=== PATIENT | male | born 1945 | race Caucasian/White ===

== ENCOUNTER 2017-05-14 07:56 | Inpatient (IN) | payer MEDICARE, MEDICAID ==
[~2017-05-14] VITALS: Ht 162.6 cm; Wt 65.0 kg
[2017-05-14] VITALS (51 sets, daily range): BP systolic 78–123; BP diastolic 43–82
[~2017-05-14 07:56] MED LIST changes: -LUTE6CAP11 PO
--- NOTE | 2017-05-14 07:58 | ER Report ---
History and Physical Time Seen By MD: 07:57 HPI/ROS CC: Altered mental status HPI: 71-year-old male with a past medical history of pneumonia, aspiration, dementia , hyperlipidemia, hypernatremia, GERD, acute respiratory failure, cellulitis, cholecystitis, hypertension, diabetes mellitus type II, fragile X syndrome and male. Patient presents to the emergency department per EMS with decreased level of consciousness. He was in the emergency department on 05/03/2017. At that time he was diagnosed with cellulitis of the right lower extremity. He was placed on Bactrim which she has taken in the past. He was then returned to the nursing care facility where he resides. Yesterday he was slightly slow and his mental processing from his baseline. Today's unresponsive. He is slightly hypotensive. He has a respiratory rate of 44. He is febrile. And definitely is obtunded. Pupils are reactive but are deviated to the left. I do not appreciate doll's eyes. EMS reported dark emesis but did not specifically say they were coffee-ground emesis. He has had aspiration pneumonia in the past. ROS: 12 point review of systems essentially negative other than what's mentioned in history of present illness. NURSES AND OLD MEDICAL RECORDS: Reviewed PMH: Reviewed SURGICAL HX: Reviewed FAMILY HX: Noncontributory SOCIAL HX: His nursing care facility. Denies alcohol or illicit drugs or smoking. VITAL SIGNS: Temperature 101.0 rectal, pulse 74, respiratory rate 44, blood pressure 93/51, pulse oximetry 93% on 15 L nonrebreather CONSTITUTIONAL: 71-year-old male who is definitely obtunded. PHYSICAL EXAM: HEENT: Pupils equal round reactive to light deviated to the left, I do not appreciate doll's eyes, tympanic membranes pearly white umbo present with good light reflex. Lips dry mucous membranes moist gums nonbleeding uvula midline and rises equally with phonation, oropharynx noninjected, teeth intact. NECK: Neck supple, thyroid not appreciated, anterior and posterior cervical lymphadenopathy not appreciated. Trachea midline and rises equally with phonation. CARDIAC: S1-S2 regular rate rhythm no murmurs rubs or gallops. LUNGS: Lungs decreased air movement and coarse bilaterally posteriorly in all olsen. ABDOMEN: Abdomen soft, nondistended, bowel sounds active in all 4 quadrants, no bruits noted, no CVA tenderness. MUSCULOSKELETAL: Strength unable to measure due to patient obtunded, no deformities noted. Right lower extremity with cellulitis. Right lower leg edema to the thigh 2+. NEUROLOGIC: Patient alert and oriented by 3 Allergies: Coded Allergies: Penicillins (Verified Allergy, Mild, 05/14/17) chlorpromazine (Verified Allergy, Mild, 05/14/17) Home Meds Active Scripts Sulfamethoxazole/Trimet 800-160 Mg Tab (BACTRIM DS TABLET) 1 Each Tablet, 1 TAB PO Q12H, #13 TAB Prov:VIVI BABB DIRECTOR PRIVATE 05/03/17 Clindamycin Hcl (CLINDAMYCIN HCL) 150 Mg Capsule, 300 MG PO QID, #20 CAPSULE Prov:RICHARD HERNANDEZ DO 06/03/16 Reported Medications Bupropion Hcl (BUPROPION XL) 150 Mg Tab.er.24h, 150 MG PO QDAY, #10 TAB 05/03/17 Doxazosin Mesylate (DOXAZOSIN MESYLATE) 2 Mg Tablet, 2 MG PO QDAY 05/03/17 Sodium Chloride (SODIUM CHLORIDE) 1,000 Mg Tablet.jacob, 1000 MG MC 05/03/17 Lutein Extract/Zeaxanthin Ext (LUTEIN 15 MG SOFTGEL) 1 Each Capsule, 1 EACH PO BID, CAPSULE 06/02/16 Magnesium Hydroxide (MILK OF MAGNESIA) 400 Mg/5 Ml Oral.susp, 30 ML PO PRN Y for CONSTIPATION, BOTTLE 06/02/16 Lactose-Free Food (ENSURE LIQUID) 237 Ml Liquid, 237 ML PO DAILY 06/02/16 Lactulose (CONSTULOSE) 10 Gm/15 Ml Solution, 30 ML PO TID Y for CONSTIPATION 06/02/16 Calcium Carbonate/Vitamin D3 (CALCIUM + VITAMIN D TABLET) 1 Each Tablet, 2 EACH PO DAILY 06/02/16 [bacitracin opthalmic] No Conflict Check, 500 OP BID 06/02/16 Sodium Chloride (SODIUM CHLORIDE) 1 Gm Tab, 1 GM PO DAILY, TAB 06/02/16 [valproic acid] No Conflict Check, 500 MG PO HS for hiccups 06/02/16 Bupropion Hcl (BUPROPION HCL) 75 Mg Tablet, 150 MG PO QDAY, #10 TAB 03/15/16 Doxazosin Mesylate (DOXAZOSIN MESYLATE) 2 Mg Tablet, 2 MG PO QDAY 03/15/16 Ranitidine Hcl (ZANTAC) 150 Mg Tablet, 150 MG PO BID, TAB 03/15/16 Calcium Carbonate/Mag Hydrox (Antacid 1000-200 mg Tab Chew) 1 Each Tab.chew, 1000 MG PO PRN 05/26/15 Bacitracin Zinc (Bacitracin Zinc) 1 Each Oint..ea., 1 CARMELO TP PRN 05/02/15 Baclofen (BACLOFEN) 10 Mg Tablet, 10 MG PO PRN Y for HICCUPS, #30 TAB every 6 hours as needed. Only 2 in 24 hours 05/02/15 Valsartan (DIOVAN) 160 Mg Tablet, 160 MG PO QDAY 04/07/15 Fesoterodine Fumarate (TOVIAZ) 4 Mg Tabsr, 4 MG PO DAILY 03/21/15 Cetyl Alc/Stearyl Alc/Pg/Sls (CETAPHIL CREAM) 454 Gm Cream..g., 454 GM TP DAILY dry skin on feet 03/21/15 Loperamide Hcl/Simethicone (IMODIUM MULTI-SYMPTOM REL CPLT) 1 Each Tablet, 4 MG PO Y for DIARRHEA after 2 consecutive loose stools 03/21/15 Valproic Acid (VALPROIC ACID) 250 Mg Cap, 250 MG PO TID, CAP 01/28/14 Atenolol (ATENOLOL) 100 Mg Tablet, 1 TAB PO QDAY, TAB TAKE ONE TABLET BY MOUTH ONCE A DAY at 6PM 01/28/14 Acetaminophen (ACETAMINOPHEN) 500 Mg Tablet, 2 TAB PO Q4-6H Y for PAIN, TAB 01/28/14 Multivitamin (ONE DAILY) 1 Each Tablet, 1 EACH PO DAILY 01/14/14 Ezetimibe (Zetia) 10 Mg Tab, 10 MG PO QHS, 0 Refills 06/20/11 Aspirin (Aspirin) 325 Mg Tab, 325 MG PO QDAY, 0 Refills 06/20/11 Hx Smoking: No Smoking Status: Never Smoker Hx Substance Use Disorder: No Hx Alcohol Use: No Constitutional Vital Sign - Last 24 Hours 05/14/17 05/14/17 05/14/17 05/14/17 07:56 07:57 08:00 08:07 Temp 101.0 Pulse 76 74 Resp 42 44 B/P (MAP) 93/51 94/54 (67) Pulse Ox 91 93 O2 Delivery Non-Rebreather O2 Flow Rate 15.0 Intake and Output 1205/14/17 05/15/17 15:00 23:00 07:00 Intake Total 1200 ml Output Total 200 ml Balance 1000 ml Medical Decision Making Data Points Result Diagram: 05/14/1718 05/14/1718 Laboratory Hematology Test 05/14/17 07:55 05/14/17 08:18 05/14/17 08:40 05/14/17 09:08 Prothrombin Time 14.9 seconds (12.0-14.4) Prothromb Time International Ratio 1.16 Activated Partial Thromboplast Time 32 seconds (23-35) Lactate 2.1 mmol/L (0.7-2.1) Magnesium Level 2.2 mg/dl (1.7-2.2) B-Type Natriuretic Peptide 1270 pg/ml (0-100) Amylase Level < 30 U/L (0-110) Lipase 14 U/L (23-300) Red Blood Count 4.02 M/uL (4.00-5.60) Mean Corpuscular Volume 95.6 fL (80.0-96.0) Mean Corpuscular Hemoglobin 32.4 pg (26.0-33.0) Mean Corpuscular Hemoglobin Concent 33.9 g/dL (32.0-36.0) Red Cell Distribution Width 15.0 % (11.5-14.5) Mean Platelet Volume 9.2 fL (7.2-11.1) Neutrophils (%) (Auto) 73.2 % (39.4-72.5) Lymphocytes (%) (Auto) 22.9 % (17.6-49.6) Monocytes (%) (Auto) 3.8 % (4.1-12.4) Eosinophils (%) (Auto) 0.0 % (0.4-6.7) Basophils (%) (Auto) 0.1 % (0.3-1.4) Nucleated RBC Relative Count (auto) 0.3 /100WBC Neutrophils # (Auto) 3.9 K/uL (2.0-7.4) Lymphocytes # (Auto) 1.2 K/uL (1.3-3.6) Monocytes # (Auto) 0.2 K/uL (0.3-1.0) Eosinophils # (Auto) 0.0 K/uL (0.0-0.5) Basophils # (Auto) 0.0 K/uL (0.0-0.1) Nucleated RBC Absolute Count (auto) 0.02 K/uL Erythrocyte Sedimentation Rate 55 mm/HOUR (0-20) Sodium Level 131 mmol/L (137-145) Potassium Level 4.3 mmol/L (3.5-5.0) Chloride Level 102 mmol/L (98-107) Carbon Dioxide Level 21 mmol/L (22-30) Blood Urea Nitrogen 55 mg/dl (9-21) Creatinine 1.90 mg/dl (0.66-1.25) Glomerular Filtration Rate Calc 35.1 Random Glucose 147 mg/dl (75-110) Calcium Level 8.0 mg/dl (8.4-10.2) Total Bilirubin 0.8 mg/dl (0.2-1.3) Aspartate Amino Transf (AST/SGOT) 28 U/L (0-35) Alanine Aminotransferase (ALT/SGPT) 31 U/L (0-56) Alkaline Phosphatase 45 U/L (0-126) C-Reactive Protein 18.0 mg/dl (<1.0) Total Protein 4.9 gm/dl (6.3-8.2) Albumin 2.2 g/dl (3.5-5.0) Blood Gas Puncture Site Right radial Blood Gas Patient Temperature 101 DEGREES Arterial Blood pH 7.40 (7.35-7.45) Arterial Blood Partial Pressure CO2 29 mmHg (32-37) Arterial Blood Partial Pressure O2 109 mmHg (60-80) Arterial Blood HCO3 18 mmol/L (20-26) Arterial Blood Oxygen Saturation 98 % (92-100) Arterial Blood Base Excess -7.0 mmol/L Gallo Test Nt avail Oxygen Liters/Minute 15l Troponin I 0.030 ng/ml Urine Color Yudi Urine Clarity Slightly-cloudy Urine pH 5.0 pH (4.8-9.5) Urine Specific [place] 1.019 Urine Protein Negative mg/dL (NEGATIVE) Urine Glucose (UA) 50 mg/dL (NEGATIVE) Urine Ketones Negative mg/dL (NEGATIVE) Urine Blood Negative (NEGATIVE) Urine Nitrite Negative (NEGATIVE) Urine Bilirubin Negative (NEGATIVE) Urine Urobilinogen 2.0 mg/dL (0.2-1.9) Urine Leukocyte Esterase Negative (NEGATIVE) Urine RBC <1 /HPF (0-2/HPF) Urine WBC 2 /HPF (0-5/HPF) Urine Squamous Epithelial Cells None /LPF (NONE-FEW) Urine Bacteria Few /HPF (NONE-FEW) Urine Hyaline Casts Many /LPF (NONE-FEW) Urine Mucus Few /HPF (NONE-FEW) Stool Occult Blood (IFOB) Negative (NEGATIVE) Chemistry Test 05/14/17 07:55 05/14/17 08:18 05/14/17 08:40 05/14/17 09:08 Prothrombin Time 14.9 seconds (12.0-14.4) Prothromb Time International Ratio 1.16 Activated Partial Thromboplast Time 32 seconds (23-35) Lactate 2.1 mmol/L (0.7-2.1) Magnesium Level 2.2 mg/dl (1.7-2.2) B-Type Natriuretic Peptide 1270 pg/ml (0-100) Amylase Level < 30 U/L (0-110) Lipase 14 U/L (23-300) White Blood Count 5.3 k/uL (4.5-11.0) Red Blood Count 4.02 M/uL (4.00-5.60) Hemoglobin 13.0 g/dL (14.0-18.0) Hematocrit 38.5 % (42.0-52.0) Mean Corpuscular Volume 95.6 fL (80.0-96.0) Mean Corpuscular Hemoglobin 32.4 pg (26.0-33.0) Mean Corpuscular Hemoglobin Concent 33.9 g/dL (32.0-36.0) Red Cell Distribution Width 15.0 % (11.5-14.5) Platelet Count 306 K/uL (150-450) Mean Platelet Volume 9.2 fL (7.2-11.1) Neutrophils (%) (Auto) 73.2 % (39.4-72.5) Lymphocytes (%) (Auto) 22.9 % (17.6-49.6) Monocytes (%) (Auto) 3.8 % (4.1-12.4) Eosinophils (%) (Auto) 0.0 % (0.4-6.7) Basophils (%) (Auto) 0.1 % (0.3-1.4) Nucleated RBC Relative Count (auto) 0.3 /100WBC Neutrophils # (Auto) 3.9 K/uL (2.0-7.4) Lymphocytes # (Auto) 1.2 K/uL (1.3-3.6) Monocytes # (Auto) 0.2 K/uL (0.3-1.0) Eosinophils # (Auto) 0.0 K/uL (0.0-0.5) Basophils # (Auto) 0.0 K/uL (0.0-0.1) Nucleated RBC Absolute Count (auto) 0.02 K/uL Erythrocyte Sedimentation Rate 55 mm/HOUR (0-20) Glomerular Filtration Rate Calc 35.1 Calcium Level 8.0 mg/dl (8.4-10.2) Total Bilirubin 0.8 mg/dl (0.2-1.3) Aspartate Amino Transf (AST/SGOT) 28 U/L (0-35) Alanine Aminotransferase (ALT/SGPT) 31 U/L (0-56) Alkaline Phosphatase 45 U/L (0-126) C-Reactive Protein 18.0 mg/dl (<1.0) Total Protein 4.9 gm/dl (6.3-8.2) Albumin 2.2 g/dl (3.5-5.0) Blood Gas Puncture Site Right radial Blood Gas Patient Temperature 101 DEGREES Arterial Blood pH 7.40 (7.35-7.45) Arterial Blood Partial Pressure CO2 29 mmHg (32-37) Arterial Blood Partial Pressure O2 109 mmHg (60-80) Arterial Blood HCO3 18 mmol/L (20-26) Arterial Blood Oxygen Saturation 98 % (92-100) Arterial Blood Base Excess -7.0 mmol/L Gallo Test Nt avail Oxygen Liters/Minute 15l Troponin I 0.030 ng/ml Urine Color Yudi Urine Clarity Slightly-cloudy Urine pH 5.0 pH (4.8-9.5) Urine Specific [place] 1.019 Urine Protein Negative mg/dL (NEGATIVE) Urine Glucose (UA) 50 mg/dL (NEGATIVE) Urine Ketones Negative mg/dL (NEGATIVE) Urine Blood Negative (NEGATIVE) Urine Nitrite Negative (NEGATIVE) Urine Bilirubin Negative (NEGATIVE) Urine Urobilinogen 2.0 mg/dL (0.2-1.9) Urine Leukocyte Esterase Negative (NEGATIVE) Urine RBC <1 /HPF (0-2/HPF) Urine WBC 2 /HPF (0-5/HPF) Urine Squamous Epithelial Cells None /LPF (NONE-FEW) Urine Bacteria Few /HPF (NONE-FEW) Urine Hyaline Casts Many /LPF (NONE-FEW) Urine Mucus Few /HPF (NONE-FEW) Stool Occult Blood (IFOB) Negative (NEGATIVE) Coagulation Test 05/14/17 07:55 Prothrombin Time 14.9 seconds Prothromb Time International Ratio 1.16 Activated Partial Thromboplast Time 32 seconds Urinalysis Test 05/14/17 09:08 Urine Color Yudi Urine Clarity Slightly-cloudy Urine pH 5.0 pH (4.8-9.5) Urine Specific [place] 1.019 Urine Protein Negative mg/dL (NEGATIVE) Urine Glucose (UA) 50 mg/dL (NEGATIVE) Urine Ketones Negative mg/dL (NEGATIVE) Urine Blood Negative (NEGATIVE) Urine Nitrite Negative (NEGATIVE) Urine Bilirubin Negative (NEGATIVE) Urine Urobilinogen 2.0 mg/dL (0.2-1.9) Urine Leukocyte Esterase Negative (NEGATIVE) Urine RBC <1 /HPF (0-2/HPF) Urine WBC 2 /HPF (0-5/HPF) Urine Squamous Epithelial Cells None /LPF (NONE-FEW) Urine Bacteria Few /HPF (NONE-FEW) Urine Hyaline Casts Many /LPF (NONE-FEW) Urine Mucus Few /HPF (NONE-FEW) Microbiology Microbiology Date/Time Source Procedure Growth Status 05/14/17 08:40 Blood Blood Culture - Preliminary NO GROWTH SO FAR, SET LATE. REINCUBATED Resulted 05/14/17 08:10 Blood Blood Culture - Preliminary NO GROWTH SO FAR, SET LATE. REINCUBATED Resulted EKG/Imaging EKG Interpretation Normal sinus rhythm, ventricular rate 72 bpm, ME interval 176 ms, QRS duration 88 ms, QT 380 ms, QTC 416 ms. No significant change from previous ECG on 2016. Possible lead alterations from previous ECG as before and V3 are positive today as they were negative and 06/02/2016. But no significant change in morphology. Imaging CT of the head: Impression: 1. No evidence of infarct hemorrhage mass or fracture. 2. Age-related cerebral volume loss. CT chest and pelvis with IV contrast: IMPRESSION: 1. Diffuse patchy airspace opacities and consolidation right lung, with patchy opacities in left lung base. Differential diagnosis favors pneumonia. 2. Mediastinal and right hilar adenopathy, most consistent with reactive lymphadenopathy. 3. Nondisplaced fracture of the transverse process right side at L2 L3 L4, and nondisplaced fracture posterior spinous process of L4. 4. Small loculated fluid collection in the right groin. Differential diagnosis includes bladder diverticulum, or right-sided inguinal hernia. ED Course/Re-evaluation ED Course Patient appears to be with aspiration pneumonia and also with sepsis. Patient received 1.5 L normal saline. Patient was intubated after I talked with the nephew. I related to him that this did not look as though it's end-of-life. Intubation is for protection of the airway is Ledger Coma Scale is a 7. And he does appear to have aspiration pneumonia. He agrees to the intubation. Patient also received meropenem 500 mg. Labs with blood cultures have been done. Occult stool is pending. I had given report to Dr. Montes, hospitalist. He has a monitor is placed on patient. Mallampati 3. Suction in place. Patient preoxygenated. Rapid sequence induction was performed. Intubation by 1 without difficulty. 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 #3 Aranda blade was utilized. Patient was intubated with 8.0 ET tube. Cords were visualized. Bilateral breath sounds with end tidal CO2 present. ET tube 22-1/2 cm at lip. Tube was secured. NG right Humphries after being warmed and lubricated was placed without difficulty. There sound present in left upper quadrant of abdomen. No complications noted. Patient will be transferred to ICU. Re-evaluation Medical decision-making includes but not excluded to aspiration pneumonia, cellulitis versus abscess, combination of the 2, intercerebral hemorrhage. Decision to Disposition Date: May 14, 2017 Decision to Disposition Time: 10:15 Depart Departure Latest Vital Signs Vital Signs Date Time Temp Pulse Resp B/P (MAP) Pulse Ox O2 Delivery O2 Flow Rate FiO2 05/14/17 08:07 15.0 05/14/17 08:00 94/54 (67) 05/14/17 07:57 101.0 74 44 93 Non-Rebreather Impression: Primary Impression: Acute respiratory failure Additional Impressions: Sepsis Aspiration pneumonia Condition: Improved Disposition: Admitted from ER Referrals: LEXII JUSTIN MD (PCP) Problem Qualifiers Primary Impression: Acute respiratory failure Respiratory failure complication: unspecified whether with hypoxia or hypercapnia Qualified Codes: J96.00 - Acute respiratory failure, unspecified whether with hypoxia or hypercapnia Additional Impressions: Sepsis Sepsis type: sepsis due to unspecified organism Qualified Codes: A41.9 - Sepsis, unspecified organism FADIA AMES MD May 14, 2017 07:58
[2017-05-14] MEDS ORDERED: ACETAMINOPHEN(*)1000 MG/100 ML 100 ML IVPB ONE (08:05)
[2017-05-14] MEDS ORDERED: NS(*) 0.9% 1000 ML BAG 1,000 ML IV ONE (08:05)
[2017-05-14] MEDS ORDERED: NS(*) 0.9% 500 ML BAG 500 ML IV ONE (08:05)
--- NOTE | 2017-05-14 08:22 | EKG ---
FACILITY: [facility] - [place] PATIENT NAME: PAMELA JAMES : [id number] MR: [id number] V: [id number] EXAM DATE: ORDERING PHYSICIAN: FADIA AMES TECHNOLOGIST: LOBIOT Test Reason : AMS Blood Pressure : / mmHG Vent. Rate : 072 BPM Atrial Rate : 072 BPM P-R Int : 176 ms QRS Dur : 088 ms QT Int : 380 ms P-R-T Axes : 052 020 037 degrees QTc Int : 416 ms Normal sinus rhythm Normal ECG When compared with ECG of 02-JUN-2016 05:38, Non-specific change in ST segment in Inferior leads Confirmed by RICHARD HERNANDEZ ([id number]) on 05/15/2017 3:03:27 PM Referred By: KWAKU Confirmed By:RICHARD HERNANDEZ
[2017-05-14 08:26] LABS: PLATELET COUNT, AUTOMATED 306 K/uL (150-450)
[2017-05-14] MEDS ORDERED: NS 0.9% IVPB ONE ×2 (08:30→08:50)
[2017-05-14] MEDS ORDERED: EMS NS 0.9%(*) 1000 ML BAG 1,000 ML IV ONE (08:30)
[2017-05-14] MEDS ORDERED: MEROPENEM IVPB ONE ×2 (08:30→08:50)
[2017-05-14] MEDS ORDERED: NS 0.9% 50 ML VIAL 100 ML ONE (08:32)
[2017-05-14] MEDS ORDERED: IOPAMIDOL 76% 100 ML INFUS BTL 100 ML ONE (08:32)
[2017-05-14 09:07] LABS: INR 1.16
--- NOTE | 2017-05-14 09:32 | RADIOLOGY IMAGING REPORT ---
FACILITY: [facility] - [place] PATIENT NAME: Glen Jones : 1945 MR: [id number] V: [id number] EXAM DATE: ORDERING PHYSICIAN: FADIA AMES TECHNOLOGIST: Location: [facility] Patient: Glen Jones : 1945 Visit/Account:[id number] Date of Sevice: 05/14/2017 HEAD W/O CONTRAST Indication: FEVER Comparison: Head CT 04/16/2015 Technique: Noncontrast head CT vertex to the skull base obtained. One of the following dose optimizat ion techniques was utilized in the performance of this exam: automated exposure control; adjustment o f the mA and/or kV according to the patient's size; or use of an iterative reconstruction technique. Specific details can be referenced in the facility's radiology CT exam operational policy. Findings: Brain: Galvan-white matter differentiation and cortex are maintained. Ventricles and sulci: The ventricles and sulci are symmetrically prominent. Paranasal sinuses:Visualized paranasal sinuses and mastoid air cells are clear. Calvarium:Bones of the skull and skull base are intact. Orbits and soft tissues: Right and left globes and soft tissues of the head are normal. Impression: 1. No evidence of infarct hemorrhage mass or fracture. 2. Age-related cerebral volume loss. Report Dictated By: Nikolay Newby at 05/14/2017 9:25 AM Report E-Signed By: Nikolay Newby at 05/14/2017 9:28 AM WSN:[id number]
--- NOTE | 2017-05-14 09:41 | RADIOLOGY IMAGING REPORT ---
FACILITY: [facility] - [place] PATIENT NAME: Glen Jones : 1945 MR: [id number] V: [id number] EXAM DATE: ORDERING PHYSICIAN: FADIA AMES TECHNOLOGIST: Location: [facility] - [place] Patient: Glen Jones : 1945 Visit/Account:[id number] Date of Sevice: 05/14/2017 CHEST/AB/PELV W/CONTRAST HISTORY: decreased level of consciousness TECHNIQUE: CT thoracic inlet to the pubic symphysis was obtained with IV contrast.. One of the following dose optimization techniques was utilized in the performance of this exam: autom ated exposure control; adjustment of the mA and/or kV according to the patient's size; or use of an i terative reconstruction technique. Specific details can be referenced in the facility's radiology CT exam operational policy. CONTRAST: 100 cc [id number] IV. COMPARISON: None. FINDINGS: CHEST: Lungs/pleura: Right lung patchy airspace opacities and lower lobe consolidations are seen. Minimal l eft lower lobe airspace opacities are also seen. The left upper lobe is clear. Mediastinum: The heart size is normal. Subcarinal, precarinal, AP window, and right paratracheal lym phadenopathy is seen. Right hilar adenopathy is also noted. Bones/soft tissues: Negative. ABDOMEN/PELVIS: Liver/gallbladder: There are postoperative changes from cholecystectomy. The liver demonstrates norm al enhancement. Spleen: Normal. Adrenals: Normal. Pancreas: Normal enhancement without evidence of mass. Kidneys/: Both kidneys demonstrate normal enhancement without evidence of hydronephrosis or mass. The urinary bladder is normal. Pelvis/Bladder: Urinary bladder is normal. GI: Large amount of stool is seen throughout the colon, specifically large amount of stool is seen i n the rectum. Small bowel is normal caliber. Stomach is normal. In the right inguinal region, there is a 2.9 cm fluid collection. Vessels/nodes: Negative. Bones/soft tissues: Nondisplaced fracture of the right transverse process and L2, L3, L4. Nondisplac ed fracture of the posterior spinous process at L4. The vertebral bodies are intact. On the sagittal reconstructions, sterile has the appearance of fracture, however it is motion artifact. The sternum i s intact., IMPRESSION: 1. Diffuse patchy airspace opacities and consolidation right lung, with patchy opacities in left lung base. Differential diagnosis favors pneumonia. 2. Mediastinal and right hilar adenopathy, most consistent with reactive lymphadenopathy. 3. Nondisplaced fracture of the transverse process right side at L2 L3 L4, and nondisplaced fracture posterior spinous process of L4. 4. Small loculated fluid collection in the right groin. Differential diagnosis includes bladder diver ticulum, or right-sided inguinal hernia. Report Dictated By: Nikolay Newby at 05/14/2017 9:28 AM Report E-Signed By: Nikolay Newby at 05/14/2017 9:37 AM WSN:[id number]
[2017-05-14] MEDS: PROPOFOL(*)1000 MG/100 ML VIAL 100 ML IV PRN (10:08)
[2017-05-14] MEDS ORDERED: SUCCINYLCHOL CHL 200MG/10ML VL IVP ONE (11:00)
[2017-05-14] MEDS ORDERED: ROCURONIUM BROM 10 MG/ML 5 ML IVP ONE (11:00)
[2017-05-14] MEDS ORDERED: ETOMIDATE 20 MG/10 ML VIAL IVP ONE (11:00)
--- NOTE | 2017-05-14 11:37 | History & Physical ---
History of Present Illness Chief Complaint Altered Mental Status History of Present Illness Mr. Jones is a 71-year-old male with a past medical history of HTN, DM-II, GERD , Fragile X Syndrome, Dyslipidemia, Dementia, Recurrent Aspirational Pneumonias and he was recently discharged from [facility] after having nausea and ?coffee ground emesis and was scoped by Dr. Ayon and found to have Jaylyn Esophagitis and received Fluconazole 2 doses in the hospital and he felt better. He was d/c' d home for 20 days Fluconazole but he developed AMS and aspirated and presented to the ER at [facility] with AMS. He was also in the emergency department on 2016. At that time he was diagnosed with cellulitis of the right lower extremity. He was placed on Bactrim which she has taken in the past. He was then returned to the nursing care facility where he resides. Yesterday he was slightly slow and his mental processing from his baseline. Today's unresponsive. He was slightly hypotensive. During the ER evaluation he found to have a respiratory rate of 44. He was febrile Temp.101F and definitely was obtunded, He looked sepsis in theER. His GCS was 7. He was prophylactically intubated in the ER to protect his airways because of his obtundation and aspiration. His EKG and CT Scan of the head were normal. His CT A/P revealed diffuse patchy airspace opacities and consolidation of R-Lung and L-base. After stabilizing the patient. I discussed the case with the ER-MD and admitted the patient to the ICU for further evaluation and management. He is currently on SIMV 14, TV 500, Peep 8 and FiO2 100% and well sedated. History Home Meds Active Scripts Sulfamethoxazole/Trimet 800-160 Mg Tab (BACTRIM DS TABLET) 1 Each Tablet, 1 TAB PO Q12H, #13 TAB Prov:VIVI BABB DIRECTOR [employer] 05/03/17 Clindamycin Hcl (CLINDAMYCIN HCL) 150 Mg Capsule, 300 MG PO QID, #20 CAPSULE Prov:RICHARD HERNANDEZ DO 06/03/16 Reported Medications Bupropion Hcl (BUPROPION XL) 150 Mg Tab.er.24h, 150 MG PO QDAY, #10 TAB 05/03/17 Doxazosin Mesylate (DOXAZOSIN MESYLATE) 2 Mg Tablet, 2 MG PO QDAY 05/03/17 Sodium Chloride (SODIUM CHLORIDE) 1,000 Mg Tablet.jacob, 1000 MG MC 05/03/17 Lutein Extract/Zeaxanthin Ext (LUTEIN 15 MG SOFTGEL) 1 Each Capsule, 1 EACH PO BID, CAPSULE 06/02/16 Magnesium Hydroxide (MILK OF MAGNESIA) 400 Mg/5 Ml Oral.susp, 30 ML PO PRN Y for CONSTIPATION, BOTTLE 06/02/16 Lactose-Free Food (ENSURE LIQUID) 237 Ml Liquid, 237 ML PO DAILY 06/02/16 Lactulose (CONSTULOSE) 10 Gm/15 Ml Solution, 30 ML PO TID Y for CONSTIPATION 06/02/16 Calcium Carbonate/Vitamin D3 (CALCIUM + VITAMIN D TABLET) 1 Each Tablet, 2 EACH PO DAILY 06/02/16 [bacitracin opthalmic] No Conflict Check, 500 OP BID 06/02/16 Sodium Chloride (SODIUM CHLORIDE) 1 Gm Tab, 1 GM PO DAILY, TAB 06/02/16 [valproic acid] No Conflict Check, 500 MG PO HS for hiccups 06/02/16 Bupropion Hcl (BUPROPION HCL) 75 Mg Tablet, 150 MG PO QDAY, #10 TAB 03/15/16 Doxazosin Mesylate (DOXAZOSIN MESYLATE) 2 Mg Tablet, 2 MG PO QDAY 03/15/16 Ranitidine Hcl (ZANTAC) 150 Mg Tablet, 150 MG PO BID, TAB 03/15/16 Calcium Carbonate/Mag Hydrox (Antacid 1000-200 mg Tab Chew) 1 Each Tab.chew, 1000 MG PO PRN 05/26/15 Bacitracin Zinc (Bacitracin Zinc) 1 Each Oint..ea., 1 CARMELO TP PRN 05/02/15 Baclofen (BACLOFEN) 10 Mg Tablet, 10 MG PO PRN Y for HICCUPS, #30 TAB every 6 hours as needed. Only 2 in 24 hours 05/02/15 Valsartan (DIOVAN) 160 Mg Tablet, 160 MG PO QDAY 04/07/15 Fesoterodine Fumarate (TOVIAZ) 4 Mg Tabsr, 4 MG PO DAILY 03/21/15 Cetyl Alc/Stearyl Alc/Pg/Sls (CETAPHIL CREAM) 454 Gm Cream..g., 454 GM TP DAILY dry skin on feet 03/21/15 Loperamide Hcl/Simethicone (IMODIUM MULTI-SYMPTOM REL CPLT) 1 Each Tablet, 4 MG PO Y for DIARRHEA after 2 consecutive loose stools 03/21/15 Valproic Acid (VALPROIC ACID) 250 Mg Cap, 250 MG PO TID, CAP 01/28/14 Atenolol (ATENOLOL) 100 Mg Tablet, 1 TAB PO QDAY, TAB TAKE ONE TABLET BY MOUTH ONCE A DAY at 6PM 01/28/14 Acetaminophen (ACETAMINOPHEN) 500 Mg Tablet, 2 TAB PO Q4-6H Y for PAIN, TAB 01/28/14 Multivitamin (ONE DAILY) 1 Each Tablet, 1 EACH PO DAILY 01/14/14 Ezetimibe (Zetia) 10 Mg Tab, 10 MG PO QHS, 0 Refills 06/20/11 Aspirin (Aspirin) 325 Mg Tab, 325 MG PO QDAY, 0 Refills 06/20/11 Allergies: Coded Allergies: Penicillins (Verified Allergy, Mild, 05/14/17) chlorpromazine (Verified Allergy, Mild, 05/14/17) Patient History: FH: cancer pt doesn't know. FH: diabetes mellitus pt doesn't know. FHx: heart disease pt doesn't know. Hx Smoking: No Smoking Status: Never Smoker Caffeine Intake: Soda Caffeine/Cups Per Day: RARELY Hx Alcohol Use: No Hx Substance Use Disorder: No Social Drug Use: Never Review of Systems Constitutional: Other (Intubated and sedated, I could not obtain ROS) Exam Vital Signs Vital Signs Date Time Temp Pulse Resp B/P (MAP) Pulse Ox O2 Delivery O2 Flow Rate FiO2 05/14/17 15:42 80.0 05/14/17 13:28 61 14 05/14/17 10:25 89 05/14/17 10:20 99/55 (70) 05/14/17 08:07 15.0 05/14/17 07:57 101.0 Non-Rebreather General Appearance: Other (intubated and sedated) Neuro: No Gross deficits Neck: No Masses Cardiovascular: Normal Rhythm & Peripheral Pulses Respiratory: Clear to Auscultation, Other (few basilar rales) Chest: No Masses GI: Abd Soft and Non-Tender Integumentary: Skin Intact without Lesion / Mass Psych: Other (sedated) Medical Decision Making Data Points Result Diagram: 05/14/1718 05/14/1718 EKG / Imaging Monitor Interpretation: Normal Sinus Rhythm Imaging reviewed Pre-Admit Course ED Medications reviewed Medical Record Review: Yes Assessment and Plan Problems: (1) Aspiration pneumonia Status: Acute Assessment & Plan: Patient is intubated and sedated to protect the airways. He was recently hospitalized and underwent EGD and now aspirated. I will cover him with Meropenem 1gm IV q12h, Levaquin 500mg IV q daily. I will provided DVT prophylaxis with Heparin 5000units q8h, Protonix 40mg IV qd, and repeat labs in am. (2) Acute respiratory failure Status: Acute Assessment & Plan: He is intubated, sedated with Propofol and ventilated with the Settings: SIMV 14, TV 500, Peep 8, FiO2 100% for now and I will do ABG to further evaluate his respiratory status. (3) Acute kidney injury Status: Acute Assessment & Plan: His BUN/Cr is high and represent pre renal azotemia and I will start him on IVF NS 100ml/h and repeat his kidney function. (4) DMII (diabetes mellitus, type 2) Status: Chronic Assessment & Plan: I will check his BS q 6h and cover him with Humolog sliding scale II Central Venous Access Medical Necessity for Access: Hemodynamic Monitoring, IV Access, Medication Administration Critical Time Spent: 1st 30-74 Minutes Copies to: RICHARD WHYTE MD Venous Thromboembolism VTE Risk Physician Assess for VTE Risk: Yes Patient's VTE Risk: High VTE Diagnostic Test 2 Days Prior to Admit: No Antithrombotics Is Pt On Any Antithrombotics?: No Exam Sepsis Risk: Severe Sepsis Risk Problem Qualifiers (1) Acute respiratory failure: Respiratory failure complication: unspecified whether with hypoxia or hypercapnia Qualified Codes: J96.00 - Acute respiratory failure, unspecified whether with hypoxia or hypercapnia CODEY CHAUDHRY MD May 14, 2017 11:37
--- NOTE | 2017-05-14 12:06 | RADIOLOGY IMAGING REPORT ---
FACILITY: [facility] - [place] PATIENT NAME: Glen Jones : 1945 MR: [id number] V: [id number] EXAM DATE: ORDERING PHYSICIAN: FADIA AMES TECHNOLOGIST: Location: [facility] Patient: Glen Jones : 1945 Visit/Account:[id number] Date of Sevice: 05/14/2017 EXAMINATION: Portable chest radiograph single view at 05/14/2017 10:07 HISTORY: Line placement. COMPARISON: Chest x-ray dated 05/03/2017. Chest, abdomen, and pelvis CT dated 05/14/2017. FINDINGS: A single portable AP view of the chest is obtained. Lines/tubes: The endotracheal tube terminates 5 cm above the sarah. The enteric tube terminates in the distal esophagus. Lungs/pleura: Extensive patchy consolidation, right greater than left. No pleural effusion or pneumo thorax. Heart: Negative. Mediastinum: Negative. Bony structures/body wall: Negative. IMPRESSION: 1. The enteric tube terminates in the distal esophagus. 2. The endotracheal tube terminates 5 cm above the sarah. 3. Extensive patchy consolidation in the lungs, right greater than left. Report Dictated By: Karlos Latif MD at 05/14/2017 11:59 AM Report E-Signed By: Karlos Latif MD at 05/14/2017 12:03 PM WSN:[id number]
[2017-05-14] MEDS ORDERED: ONDANSETRON 4 MG/2 ML VIAL IVP PRN (12:20)
[2017-05-14] MEDS ORDERED: ACETAMINOPHEN(*)1000 MG/100 ML 100 ML IVPB PRN (12:20)
[2017-05-14] MEDS ORDERED: LEVOFLOXACIN/D5W*500 MG/100 ML 100 ML IVPB ONE (13:00)
[2017-05-14] MEDS: HEPARIN (PORC) 5000 UN/ML VIAL SC SCH ×2 (13:06→21:11)
[2017-05-14] MEDS: NS(*) 0.9% 1000 ML BAG 1,000 ML IV PRN ×3 (13:06→21:14)
[2017-05-14] MEDS: MIDAZOLAM 50 MG/10 ML 1ML VIAL 100 MG in NS(*) 0.9% 100 ML BAG 80 ML IV PRN (17:58)
[2017-05-14] MEDS: ORAL SUCTION/CHLORHX/SWAB KIT MT SCH (21:11)
[2017-05-14] MEDS: SODIUM CHLORIDE IV SCH (21:12)
[2017-05-14] MEDS: MEROPENEM IV SCH (21:12)
[2017-05-15] VITALS (63 sets, daily range): BP systolic 82–132; BP diastolic 43–104; Ht 162.6 cm; Wt 65.0 kg
[2017-05-15] MEDS: NS(*) 0.9% 1000 ML BAG 1,000 ML IV PRN ×3 (04:00→17:47)
[2017-05-15] MEDS: HEPARIN (PORC) 5000 UN/ML VIAL SC SCH (04:33)
[2017-05-15 05:33] LABS: PLATELET COUNT, AUTOMATED 217 K/uL (150-450)
[2017-05-15] MEDS: PROPOFOL(*)1000 MG/100 ML VIAL 100 ML IV PRN (06:17)
--- NOTE | 2017-05-15 06:48 | RADIOLOGY IMAGING REPORT ---
FACILITY: PATIENT NAME: Glen Jones : 1945 MR: [id number] V: [id number] EXAM DATE: ORDERING PHYSICIAN: CODEY CHAUDHRY TECHNOLOGIST: Location: [facility] Patient: Glen Jones : 1945 Visit/Account:[id number] Date of Sevice: 05/15/2017 CHEST SINGLE AP Additional pertinent History: Intubated COMPARISON STUDIES: May 14, 2017 FINDINGS: Support lines and catheters: ET tube 6 centers from the sarah. NG tube seen extending into the stoma ch. EKG wire leads. Lungs and Pleura: Improved aeration in the right lung with the degree of parenchymal opacity lesseni ng conspicuity when compared to the previous study. Heart and vasculature: The perceived perihilar interstitial pulmonary edema change intervally improv ed in the aerated left lung. Blaire and Mediastinum: Negative. Bones and Chest wall: Negative. Upper Abdomen: Negative. IMPRESSION: 1. Improved appearance of what appear to be mild interstitial pulmonary edema change. Improved aerati on in the patchy interstitial alveolar infiltrative change in the right lung. Report Dictated By: Georgi Mack MD at 05/15/2017 6:43 AM Report E-Signed By: Georgi Mack MD at 05/15/2017 6:45 AM WSN:[id number]
[2017-05-15] MEDS: MIDAZOLAM 50 MG/10 ML 1ML VIAL 100 MG in NS(*) 0.9% 100 ML BAG 80 ML IV PRN (08:00)
[2017-05-15] MEDS: PANTOPRAZOLE SOD 40 MG IV VIAL IVP SCH (09:27)
[2017-05-15] MEDS: ENOXAPARIN 30 MG/0.3 ML SYR SC SCH (09:27)
[2017-05-15] MEDS: MEROPENEM IV SCH ×2 (09:27→20:28)
[2017-05-15] MEDS: SODIUM CHLORIDE IV SCH ×2 (09:27→20:28)
[2017-05-15] MEDS: ORAL SUCTION/CHLORHX/SWAB KIT MT SCH ×2 (09:28→20:29)
[2017-05-15] MEDS: LEVOFLOXACIN/D5W 250 MG/50 ML 50 ML IVPB SCH (12:25)
--- NOTE | 2017-05-15 12:28 | Hospitalist Progress Note ---
Subjective Progress Notes Subjective This patient was admitted for aspiration pneumonia and respiratory failure. He had no acute events overnight. Patient Complains of: Cardiovascular: No: Chest Pain Respiratory: No: Shortness of Breath Physical Exam Vital Signs Date Time Temp Pulse Resp B/P (MAP) Pulse Ox O2 Delivery O2 Flow Rate FiO2 05/15/17 11:13 65 17 05/15/17 11:13 98 Mechanical Ventilator 40.0 05/15/17 11:00 99.4 108/54 (72) 05/15/17 02:45 15.0 Intake and Output 05/16/17 07:00 Intake Total 1964.1 ml Output Total 290 ml Balance 1674.1 ml Intake IV Total 1944.1 ml Tube Irrigant 20 ml Output Urine Total 290 ml # Bowel Movements 1 Neuro: Other (Sedated.) Cardiovascular: Regular Rate and Rhythm Respiratory: Other (Bilateral breath sounds present.) GI: Soft and Non-Tender Extremities: No Edema Integumentary: No Cyanosis Result Diagram: 05/15/17 0505/15/17 05 Item Value Date Time Arterial Blood pH 7.33 L 05/15/17 0520 Arterial Blood Partial Pressure CO2 33 mmHg 05/15/17 0520 Arterial Blood Partial Pressure O2 89 mmHg H 05/15/17 0520 Arterial Blood HCO3 17 mmol/L L 05/15/17 0520 Item Value Date Time Blood Culture - Final Resulted 05/14/17 0810 Blood Imaging Chest x-ray reviewed. Monitor Interpretation: Normal Sinus Rhythm Assessment and Plan Problems: (1) Aspiration pneumonia Status: Acute Assessment & Plan: His chest x-ray did show a right sided infiltrate. He has also had a fever and elevated CRP. He is on empiric treatment with meropenem and levofloxacin. One of his blood cultures is now growing a gram negative jackie and gram positive cocci. Vancomycin was added today. A repeat CRP is ordered for the morning. (2) Acute respiratory failure Status: Acute Assessment & Plan: He was intubated in the emergency department. He is receiving propofol and midazolam for sedation. He remains on SIMV today. (3) Acute renal failure Assessment & Plan: He does have an elevated creatinine. We are treating him with IV fluids. A repeat chemistry is ordered for the morning. (4) DMII (diabetes mellitus, type 2) Status: Chronic Assessment & Plan: It does not appear that he is on chronic treatment. We currently have him on sliding scale level #2, but he has not required treatment. (5) Fragile X syndrome in male Status: Chronic Assessment & Plan: He is on multiple psychotropic medications, which have yet to be restarted. Central Venous Access Medical Necessity for Access: Hemodynamic Monitoring, IV Access, Medication Administration Exam Sepsis Risk: No Definite Risk Problem Qualifiers (1) Acute respiratory failure: Respiratory failure complication: unspecified whether with hypoxia or hypercapnia Qualified Codes: J96.00 - Acute respiratory failure, unspecified whether with hypoxia or hypercapnia RICHARD HERNANDEZ DO May 15, 2017 12:28
[2017-05-15] MEDS ORDERED: HYPROMELLOSE 0.4% LUB 15ML BTL OU PRN (12:40)
[2017-05-15] MEDS: VANCOMYCIN(*) 1 GM VIAL 1 GM, VANCOMYCIN (*) 0.5 GM VIAL 0.25 GM in NS(*) 0.9% 250 ML B... IVPB SCH (14:30)
[2017-05-16] VITALS (48 sets, daily range): BP systolic 109–163; BP diastolic 54–88
[2017-05-16] MEDS: NS(*) 0.9% 1000 ML BAG 1,000 ML IV PRN ×2 (00:44→07:48)
[2017-05-16] MEDS: MIDAZOLAM 50 MG/10 ML 1ML VIAL 100 MG in NS(*) 0.9% 100 ML BAG 80 ML IV PRN ×2 (01:38→18:41)
[2017-05-16] MEDS: VANCOMYCIN(*) 1 GM VIAL 1 GM, VANCOMYCIN (*) 0.5 GM VIAL 0.25 GM in NS(*) 0.9% 250 ML B... IVPB SCH ×2 (01:39→14:11)
[2017-05-16] MEDS: PROPOFOL(*)1000 MG/100 ML VIAL 100 ML IV PRN ×2 (04:43→19:43)
--- NOTE | 2017-05-16 06:35 | RADIOLOGY IMAGING REPORT ---
FACILITY: [facility] PATIENT NAME: Glen Jones : 1945 MR: [id number] V: [id number] EXAM DATE: ORDERING PHYSICIAN: RICHARD HERNANDEZ TECHNOLOGIST: Location: [facility] Patient: Glen Jones : 1945 Visit/Account:[id number] Date of Sevice: 05/16/2017 CHEST SINGLE AP Additional pertinent History: Pneumonia intubation COMPARISON STUDIES: 05/15/2017 FINDINGS: Support lines and catheters: ET tube and NG tube reidentified. EKG wire leads seen. Lungs and Pleura: Persistent patchy interstitial/alveolar infiltrative changes throughout the right lung. Minimal bronchitic changes in the left lower lung. Small right effusion. No significant interva l change when compared to the previous study. Heart and vasculature: Negative. Blaire and Mediastinum: Negative. Bones and Chest wall: Negative. Upper Abdomen: Negative. IMPRESSION: 1. No change in the appearance the chest that demonstrates extensive right lung parenchymal opacities .. Stable catheters and tubes Report Dictated By: Georgi Mack MD at 05/16/2017 6:29 AM Report E-Signed By: Georgi Mack MD at 05/16/2017 6:32 AM WSN:[id number]
[2017-05-16 08:48] LABS: PLATELET COUNT, AUTOMATED 234 K/uL (150-450)
[2017-05-16] MEDS: PANTOPRAZOLE SOD 40 MG IV VIAL IVP SCH (09:10)
[2017-05-16] MEDS: ORAL SUCTION/CHLORHX/SWAB KIT MT SCH ×2 (09:12→20:45)
[2017-05-16] MEDS: ENOXAPARIN 30 MG/0.3 ML SYR SC SCH (09:13)
[2017-05-16] MEDS: SODIUM CHLORIDE IV SCH (09:22)
[2017-05-16] MEDS: MEROPENEM IV SCH (09:22)
[2017-05-16] MEDS: KCL/NS* 20 MEQ/1000 ML PREMIX 1,000 ML IV SCH ×4 (10:16→23:56)
--- NOTE | 2017-05-16 11:41 | Procedure Note ---
Central Line Procedure Note Consent Signed: Yes Central Line Lumen: Triple Central Line Procedure: Chlorhexidine Prep, Sterile Drapes Applied, Sterile Dressing Applied Central Line Position: L Subclavian Anesthesia Used: 1% Lidocaine CC's of Anesthesia: 5 Complications: None Central Line Post Position: Sutured, Confirmed Blood Return, Position Confirmed w/CXR BRENDA KRAMER MD May 16, 2017 11:41
--- NOTE | 2017-05-16 12:05 | RADIOLOGY IMAGING REPORT ---
[place] [facility] [place] Glen [place] : 1945 MR: [id number] V: [id number] EXAM DATE: ORDERING PHYSICIAN: BRENDA KRAMER TECHNOLOGIST: Location: [facility] [place] Patient: Glen Jones : 1945 Visit/Account:[id number] Date of Sevice: 05/16/2017 Exam type: CHEST SINGLE AP History: Central Line placement Comparison: Same day at 0541 hours. Findings: There remains airspace disease throughout the right lung overall unchanged with more focal consolidat ion at the right lung base. Interstitial prominence in the left lung with subtle airspace disease is also noted and unchanged. Heart size is slightly enlarged. NG tube projects below the film likely in the stomach. Left subclavian symphysis catheter has its tip in SVC. No appreciable left-sided pneumothorax. ET tube is 5 cm above the sarah. The osseous structures demonstrate a scoliosis. IMPRESSION: 1. Left subclavian central venous catheter has its tip in the SVC. No appreciable pneumothorax. 2. Airspace disease throughout the right lung is unchanged. Interstitial prominence and mild airspace disease in the left lung is also unchanged. Report Dictated By: Chivo Schwab MD at 05/16/2017 11:57 AM Report E-Signed By: Chivo Schwab MD at 05/16/2017 12:01 PM WSN:[id number]
[2017-05-16] MEDS: LEVOFLOXACIN/D5W 250 MG/50 ML 50 ML IVPB SCH (12:55)
--- NOTE | 2017-05-16 13:04 | EKG ---
FACILITY: [facility] PATIENT NAME: PAMELA JAMES : [id number] MR: [id number] V: [id number] EXAM DATE: ORDERING PHYSICIAN: SOLANGE JOHNSON TECHNOLOGIST: Test Reason : Blood Pressure : / mmHG Vent. Rate : 069 BPM Atrial Rate : 069 BPM P-R Int : 172 ms QRS Dur : 092 ms QT Int : 386 ms P-R-T Axes : 040 042 042 degrees QTc Int : 413 ms Normal sinus rhythm Normal ECG When compared with ECG of 14-MAY-2017 08:15, No significant change was found Confirmed by SOLANGE BRADLEY ([id number]) on 05/16/2017 1:33:19 PM Referred By: Confirmed By:SOLANGE BRADLEY
--- NOTE | 2017-05-16 14:10 | Medical Nutrition Therapy ---
Nutrition Anthropometrics Height (Inches): 64.00 Height (Calculated Centimeters: 162.596049 Weight (Pounds): 183 Weight (Calculated Kilograms): 83.121 BMI Calculated: 23.51 Isaias Nutrition Score: Probably Inadequate Isaias Nutrition Risk Score: 12 Dietary Referral Nutrition Risk Factors: Diff. Swallowing, Special Diet Nutrition Risk Comment: Dysphagia diet, needs supervision at meals, 50oz fluid restriction at [facility] Physical Findings Physical Appearance: Obese BMI 30-39 Skin Appearance Skin Appearance: Edema Edema Location Modifier: Edema Location: Type of Edema: Degree of Edema: Gastrointestinal Symptoms GI Symtoms: Tube Present: OG Bowel Sounds: Recent Bowel Pattern: Stool Characteristics: Nutrition/Food History No Significant Nutr. HX Nutritional Diagnosis Nutritional Risk Acuity 1: Pulm Fail Vent Nutritional Risk Acuity 2: Tube Feed Stable Past Medical History: HTN, GERD, depression, hyperlipidemia, T2DM, aspiration pneumonia, and fragile X syndrome Nutritional Acuity: 1-High Nutrition Diagnosis: Increased Nutrient Needs Nutrition Etiology: Physiological Causes Nutrition Problem/Etiology/Sym: Increased Nutrient Needs related to increased demand for nutrients secondary to infection AEB low albumin status and high C-reactive protein indicating increased stress and increased metabolic needs. Energy Requirement: 2100 ([place] Jeor: Actual BW X 1.4) Protein Requirement: 66 (Adjusted BW Kg X .8) Fluid Requirement: 2100 Diet Type: Tube Feeding (TF) Nutrition Intervention: Incr diet as tolerated Nutritional Support Current Enteral / Parental: Tube Feeding Tube Feeding Formulas: Glucerna 1cal/ml-Diabetic Tube Feeding Supplement Streng: Full Feeding Route: FT Placed Oralgastric Rate: 20mL/hr increase 10 mL/hr q 4 hr to 60 mL/hr Current Calories: 1440 Current Protein: 60 Total Current Calories: 1440 Nutrition Monitoring & Eval Nutrition Goals: Eat 50-100% Meal RD Patient Assessment Time: [address] Assessment Type: RD Assessment Patient Nutrition Acuity: 1-High Follow Up Date: May 18, 2017 Nutritional Comment: Pt admitted with Aspiration pneumonia and ARF. Alb 1.7, CRP 22.1, Ca 7.2, K+ 3.6, Glu 108, Low H/H. Class I obesity with BMI of 31.5. Pt NPO r/t intubation/vent and started TF 05/15/17. Glucerna 1.0 TF started at 20mL/hr with final rate of 60mL/hr. Final rate will provide 1440 Kcals, 60 grams protein, and 1227mL of free water. This will meet 69% of estimated Kcal needs and 91% of estimated protein needs. At present, current rate is appropriate per ASPEN guidelines in providing permissive underfeeding to criticallaly ill obese pts. Pt also receiving propofol for sedation which contributes 1.1 kcals/mL as fat. Monitor TF tolerance, labs, etc. MALCOLM CLEMENT May 16, 2017 14:10
[2017-05-16] MEDS ORDERED: FLUCONAZOLE 200 MG/100ML PRMIX 100 ML IVPB ONE (15:30)
[2017-05-16] MEDS ORDERED: VAL250 PO (18:40)
--- NOTE | 2017-05-16 18:41 | Hospitalist Progress Note ---
Subjective Progress Notes Subjective The patient is intubated and sedated. He is breathing over the vent. Physical Exam Vital Signs Date Time Temp Pulse Resp B/P (MAP) Pulse Ox O2 Delivery O2 Flow Rate FiO2 05/16/17 17:38 96 Mechanical Ventilator 35.0 05/16/17 17:37 68 15 05/16/17 17:30 125/61 (82) 05/16/17 16:00 101.0 05/15/17 02:45 15.0 Intake and Output 05/17/17 07:00 Intake Total 2179 ml Output Total 775 ml Balance 1404 ml Intake IV Total 2179 ml Output Urine Total 775 ml # Bowel Movements 2 General Appearance: Other (Intubated, sedated.) Cardiovascular: Regular Rate and Rhythm Respiratory: Other (Rhonchi anteriorly.) GI: Soft and Non-Tender Extremities: Warm, Perfused Integumentary: Skin Intact without Lesion / Mass Psych: Other (Sedated.) Result Diagram: 05/16/17 0829 05/16/17 0845 Monitor Interpretation: Normal Sinus Rhythm Assessment and Plan Problems: (1) Aspiration pneumonia Status: Acute Assessment & Plan: His chest x-ray did show a right sided infiltrate. He has also had a fever and elevated CRP. He is on empiric treatment with meropenem and levofloxacin. One of his blood cultures is now growing E. coli and coagulase positive Staph. Vancomycin was added 05/15. CRP remains elevated at 22.1. (2) Acute respiratory failure Status: Acute Assessment & Plan: He was intubated in the emergency department. He is receiving propofol and midazolam for sedation. He remains on SIMV today. (3) Acute renal failure Assessment & Plan: He does have an elevated creatinine. We are treating him with IV fluids. A repeat chemistry is ordered for the morning. (4) DMII (diabetes mellitus, type 2) Status: Chronic Assessment & Plan: It does not appear that he is on chronic treatment. We currently have him on sliding scale level #2, but he has not required treatment. (5) Fragile X syndrome in male Status: Chronic Assessment & Plan: He is on bupropion, which have yet to be restarted. He takes valproic acid as well for hiccups. Central Venous Access Medical Necessity for Access: Hemodynamic Monitoring, IV Access, Medication Administration Exam Sepsis Risk: No Definite Risk Problem Qualifiers (1) Acute respiratory failure: Respiratory failure complication: unspecified whether with hypoxia or hypercapnia Qualified Codes: J96.00 - Acute respiratory failure, unspecified whether with hypoxia or hypercapnia SOLANGE JOHNSON MD May 16, 2017 18:41
[2017-05-16] MEDS ORDERED: LUTE6CAP11 PO (19:47)
[2017-05-16] MEDS ORDERED: FES4PT PO (19:47)
[2017-05-16] MEDS ORDERED: NS(*) 0.9% 500 ML BAG 500 ML ONE (19:54)
[2017-05-16] MEDS: NS(*) 0.9% 500 ML BAG 500 ML IV PRN (20:41)
[2017-05-16] MEDS: ACETAMINOPHEN(*)1000 MG/100 ML 100 ML IVPB PRN (20:42)
[2017-05-16] MEDS: INSULIN HUMAN LISPRO SLIDING SCALE SUBQ PRN (23:58)
[2017-05-17] VITALS (48 sets, daily range): BP systolic 107–172; BP diastolic 55–88
[2017-05-17] MEDS: VANCOMYCIN(*) 1 GM VIAL 1 GM, VANCOMYCIN (*) 0.5 GM VIAL 0.25 GM in NS(*) 0.9% 250 ML B... IVPB SCH ×2 (01:19→13:53)
[2017-05-17] MEDS: PROPOFOL(*)1000 MG/100 ML VIAL 100 ML IV PRN ×2 (05:02→17:22)
[2017-05-17 05:32] LABS: PLATELET COUNT, AUTOMATED 227 K/uL (150-450)
[2017-05-17] MEDS: INSULIN HUMAN LISPRO SLIDING SCALE SUBQ PRN ×3 (07:25→17:32)
[2017-05-17] MEDS: NS(*) 0.9% 500 ML BAG 500 ML IV PRN (08:00)
--- NOTE | 2017-05-17 08:01 | RADIOLOGY IMAGING REPORT ---
FACILITY: [facility] [place] PATIENT NAME: Glen Jones : 1945 MR: [id number] V: [id number] EXAM DATE: ORDERING PHYSICIAN: SOLANGE JOHNSON [place]CHNOLOGIST: [place] [facility] [place] : 1945 Visit/Account:[id number] Date of Sevice: 05/17/2017 Exam type: CHEST SINGLE AP History: Intubation Comparison: 05/16/2017. Findings: Reidentified is bilateral airspace disease worse in the right lung more focal consolidation at the ri ght lung base. Small right effusion is unchanged. Overall no significant interval change from prior e xam. No appreciable pneumothorax. Heart size is subtly prominent. NG tube projects below the film likely in the stomach. Left-sided central venous catheter has its tip in SVC. ET tube is 3.5 cm above the sarah. IMPRESSION: 1. No significant interval change from prior examination. There is diffuse airspace disease throughou t the right lung with more focal consolidation at right base and small right effusion. Patchy consoli dation of left lung base is also noted. 2. Lines and tubes are described above. Report Dictated By: Chivo Schwab MD at 05/17/2017 7:56 AM Report E-Signed By: Chivo Schwab MD at 05/17/2017 7:58 AM WSN:[id number]
[2017-05-17] MEDS ORDERED: FUROSEMIDE 20 MG/2 ML VIAL IVP ONE (09:00)
[2017-05-17] MEDS: PANTOPRAZOLE SOD 40 MG IV VIAL IVP SCH (09:54)
[2017-05-17] MEDS: ENOXAPARIN 40 MG/0.4ML SYR SC SCH (09:55)
[2017-05-17] MEDS: ACETAMINOPHEN(*)1000 MG/100 ML 100 ML IVPB PRN ×2 (09:55→21:34)
[2017-05-17] MEDS: ORAL SUCTION/CHLORHX/SWAB KIT MT SCH ×2 (09:55→20:45)
--- NOTE | 2017-05-17 10:08 | EKG ---
FACILITY: [facility] PATIENT NAME: PAMELA JAMES : [id number] MR: [id number] V: [id number] EXAM DATE: ORDERING PHYSICIAN: GO KIRKLAND TECHNOLOGIST: Test Reason : Blood Pressure : / mmHG Vent. Rate : 060 BPM Atrial Rate : 060 BPM P-R Int : 178 ms QRS Dur : 086 ms QT Int : 388 ms P-R-T Axes : 059 009 026 degrees QTc Int : 388 ms Normal sinus rhythm Normal ECG No previous ECGs available Confirmed by GO KIRKLAND ([id number]) on 05/18/2017 1:47:21 AM Referred By: Confirmed By:GO KIRKLAND
[2017-05-17] MEDS: IMIPENEM/CILASTA(*) 500MG VIAL 500 MG in NS(*) 0.9% 100 ML BAG 100 ML IVPB SCH ×3 (10:22→21:36)
[2017-05-17] MEDS: KCL/NS* 20 MEQ/1000 ML PREMIX 1,000 ML IV SCH (11:18)
[2017-05-17] MEDS: LEVOFLOXACIN/D5W 250 MG/50 ML 50 ML IVPB SCH (12:41)
--- NOTE | 2017-05-17 14:32 | Hospitalist Progress Note ---
Subjective Progress Notes Subjective FiO2 decreased and BP improved today. UOP decreasing. He becomes very tachypneic with staff changing his position in bed. Physical Exam Vital Signs Date Time Temp Pulse Resp B/P (MAP) Pulse Ox O2 Delivery O2 Flow Rate FiO2 05/17/17 13:40 54 05/17/17 13:30 98.8 10 125/73 (90) 99 Mechanical Ventilator 35.0 05/15/17 02:45 15.0 Intake and Output 05/18/17 07:00 Intake Total 696.7 ml Output Total 875 ml Balance -178.3 ml Intake IV Total 696.7 ml Output Urine Total 875 ml # Bowel Movements 1 General Appearance: No Acute Distress Neuro: Other (sedated and intubated) Cardiovascular: Regular Rate and Rhythm Extremities: Edema (Trace edema in legs and hands) Result Diagram: 05/17/1752505/17/17525 Monitor Interpretation: Normal Sinus Rhythm Assessment and Plan Problems: (1) Aspiration pneumonia Status: Acute Assessment & Plan: His chest x-ray did showed multifocal right sided infiltrates. He has also had a fever and elevated CRP. He is on empiric treatment with Primaxin and levofloxacin. One of his blood cultures is now growing E. coli and coagulase positive Staph. Vancomycin was added 05/15. CRP remains decreasing but elevated (2) Acute respiratory failure Status: Acute Assessment & Plan: He was intubated in the emergency department. He is receiving propofol and midazolam for sedation. He remains on SIMV today. His O2 requirement has decreased significantly and his ET tube secretions are decreasing. Will try to switch to just propofol. He is getting IV Protonix and SQ Lovenox. He is getting TF with minimal residuals. (3) Acute renal failure Status: Acute Assessment & Plan: He presented with an elevated creatinine likely secondary to sepsis. It has improved with aggressive hydration. Now his creatinine is back to baseline and he appears fluid overloaded. Will try diuresis. (4) DMII (diabetes mellitus, type 2) Status: Chronic Assessment & Plan: It does not appear that he is on chronic treatment. We currently have him on sliding scale level #2, but he has not required treatment. Will check a HgA1c (5) Fragile X syndrome in male Status: Chronic Assessment & Plan: He is on bupropion, which have yet to be restarted. He takes valproic acid as well for hiccups. Central Venous Access Medical Necessity for Access: Hemodynamic Monitoring, IV Access, Medication Administration Exam Sepsis Risk: Sepsis Risk Problem Qualifiers (1) Acute respiratory failure: Respiratory failure complication: unspecified whether with hypoxia or hypercapnia Qualified Codes: J96.00 - Acute respiratory failure, unspecified whether with hypoxia or hypercapnia GO KIRKLAND MD May 17, 2017 14:32
[2017-05-17] MEDS: FLUCONAZOLE 200 MG/100ML PRMIX 50 ML IVPB SCH (15:10)
[2017-05-18] VITALS (48 sets, daily range): BP systolic 112–177; BP diastolic 57–88
[2017-05-18] MEDS: PROPOFOL(*)1000 MG/100 ML VIAL 100 ML IV PRN ×4 (01:17→23:41)
[2017-05-18] MEDS: VANCOMYCIN(*) 1 GM VIAL 1 GM, VANCOMYCIN (*) 0.5 GM VIAL 0.25 GM in NS(*) 0.9% 250 ML B... IVPB SCH ×2 (01:18→14:19)
[2017-05-18] MEDS: KCL/NS* 20 MEQ/1000 ML PREMIX 1,000 ML IV SCH (01:23)
[2017-05-18] MEDS: IMIPENEM/CILASTA(*) 500MG VIAL 500 MG in NS(*) 0.9% 100 ML BAG 100 ML IVPB SCH ×4 (03:35→21:31)
[2017-05-18 05:23] LABS: PLATELET COUNT, AUTOMATED 221 K/uL (150-450)
[2017-05-18] MEDS: INSULIN HUMAN LISPRO SLIDING SCALE SUBQ PRN ×3 (05:48→23:31)
--- NOTE | 2017-05-18 08:26 | RADIOLOGY IMAGING REPORT ---
FACILITY: [facility] [place] PATIENT NAME: Glen Jones : 1945 MR: [id number] V: [id number] EXAM DATE: ORDERING PHYSICIAN: GO KIRKLAND TECHNOLOGIST: Location: [facility] [place] Patient: Glen Jones : 1945 Visit/Account:[id number] Date of Sevice: 05/18/2017 CHEST SINGLE AP Additional pertinent History: Respiratory failure. Patient intubated. COMPARISON STUDIES: 05/17/2017 FINDINGS: Support lines and catheters: ET tube well-positioned 6.5 cm from the sarah. NG tube within the stoma ch. Left subclavian catheter well-positioned with the distal tip in the mid SVC. Lungs and Pleura: Persistent patchy interstitial lobular infiltrative changes of a somewhat nodular appearance throughout the right lung. More focal opacity obscuring the right hemidiaphragm. Consolida tive change obscuring the medial aspect of the left hemidiaphragm. Bilateral effusions suspected Heart and vasculature: Heart is mildly enlarged. No vascular congestion Blaire and Mediastinum: Negative. Bones and Chest wall: Negative. Upper Abdomen: Negative. IMPRESSION: 1. No interval change in the appearance the chest when compared to previous study. Extensive right pa renchymal opacities and consolidative changes in the left lower lung field medially. Probable small e ffusions. Report Dictated By: Georgi Mack MD at 05/18/2017 8:19 AM Report E-Signed By: Georgi Mack MD at 05/18/2017 8:23 AM WSN:[id number]
[2017-05-18] MEDS: PANTOPRAZOLE SOD 40 MG IV VIAL IVP SCH (09:18)
[2017-05-18] MEDS: ENOXAPARIN 40 MG/0.4ML SYR SC SCH (09:19)
[2017-05-18] MEDS: ORAL SUCTION/CHLORHX/SWAB KIT MT SCH ×2 (09:19→21:29)
[2017-05-18] MEDS ORDERED: LEVOFLOXACIN/D5W 750 MG/150 ML 150 ML IVPB SCH (10:00)
[2017-05-18] MEDS: LEVOFLOXACIN/D5W 750 MG/150 ML 150 ML IVPB SCH (11:24)
[2017-05-18] MEDS: ACETAMINOPHEN(*)1000 MG/100 ML 100 ML IVPB PRN ×2 (12:45→19:21)
--- NOTE | 2017-05-18 13:20 | Hospitalist Progress Note ---
Subjective Progress Notes Subjective Sedated on ventilator. Low grade temp yesterday. Oxygen requirement improved. Physical Exam Vital Signs Date Time Temp Pulse Resp B/P (MAP) Pulse Ox O2 Delivery O2 Flow Rate FiO2 05/18/17 12:51 76 05/18/17 12:30 23 157/78 (104) 92 Mechanical Ventilator 30.0 05/18/17 11:00 100.8 05/15/17 02:45 15.0 Intake and Output 05/19/17 07:00 Intake Total 258 ml Output Total 800 ml Balance -542 ml Intake IV Total 138 ml Tube Irrigant 120 ml Output Urine Total 800 ml # Bowel Movements 1 General Appearance: Other (sedated) Cardiovascular: Regular Rate and Rhythm Respiratory: Other (fairly clear) Chest: Other (left subclavian site clean) GI: Other (soft/BS present) Extremities: Warm, Perfused, Edema (1-2+ hands/feet/scrotum) Result Diagram: 05/18/17 0458 05/18/17 0458 Monitor Interpretation: Normal Sinus Rhythm Assessment and Plan Problems: (1) Aspiration pneumonia Status: Acute Assessment & Plan: His chest x-ray did showed multifocal right sided infiltrates. He has also had a fever and elevated CRP. He remains intubated. He is on empiric treatment with IV Primaxin, vancomycin, and levofloxacin. One of his blood cultures is now growing E. coli and MSSA. Overall, he is clinically improving. (2) Acute respiratory failure Status: Acute Assessment & Plan: He was intubated in the emergency department. He is receiving propofol for sedation. He remains on SIMV. His O2 requirement has decreased significantly and his ET tube secretions are decreasing. He is getting IV Protonix and SQ Lovenox. He is getting TF with minimal residuals. Extubation may be a little tricky due to his baseline mental status and apparent anxiety he has when sedation is "lightened". When we feel he is ready to extubate, may have to do a "quick" CPAP trial and see if he tolerates it. (3) Acute renal failure Status: Acute Assessment & Plan: He presented with an elevated creatinine likely secondary to sepsis. It has improved with aggressive hydration. Now his creatinine is back to baseline. He appeared to be slightly fluid overloaded yesterday and responded well to diuresis. Watch closely. (4) DMII (diabetes mellitus, type 2) Status: Chronic Assessment & Plan: It does not appear that he is on chronic treatment. We currently have him on sliding scale level #2. HgA1c is elevated at 8.5. (5) Fragile X syndrome in male Status: Chronic Assessment & Plan: He is on bupropion, which have yet to be restarted. He takes valproic acid as well for hiccups. (6) Esophagitis Status: Acute Assessment & Plan: He had EGD with biopsy on 05/12/17. Results are pending. He has been on Diflucan as it was suspected of being candidal in origin. Central Venous Access Medical Necessity for Access: Hemodynamic Monitoring, IV Access, Medication Administration Exam Sepsis Risk: Sepsis Risk Problem Qualifiers (1) Acute respiratory failure: Respiratory failure complication: unspecified whether with hypoxia or hypercapnia Qualified Codes: J96.00 - Acute respiratory failure, unspecified whether with hypoxia or hypercapnia RAJAT JOHNSON MD May 18, 2017 13:20
[2017-05-18] MEDS: FLUCONAZOLE 200 MG/100ML PRMIX 50 ML IVPB SCH (15:33)
[2017-05-19] VITALS (48 sets, daily range): BP systolic 131–194; BP diastolic 58–97
[2017-05-19] MEDS: VANCOMYCIN(*) 1 GM VIAL 1 GM, VANCOMYCIN (*) 0.5 GM VIAL 0.25 GM in NS(*) 0.9% 250 ML B... IVPB SCH ×2 (01:44→13:50)
[2017-05-19] MEDS: IMIPENEM/CILASTA(*) 500MG VIAL 500 MG in NS(*) 0.9% 100 ML BAG 100 ML IVPB SCH ×4 (04:11→21:20)
[2017-05-19] MEDS: PROPOFOL(*)1000 MG/100 ML VIAL 100 ML IV PRN ×4 (05:12→23:28)
[2017-05-19] MEDS: KCL/NS* 20 MEQ/1000 ML PREMIX 1,000 ML IV SCH ×2 (05:12→17:45)
[2017-05-19 05:18] LABS: PLATELET COUNT, AUTOMATED 235 K/uL (150-450)
--- NOTE | 2017-05-19 06:00 | RADIOLOGY IMAGING REPORT ---
FACILITY: [facility] PATIENT NAME: Glen Jones : 1945 MR: [id number] V: [id number] EXAM DATE: ORDERING PHYSICIAN: RAJAT JOHNSON TECHNOLOGIST: Location: [facility] Patient: Glen Jones : 1945 Visit/Account:[id number] Date of Sevice: 05/19/2017 CHEST SINGLE AP History: Intubated, pneumonia Comparison 05/18/2017. FINDINGS: Endotracheal tube, NG tube and central line stable. Heart size within normal limits. Mild increase in right lung base airspace disease, other patchy infiltrates appear stable. No pneumothorax. IMPRESSION: Mild progression of infiltrate in the right lung base, otherwise stable. Report Dictated By: Jeremiah Cherry MD at 05/19/2017 5:55 AM Report E-Signed By: Jeremiah Cherry MD at 05/19/2017 5:56 AM WSN:[id number]
[2017-05-19] MEDS: INSULIN HUMAN LISPRO SLIDING SCALE SUBQ PRN ×4 (06:20→23:31)
--- NOTE | 2017-05-19 06:21 | EKG ---
FACILITY: [facility] PATIENT NAME: PAMELA JAMES : [id number] MR: [id number] V: [id number] EXAM DATE: ORDERING PHYSICIAN: RAJAT JOHNSON TECHNOLOGIST: JUAN Burton Reason : QT PROLONGING MEDS Blood Pressure : / mmHG Vent. Rate : 060 BPM Atrial Rate : 060 BPM P-R Int : 174 ms QRS Dur : 086 ms QT Int : 404 ms P-R-T Axes : 054 021 063 degrees QTc Int : 404 ms Normal sinus rhythm Septal infarct , age undetermined Abnormal ECG When compared with ECG of 17-MAY-2017 08:56, No significant change was found Confirmed by SOLANGE BRADLEY ([id number]) on 05/19/2017 9:32:47 AM Referred By: Confirmed By:SOLANGE BRADLEY
[2017-05-19] MEDS ORDERED: FUROSEMIDE 40 MG/4 ML VIAL IVP ONE ×2 (07:45→15:05)
[2017-05-19] MEDS ORDERED: IOPAMIDOL 76% 75 ML INFUS BTL 75 ML ONE (08:39)
[2017-05-19] MEDS ORDERED: NS 0.9% 50 ML VIAL 50 ML ONE (08:39)
[2017-05-19] MEDS: ENOXAPARIN 40 MG/0.4ML SYR SC SCH (09:09)
[2017-05-19] MEDS: PANTOPRAZOLE SOD 40 MG IV VIAL IVP SCH (09:09)
[2017-05-19] MEDS: ORAL SUCTION/CHLORHX/SWAB KIT MT SCH ×2 (09:09→21:20)
--- NOTE | 2017-05-19 10:22 | RADIOLOGY IMAGING REPORT ---
FACILITY: [facility] PATIENT NAME: Glen Jones : 1945 MR: [id number] V: [id number] EXAM DATE: ORDERING PHYSICIAN: GO KIRKLAND TECHNOLOGIST: Location: [facility] Patient: Glen Jones : 1945 Visit/Account:[id number] Date of Sevice: 05/19/2017 CHEST W W/O CONTRAST History: pnemonia, persistant fever, recent esophageal biopsy ADDITIONAL CLINICAL HISTORY: None TECHNIQUE: Contiguous axial images were performed through the chest to the level of the adrenal gla nds with and without IV contrast. Coronal and sagittal reformatting was also performed. Dose Loweri ng Technique One of the following dose optimization techniques was utilized in the performance of this exam: Autom ated exposure control; adjustment of the mA and/or kV according to the patient's size; or use of an i terative reconstruction technique. Specific details can be referenced in the facility's radiology C T exam operational policy. Contrast: 75 mL Isovue-370 COMPARISON STUDIES: May 14, 2017. Lungs / Pleura: Patchy airspace consolidation in the right upper lobe and right middle lobe appears similar to the prior study although there has been increasing dense airspace consolidation throughou t the right lower lobe. The right pleural effusion now appears moderate as opposed to small the prev ious study there has been development of interstitial infiltration in the left upper lobe and increas ing dense airspace consolidation in the posterior aspect of the left lower lobe. Is also a small lef t pleural effusion which has occurred since the prior study Mediastinum/nodes: There is an endotracheal tube that appears to be in good position. NG/OG tube pa sses into the stomach although the distal tip is not included on the examination. There is a small a mount of fluid either immediately to the right of the mid esophagus or within the esophagus. The previously noted AP window, precarinal, right hilar and paratracheal adenopathy appears relativel y unchanged Heart and vessels: The coronary artery vascular calcifications present Musculoskeletal / Body wall: No aggressive appearing bone lesions are seen Upper abdomen: There are postsurgical changes from a cholecystectomy. IMPRESSION: Patchy airspace consolidation right upper lobe and right middle lobe appears similar to the prior sheila dy. There has been increased dense airspace consolidation throughout the right lower lobe and increa se in right pleural effusion which now appears moderate. There is been development of interstitial infiltration of the left upper lobe and increasing dense ai rspace consolidation the posterior segment of the left lower lobe. Also noted is a new small left pl eural effusion. Findings are concerning for multifocal pneumonia and possible superimposed atelectas is There appears to be a small amount of fluid either adjacent to the midesophagus or within the midesop hagus. Previously noted mediastinal and right hilar adenopathy unchanged Report Dictated By: Jasmina Hickman MD at 05/19/2017 9:13 AM Report E-Signed By: Jasmina Hickman MD at 05/19/2017 10:18 AM WSN:[email or web address]
--- NOTE | 2017-05-19 11:16 | Hospitalist Progress Note ---
Subjective Progress Notes Subjective Less ET tube secretions. Diffusely edematous. Spiking fevers. Physical Exam Vital Signs Date Time Temp Pulse Resp B/P (MAP) Pulse Ox O2 Delivery O2 Flow Rate FiO2 05/19/17 10:57 96 Mechanical Ventilator 30.0 05/19/17 10:57 59 19 05/19/17 09:00 100.0 194/86 (122) Intake and Output 05/20/17 07:00 Intake Total 338 ml Output Total 1925 ml Balance -1587 ml Intake IV Total 198 ml Tube Irrigant 140 ml Output Urine Total 1925 ml General Appearance: No Acute Distress, Other (Opened eyes. ) Neuro: Other (Sedated and intubated. Opened eyes) Cardiovascular: Regular Rate and Rhythm Respiratory: Clear to Auscultation GI: Other (Soft, non-distended.) : Other (Much edema in penis and scrotum) Extremities: Edema (2-3+ in arms/legs) Result Diagram: 05/19/17 0506 05/19/17 0506 Monitor Interpretation: Normal Sinus Rhythm Assessment and Plan Problems: (1) Aspiration pneumonia Status: Acute Assessment & Plan: His chest x-ray did showed multifocal right sided infiltrates. He has also had a fever and elevated CRP. He remains intubated. He is on empiric treatment with IV Primaxin, vancomycin, and levofloxacin. One of his blood cultures is now growing E. coli and MSSA. Overall, he is clinically improving, but continues to spike fevers. Will culture blood ( peripherally and from line), check UA and UCx, and do a CT of the chest (had esophageal biopsy on 05/12). (2) Acute respiratory failure Status: Acute Assessment & Plan: He was intubated in the emergency department. He is receiving propofol for sedation. He remains on SIMV. His O2 requirement has decreased significantly and his ET tube secretions are decreasing. He is getting IV Protonix and SQ Lovenox. He is getting TF with minimal residuals. Extubation may be a little tricky due to his baseline mental status and apparent anxiety he has when sedation is "lightened". "CPAP" trials today. When we feel he is ready to extubate. (3) Edema Status: Acute Assessment & Plan: Diffusely edematous. Albumin low and prealbumin pending. Will try diuresis, but might need albumin infusion prior to Lasix. (4) Acute renal failure Status: Resolved Assessment & Plan: He presented with an elevated creatinine likely secondary to sepsis. It has improved with aggressive hydration. Now his creatinine is back to baseline. (5) DMII (diabetes mellitus, type 2) Status: Chronic Assessment & Plan: It does not appear that he is on chronic treatment. We currently have him on sliding scale level #2. HgA1c is elevated at 8.5. (6) Fragile X syndrome in male Status: Chronic Assessment & Plan: He is on bupropion, which have yet to be restarted. He takes valproic acid as well for hiccups. (7) Esophagitis Status: Acute Assessment & Plan: He had EGD with biopsy on 05/12/17. Results showed the proximal esophagus biopsy with esophageal squamous mucosa with an area of ulceration and the GE junction biopsy showed an area of ulceration. He has been on Diflucan as it was suspected of being candidal in origin, but there is no evidence of yeast on gram stain, so was stopped. Central Venous Access Medical Necessity for Access: Hemodynamic Monitoring, IV Access, Medication Administration Exam Sepsis Risk: No Definite Risk Problem Qualifiers (1) Acute respiratory failure: Respiratory failure complication: unspecified whether with hypoxia or hypercapnia Qualified Codes: J96.00 - Acute respiratory failure, unspecified whether with hypoxia or hypercapnia GO KIRKLAND MD May 19, 2017 11:16
[2017-05-19] MEDS: LEVOFLOXACIN/D5W 750 MG/150 ML 150 ML IVPB SCH (11:33)
--- NOTE | 2017-05-19 13:15 | Medical Nutrition Therapy ---
Nutrition Anthropometrics Height (Inches): 64.00 Height (Calculated Centimeters: 162.832770 Weight (Pounds): 157 Weight (Calculated Kilograms): 71.214 BMI Calculated: 23.51 Isaias Nutrition Score: Probably Inadequate Isaias Nutrition Risk Score: 12 Dietary Referral Nutrition Risk Factors: Diff. Swallowing, Special Diet Nutrition Risk Comment: Dysphagia diet, needs supervision at meals, 50oz fluid restriction at [facility] Physical Findings Physical Appearance: Overweight BMI 25-29 Skin Appearance Skin Appearance: Edema Edema Location Modifier: Both Edema Location: Generalized Type of Edema: Degree of Edema: 1+ Gastrointestinal Symptoms GI Symtoms: Tube Present: OG Bowel Sounds: Recent Bowel Pattern: Stool Characteristics: Nutritional Diagnosis Nutritional Risk Acuity 1: Pulm Fail Vent Nutritional Risk Acuity 2: Tube Feed Stable Past Medical History: HTN, GERD, depression, hyperlipidemia, T2DM, aspiration pneumonia, and fragile X syndrome Nutritional Acuity: 1-High Nutrition Diagnosis: Increased Nutrient Needs Nutrition Etiology: Physiological Causes Nutrition Problem/Etiology/Sym: Increased Nutrient Needs related to increased demand for nutrients secondary to infection AEB low albumin status and high C-reactive protein indicating increased stress and increased metabolic needs. Energy Requirement: 2100 (Hendrix-St Jeor: Actual BW X 1.4) Protein Requirement: 66 (Adjusted BW Kg X .8) Fluid Requirement: 2100 Diet Type: Tube Feeding (TF) Nutrition Intervention: Incr diet as tolerated Nutritional Support Current Enteral / Parental: Tube Feeding Tube Feeding Formulas: Glucerna 1cal/ml-Diabetic Tube Feeding Supplement Streng: Full Feeding Route: FT Placed Oralgastric Rate: 20mL/hr increase 10 mL/hr q 4 hr to 60 mL/hr Current Calories: 1440 (final rate) Current Protein: 60 (final rate) Total Current Calories: 1440 Nutrition Monitoring & Eval Nutritional Goals Comment: tube feeding will meet nutr needs until oral intake can meet needs RD Patient Assessment Time: [address] Assessment Type: RD Re-Assessment Patient Nutrition Acuity: 1-High Follow Up Date: May 19, 2017 Nutritional Comment: Pt admitted with Aspiration pneumonia and ARF. Alb 1.7, CRP 22.1, Ca 7.2, K+ 3.6, Glu 108, Low H/H. Class I obesity with BMI of 31.5. Pt NPO r/t intubation/vent and started TF 05/15/17. Glucerna 1.0 TF started at 20mL/hr with final rate of 60mL/hr. Final rate will provide 1440 Kcals, 60 grams protein, and 1227mL of free water. This will meet 69% of estimated Kcal needs and 91% of estimated protein needs. At present, current rate is appropriate per ASPEN guidelines in providing permissive underfeeding to criticallaly ill obese pts. Pt also receiving propofol for sedation which contributes 1.1 kcals/mL as fat. Monitor TF tolerance, labs, etc. 1/2 Pt continues on Glucerna 1.0 TF at 60 ml/hr and propofol. Alb 1.9, total pro 4.6, Cr 0.6, low H/H. CR protein is 15.6 but improving and trending down. Pt is tolerating TF with moderate residuals. Will continue to monitor tolerance, labs, etc. RAQUEL ROMERO May 17, 2017 12:26
--- NOTE | 2017-05-19 16:58 | Medical Nutrition Therapy ---
Nutrition Anthropometrics Height (Inches): 64.00 Height (Calculated Centimeters: 162.986686 Weight (Pounds): 157 Weight (Calculated Kilograms): 69.485 BMI Calculated: 23.51 Isaias Nutrition Score: Probably Inadequate Isaias Nutrition Risk Score: 12 Dietary Referral Nutrition Risk Factors: Diff. Swallowing, Special Diet Nutrition Risk Comment: Dysphagia diet, needs supervision at meals, 50oz fluid restriction at [facility] Physical Findings Physical Appearance: Overweight BMI 25-29 Skin Appearance Skin Appearance: Edema Edema Location Modifier: Both Edema Location: Hand Type of Edema: Degree of Edema: 2+ Gastrointestinal Symptoms GI Symtoms: Tube Present: OG Bowel Sounds: Recent Bowel Pattern: Stool Characteristics: Nutritional Diagnosis Nutritional Risk Acuity 1: Pulm Fail Vent Nutritional Risk Acuity 2: Tube Feed Stable Past Medical History: HTN, GERD, depression, hyperlipidemia, T2DM, aspiration pneumonia, and fragile X syndrome Nutritional Acuity: 1-High Nutrition Diagnosis: Increased Nutrient Needs Nutrition Etiology: Physiological Causes Nutrition Problem/Etiology/Sym: Increased Nutrient Needs related to increased demand for nutrients secondary to infection AEB low albumin status and high C-reactive protein indicating increased stress and increased metabolic needs. Energy Requirement: 2100 ([place]-St Jeor: Actual BW X 1.4) Protein Requirement: 66 (Adjusted BW Kg X .8) Fluid Requirement: 2100 Diet Type: Tube Feeding (TF) Nutrition Intervention: Incr diet as tolerated Nutritional Support Current Enteral / Parental: Tube Feeding Tube Feeding Formulas: Glucerna 1cal/ml-Diabetic Tube Feeding Supplement Streng: Full Feeding Route: FT Placed Oralgastric Rate: 20mL/hr increase 10 mL/hr q 4 hr to 60 mL/hr Current Calories: 1440 (final rate) Current Protein: 60 (final rate) Total Current Calories: 1440 Nutrition Monitoring & Eval RD Patient Assessment Time: [address] Assessment Type: RD Re-Assessment Patient Nutrition Acuity: 1-High Follow Up Date: May 21, 2017 Nutritional Comment: Pt admitted with Aspiration pneumonia and ARF. Alb 1.7, CRP 22.1, Ca 7.2, K+ 3.6, Glu 108, Low H/H. Class I obesity with BMI of 31.5. Pt NPO r/t intubation/vent and started TF 05/15/17. Glucerna 1.0 TF started at 20mL/hr with final rate of 60mL/hr. Final rate will provide 1440 Kcals, 60 grams protein, and 1227mL of free water. This will meet 69% of estimated Kcal needs and 91% of estimated protein needs. At present, current rate is appropriate per ASPEN guidelines in providing permissive underfeeding to criticallaly ill obese pts. Pt also receiving propofol for sedation which contributes 1.1 kcals/mL as fat. Monitor TF tolerance, labs, etc. / Pt continues on Glucerna 1.0 TF at 60 ml/hr and propofol. Alb 1.9, total pro 4.6, Cr 0.6, low H/H. CR protein is 15.6 but improving and trending down. Pt is tolerating TF with moderate residuals. Will continue to monitor tolerance, labs, etc. 05/19 Pt continues on Glucerna TF and propofol. Pt also receiving 60 ml promod per day, which provides an additional 20 g protein. This now meets 121% of protein needs. Notable labs include alb 1.8, total pro 4.5, and Cr 0.5. Last BG 170. Pending prealbumin. Averaging 5-150 ml of gastric residual from TF. TF was on hold yesterday at 7:30 am for high residuals, per nursing note. Will continue to monitor labs and tolerance. If high residuals continue into tomorrow, may consider change of rate or TF formula. MARGO RUIZ May 19, 2017 13:35
[2017-05-20] VITALS (47 sets, daily range): BP systolic 119–182; BP diastolic 59–114
[2017-05-20] MEDS: VANCOMYCIN(*) 1 GM VIAL 1 GM, VANCOMYCIN (*) 0.5 GM VIAL 0.25 GM in NS(*) 0.9% 250 ML B... IVPB SCH ×2 (01:37→13:41)
[2017-05-20] MEDS: PROPOFOL(*)1000 MG/100 ML VIAL 100 ML IV PRN (04:12)
[2017-05-20] MEDS: IMIPENEM/CILASTA(*) 500MG VIAL 500 MG in NS(*) 0.9% 100 ML BAG 100 ML IVPB SCH ×4 (04:12→21:19)
[2017-05-20] MEDS: INSULIN HUMAN LISPRO SLIDING SCALE SUBQ PRN ×2 (05:44→14:43)
[2017-05-20 05:50] LABS: PLATELET COUNT, AUTOMATED 252 K/uL (150-450)
--- NOTE | 2017-05-20 08:04 | RADIOLOGY IMAGING REPORT ---
FACILITY: [facility] PATIENT NAME: Glen Jones : 1945 MR: [id number] V: [id number] EXAM DATE: ORDERING PHYSICIAN: GO KIRKLAND TECHNOLOGIST: Location: [facility] Patient: Glen Jones : 1945 Visit/Account:[id number] Date of Sevice: 05/20/2017 CHEST SINGLE AP Additional pertinent History: Respiratory failure intubated COMPARISON STUDIES: 05/19/2017 FINDINGS: Support lines and catheters: ET tube and NG tube and left central line reidentified. Lungs and Pleura: Persistent basically unchanged patchy interstitial alveolar nodular lung changes t hroughout the right lung. Right effusion blunting the right costophrenic angle. Heart and vasculature: Negative. Blaire and Mediastinum: Negative. Bones and Chest wall: Negative. Upper Abdomen: Negative. IMPRESSION: 1. Persistent right lung opacities similar to the previous study. No significant interval change in t he appearance the chest are compared to previous study accounting for better overall inspiratory effo rt. Report Dictated By: Georgi Mack MD at 05/20/2017 7:57 AM Report E-Signed By: Georgi Mack MD at 05/20/2017 8:01 AM WSN:[id number]
[2017-05-20] MEDS: PANTOPRAZOLE SOD 40 MG IV VIAL IVP SCH (08:42)
[2017-05-20] MEDS: ORAL SUCTION/CHLORHX/SWAB KIT MT SCH (08:43)
[2017-05-20] MEDS: ENOXAPARIN 40 MG/0.4ML SYR SC SCH (08:43)
--- NOTE | 2017-05-20 11:07 | Hospitalist Progress Note ---
Subjective Progress Notes Subjective This patient was admitted for respiratory failure and pneumonia. He had no acute events overnight. Patient Complains of: Cardiovascular: No: Chest Pain Respiratory: No: Shortness of Breath Physical Exam Vital Signs Date Time Temp Pulse Resp B/P (MAP) Pulse Ox O2 Delivery O2 Flow Rate FiO2 05/20/17 09:59 99 High-Flow Nasal Cannula 4.0 05/20/17 09:09 30.0 05/20/17 09:00 60 11 168/87 (114) 05/20/17 07:30 98.4 Intake and Output 05/21/17 07:00 Intake Total 225 ml Output Total 525 ml Balance -300 ml Intake IV Total 225 ml Output Urine Total 525 ml Neuro: No Gross deficits Eyes: PERRLA Cardiovascular: Regular Rate and Rhythm Respiratory: Other (Bilateral breath sounds present.) Extremities: No Edema Integumentary: No Cyanosis Result Diagram: 05/20/1744405/20/17444 Item Value Date Time Arterial Blood pH 7.47 H 05/20/17444 Arterial Blood Partial Pressure CO2 36 mmHg 05/20/175 Arterial Blood Partial Pressure O2 67 mmHg 05/20/175 Arterial Blood HCO3 27 mmol/L H 05/20/17444 Arterial Blood Oxygen Saturation 94 % 05/20/175 Item Value Date Time Gram Stain - Final Resulted 05/19/17 0750 Sputum Endotrach Aspirate Blood Culture - Final Complete 05/14/17 0810 Blood Imaging Chest x-ray reviewed. Monitor Interpretation: Normal Sinus Rhythm Assessment and Plan Problems: (1) Aspiration pneumonia Status: Acute Assessment & Plan: His chest x-ray did showed multifocal right sided infiltrates. He has also had a fever and elevated CRP. He remains intubated. He has been on empiric treatment with IV Primaxin, vancomycin, and levofloxacin. One of his blood cultures is now growing E. coli and MSSA. His sputum is also growing a gram negative jackie. We will plan to discontinue the Primaxin and vancomycin once he has been afebrile for 24hrs. (2) Acute respiratory failure Status: Acute Assessment & Plan: He was intubated in the emergency department and remained on mechanical ventilation until 05/20/17. He was extubated today. (3) Edema Status: Acute Assessment & Plan: He has responded to intermittent doses of Lasix. (4) Acute renal failure Status: Resolved Assessment & Plan: He presented with an elevated creatinine likely secondary to sepsis. It has improved with hydration. (5) DMII (diabetes mellitus, type 2) Status: Chronic Assessment & Plan: It does not appear that he is on chronic treatment. We currently have him on sliding scale level #2. (6) Fragile X syndrome in male Status: Chronic Assessment & Plan: He is on bupropion, which has yet to be restarted. He takes valproic acid as well for hiccups. (7) Esophagitis Status: Acute Assessment & Plan: He had EGD with biopsy on 05/12/17. Results showed the proximal esophagus biopsy with esophageal squamous mucosa with an area of ulceration and the GE junction biopsy showed an area of ulceration. He was on Diflucan, but it has since been discontinued. Central Venous Access Medical Necessity for Access: Hemodynamic Monitoring, IV Access, Medication Administration Exam Sepsis Risk: No Definite Risk Problem Qualifiers (1) Acute respiratory failure: Respiratory failure complication: unspecified whether with hypoxia or hypercapnia Qualified Codes: J96.00 - Acute respiratory failure, unspecified whether with hypoxia or hypercapnia RICHARD HERNANDEZ DO May 20, 2017 11:07
[2017-05-20] MEDS: LEVOFLOXACIN/D5W 750 MG/150 ML 150 ML IVPB SCH (12:34)
[2017-05-20] MEDS ORDERED: D5NS(*) 1000 ML BAG 1,000 ML IV PRN (14:15)
[2017-05-21] VITALS (23 sets, daily range): BP systolic 114–180; BP diastolic 67–90
[2017-05-21] MEDS: VANCOMYCIN(*) 1 GM VIAL 1 GM, VANCOMYCIN (*) 0.5 GM VIAL 0.25 GM in NS(*) 0.9% 250 ML B... IVPB SCH (01:40)
[2017-05-21] MEDS: IMIPENEM/CILASTA(*) 500MG VIAL 500 MG in NS(*) 0.9% 100 ML BAG 100 ML IVPB SCH ×2 (03:50→09:50)
[2017-05-21 04:54] LABS: PLATELET COUNT, AUTOMATED 287 K/uL (150-450)
--- NOTE | 2017-05-21 06:10 | RADIOLOGY IMAGING REPORT ---
FACILITY: [facility] [place] PATIENT NAME: Glen Jones : 1945 MR: [id number] V: [id number] EXAM DATE: ORDERING PHYSICIAN: RICHARD HERNANDEZ TECHNOLOGIST: [facility] Patient: Glen Jones : 1945 Visit/Account:[id number] Date of Sevice: 05/21/2017 SINGLE AP RADIOGRAPH OF THE CHEST 05/21/2017 5:53 AM. INDICATION: Intubated. COMPARISON: Yesterday. FINDINGS/IMPRESSION: Endotracheal and esophagogastric tubes have been removed. Unchanged left subclavian central venous c atheter. Mixed opacification in the right lung is not significantly changed. Question small right p leural effusion, unchanged. Mildly increased subsegmental atelectasis at the left base. No pneumoth orax. Heart size is normal. Report Dictated By: Eber Jensen MD at 05/21/2017 6:04 AM Report E-Signed By: Eber Jensen MD at 05/21/2017 6:06 AM [id number]
[2017-05-21] MEDS: ENOXAPARIN 40 MG/0.4ML SYR SC SCH (09:40)
[2017-05-21] MEDS: PANTOPRAZOLE SOD 40 MG IV VIAL IVP SCH (09:40)
--- NOTE | 2017-05-21 10:17 | Medical Nutrition Therapy ---
Nutrition Anthropometrics Height (Inches): 64.00 Height (Calculated Centimeters: 162.683755 Weight (Pounds): 139 Weight (Calculated Kilograms): 63.276 BMI Calculated: 23.51 Isaias Nutrition Score: Probably Inadequate Isaias Nutrition Risk Score: 12 Dietary Referral Nutrition Risk Factors: Diff. Swallowing, Special Diet Nutrition Risk Comment: Dysphagia diet, needs supervision at meals, 50oz fluid restriction at [facility] Physical Findings Physical Appearance: Overweight BMI 25-29 Skin Appearance Skin Appearance: Edema Edema Location Modifier: Both Edema Location: Hand Type of Edema: Degree of Edema: 2+ Gastrointestinal Symptoms GI Symtoms: Tube Present: OG Bowel Sounds: Recent Bowel Pattern: Stool Characteristics: Nutritional Diagnosis Nutritional Risk Acuity 1: Pulm Fail Vent Nutritional Risk Acuity 2: Tube Feed Stable Past Medical History: HTN, GERD, depression, hyperlipidemia, T2DM, aspiration pneumonia, and fragile X syndrome Nutritional Acuity: 1-High Nutrition Diagnosis: Increased Nutrient Needs Nutrition Etiology: Physiological Causes Nutrition Problem/Etiology/Sym: Increased Nutrient Needs related to increased demand for nutrients secondary to infection AEB low albumin status and high C-reactive protein indicating increased stress and increased metabolic needs. Energy Requirement: 2100 ([place]-St Jeor: Actual BW X 1.4) Protein Requirement: 66 (Adjusted BW Kg X .8) Fluid Requirement: 2100 Diet Type: Tube Feeding (TF) Nutrition Intervention: Incr diet as tolerated Nutritional Support Current Enteral / Parental: Tube Feeding Tube Feeding Formulas: Glucerna 1cal/ml-Diabetic Tube Feeding Supplement Streng: Full Feeding Route: FT Placed Oralgastric Rate: 20mL/hr increase 10 mL/hr q 4 hr to 60 mL/hr Current Calories: 1440 (final rate) Current Protein: 60 (final rate) Total Current Calories: 1440 Nutrition Monitoring & Eval RD Patient Assessment Time: [address] Assessment Type: RD Re-Assessment Patient Nutrition Acuity: 1-High Follow Up Date: May 23, 2017 Nutritional Comment: Pt admitted with Aspiration pneumonia and ARF. Alb 1.7, CRP 22.1, Ca 7.2, K+ 3.6, Glu 108, Low H/H. Class I obesity with BMI of 31.5. Pt NPO r/t intubation/vent and started TF 05/15/17. Glucerna 1.0 TF started at 20mL/hr with final rate of 60mL/hr. Final rate will provide 1440 Kcals, 60 grams protein, and 1227mL of free water. This will meet 69% of estimated Kcal needs and 91% of estimated protein needs. At present, current rate is appropriate per ASPEN guidelines in providing permissive underfeeding to criticallaly ill obese pts. Pt also receiving propofol for sedation which contributes 1.1 kcals/mL as fat. Monitor TF tolerance, labs, etc. 05/17 Pt continues on Glucerna 1.0 TF at 60 ml/hr and propofol. Alb 1.9, total pro 4.6, Cr 0.6, low H/H. CR protein is 15.6 but improving and trending down. Pt is tolerating TF with moderate residuals. Will continue to monitor tolerance, labs, etc. 05/19 Pt continues on Glucerna TF and propofol. Pt also receiving 60 ml promod per day, which provides an additional 20 g protein. This now meets 121% of protein needs. Notable labs include alb 1.8, total pro 4.5, and Cr 0.5. Last BG 170. Pending prealbumin. Averaging 5-150 ml of gastric residual from TF. TF was on hold yesterday at 7:30 am for high residuals, per nursing note. Will continue to monitor labs and tolerance. If high residuals continue into tomorrow, may consider change of rate or TF formula. 05/21/17 TF discontinued and diet changed to Dysphagia 1, Thickened liquid (nectar). No reports of PO intake at present. Alb 1.9, Ca 7.5, Glu 151, Na 135. Follow intake, PO tolerance, labs, etc. MALCOLM CLEMENT May 21, 2017 10:17
--- NOTE | 2017-05-21 10:25 | SWALLOW EVALUATION ---
SPEECH THERAPY fabrication and assembly supervisor: Chana Harry MS, CCC-EMPLOYMENT SPECIALIST/PROGRAM MANAGER Type of Assessment: Dysphagia Evaluation Patient: Glen Jones : 1945, 71yrs Evaluation Date: 05-21-17 BACKGROUND The patient is an 71year old male who lives at [facility]. He was admitted to [facility] though the ER for pneumonia. XRay identified R-side lung abnormailities. He was intubated 05/14/17 and extubated 05/20/17. He was referred for an ST swallow evaluation d/t s/s of dysphagia and high risk s/s including difficultly clearing sputum with cough. PREVIOUS LEVEL OF FUNCTION: Primary Medical Diagnosis: Cognitive deficits Prior Hospitalization: [facility] 02-23-16, Speech evaluation and dysphagia 2 recommended 06-02-16 Prior Level of Function: Assisted care at [facility] services Medical Complications/Past Medical History: See chart for details Pain Scale (0-10): unknown. no visual /vocal demonstrations of pain LOC / Participation: alert cooperative Follows instructions: intermittent Orientation: oriented to person, place, time, situation: pt was aware that he had a choking event and reported that to a visiting friend Functional Communication Deficits impact swallow function/safety, or response to therapy: Yes VOICE Vocal Deficits: voice is hoarse Changes to vocal quality: likely DYSPHAGIA Dysphagia Risk Evaluation Protocol DREP: Water Swallow Test: Fail, Puree Swallow Test:Pass, Solids Swallow Test: Fail MIKE NOMS Swallow Scale Score Based on DREP Results: LEVEL 3: Swallowing is safe with consistent use of max cues to use compensatory strategies and requires diet restriction of dysphagia 1 and nectar thickened liquids. RSST (Repetitive Saliva Swallow Test): did not follow instructions Sialorrhea: No Xerostomia: No Supplemental Oxygen Use: Yes. Nasal Cannula 4L Oxygen Saturation: Remains stable during liquid/food trials. Respiratory Rate: Remains stable throughout food/liquid trials. COPD Dx: No Oral Structure and Function: decreased lingual control. Pain with Swallow: not indicated Respiratory/Swallow Coordination: Poor coordination. Oral breathing during bolus preparation. Oral Stage Oral Stage Dysphagia: Moderate. Poor oral manipulation of soft solids including anterior mastication and poor oral clearance with anterior pocketing and extended oral clearance time increasing nutritional risks. Self Feeds: Pt can use silverware to self feed but is unsafe and discoordinated. Rate is too fast and bolus size too large when allowed independent feeding. Compensatory Maneuvers Used: pt needs full assist with self feed at this time. Assistance Required: Full assist Comment: Rate is too fast and bolus size too large when allowed independent feeding. Pharyngeal Stage S/S of pharyngeal dysphagia including aspiration with thin liquids. Increased risk of aspiration with soft solids d/t oral dysphagia. Pureed was trialed without indications of increased aspiration risk. Aspiration Risk: Elevated. Suspected aspiration of thin liquids. Increased risk with solids d/t oral dysphagia and poor self feeding techniques ST ASSESSMENT SUMMARY DYSPHAGIA Dysphagia Risk Evaluation Protocol DREP: Water Swallow Test: Fail, Puree Swallow Test:Pass, Solids Swallow Test: Fail MIKE NOMS Swallow Scale Score Based on DREP Results: LEVEL 3: Swallowing is safe with consistent use of max cues to use precaution strategies (see below) and requires diet restriction of dysphagia 1(puree) and nectar thickened liquids. Swallow Precautions: -Diet Modification: Dysphagia 1 (pureed), [place] thickened liquids by spoon -Full assist with feeding. Rate is too fast and bolus size too large when allowed independent feeding. -Spoon Feed Liquids at this time: approximately 1tsp nectar thickened liquids Speech Therapy Need ST will follow for diet upgrade POC Short Term Goals 1. Patient caregivers will receive education regarding safe swallow precautions , diet modification, and compensatory techniques and provide verbal demonstration of comprehension. 2. The patient will participate in food/liquid trials with ST to advance diet as indicated for safe oral intake. Jail Goals: The patient will return to PLOF with foods/liquids Rehabilitation Prognosis: Good. Thank you for this referral. Chana Harry M.S., [facility]-EMPLOYMENT SPECIALIST/PROGRAM MANAGER Speech Therapist [place]
--- NOTE | 2017-05-21 11:52 | Hospitalist Progress Note ---
Subjective Progress Notes Subjective The patient is doing well since being extubated 05/20. No new concerns per nursing staff. Physical Exam Vital Signs Date Time Temp Pulse Resp B/P (MAP) Pulse Ox O2 Delivery O2 Flow Rate FiO2 05/21/17 10:00 77 05/21/17 10:00 99.5 11 146/75 (98) 89 High-Flow Nasal Cannula 2.0 05/21/17 04:38 30.0 General Appearance: Alert, Awake, No Acute Distress Neuro: Other (Unable to understand speech. Does interact verbally.) Eyes: PERRLA Respiratory: Other (Some crackles R base.) GI: Soft and Non-Tender Extremities: Warm, Perfused Psych: Other (Unable to assess adequately.) Result Diagram: 05/21/1743905/21/17439 Monitor Interpretation: Normal Sinus Rhythm Assessment and Plan Problems: (1) Aspiration pneumonia Status: Acute Assessment & Plan: His chest x-ray did showed multifocal right sided infiltrates. He has also had a fever and elevated CRP. He was successfully extubated 05/20. He has been on empiric treatment with IV Primaxin, vancomycin , and levofloxacin. One of his blood cultures is growing E. coli and MSSA. His sputum is also growing E. coli. All of these are sensitive to Levaquin. Will DC Primaxin and Vanco. He has not had fever since 05/19. (2) Acute respiratory failure Status: Acute Assessment & Plan: He was intubated in the emergency department and remained on mechanical ventilation until 05/20/17. (3) Edema Status: Acute Assessment & Plan: He has responded to intermittent doses of Lasix. (4) Acute renal failure Status: Resolved Assessment & Plan: He presented with an elevated creatinine likely secondary to sepsis. It has improved with hydration. (5) DMII (diabetes mellitus, type 2) Status: Chronic Assessment & Plan: It does not appear that he is on chronic treatment. We currently have him on sliding scale level #2. (6) Fragile X syndrome in male Status: Chronic Assessment & Plan: He is on bupropion, which has yet to be restarted. He takes valproic acid as well for hiccups. (7) Esophagitis Status: Acute Assessment & Plan: He had EGD with biopsy on 05/12/17. Results showed the proximal esophagus biopsy with esophageal squamous mucosa with an area of ulceration and the GE junction biopsy showed an area of ulceration. There was not evidence of yeast on wet prep or biopsy. He was on Diflucan, but it has since been discontinued. Central Venous Access Medical Necessity for Access: Hemodynamic Monitoring, IV Access, Medication Administration Time Spent on Plan of Care: < 30 min Exam Sepsis Risk: No Definite Risk Problem Qualifiers (1) Acute respiratory failure: Respiratory failure complication: unspecified whether with hypoxia or hypercapnia Qualified Codes: J96.00 - Acute respiratory failure, unspecified whether with hypoxia or hypercapnia SOLANGE JOHNSON MD May 21, 2017 11:52
[2017-05-21] MEDS: INSULIN HUMAN LISPRO SLIDING SCALE SUBQ PRN ×2 (12:18→20:17)
[2017-05-21] MEDS: LEVOFLOXACIN/D5W 750 MG/150 ML 150 ML IVPB SCH (12:19)
[2017-05-21] MEDS ORDERED: NS(*) 0.9% 1000 ML BAG 1,000 ML IV PRN ×2 (17:00→17:12)
[2017-05-22] VITALS: BP 163/82
[2017-05-22 04:00] VITALS: BP 155/75
[2017-05-22 05:29] LABS: PLATELET COUNT, AUTOMATED 359 K/uL (150-450)
[2017-05-22 08:00] VITALS: BP 169/90
[2017-05-22] MEDS ORDERED: BACLOFEN 10 MG TAB PO PRN (08:20)
--- NOTE | 2017-05-22 08:23 | Hospitalist Progress Note ---
Subjective Progress Notes Subjective Awake and alert. No fever. Physical Exam Vital Signs Date Time Temp Pulse Resp B/P (MAP) Pulse Ox O2 Delivery O2 Flow Rate FiO2 05/22/17 07:15 92 Nasal Cannula 2.0 05/22/17 04:00 98.8 68 22 155/75 (101) 05/21/17 04:38 30.0 General Appearance: Alert, Awake, Other (grinds his teeth frequently) Neuro: Other (generalized weakness) Cardiovascular: Regular Rate and Rhythm Respiratory: Other (scattered rhonchi) GI: Soft and Non-Tender Extremities: Warm, Perfused, Edema Result Diagram: 05/22/1751905/22/17519 Monitor Interpretation: Normal Sinus Rhythm Assessment and Plan Problems: (1) Aspiration pneumonia Status: Acute Assessment & Plan: His chest x-ray did showed multifocal right sided infiltrates. He has also had a fever and elevated CRP. He was successfully extubated 05/20. He was initially placed on empiric treatment with IV Primaxin , vancomycin, and levofloxacin. One of his blood cultures did grow E. coli and MSSA. His sputum also grew E. coli. All of these are sensitive to Levaquin. We have stopped the Primaxin and Vancomycin. He has not had any fever. He is on a dysphagia diet. (2) Acute respiratory failure Status: Acute Assessment & Plan: He was intubated in the emergency department and remained on mechanical ventilation until 05/20/17. (3) Acute renal failure Status: Resolved Assessment & Plan: He presented with an elevated creatinine likely secondary to sepsis. It improved with hydration. BUN and creatinine are normal. (4) DMII (diabetes mellitus, type 2) Status: Chronic Assessment & Plan: It does not appear that he is on chronic treatment. We currently have him on sliding scale level #2. (5) Edema Status: Acute Assessment & Plan: He has responded to intermittent doses of Lasix. (6) Fragile X syndrome in male Status: Chronic Assessment & Plan: He is on bupropion and valproic acid, which will be restarted. (7) Esophagitis Status: Acute Assessment & Plan: He had EGD with biopsy on 05/12/17. Results showed the proximal esophagus biopsy with esophageal squamous mucosa with an area of ulceration and the GE junction biopsy showed an area of ulceration. There was not evidence of yeast on wet prep or biopsy. He was on Diflucan, but it has since been discontinued. He is on IV Protonix. He appears to be tolerating his dysphagia diet fairly well. Central Venous Access Medical Necessity for Access: Hemodynamic Monitoring, IV Access, Medication Administration Exam Sepsis Risk: No Definite Risk Problem Qualifiers (1) Acute respiratory failure: Respiratory failure complication: unspecified whether with hypoxia or hypercapnia Qualified Codes: J96.00 - Acute respiratory failure, unspecified whether with hypoxia or hypercapnia RAJAT JOHNSON MD May 22, 2017 08:23
[2017-05-22] MEDS: PANTOPRAZOLE SOD 40 MG IV VIAL IVP SCH (09:08)
[2017-05-22] MEDS: ENOXAPARIN 40 MG/0.4ML SYR SC SCH (09:10)
[2017-05-22] MEDS: ATENOLOL 50 MG TAB PO SCH (09:11)
[2017-05-22] MEDS: buPROPion XL 150 MG TABCR PO SCH (09:11)
[2017-05-22] MEDS: VALPROIC ACID 250 MG CAP PO SCH ×4 (09:11→20:37)
[2017-05-22 12:00] VITALS: BP 141/75
[2017-05-22] MEDS: LEVOFLOXACIN/D5W 750 MG/150 ML 150 ML IVPB SCH (12:17)
[2017-05-22 16:00] VITALS: BP 147/75
[2017-05-22] MEDS: INSULIN HUMAN LISPRO SLIDING SCALE SUBQ PRN ×2 (17:25→20:38)
[2017-05-22 20:00] VITALS: BP 123/60
[2017-05-23] VITALS: BP 134/68
[2017-05-23 04:00] VITALS: BP 125/57
[2017-05-23 08:00] VITALS: BP 142/65
[2017-05-23] MEDS ORDERED: FUROSEMIDE 20 MG/2 ML VIAL IVP ONE (08:30)
[2017-05-23] MEDS: ENOXAPARIN 40 MG/0.4ML SYR SC SCH (08:51)
[2017-05-23] MEDS: buPROPion XL 150 MG TABCR PO SCH (08:52)
[2017-05-23] MEDS: VALPROIC ACID 250 MG CAP PO SCH ×3 (08:52→21:30)
[2017-05-23] MEDS: ATENOLOL 50 MG TAB PO SCH (08:52)
[2017-05-23] MEDS: PANTOPRAZOLE SOD 40 MG IV VIAL IVP SCH (08:56)
--- NOTE | 2017-05-23 09:49 | Medical Nutrition Therapy ---
Nutrition Anthropometrics Height (Inches): 64.00 Height (Calculated Centimeters: 162.413044 Weight (Pounds): 146 Weight (Calculated Kilograms): 66.423 BMI Calculated: 23.51 Isaias Nutrition Score: Probably Inadequate Isaias Nutrition Risk Score: 14 Dietary Referral Nutrition Risk Factors: Diff. Swallowing, Special Diet Nutrition Risk Comment: Dysphagia diet, needs supervision at meals, 50oz fluid restriction at [facility] Physical Findings Physical Appearance: Overweight BMI 25-29 Skin Appearance Skin Appearance: Edema Edema Location Modifier: Both Edema Location: Hand Type of Edema: Degree of Edema: 1+ Gastrointestinal Symptoms GI Symtoms: Tube Present: OG Bowel Sounds: Recent Bowel Pattern: Stool Characteristics: Nutritional Diagnosis Nutritional Risk Acuity 1: Pulm Fail Vent Nutritional Risk Acuity 2: Tube Feed Stable Past Medical History: HTN, GERD, depression, hyperlipidemia, T2DM, aspiration pneumonia, and fragile X syndrome Nutritional Acuity: 1-High Nutrition Diagnosis: Increased Nutrient Needs Nutrition Etiology: Physiological Causes Nutrition Problem/Etiology/Sym: Increased Nutrient Needs related to increased demand for nutrients secondary to infection AEB low albumin status and high C-reactive protein indicating increased stress and increased metabolic needs. Energy Requirement: 2100 ([place]-St Jeor: Actual BW X 1.4) Protein Requirement: 66 (Adjusted BW Kg X .8) Fluid Requirement: 2100 Diet Type: Dysphagia Stage 1 Nutrition Intervention: Encourage intake, Incr diet as tolerated Nutrition Monitoring & Eval Nutrition Goals: Eat 75-100% Meal RD Patient Assessment Time: [address] Assessment Type: RD Re-Assessment Patient Nutrition Acuity: 1-High Follow Up Date: May 26, 2017 Nutritional Comment: Pt admitted with Aspiration pneumonia and ARF. Alb 1.7, CRP 22.1, Ca 7.2, K+ 3.6, Glu 108, Low H/H. Class I obesity with BMI of 31.5. Pt NPO r/t intubation/vent and started TF 05/15/17. Glucerna 1.0 TF started at 20mL/hr with final rate of 60mL/hr. Final rate will provide 1440 Kcals, 60 grams protein, and 1227mL of free water. This will meet 69% of estimated Kcal needs and 91% of estimated protein needs. At present, current rate is appropriate per ASPEN guidelines in providing permissive underfeeding to criticallaly ill obese pts. Pt also receiving propofol for sedation which contributes 1.1 kcals/mL as fat. Monitor TF tolerance, labs, etc. 05/17 Pt continues on Glucerna 1.0 TF at 60 ml/hr and propofol. Alb 1.9, total pro 4.6, Cr 0.6, low H/H. CR protein is 15.6 but improving and trending down. Pt is tolerating TF with moderate residuals. Will continue to monitor tolerance, labs, etc. 05/19 Pt continues on Glucerna TF and propofol. Pt also receiving 60 ml promod per day, which provides an additional 20 g protein. This now meets 121% of protein needs. Notable labs include alb 1.8, total pro 4.5, and Cr 0.5. Last BG 170. Pending prealbumin. Averaging 5-150 ml of gastric residual from TF. TF was on hold yesterday at 7:30 am for high residuals, per nursing note. Will continue to monitor labs and tolerance. If high residuals continue into tomorrow, may consider change of rate or TF formula. 05/21/17 TF discontinued and diet changed to Dysphagia 1, Thickened liquid (nectar). No reports of PO intake at present. Alb 1.9, Ca 7.5, Glu 151, Na 135. Follow intake, PO tolerance, labs, etc. 05/23 Pt continues on dysphagia 1/thickened liquid diet with 66% intakes over the last three meals. Na 134, low H/H, and Cr 0.5. Will continue to monitor intake, labs, etc. MARGO RUIZ May 23, 2017 08:16
--- NOTE | 2017-05-23 10:20 | Hospitalist Progress Note ---
Subjective Progress Notes Subjective This patient was admitted for respiratory failure. He had no acute issues overnight. Patient Complains of: Cardiovascular: No: Chest Pain Respiratory: No: Shortness of Breath Physical Exam Vital Signs Date Time Temp Pulse Resp B/P (MAP) Pulse Ox O2 Delivery O2 Flow Rate FiO2 05/23/17 08:00 98.6 62 20 142/65 (90) 91 Nasal Cannula 2.0 05/21/17 04:38 30.0 Cardiovascular: Regular Rate and Rhythm Respiratory: Clear to Auscultation Result Diagram: 05/22/1751905/22/17 0520 Item Value Date Time Gram Stain - Final Complete 05/19/17 0750 Sputum Endotrach Aspirate Blood Culture - Final Complete 05/14/17 0810 Blood Monitor Interpretation: Normal Sinus Rhythm Assessment and Plan Problems: (1) Aspiration pneumonia Status: Acute Assessment & Plan: His chest x-ray did showed multifocal right sided infiltrates. He has also had a fever and elevated CRP. He was successfully extubated 05/20. He was initially placed on empiric treatment with IV Primaxin , vancomycin, and levofloxacin. One of his blood cultures did grow E. coli and MSSA. His sputum also grew E. coli. All of these are sensitive to Levaquin. We have stopped the Primaxin and Vancomycin. (2) Acute respiratory failure Status: Acute Assessment & Plan: He was intubated in the emergency department and remained on mechanical ventilation until 05/20/17. (3) Acute renal failure Status: Resolved Assessment & Plan: He presented with an elevated creatinine likely secondary to sepsis. It improved with hydration. (4) DMII (diabetes mellitus, type 2) Status: Chronic Assessment & Plan: It does not appear that he is on chronic treatment. We currently have him on sliding scale level #2. (5) Edema Status: Acute Assessment & Plan: He has responded to intermittent doses of Lasix. (6) Fragile X syndrome in male Status: Chronic Assessment & Plan: He is on bupropion and valproic acid. (7) Esophagitis Status: Acute Assessment & Plan: He had EGD with biopsy on 05/12/17. Results showed the proximal esophagus biopsy with esophageal squamous mucosa with an area of ulceration and the GE junction biopsy showed an area of ulceration. There was not evidence of yeast on wet prep or biopsy. He was on Diflucan, but it has since been discontinued. He is on IV Protonix. He appears to be tolerating his dysphagia diet fairly well. Central Venous Access Medical Necessity for Access: Hemodynamic Monitoring, IV Access, Medication Administration Exam Sepsis Risk: No Definite Risk Problem Qualifiers (1) Acute respiratory failure: Respiratory failure complication: unspecified whether with hypoxia or hypercapnia Qualified Codes: J96.00 - Acute respiratory failure, unspecified whether with hypoxia or hypercapnia RICHARD HERNANDEZ DO May 23, 2017 10:20
[2017-05-23 12:00] VITALS: BP 136/68
[2017-05-23] MEDS: LEVOFLOXACIN/D5W 750 MG/150 ML 150 ML IVPB SCH (12:07)
[2017-05-23 16:00] VITALS: BP 136/69
[2017-05-23] MEDS: INSULIN HUMAN LISPRO SLIDING SCALE SUBQ PRN ×2 (17:16→21:34)
[2017-05-23 20:00] VITALS: BP 142/70
[2017-05-24] VITALS: BP 149/78
[2017-05-24 04:00] VITALS: BP 146/102
[2017-05-24 05:29] LABS: PLATELET COUNT, AUTOMATED 442 K/uL (150-450)
[2017-05-24 08:00] VITALS: BP 139/75
[2017-05-24] MEDS: VALPROIC ACID 250 MG CAP PO SCH ×2 (08:11→11:56)
[2017-05-24] MEDS: ATENOLOL 50 MG TAB PO SCH (08:17)
[2017-05-24] MEDS: buPROPion XL 150 MG TABCR PO SCH (08:17)
[2017-05-24] MEDS: PANTOPRAZOLE SOD 40 MG IV VIAL IVP SCH (08:17)
[2017-05-24] MEDS: ENOXAPARIN 40 MG/0.4ML SYR SC SCH (08:18)
[2017-05-24] MEDS: LEVOFLOXACIN/D5W 750 MG/150 ML 150 ML IVPB SCH (11:31)
[2017-05-24] MEDS: INSULIN HUMAN LISPRO SLIDING SCALE SUBQ PRN (11:56)
[2017-05-24 12:00] VITALS: BP 141/73
--- NOTE | 2017-05-24 12:59 | Hospitalist Depart ---
Discharge Summary Reason for Hosp/Final Diag: (1) Aspiration pneumonia Status: Acute Hospital Course & Plan: Likely, secondary to an EGD done on 05/12. His chest x -ray showed multifocal right sided infiltrates. He has also had a fever and elevated CRP. He was successfully extubated 05/20. He was initially placed on empiric treatment with IV Primaxin, vancomycin, and levofloxacin. One of his blood cultures did grow E. coli (only in aerobic) and MSSA (only in anaerobic, so likely contaminant). Repeat blood cultures on 05/19 have had no growth. His sputum also grew E. coli. All of these are sensitive to Levaquin. We have stopped the Primaxin and Vancomycin. Will continue Levofloxacin orally to cover a 14 day course. (2) Acute respiratory failure Status: Resolved Hospital Course & Plan: He was intubated in the emergency department and remained on mechanical ventilation until 05/20/17. (3) Acute renal failure Status: Resolved Hospital Course & Plan: He presented with an elevated creatinine likely secondary to sepsis. It improved with hydration. (4) DMII (diabetes mellitus, type 2) Status: Chronic Hospital Course & Plan: It does not appear that he is on chronic treatment. We currently have him on sliding scale level #2. Will start metformin. (5) Edema Status: Acute Hospital Course & Plan: It is secondary to poor nutrition. He had a prealbumin of 10.1. He has responded to intermittent doses of Lasix. Now is tolerating oral intake. Will follow prealbumin. (6) Fragile X syndrome in male Status: Chronic Hospital Course & Plan: He is on bupropion and valproic acid. (7) Esophagitis Status: Acute Hospital Course & Plan: He had EGD with biopsies on 05/12/17. Grossly there was diffuse "pseumomembranous changes" through most of the entirety. Results showed the proximal esophagus biopsy with esophageal squamous mucosa with an area of ulceration and the GE junction biopsy showed an area of ulceration. There was not evidence of yeast on wet prep or biopsy. He was on Diflucan, but it has since been discontinued. He was on IV Protonix. He appears to be tolerating his dysphagia diet fairly well. He will be switched to oral Protonix and Carafate slurry AC and HS. Departure Weight (Pounds): 143 Weight (Ounces): 6.0 Result Diagram: 1/9/18 0505 05/24/17 0505 Item Value Date Time B-Type Natriuretic Peptide 1270 pg/ml H 05/14/17 0755 Lipase 14 U/L L 05/14/17 0755 Amylase Level < 30 U/L 05/14/17 0755 Lactate 2.1 mmol/L 05/14/17 0755 Magnesium Level 2.2 mg/dl 05/14/17 0755 Calcium Level 8.0 mg/dl L 05/14/17 0818 Lactate 1.8 mmol/L 05/14/17 1053 Troponin I 0.030 ng/ml 05/14/17 0840 C-Reactive Protein 18.0 mg/dl H 05/14/17 0818 Blood Urea Nitrogen 55 mg/dl H 05/14/17 0818 Creatinine 1.90 mg/dl H 05/14/17 0818 Sodium Level 131 mmol/L L 05/14/17 0818 Potassium Level 4.3 mmol/L 05/14/17 0818 Chloride Level 102 mmol/L 05/14/17 0818 Carbon Dioxide Level 21 mmol/L L 05/14/17 0818 Total Bilirubin 0.8 mg/dl 05/14/17 0818 Aspartate Amino Transf (AST/SGOT) 28 U/L 05/14/17 0818 Alanine Aminotransferase (ALT/SGPT) 31 U/L 05/14/17 0818 Alkaline Phosphatase 45 U/L 05/14/17 0818 Blood Urea Nitrogen 54 mg/dl H 05/15/17 0520 Creatinine 1.80 mg/dl H 05/15/17 0520 Potassium Level 3.4 mmol/L L 05/15/17 0520 Total Bilirubin 0.4 mg/dl 05/15/17 0520 Aspartate Amino Transf (AST/SGOT) 79 U/L H 05/15/17 0520 Alanine Aminotransferase (ALT/SGPT) 60 U/L H 05/15/17 0520 C-Reactive Protein 22.1 mg/dl H 05/16/17 0829 Total Bilirubin 0.4 mg/dl 05/16/17 0845 Aspartate Amino Transf (AST/SGOT) 72 U/L H 05/16/17 0845 Alanine Aminotransferase (ALT/SGPT) 69 U/L H 05/16/17 0845 Alkaline Phosphatase 79 U/L 05/16/17 0845 Blood Urea Nitrogen 28 mg/dl H 05/16/17 0845 Creatinine 0.70 mg/dl 05/16/17 0845 Sodium Level 143 mmol/L 05/16/17 0845 Potassium Level 3.6 mmol/L 05/16/17 0845 C-Reactive Protein 15.6 mg/dl H 05/17/17 0526 Total Bilirubin 0.2 mg/dl 05/17/17 0526 Aspartate Amino Transf (AST/SGOT) 53 U/L H 05/17/17 0526 Alanine Aminotransferase (ALT/SGPT) 73 U/L H 05/17/17 0526 Alkaline Phosphatase 66 U/L 05/17/17 0526 Total Bilirubin 0.2 mg/dl 05/18/17 0458 Aspartate Amino Transf (AST/SGOT) 28 U/L 05/18/17 0458 Alanine Aminotransferase (ALT/SGPT) 57 U/L H 05/18/17 0458 Alkaline Phosphatase 63 U/L 05/18/17 0458 C-Reactive Protein 7.2 mg/dl H 05/18/17 0458 Total Bilirubin 0.2 mg/dl 05/19/17 0506 Aspartate Amino Transf (AST/SGOT) 34 U/L 05/19/17 0506 Alanine Aminotransferase (ALT/SGPT) 54 U/L 05/19/17 0506 Alkaline Phosphatase 91 U/L 05/19/17 0506 Hemoglobin A1c 8.5 % H 05/18/17 0458 Prealbumin 10.1 mg/dl 05/19/17 0818 Total Bilirubin 0.2 mg/dl 05/20/17 0445 Aspartate Amino Transf (AST/SGOT) 23 U/L 05/20/17 0445 Alanine Aminotransferase (ALT/SGPT) 50 U/L 05/20/17 0445 Alkaline Phosphatase 81 U/L 05/20/17 0445 Blood Urea Nitrogen 14 mg/dl 05/20/17 0445 Creatinine 0.50 mg/dl L 05/20/17 0445 Sodium Level 136 mmol/L L 05/20/17 0445 Potassium Level 3.8 mmol/L 05/20/17 0445 Albumin 1.6 g/dl L 05/20/17 0445 Blood Urea Nitrogen 10 mg/dl 05/21/17 0440 Creatinine 0.50 mg/dl L 05/21/17 0440 Blood Urea Nitrogen 9 mg/dl 05/22/17 0520 Creatinine 0.50 mg/dl L 05/22/17 0520 Blood Urea Nitrogen 12 mg/dl 05/24/17 0505 Creatinine 0.70 mg/dl 05/24/17 0505 Albumin 1.8 g/dl L 05/24/17 0505 White Blood Count 5.3 k/uL 05/14/17 0818 Hemoglobin 13.0 g/dL L 05/14/17 0818 Platelet Count 306 K/uL 05/14/17 0818 Neutrophils (%) (Auto) 73.2 % H 05/14/17 0818 Erythrocyte Sedimentation Rate 55 mm/HOUR H 05/14/17 0818 Band Neutrophils % 8 % 05/15/17 05 Neutrophils % (Manual) 54 % 05/15/17 05 Neutrophils % (Manual) 40 % 05/17/17 0526 Band Neutrophils % 4 % 05/17/17 0526 Neutrophils (%) (Auto) 76.9 % H 05/16/17 0829 White Blood Count 9.2 k/uL 05/16/17 0829 White Blood Count 4.2 k/uL L 05/17/17 0526 White Blood Count 10.7 k/uL 05/15/17 0520 Hemoglobin 10.6 g/dL L 05/15/17 0520 Hemoglobin 11.1 g/dL L 05/16/17 0829 Hemoglobin 11.0 g/dL L 05/17/17 0526 White Blood Count 5.6 k/uL 05/18/17 0458 Hemoglobin 10.7 g/dL L 05/18/17 0458 Platelet Count 217 K/uL 05/15/17 0520 Platelet Count 234 K/uL 05/16/17 0829 Platelet Count 227 K/uL 05/17/17 0526 Platelet Count 221 K/uL 05/18/17 0458 Neutrophils (%) (Auto) 54.4 % 05/18/17 0458 Neutrophils (%) (Auto) 57.9 % 05/19/17 0506 White Blood Count 7.5 k/uL 05/19/17 0506 Hemoglobin 11.2 g/dL L 05/19/17 0506 Platelet Count 235 K/uL 05/19/17 0506 White Blood Count 9.6 k/uL 05/24/17 0505 Hemoglobin 10.2 g/dL L 05/24/17 0505 Platelet Count 442 K/uL 05/24/17 0505 Neutrophils (%) (Auto) 53.0 % 05/24/17 0505 Prothromb Time International Ratio 1.16 05/14/17 0755 Urine RBC <1 /HPF 05/14/17 0908 Urine WBC 2 /HPF 05/14/17 0908 Urine Squamous Epithelial Cells None /LPF 05/14/17 0908 Urine Hyaline Casts Many /LPF H 05/14/17 0908 Urine RBC 1 /HPF 05/19/17 0809 Urine WBC 1 /HPF 05/19/17 0809 Urine Squamous Epithelial Cells None /LPF 05/19/17 0809 Urine Hyaline Casts Few /LPF 05/19/17 0809 Urine Glucose (UA) 50 mg/dL H 05/19/17 0809 Urine Glucose (UA) 50 mg/dL H 05/14/17 0908 Urine Urobilinogen 2.0 mg/dL 05/14/17 09 Urine Urobilinogen Negative mg/dL 05/19/17 08 Stool Occult Blood (IFOB) Negative 05/14/17 0908 Blood cultures x2 and urine culture from 05/19/17 have no growth. Urine culture from 05/14/17 has no growth. SPEC #: [id number] FRANCISCO: 05/19/17 STATUS: COMP REQ #: [id number] RECD: 05/19/17 [facility] DR: GO KIRKLAND MD SOURCE: SPUT ENDOT ENTR: 05/19/[address]: LEXII JUSTIN MD SPDESC: CODEY CHAUDHRY MD ORDERED: CULT SPUTUM/GS COMMENTS: Comments: one from central line and one from peripheral Procedure Result Verified GRAM STAIN Final 05/19/17-1419 MANY WHITE BLOOD CELLS FEW GRAM POSITIVE COCCI MUCUS PRESENT SPUTUM CULTURE Final 05/21/17 Organism 1 ESCHERICHIA COLI RARE GROWTH ESC COLI M.I.C. RX --------- --- AMPICILLIN >=32 R AMPICILLIN/SULBACTAM 16 I CEFAZOLIN <=4 S CEFTAZIDIME <=1 S CEFTRIAXONE <=1 S CEFEPIME <=1 S CEFOXITIN <=4 S ERTAPENEM <=0.5 S CIPROFLOXACIN <=0.25 S GENTAMICIN <=1 S IMIPENEM <=0.25 S LEVOFLOXACIN 1 S PIPERACILLIN/TAZOBACTAM <=4 S TOBRAMYCIN <=1 S TRIMETHOPRIM/SULFAMETHOXAZOLE >=320 R SPEC #: [id number] FRANCISCO: 05/14/17 STATUS: COMP REQ #: [id number] RECD: 05/14/17 [facility] DR: FADIA AMES MD SOURCE: BLOOD ENTR: 05/14/17 [facility] DR: LEXII JUSTIN MD [facility]: ORDERED: BCGS, CULT BLOOD Procedure Result Verified BLOOD CULTURE GRAM STAIN Final 05/15/17-0844 AEROBIC BOTTLE POSITIVE GRAM NEGATIVE RODS POSITIVE BLOOD CULTURE GRAM STAIN REPORT CALLED TO: SIERRA CONKLIN RN DATE/TIME REPORT CALLED: 05/14/17 @8 CALLED BY: YOLANDA CATALAN ANAEROBIC BOTTLE POSITIVE GRAM POSITIVE COCCI IN PAIRS AND CLUSTERS PHONED TO: LUIGI NASSAR RN 05/15/17 0842 CALLED BY: MANUEL * This is a updated result. * A prior result that was reported as final has been changed.@ Old result entered: by [email or web address] Old result verified: by [email or web address] New result added: by LAB.[email or web address] RESULTS CALLED TO AND READ BACK BY (FIRST & LAST NAME, CREDENTIALS) [] BLOOD CULTURE Final 05/18/17-8 Organism 1 ESCHERICHIA COLI GROWTH PRESENT IN THE AEROBIC BOTTLE Organism 2 STAPHYLOCOCCUS AUREUS GROWTH PRESENT IN THE ANAEROBIC BOTTLE CONTINUED ON NEXT PAGE [facility] *LIVE* [address] [place] [address] RAN DELACRUZ M.D., DIRECTOR OF LABORATORY SERVICES NETTIE FARAH M.D., PATHOLOGIST RUN DATE: 05/18/17 Specimen Inquiry Report PAGE 2 RUN TIME: 0758 SPEC: [id number] PATIENT: PAMELA JAMES Candido [id number] ( Continued) Procedure Result Verified BLOOD CULTURE Final (continued) 05/18/17-0758 ESC COLI STA AUREUS M.I.C. RX M.I.C. RX --------- --- --------- --- AMPICILLIN >=32 R AMPICILLIN/SULBACTAM 16 I S CEFAZOLIN <=4 S S CEFTAZIDIME <=1 S CEFTRIAXONE <=1 S CEFEPIME <=1 S CEFOXITIN <=4 S ERTAPENEM <=0.5 S CIPROFLOXACIN 0.5 S <=0.5 S CLINDAMYCIN <=0.25 S ERYTHROMYCIN <=0.25 S GENTAMICIN <=1 S <=0.5 S IMIPENEM <=0.25 S LEVOFLOXACIN 1 S 0.25 S LINEZOLID 2 S OXACILLIN 0.5 S BENZYLPENICILLIN >=0.5 R PIPERACILLIN/TAZOBACTAM <=4 S RIFAMPIN <=0.5 S TETRACYCLINE <=1 S TOBRAMYCIN <=1 S TRIMETHOPRIM/SULFAMETHOXAZOLE >=320 R >=320 R VANCOMYCIN 1 S Imaging See the hospital records for all the CXR's 05/21/17 CXR - Endotracheal and esophagogastric tubes have been removed. Unchanged left subclavian central venous catheter. Mixed opacification in the right lung is not significantly changed. Question small right pleural effusion , unchanged. Mildly increased subsegmental atelectasis at the left base. No pneumothorax. Heart size is normal. 05/19/[address] - Patchy airspace consolidation right upper lobe and right middle lobe appears similar to the prior study. There has been increased dense airspace consolidation throughout the right lower lobe and increase in right pleural effusion which now appears moderate. There is been development of interstitial infiltration of the left upper lobe and increasing dense airspace consolidation the posterior segment of the left lower lobe. Also noted is a new small left pleural effusion. Findings are concerning for multifocal pneumonia and possible superimposed atelectasis There appears to be a small amount of fluid either adjacent to the midesophagus or within the midesophagus. Previously noted mediastinal and right hilar adenopathy unchanged 05/14/17 Chest/abd/pelvis CT - 1. Diffuse patchy airspace opacities and consolidation right lung, with patchy opacities in left lung base. Differential diagnosis favors pneumonia. 2. Mediastinal and right hilar adenopathy, most consistent with reactive lymphadenopathy. 3. Nondisplaced fracture of the transverse process right side at L2 L3 L4, and nondisplaced fracture posterior spinous process of L4. 4. Small loculated fluid collection in the right groin. Differential diagnosis includes bladder diverticulum, or right-sided inguinal hernia. 05/14/[address] - 1. No evidence of infarct hemorrhage mass or fracture. 2. Age-related cerebral volume loss. 05/14/17 CXR - 1. The enteric tube terminates in the distal esophagus. 2. The endotracheal tube terminates 5 cm above the sarah. 3. Extensive patchy consolidation in the lungs, right greater than left. EKG Vent. Rate : 060 BPM Atrial Rate : 060 BPM P-R Int : 174 ms QRS Dur : 086 ms QT Int : 404 ms P-R-T Axes : 054 021 063 degrees QTc Int : 404 ms Normal sinus rhythm Septal infarct , age undetermined Abnormal ECG When compared with ECG of 17-MAY-2017 08:56, No significant change was found Confirmed by SOLANGE BRADLEY ([id number]) on 05/19/2017 9:32:47 AM Vent. Rate : 069 BPM Atrial Rate : 069 BPM P-R Int : 172 ms QRS Dur : 092 ms QT Int : 386 ms P-R-T Axes : 040 042 042 degrees QTc Int : 413 ms Normal sinus rhythm Normal ECG When compared with ECG of 14-MAY-2017 08:15, No significant change was found Confirmed by SOLANGE BRADLEY ([id number]) on 05/16/2017 1:33:19 PM Vent. Rate : 072 BPM Atrial Rate : 072 BPM P-R Int : 176 ms QRS Dur : 088 ms QT Int : 380 ms P-R-T Axes : 052 020 037 degrees QTc Int : 416 ms Normal sinus rhythm Normal ECG When compared with ECG of 02-JUN-2016 05:38, Non-specific change in ST segment in Inferior leads Confirmed by RICHARD HERNANDEZ ([id number]) on 05/15/2017 3:03:27 PM Condition: Improved Discharge: [facility] Discharge Instructions Home Meds Active Scripts Sulfamethoxazole/Trimet 800-160 Mg Tab (BACTRIM DS TABLET) 1 Each Tablet, 1 TAB PO Q12H, #13 TAB Prov:HOLLEYVIVI MANAGER OF CONSTRUCTION 05/03/17 Reported Medications Fesoterodine Fumarate (TOVIAZ) 4 Mg Tabsr, 4 MG PO DAILY 05/16/17 Lutein (LUTEIN) 6 Mg Capsule, 6 MG PO BID, CAPSULE 05/16/17 Valproic Acid (VALPROIC ACID) 250 Mg Cap, 500 MG PO QHS, CAP 05/16/17 Bupropion Hcl (BUPROPION XL) 150 Mg Tab.er.24h, 150 MG PO QDAY, #10 TAB 05/03/17 Lutein Extract/Zeaxanthin Ext (LUTEIN 15 MG SOFTGEL) 1 Each Capsule, 1 EACH PO BID, CAPSULE 06/02/16 Magnesium Hydroxide (MILK OF MAGNESIA) 400 Mg/5 Ml Oral.susp, 30 ML PO PRN Y for CONSTIPATION, BOTTLE 06/02/16 Lactose-Free Food (ENSURE LIQUID) 237 Ml Liquid, 237 ML PO DAILY 06/02/16 Lactulose (CONSTULOSE) 10 Gm/15 Ml Solution, 30 ML PO TID Y for CONSTIPATION 06/02/16 Calcium Carbonate/Vitamin D3 (CALCIUM + VITAMIN D TABLET) 1 Each Tablet, 2 EACH PO DAILY 06/02/16 [bacitracin opthalmic] No Conflict Check, 500 OP BID 06/02/16 Sodium Chloride (SODIUM CHLORIDE) 1 Gm Tab, 1 GM PO DAILY, TAB 1/18/17 Bupropion Hcl (BUPROPION HCL) 75 Mg Tablet, 150 MG PO QDAY, #10 TAB 03/15/16 Doxazosin Mesylate (DOXAZOSIN MESYLATE) 2 Mg Tablet, 2 MG PO QDAY 03/15/16 Ranitidine Hcl (ZANTAC) 150 Mg Tablet, 150 MG PO BID, TAB 03/15/16 Calcium Carbonate/Mag Hydrox (Antacid 1000-200 mg Tab Chew) 1 Each Tab.chew, 1000 MG PO PRN 05/26/15 Bacitracin Zinc (Bacitracin Zinc) 1 Each Oint..ea., 1 CARMELO TP PRN 05/02/15 Baclofen (BACLOFEN) 10 Mg Tablet, 10 MG PO PRN Y for HICCUPS, #30 TAB every 6 hours as needed. Only 2 in 24 hours 05/02/15 Valsartan (DIOVAN) 160 Mg Tablet, 160 MG PO QDAY 04/07/15 Fesoterodine Fumarate (TOVIAZ) 4 Mg Tabsr, 4 MG PO DAILY 03/21/15 Cetyl Alc/Stearyl Alc/Pg/Sls (CETAPHIL CREAM) 454 Gm Cream..g., 454 GM TP DAILY dry skin on feet 03/21/15 Loperamide Hcl/Simethicone (IMODIUM MULTI-SYMPTOM REL CPLT) 1 Each Tablet, 4 MG PO Y for DIARRHEA after 2 consecutive loose stools 03/21/15 Valproic Acid (VALPROIC ACID) 250 Mg Cap, 250 MG PO TID, CAP 01/28/14 Atenolol (ATENOLOL) 100 Mg Tablet, 1 TAB PO QDAY, TAB TAKE ONE TABLET BY MOUTH ONCE A DAY at 6PM 01/28/14 Acetaminophen (ACETAMINOPHEN) 500 Mg Tablet, 2 TAB PO Q4-6H Y for PAIN, TAB 01/28/14 Multivitamin (ONE DAILY) 1 Each Tablet, 1 EACH PO DAILY 01/14/14 Ezetimibe (Zetia) 10 Mg Tab, 10 MG PO QHS, 0 Refills 06/20/11 Aspirin (Aspirin) 325 Mg Tab, 325 MG PO QDAY, 0 Refills 06/20/11 Copies to: DEMETRIO GARCIA DO Venous Thromboembolism Antithrombotics Is Pt On Any Antithrombotics?: No Problem Qualifiers (1) Acute respiratory failure: Respiratory failure complication: unspecified whether with hypoxia or hypercapnia Qualified Codes: J96.00 - Acute respiratory failure, unspecified whether with hypoxia or hypercapnia GO KIRKLAND MD May 24, 2017 12:59
== END 2017-05-24 13:55 | DRG 870 ==
LOC: ER 08:00 → ICU 10:00
PROVIDERS: ADMIT Specialist; ATTEND Specialist
PROC: 5A1955Z Respiratory Ventilation, Greater than 96 Consecutive Hours (ICD-10-PCS; principal; 2017-05-14)
PROC: 0BH17EZ Insertion of Endotracheal Airway into Trachea, Via Natural or Artificial Opening (ICD-10-PCS; 2017-05-14)
PROC: 02HV33Z Insertion of Infusion Device into Superior Vena Cava, Percutaneous Approach (ICD-10-PCS; 2017-05-16)
DX: A41.51 Sepsis due to Escherichia coli [E. coli] (principal); J96.00 Acute respiratory failure, unspecified whether with hypoxia or hypercapnia; J69.0 Pneumonitis due to inhalation of food and vomit; N17.9 Acute kidney failure, unspecified; E87.0 Hyperosmolality and hypernatremia; J95.89 Other postprocedural complications and disorders of respiratory system, not elsewhere classified; K22.10 Ulcer of esophagus without bleeding; B95.61 Methicillin susceptible Staphylococcus aureus infection as the cause of diseases classified elsewhere; E11.9 Type 2 diabetes mellitus without complications; R60.9 Edema, unspecified; Q99.2 Fragile X chromosome; F03.90 Unspecified dementia, unspecified severity, without behavioral disturbance, psychotic disturbance, mood disturbance, and anxiety; R65.20 Severe sepsis without septic shock; E78.5 Hyperlipidemia, unspecified; K21.9 Gastro-esophageal reflux disease without esophagitis; I10 Essential (primary) hypertension; R40.2432 Glasgow coma scale score 3-8, at arrival to emergency department; Y83.8 Other surgical procedures as the cause of abnormal reaction of the patient, or of later complication, without mention of misadventure at the time of the procedure; Y73.0 Diagnostic and monitoring gastroenterology and urology devices associated with adverse incidents; Z88.0 Allergy status to penicillin; Z90.49 Acquired absence of other specified parts of digestive tract
CPT/HCPCS: 36415; 36416; 36600; 70450; 71010; 71045; 71260; 71270; 74177; 80202; 81001; 82040; 82150; 82247; 82274; 82310; 82374; 82435; 82565; 82803; 82947; 82948; 83036; 83605; 83690; 83735; 83880; 84075; 84132; 84134; 84155; 84295; 84450; 84460; 84484; 84520; 85025; 85610; 85651; 85730; 86140; 87040; 87070; 87077; 87088; 87186; 87205; 93005; 94002; 94003; 94640; 94770; 96365; 96368; 96375; 97161; 97166; 99285; 99291; C1758; C9113; J0131; J0330; J0743; J1450; J1644; J1650; J1940; J1956; J2185; J2250; J2704; J3370; J3480; J3490; J7030; J7040; J7042; J7050; Q9967

== ENCOUNTER → 2017-05-14 | Outpatient (CLI) | payer MEDICARE, MEDICAID ==
[~2017-05-14] MED LIST: ACET-2043 PO; ALE70 PO; AMIODIPINE; AMLO-104 PO; ASA; ASP325 PO; ASPI-757 PO; ATEN-1 PO; ATEN100T93 PO; BAC10 PO; BACDS PO; BACI1OIN6 TP; BACL-1 PO; BUPR-124 PO; BUPR-147 PO; CALC-18 PO; CALC-26 PO; CALC-649 PO; CALC-852 PO; CEPH-13 PO; CETY454C2 TP; CIPR-344 PO; CLIN-75 PO; DEME300T9 PO; DIV250 PO; DIVA-1 PO; DOCU-171 PO; DOXA2TAB57 PO; DOXA2TAB58 PO; EZE10 PO; FES4PT PO; FLUO-201 PO; FLUO-202 PO; GLIM1TAB24 PO; GLY25 PO; GUAI-549 PO; HYDR28.486 TP; IBUP-1671 PO; IBUP-56 PO; LACT-213 PO; LACT10SO3 PO; LACT237L63 PO; LOPE1TAB55 PO; LUTE1CAP4 PO; LUTE6CAP11 PO; MAGN355O8 PO; MAXI VISION PO; MENT118G TP; MERTAZAPINE; MIR15 PO; MOM; MOM PO; MULT-1097 PO; MULT-1367 PO; OMEP-153 PO; OXYBUTYNIN; OXYXL5 PO; RANI-324 PO; RISP0.5T82 PO; RISP1TAB79 PO; SITA1TAB13 PO; SITA1TAB17 PO; SODCTAB PO; SODI30SP6 NS; SULF-198 PO; TOLN150S5; VAL250 PO; VALP250D PO; VALPORIC ACID; VALPROIC ACID PO; VALS160T22 PO; VALS1TAB76 PO; VALS320T12 PO; VIT1CAPS39 PO; [UNRECOGNIZED DRUG - CODE] FT; [UNRECOGNIZED DRUG - CODE] MC; [UNRECOGNIZED DRUG - CODE] TP; [UNRECOGNIZED DRUG - OTHER]; [UNRECOGNIZED DRUG - OTHER]; [UNRECOGNIZED DRUG - OTHER] OP; [UNRECOGNIZED DRUG - OTHER] PO
[2017-05-15 13:16] VITALS: BMI 23.5
== END ==
LOC: AMB 07:32
PROVIDERS: ATTEND Nurse Practitioner
DX: R40.4 Transient alteration of awareness (principal); R06.82 Tachypnea, not elsewhere classified; R09.02 Hypoxemia; R50.9 Fever, unspecified
CPT/HCPCS: A0425; A0427

== ENCOUNTER 2017-05-24 13:55 | Inpatient (IN) | payer MEDICARE, MEDICAID ==
[2017-05-15 13:16] VITALS: Ht 165.1 cm; Wt 57.6 kg
[~2017-05-24] VITALS: Ht 165.1 cm; Wt 57.6 kg
[~2017-05-24 13:55] MED LIST changes: +LUTE6CAP11 PO
[2017-05-24 14:00] VITALS: BP 127/62
[2017-05-24] MEDS ORDERED: BACLOFEN 10 MG TAB PO PRN (14:19)
[2017-05-24] MEDS ORDERED: HYPROMELLOSE 0.4% LUB 15ML BTL OU PRN (14:19)
[2017-05-24] MEDS ORDERED: MAGNESIUM HYDROXIDE* 30ML UDCP PO PRN (14:30)
--- NOTE | 2017-05-24 14:54 | ECF H&P BLANK ---
ECF H&P UPDATE The patient is being transferred to a swing bed to continue work with therapy for weakness and dysphagia. See the Discharge summary for changes in the H&P. History of Present Illness Chief Complaint Altered Mental Status History of Present Illness Mr. Jones is a 71-year-old male with a past medical history of HTN, DM-II, GERD , Fragile X Syndrome, Dyslipidemia, Dementia, Recurrent Aspirational Pneumonias and he was recently discharged from [facility] after having nausea and ?coffee ground emesis and was scoped by Dr. Ayon and found to have Jaylyn Esophagitis and received Fluconazole 2 doses in the hospital and he felt better. He was d/c' d home for 20 days Fluconazole but he developed AMS and aspirated and presented to the ER at [facility] with AMS. He was also in the emergency department on 2016. At that time he was diagnosed with cellulitis of the right lower extremity. He was placed on Bactrim which she has taken in the past. He was then returned to the nursing care facility where he resides. Yesterday he was slightly slow and his mental processing from his baseline. Today's unresponsive. He was slightly hypotensive. During the ER evaluation he found to have a respiratory rate of 44. He was febrile Temp.101F and definitely was obtunded, He looked sepsis in theER. His GCS was 7. He was prophylactically intubated in the ER to protect his airways because of his obtundation and aspiration. His EKG and CT Scan of the head were normal. His CT A/P revealed diffuse patchy airspace opacities and consolidation of R-Lung and L-base. After stabilizing the patient. I discussed the case with the ER-MD and admitted the patient to the ICU for further evaluation and management. He is currently on SIMV 14, TV 500, Peep 8 and FiO2 100% and well sedated. History Home Meds Active Scripts Sulfamethoxazole/Trimet 800-160 Mg Tab (BACTRIM DS TABLET) 1 Each Tablet, 1 TAB PO Q12H, #13 TAB Prov:VIVI BABB CALCULATION REVIEWER 05/03/17 Clindamycin Hcl (CLINDAMYCIN HCL) 150 Mg Capsule, 300 MG PO QID, #20 CAPSULE Prov:RICHARD HERNANDEZ DO 06/03/16 Reported Medications Bupropion Hcl (BUPROPION XL) 150 Mg Tab.er.24h, 150 MG PO QDAY, #10 TAB 05/03/17 Doxazosin Mesylate (DOXAZOSIN MESYLATE) 2 Mg Tablet, 2 MG PO QDAY 05/03/17 Sodium Chloride (SODIUM CHLORIDE) 1,000 Mg Tablet.jacob, 1000 MG MC 05/03/17 Lutein Extract/Zeaxanthin Ext (LUTEIN 15 MG SOFTGEL) 1 Each Capsule, 1 EACH PO BID, CAPSULE 06/02/16 Magnesium Hydroxide (MILK OF MAGNESIA) 400 Mg/5 Ml Oral.susp, 30 ML PO PRN Y for CONSTIPATION, BOTTLE 06/02/16 Lactose-Free Food (ENSURE LIQUID) 237 Ml Liquid, 237 ML PO DAILY 06/02/16 Lactulose (CONSTULOSE) 10 Gm/15 Ml Solution, 30 ML PO TID Y for CONSTIPATION 06/02/16 Calcium Carbonate/Vitamin D3 (CALCIUM + VITAMIN D TABLET) 1 Each Tablet, 2 EACH PO DAILY 06/02/16 [bacitracin opthalmic] No Conflict Check, 500 OP BID 06/02/16 Sodium Chloride (SODIUM CHLORIDE) 1 Gm Tab, 1 GM PO DAILY, TAB 06/02/16 [valproic acid] No Conflict Check, 500 MG PO HS for hiccups 06/02/16 Bupropion Hcl (BUPROPION HCL) 75 Mg Tablet, 150 MG PO QDAY, #10 TAB 03/15/16 Doxazosin Mesylate (DOXAZOSIN MESYLATE) 2 Mg Tablet, 2 MG PO QDAY 03/15/16 Ranitidine Hcl (ZANTAC) 150 Mg Tablet, 150 MG PO BID, TAB 03/15/16 Calcium Carbonate/Mag Hydrox (Antacid 1000-200 mg Tab Chew) 1 Each Tab.chew, 1000 MG PO PRN 05/26/15 Bacitracin Zinc (Bacitracin Zinc) 1 Each Oint..ea., 1 CARMELO TP PRN 05/02/15 Baclofen (BACLOFEN) 10 Mg Tablet, 10 MG PO PRN Y for HICCUPS, #30 TAB every 6 hours as needed. Only 2 in 24 hours 05/02/15 Valsartan (DIOVAN) 160 Mg Tablet, 160 MG PO QDAY 04/07/15 Fesoterodine Fumarate (TOVIAZ) 4 Mg Tabsr, 4 MG PO DAILY 03/21/15 Cetyl Alc/Stearyl Alc/Pg/Sls (CETAPHIL CREAM) 454 Gm Cream..g., 454 GM TP DAILY dry skin on feet 03/21/15 Loperamide Hcl/Simethicone (IMODIUM MULTI-SYMPTOM REL CPLT) 1 Each Tablet, 4 MG PO Y for DIARRHEA after 2 consecutive loose stools 03/21/15 Valproic Acid (VALPROIC ACID) 250 Mg Cap, 250 MG PO TID, CAP 01/28/14 Atenolol (ATENOLOL) 100 Mg Tablet, 1 TAB PO QDAY, TAB TAKE ONE TABLET BY MOUTH ONCE A DAY at 6PM 01/28/14 Acetaminophen (ACETAMINOPHEN) 500 Mg Tablet, 2 TAB PO Q4-6H Y for PAIN, TAB 01/28/14 Multivitamin (ONE DAILY) 1 Each Tablet, 1 EACH PO DAILY 01/14/14 Ezetimibe (Zetia) 10 Mg Tab, 10 MG PO QHS, 0 Refills 06/20/11 Aspirin (Aspirin) 325 Mg Tab, 325 MG PO QDAY, 0 Refills 06/20/11 Allergies: Coded Allergies: Penicillins (Verified Allergy, Mild, 05/14/17) chlorpromazine (Verified Allergy, Mild, 05/14/17) Patient History: FH: cancer pt doesn't know. FH: diabetes mellitus pt doesn't know. FHx: heart disease pt doesn't know. Hx Smoking: No Smoking Status: Never Smoker Caffeine Intake: Soda Caffeine/Cups Per Day: RARELY Hx Alcohol Use: No Hx Substance Use Disorder: No Social Drug Use: Never Review of Systems Constitutional: Other (Intubated and sedated, I could not obtain ROS) Exam Vital Signs Vital Signs Date Time Temp Pulse Resp B/P (MAP) Pulse Ox O2 Delivery O2 Flow Rate FiO2 05/14/17 15:42 80.0 05/14/17 13:28 61 14 05/14/17 10:25 89 05/14/17 10:20 99/55 (70) 05/14/17 08:07 15.0 05/14/17 07:57 101.0 Non-Rebreather General Appearance: Other (intubated and sedated) Neuro: No Gross deficits Neck: No Masses Cardiovascular: Normal Rhythm & Peripheral Pulses Respiratory: Clear to Auscultation, Other (few basilar rales) Chest: No Masses GI: Abd Soft and Non-Tender Integumentary: Skin Intact without Lesion / Mass Psych: Other (sedated) Medical Decision Making Data Points Result Diagram: 05/14/1781705/14/17817 EKG / Imaging Monitor Interpretation: Normal Sinus Rhythm Imaging reviewed Pre-Admit Course ED Medications reviewed Medical Record Review: Yes Assessment and Plan Problems: (1) Aspiration pneumonia Status: Acute Assessment & Plan: Patient is intubated and sedated to protect the airways. He was recently hospitalized and underwent EGD and now aspirated. I will cover him with Meropenem 1gm IV q12h, Levaquin 500mg IV q daily. I will provided DVT prophylaxis with Heparin 5000units q8h, Protonix 40mg IV qd, and repeat labs in am. (2) Acute respiratory failure Status: Acute Assessment & Plan: He is intubated, sedated with Propofol and ventilated with the Settings: SIMV 14, TV 500, Peep 8, FiO2 100% for now and I will do ABG to further evaluate his respiratory status. (3) Acute kidney injury Status: Acute Assessment & Plan: His BUN/Cr is high and represent pre renal azotemia and I will start him on IVF NS 100ml/h and repeat his kidney function. (4) DMII (diabetes mellitus, type 2) Status: Chronic Assessment & Plan: I will check his BS q 6h and cover him with Humolog sliding scale II Central Venous Access Medical Necessity for Access: Hemodynamic Monitoring, IV Access, Medication Administration Critical Time Spent: 1st 30-74 Minutes Copies to: RICHARD WHYTE MD Venous Thromboembolism VTE Risk Physician Assess for VTE Risk: Yes Patient's VTE Risk: High VTE Diagnostic Test 2 Days Prior to Admit: No Antithrombotics Is Pt On Any Antithrombotics?: No Exam Sepsis Risk: Severe Sepsis Risk Problem Qualifiers (1) Acute respiratory failure: Respiratory failure complication: unspecified whether with hypoxia or hypercapnia Qualified Codes: J96.00 - Acute respiratory failure, unspecified whether with hypoxia or hypercapnia CODEY CHAUDHRY MD May 14, 2017 11:37 <Electronically signed by CODEY CHAUDHRY MD> D/ 04 Central Line Progress Note Medical Necessity for Central: Hemodynamic Monitoring, IV Access, Medication Administration GO KIRKLAND MD May 24, 2017 14:54
--- NOTE | 2017-05-24 14:58 | Consultant Pharmacy Review ---
Veneer Cutter Review Pneumococcal Vaccine HX Pneumo Vac ([id number]): No (unknown) HX Pneumo Vac (Pneumovax): Yes (Age 64 01/2010) Comments Regarding the Review Lexicomp Interaction Analysis A = No known interaction C = Monitor therapy X = Avoid combination B = No action needed D = Consider therapy modification Drugs in this analysis: Baclofen; Calcium Carbonate and Vitamin D; Carafate; Depakene; Doxazosin; HumaLOG; Levaquin; Lovenox; Lutein; Magnesium Hydroxide; MetFORMIN; Protonix; Tenormin; Toviaz; Wellbutrin XL; Zetia * Drug-Drug Interactions * D Calcium Carbonate and Vitamin D (Antacids) Levaquin (Quinolones) Depends on Route D Calcium Carbonate and Vitamin D (Calcium Salts) Levaquin (Quinolones) Depends on Route D Carafate (Sucralfate) Levaquin (Quinolones) Depends on Route D Levaquin (Quinolones) Magnesium Hydroxide (Antacids) Depends on Route D Levaquin (Quinolones) Magnesium Hydroxide (Magnesium Salts) Depends on Route C Doxazosin (Alpha1-Blockers) Tenormin (Beta-Blockers) Depends on Dosage Form C HumaLOG (Blood Glucose Lowering Agents) Levaquin (Quinolones) C HumaLOG (Hypoglycemia-Associated Agents) MetFORMIN (Antidiabetic Agents) C HumaLOG (Insulins) Tenormin (Beta-Blockers) C Levaquin (Quinolones) MetFORMIN (Blood Glucose Lowering Agents) C MetFORMIN (OCT2 Substrates) Wellbutrin XL (BuPROPion) C Toviaz (Fesoterodine) Wellbutrin XL (CYP2D6 Inhibitors) B Calcium Carbonate and Vitamin D (Antacids) Depakene (Valproate Products) B Calcium Carbonate and Vitamin D (Antacids) Tenormin (Atenolol) B Depakene (Valproate Products) Magnesium Hydroxide (Antacids) B Magnesium Hydroxide (Antacids) Tenormin (Atenolol) Disclaimer: Readers are advised that decisions regarding drug therapy must be based on the independent judgment of the clinician, changing information about a drug (eg, as reflected in the literature and gluer machine setup operator's most current product information), and changing medical practices. * Terms & Conditions // * Disclaimer * Lexicomp on Facebook * Lexicomp on Twitter * Get [employer] [facility] 2018 [employer] and its affiliates and/or licensors. All Rights Reserved. * Top of Form 1 * Bottom of Form 1 SOLANGE TAI May 24, 2017 14:58
--- NOTE | 2017-05-24 15:47 | OT ECF NOTE ---
Type of Note: Initial Note Primary Medical Diagnosis: Generalized weakness s/p ICU admission. Occupational Therapy Evaluation Date: 05/24/17 SUBJECTIVE: Prior Hospitalization: [facility] 05/14/17 thru 05/24/17 for aspiration pneumonia and acute respiratory failure. Intubated 05/14/18. Extubated 05/20/17. Prior Level of Function: Ambulates with SBA and RW. Has assist for all ADLs/ IADLs Prior Living Status: [facility] ([facility]) Community Services: Support adequate, No known needs Home Accessibility: All needs on one level, Walk-in shower Equipment Owned: Front wheeled walker, Tub/shower chair Medical Complications/Past Medical History: Fragile X Syndrome, Type 2 DM, GERD, Hypernatremia, Hyperlipidemia, Dementia (Please refer to EMR for details) Psychosocial Support: Supportive staff at [facility] pen[facility]iary Pain Scale (0-10): Pt did not verbalize pain during initial evaluation. No facial grimacing noted throughout evaluation. OBJECTIVE: Strength: Pt unable to follow verbal cues to complete MMT MMT: Right Left Shoulder Flexion [*] [*] Elbow Flexion [*] [*] Wrist Extension [*] [*] Honest [employer] Member [*] [*] (5= normal, 4= good, 3= fair, 2= poor, 1= trace) ROM: Both upper extremities, Minimally limited Functional Transfer: Assistive Device: EZ/Patient assisted lift, Gait belt Transfer Ability: 2-person assist, Maximum assistance ADL: Upper body dressing: Assistive device: Upper body dressing ability: Total assistance Lower body dressing: Assistive device: Lower body dressing ability: Total assistance Toileting: Assistive device: Bedside Commode Toileting ability: Total assistance Grooming/hygiene: Assistive device: Grooming ability: N/T Bathing: Assistive device: Bathing ability: N/T Standardized Assessment: Christi Index of Activities of Daily Livin/20 at initial evaluation (). ASSESSMENT: "[facility]" [facility] significant weakness and decreased endurance s/p hospital admission with intubation. At [facility], pt ambulated with SBA and RW. Currently, pt requires Max Ax2 with EZ lift for transfers and Max- Total assistance for ADLs. He will greatly benefit from skilled OT services to improve strength and endurance for engagement in ADLs. Problem List/Current Limitations: Decreased activity tolerance Decreased strength Decreased balance Generalized weakness Poor safety awareness Decreased problem solving Short Term Goals: 1) Pt will be Min A UB/LB dressing. 2) Pt will be Min A toileting. 3) Pt will be Min A grooming/hygiene. 4) Pt will be Min A shower task. 5) Pt Christi Index of ADLs score will increase by 2 points. Retirement Goals: Return to [facility] with services Patient Goals: Return home Rehabilitation Prognosis: Good Barriers to Discharge: Medical hx, Cognition PLAN: The patient will benefit from skilled occupational therapy services 5 times per week for 2 weeks including: Ther ex ADL training Safety training Ther act IADL training Transfer training Adaptive equip training Bed mobility Energy conservation Thank you for this referral. If you have any questions, concerns, or comments about this report or plan, please contact me at . Sadia Esparza MS, OTR/L Occupational Therapy MTDD
[2017-05-24] MEDS: SUCRALFATE 1 GM TAB PO SCH ×2 (16:09→18:32)
[2017-05-24] MEDS: VALPROIC ACID 250 MG CAP PO SCH ×2 (16:09→20:17)
[2017-05-24] MEDS: INSULIN HUMAN LISPRO SLIDING SCALE SUBQ PRN ×2 (16:38→20:19)
--- NOTE | 2017-05-24 16:43 | PT ECF NOTE ---
Type of Note: Initial Note Primary Medical Diagnosis: Aspiration pneumonia, acute respiratory failure Physical Therapy Evaluation Date: 05/24/17 SUBJECTIVE: Prior Hospitalization: [facility] 05/14/17-05/24/17 Prior Level of Function: SBA with walker per caregiver report Prior Living Status: long term, resident of the [facility] Services: Support adequate Home Accessibility: All needs on one level Equipment Owned: Walker Medical Complications/Past Medical History: Fragile X syndrome, see EMR for details Psychosocial Support: Caregivers from [facility] Pain Scale (0-10): non verbalized nor displayed at evaluation OBJECTIVE: Strength: Pt unable to follow cues for LE MMT, but does demonstrate minimal AROM against gravity with functional tasks, prior to transferring etc. ROM: not formally assessed, WFL Sensation: pt unable to verbalize sensory abnormalities. Other Neuro findings: See EMR, fragile X syndrome Bed Mobility: Pt up in w/c, pt required maxA x2 during medical stay Transfers: Max A x2 with EZ lift Gait: Pt unable at time of evaluation ASSESSMENT: Pt up in w/c when PT arrived. He demonstrates initiation of movement of LEs and UEs with overall weakness and poor AROM against gravity. MaxAx2 for STS transfer with EZ lift today. Pt will benefit from skilled PT services in order to increase independence with functional mobility and decrease need of assistance from others to allow for d/c to [place] [facility] setting. Problem List/Current Limitations: Decreased activity nba Decreased strength Decreased balance Generalized weakness Confusion Short Term Goals: 1: Pt to complete transfers with CGA and least restrictive AD 2: Pt to complete bed mobility with Kee 3: Pt to ambulate 80' with CGA and least restrictive AD Railroad Brakeman Goals: Pt to discharge to [place] [facility] with prior level of surfaces Patient Goals: discharge home Rehabilitation Prognosis: Fair Barriers for Discharge: Ability to follow cues for therapy interventions PLAN: The patient will benefit from skilled physical therapy services 5 times per week for 2 weeks including: Therapeutic Exercise Therapeutic Activities Transfer Training Gait Training Manual Therapy Safety Training Neuromuscular Re-educ. Pt/Caregiver Training Bed Mobility Thank you for this referral. If you have any questions, concerns, or comments about this report or plan, please contact me at . Kassie Lorenzo, PT, DPT MTDD
[2017-05-24] MEDS: metFORMIN HCL 500 MG TAB PO SCH (16:53)
[2017-05-24] MEDS: ZEAXANTHIN PO SCH (20:16)
[2017-05-24] MEDS: LUTEIN PO SCH (20:16)
[2017-05-24] MEDS: EZETIMIBE 10 MG TAB PO SCH (20:17)
[2017-05-24] MEDS: LEVOFLOXACIN 500 MG TAB PO SCH (20:21)
[2017-05-25] MEDS: SUCRALFATE 1 GM TAB PO SCH ×4 (05:54→19:00)
[2017-05-25 07:36] LABS: PLATELET COUNT, AUTOMATED 454 K/uL (150-450)
[2017-05-25] MEDS: FESOTERODINE FUMARATE 4 MG PO SCH (09:00)
[2017-05-25] MEDS: LUTEIN PO SCH ×2 (09:00→21:00)
[2017-05-25] MEDS: ZEAXANTHIN PO SCH ×2 (09:00→21:00)
[2017-05-25] MEDS: DOXAZOSIN MESYLATE 2 MG TAB PO SCH (09:17)
[2017-05-25] MEDS: ENOXAPARIN 40 MG/0.4ML SYR SC SCH (09:17)
[2017-05-25] MEDS: metFORMIN HCL 500 MG TAB PO SCH ×2 (09:17→16:40)
[2017-05-25] MEDS: ATENOLOL 50 MG TAB PO SCH (09:18)
[2017-05-25] MEDS: MULTIVITAMINS TAB PO SCH (09:18)
[2017-05-25] MEDS: buPROPion XL 150 MG TABCR PO SCH (09:18)
[2017-05-25] MEDS: PANTOPRAZOLE SOD 40 MG TABEC PO SCH (09:18)
[2017-05-25] MEDS: CALCIUM CARBONATE/VITAMIN D3 PO SCH (09:18)
[2017-05-25] MEDS: VALPROIC ACID 250 MG CAP PO SCH ×4 (09:18→21:25)
[2017-05-25 09:19] VITALS: BP 147/71
--- NOTE | 2017-05-25 11:22 | Medical Nutrition Therapy ---
Nutrition Anthropometrics Height (Inches): 65 (from past admissions) Height (Calculated Centimeters: 149.385466 Weight (Pounds): 147 Weight (Calculated Kilograms): 67.018 BMI Calculated: 23.51 Isaias Nutrition Score: Adequate Isaias Nutrition Risk Score: 14 Dietary Referral Nutrition Risk Factors: Diff. Swallowing, Special Diet Nutrition Risk Comment: Dysphagia diet, needs supervision at meals, 50oz fluid restriction at [facility] Physical Findings Physical Appearance: BMI 24.4- WNR Skin Appearance Skin Appearance: Edema Edema Location Modifier: Right Edema Location: Hand Type of Edema: Degree of Edema: 1+ Gastrointestinal Symptoms GI Symtoms: Tube Present: Bowel Sounds: Recent Bowel Pattern: Stool Characteristics: Nutritional Diagnosis Nutritional Risk Acuity 2: Swallowing Problem Nutritional Risk Acuity 3: Fair Appetite Past Medical History: HTN, GERD, depression, hyperlipidemia, T2DM, aspiration pneumonia, and fragile X syndrome Nutritional Acuity: 2-Moderate Nutrition Diagnosis: Swallowing Difficulties Nutrition Etiology: Physiological Causes Nutrition Problem/Etiology/Sym: r/t dx oral and pharyngeal dysphagia AEB dx aspiration pneumonia Energy Requirement: 2100 (M-SJ X 1.2 SF) Protein Requirement: 67 (1gm/kg) Fluid Requirement: 2000 (30ml/kg) Diet Type: Dysphagia Stage 1, Thickened Liquid Additional Diet Restrictions: PUT PROTEIN POWDER IN APPROPRIATE FOODS Diet Comment To RSA: OFFER SF THICKEN NUTR SUPPLMENT OR MAGIC CUP Nutrition Monitoring & Eval Nutrition Goals: Eat 75-100% Meal RD Patient Assessment Time: [address] Assessment Type: RD Assessment Patient Nutrition Acuity: 2-Moderate Follow Up Date: May 31, 2017 Nutritional Comment: 05/25 Pt admitted post respiratory distress with aspiration pneumonia. Pt evaluated by SPL and dsyphagia diet recommended with thicken liquids. Alb low at 2. Pt has dx T2DM. BG elevated 120's- 170's. Will put protein powder in appropriate foods and offer SF nutr supplements to increase kcal and potein. Wt is up 10# from wt of 137# on 05/14. Pt does have 1+ edema to hands and feet. Will cont to monitor. RAQUEL ROMERO May 25, 2017 11:22
[2017-05-25] MEDS: INSULIN HUMAN LISPRO SLIDING SCALE SUBQ PRN ×2 (12:36→17:00)
[2017-05-25 20:40] VITALS: BP 139/74
[2017-05-25] MEDS: EZETIMIBE 10 MG TAB PO SCH (21:25)
[2017-05-25] MEDS: LEVOFLOXACIN 500 MG TAB PO SCH (21:27)
[2017-05-26] MEDS: SUCRALFATE 1 GM TAB PO SCH ×4 (06:30→18:56)
[2017-05-26 07:45] VITALS: BP 142/73
[2017-05-26] MEDS: ATENOLOL 50 MG TAB PO SCH (08:55)
[2017-05-26] MEDS: CALCIUM CARBONATE/VITAMIN D3 PO SCH (08:55)
[2017-05-26] MEDS: DOXAZOSIN MESYLATE 2 MG TAB PO SCH (08:55)
[2017-05-26] MEDS: PANTOPRAZOLE SOD 40 MG TABEC PO SCH (08:55)
[2017-05-26] MEDS: ENOXAPARIN 40 MG/0.4ML SYR SC SCH (08:55)
[2017-05-26] MEDS: buPROPion XL 150 MG TABCR PO SCH (08:56)
[2017-05-26] MEDS: MULTIVITAMINS TAB PO SCH (08:56)
[2017-05-26] MEDS: metFORMIN HCL 500 MG TAB PO SCH ×2 (08:56→17:01)
[2017-05-26] MEDS: VALPROIC ACID 250 MG CAP PO SCH ×4 (08:56→21:22)
[2017-05-26] MEDS: LUTEIN PO SCH ×2 (09:00→21:00)
[2017-05-26] MEDS: FESOTERODINE FUMARATE 4 MG PO SCH (09:00)
[2017-05-26] MEDS: ZEAXANTHIN PO SCH ×2 (09:00→21:00)
--- NOTE | 2017-05-26 10:14 | Medical Nutrition Therapy ---
Nutrition Anthropometrics Height (Inches): 65 (from past admissions) Height (Calculated Centimeters: 149.500926 Weight (Pounds): 147 Weight (Calculated Kilograms): 67.018 BMI Calculated: 23.51 Isaias Nutrition Score: Adequate Isaias Nutrition Risk Score: 14 Dietary Referral Nutrition Risk Factors: Diff. Swallowing, Special Diet Nutrition Risk Comment: Dysphagia diet, needs supervision at meals, 50oz fluid restriction at [facility] Nutritional Diagnosis Nutritional Risk Acuity 2: Swallowing Problem Nutritional Risk Acuity 3: Fair Appetite Past Medical History: HTN, GERD, depression, hyperlipidemia, T2DM, aspiration pneumonia, and fragile X syndrome Nutritional Acuity: 2-Moderate Nutrition Diagnosis: Swallowing Difficulties Nutrition Etiology: Physiological Causes Nutrition Problem/Etiology/Sym: r/t dx oral and pharyngeal dysphagia AEB dx aspiration pneumonia Energy Requirement: 2100 (M-SJ X 1.2 SF) Protein Requirement: 67 (1gm/kg) Fluid Requirement: 2000 (30ml/kg) Diet Type: Dysphagia Stage 1, Thickened Liquid Additional Diet Restrictions: PUT PROTEIN POWDER IN APPROPRIATE FOODS Diet Comment To RSA: PT IS DIABETIC, OFFER THICKEN SF BOOST IF INTAKE < 50% Nutrition Monitoring & Eval RD Patient Assessment Time: [address] Assessment Type: RD Assessment Patient Nutrition Acuity: 2-Moderate Follow Up Date: May 31, 2017 Nutritional Comment: 05/25 Pt admitted post respiratory distress with aspiration pneumonia. Pt evaluated by SPL and dsyphagia diet recommended with thicken liquids. Alb low at 2. Pt has dx T2DM. BG elevated 120's- 170's. Will put protein powder in appropriate foods and offer SF nutr supplements to increase kcal and potein. Wt is up 10# from wt of 137# on 05/14. Pt does have 1+ edema to hands and feet. Will cont to monitor. 05/26 Pt is lactose free. Will offer lactose free nutr supplment if intake < 50. RAQUEL ROMERO May 26, 2017 10:14
[2017-05-26] MEDS: INSULIN HUMAN LISPRO SLIDING SCALE SUBQ PRN (17:01)
[2017-05-26] MEDS: LEVOFLOXACIN 500 MG TAB PO SCH (21:22)
[2017-05-26] MEDS: EZETIMIBE 10 MG TAB PO SCH (21:22)
[2017-05-26 22:00] VITALS: BP 124/78
[2017-05-27] MEDS: SUCRALFATE 1 GM TAB PO SCH ×4 (06:26→19:15)
[2017-05-27 07:25] VITALS: BP 140/77
[2017-05-27] MEDS: ENOXAPARIN 40 MG/0.4ML SYR SC SCH (08:22)
[2017-05-27] MEDS: ATENOLOL 50 MG TAB PO SCH (08:23)
[2017-05-27] MEDS: DOXAZOSIN MESYLATE 2 MG TAB PO SCH (08:23)
[2017-05-27] MEDS: buPROPion XL 150 MG TABCR PO SCH (08:23)
[2017-05-27] MEDS: metFORMIN HCL 500 MG TAB PO SCH ×2 (08:23→17:11)
[2017-05-27] MEDS: PANTOPRAZOLE SOD 40 MG TABEC PO SCH (08:23)
[2017-05-27] MEDS: CALCIUM CARBONATE/VITAMIN D3 PO SCH (08:23)
[2017-05-27] MEDS: VALPROIC ACID 250 MG CAP PO SCH ×4 (08:23→20:54)
[2017-05-27] MEDS: MULTIVITAMINS TAB PO SCH (08:23)
[2017-05-27] MEDS: ZEAXANTHIN PO SCH ×2 (09:00→20:54)
[2017-05-27] MEDS: LUTEIN PO SCH ×2 (09:00→20:54)
[2017-05-27] MEDS: FESOTERODINE FUMARATE 4 MG PO SCH (09:00)
--- NOTE | 2017-05-27 09:34 | SWALLOW EVALUATION ---
Speech Language Pathology Dysphagia Evaluation Report Date of Evaluation: 05-26-17 Patient Name: Glen Jones Patient : 1945 Clinician: Chana Harry MS, CCC-REHAB OFFICE COORDINATOR BACKGROUND The patient is an 71year old male who lives at [facility]. He was admitted to [facility] though the ER for pneumonia and transferred to [facility] for further recovery and rehab. Following a swallow eval on medical unit ST recommended pt diet modification to pureed and nectar thick liquids. PREVIOUS LEVEL OF FUNCTION: Primary Medical Diagnosis: Cognitive deficits Prior Hospitalization: [facility] 02-23-16 Prior Level of Function: Assisted care at [facility]. ST recommended pt diet modification to pureed and nectar thick liquids while on medical unit. Prior to hospitalization pt diet was dysphagia 2 and regular/thin liquids Medical Complications/Past Medical History: See chart for details Pain Scale (0-10): unknown. no visual /vocal demonstrations of pain LOC / Participation: alert cooperative Follows instructions: intermittent Functional Communication Deficits impact swallow function/safety, or response to therapy: Yes VOICE Vocal Deficits: voice is hoarse Changes to vocal quality: no DYSPHAGIA Dysphagia Risk Evaluation Protocol DREP: Water Swallow Test: Pass, Puree Swallow Test:Pass, Solids Swallow Test: pass MIKE NOMS Swallow Scale Score Based on DREP Results: LEVEL 3: Swallowing is safe with consistent use of max cues to use compensatory strategies to control rate of intake and bolus size and diet restriction of dysphagia 2 and thin/ regular liquids. Sialorrhea: No Xerostomia: No Supplemental Oxygen Use: No COPD Dx: No Oral Structure and Function: decreased lingual control. Poor dentition but adequate for mastication Pain with Swallow: not indicated Respiratory/Swallow Coordination: Poor coordination. Oral breathing during bolus preparation. Oral Stage Oral Stage Dysphagia: Mild/moderate. Improved mastication over previous eval. Mild soft solid statis primarily Lside buccal. Stasis clears with liquid wash. Occasional anterior loss off liquids L side. Self Feeds: Finger foods. Pt can use silverware to self feed but rate and bolus size need to be managed for him Compensatory Maneuvers Used: pt needs full assist with self feed at this time for bolus size, rate of intake, alternate liquid/solid Assistance Required: Full assist Pharyngeal Stage No acute s/s of pharyngeal dysphagia. Aspiration Risk: Elevated d/t cognitive deficts and oral stage dysphagia. Improved over previous evaluation. Considered returned to OF ST ASSESSMENT SUMMARY DYSPHAGIA No acute s/s of pharyngeal dysphagia. Mild/mod oral stage dysphagia is present Aspiration Risk: Elevated d/t cognitive deficits and oral stage dysphagia. Improved over previous evaluation. Considered returned to [facility] Dysphagia Risk Evaluation Protocol DREP: Water Swallow Test: Pass, Puree Swallow Test: Pass, Solids Swallow Test: Pass (soft solids) MIKE NOMS Swallow Scale Score Based on DREP Results: LEVEL 3: Swallowing is safe with consistent use of max cues to use precaution strategies (see below) and requires diet restriction of dysphagia 2 and regular/thin liquids. Swallow Precautions: -Diet Modification: Dysphagia 2, regular thin liquids by spoon or cup. -Alternate sip/bite to clear any oral stasis. -Full assist with feeding. Rate is too fast and bolus size too large when allowed independent feeding. -Nutrition goals may be more difficult to meet as pt takes longer to finish meals with dysphagia 2 over puree. Speech Therapy Need No. Pt is at [facility] with diet upgrade to dysphagia 2 and regular/thin liquids Thank you for this referral. Chana Harry M.S., CCC-REHAB OFFICE COORDINATOR Speech Therapist BENITO
[2017-05-27 16:18] VITALS: BP 144/72
[2017-05-27] MEDS: EZETIMIBE 10 MG TAB PO SCH (20:54)
[2017-05-27] MEDS: LEVOFLOXACIN 500 MG TAB PO SCH (20:54)
[2017-05-28] MEDS: SUCRALFATE 1 GM TAB PO SCH ×4 (06:06→18:26)
[2017-05-28 07:47] VITALS: BP 138/78
[2017-05-28] MEDS: VALPROIC ACID 250 MG CAP PO SCH ×4 (07:48→21:42)
[2017-05-28] MEDS: metFORMIN HCL 500 MG TAB PO SCH ×2 (07:49→16:31)
[2017-05-28] MEDS: ENOXAPARIN 40 MG/0.4ML SYR SC SCH (07:53)
[2017-05-28] MEDS: buPROPion XL 150 MG TABCR PO SCH (07:54)
[2017-05-28] MEDS: MULTIVITAMINS TAB PO SCH (07:54)
[2017-05-28] MEDS: DOXAZOSIN MESYLATE 2 MG TAB PO SCH (07:54)
[2017-05-28] MEDS: PANTOPRAZOLE SOD 40 MG TABEC PO SCH (07:54)
[2017-05-28] MEDS: ATENOLOL 50 MG TAB PO SCH (07:56)
[2017-05-28] MEDS: CALCIUM CARBONATE/VITAMIN D3 PO SCH (07:56)
[2017-05-28] MEDS: LUTEIN PO SCH ×2 (07:57→21:00)
[2017-05-28] MEDS: FESOTERODINE FUMARATE 4 MG PO SCH (07:57)
[2017-05-28] MEDS: ZEAXANTHIN PO SCH ×2 (07:57→21:00)
[2017-05-28 13:18] VITALS: BP 134/68
[2017-05-28 16:55] VITALS: BP 145/78
[2017-05-28] MEDS: EZETIMIBE 10 MG TAB PO SCH (21:42)
[2017-05-28] MEDS: LEVOFLOXACIN 500 MG TAB PO SCH (21:42)
[2017-05-29] MEDS: SUCRALFATE 1 GM TAB PO SCH ×4 (06:33→18:35)
[2017-05-29 07:41] VITALS: BP 153/81
[2017-05-29] MEDS: CALCIUM CARBONATE/VITAMIN D3 PO SCH (08:24)
[2017-05-29] MEDS: DOXAZOSIN MESYLATE 2 MG TAB PO SCH (08:24)
[2017-05-29] MEDS: ENOXAPARIN 40 MG/0.4ML SYR SC SCH (08:24)
[2017-05-29] MEDS: VALPROIC ACID 250 MG CAP PO SCH ×4 (08:24→21:22)
[2017-05-29] MEDS: buPROPion XL 150 MG TABCR PO SCH (08:25)
[2017-05-29] MEDS: metFORMIN HCL 500 MG TAB PO SCH ×2 (08:25→17:17)
[2017-05-29] MEDS: MULTIVITAMINS TAB PO SCH (08:25)
[2017-05-29] MEDS: ATENOLOL 50 MG TAB PO SCH (08:25)
[2017-05-29] MEDS: PANTOPRAZOLE SOD 40 MG TABEC PO SCH (08:25)
[2017-05-29] MEDS: LUTEIN PO SCH ×2 (09:00→21:00)
[2017-05-29] MEDS: ZEAXANTHIN PO SCH ×2 (09:00→21:00)
[2017-05-29] MEDS: FESOTERODINE FUMARATE 4 MG PO SCH (09:00)
[2017-05-29 17:00] VITALS: BP 149/78
[2017-05-29] MEDS: LEVOFLOXACIN 500 MG TAB PO SCH (21:22)
[2017-05-29] MEDS: EZETIMIBE 10 MG TAB PO SCH (21:22)
[2017-05-30] MEDS: SUCRALFATE 1 GM TAB PO SCH ×4 (06:27→19:41)
[2017-05-30 07:27] VITALS: BP 154/76
[2017-05-30] MEDS: ENOXAPARIN 40 MG/0.4ML SYR SC SCH (08:18)
[2017-05-30] MEDS: metFORMIN HCL 500 MG TAB PO SCH ×2 (08:19→17:20)
[2017-05-30] MEDS: ATENOLOL 50 MG TAB PO SCH (08:19)
[2017-05-30] MEDS: CALCIUM CARBONATE/VITAMIN D3 PO SCH (08:19)
[2017-05-30] MEDS: MULTIVITAMINS TAB PO SCH (08:19)
[2017-05-30] MEDS: PANTOPRAZOLE SOD 40 MG TABEC PO SCH (08:19)
[2017-05-30] MEDS: DOXAZOSIN MESYLATE 2 MG TAB PO SCH (08:19)
[2017-05-30] MEDS: buPROPion XL 150 MG TABCR PO SCH (08:19)
[2017-05-30] MEDS: VALPROIC ACID 250 MG CAP PO SCH ×4 (08:22→21:28)
[2017-05-30] MEDS: ZEAXANTHIN PO SCH ×2 (08:22→21:00)
[2017-05-30] MEDS: LUTEIN PO SCH ×2 (08:22→21:00)
[2017-05-30] MEDS: FESOTERODINE FUMARATE 4 MG PO SCH (08:23)
[2017-05-30 15:40] VITALS: BP 148/70
[2017-05-30] MEDS: EZETIMIBE 10 MG TAB PO SCH (21:28)
[2017-05-30] MEDS: LEVOFLOXACIN 500 MG TAB PO SCH (21:28)
[2017-05-31] MEDS: SUCRALFATE 1 GM TAB PO SCH ×4 (05:49→19:29)
[2017-05-31 07:10] VITALS: BP 150/64
[2017-05-31] MEDS: metFORMIN HCL 500 MG TAB PO SCH ×2 (08:37→16:55)
[2017-05-31] MEDS: PANTOPRAZOLE SOD 40 MG TABEC PO SCH (08:38)
[2017-05-31] MEDS: DOXAZOSIN MESYLATE 2 MG TAB PO SCH (08:38)
[2017-05-31] MEDS: MULTIVITAMINS TAB PO SCH (08:38)
[2017-05-31] MEDS: VALPROIC ACID 250 MG CAP PO SCH ×4 (08:38→21:11)
[2017-05-31] MEDS: CALCIUM CARBONATE/VITAMIN D3 PO SCH (08:38)
[2017-05-31] MEDS: ATENOLOL 50 MG TAB PO SCH (08:38)
[2017-05-31] MEDS: ENOXAPARIN 40 MG/0.4ML SYR SC SCH (08:39)
[2017-05-31] MEDS: buPROPion XL 150 MG TABCR PO SCH (08:39)
[2017-05-31] MEDS: ZEAXANTHIN PO SCH ×2 (09:00→21:00)
[2017-05-31] MEDS: LUTEIN PO SCH ×2 (09:00→21:00)
[2017-05-31] MEDS: FESOTERODINE FUMARATE 4 MG PO SCH (09:00)
--- NOTE | 2017-05-31 10:28 | Medical Nutrition Therapy ---
Nutrition Anthropometrics Height (Inches): 65 (from past admissions) Height (Calculated Centimeters: 149.778096 Weight (Pounds): 147 Weight (Calculated Kilograms): 67.018 BMI Calculated: 23.51 Isaias Nutrition Score: Adequate Isaias Nutrition Risk Score: 14 Dietary Referral Nutrition Risk Factors: Diff. Swallowing, Special Diet Nutrition Risk Comment: Dysphagia diet, needs supervision at meals, 50oz fluid restriction at [facility] Physical Findings Physical Appearance: BMI 24.6- WNR Skin Appearance Skin Appearance: Edema Edema Location Modifier: Right Edema Location: Hand Type of Edema: Degree of Edema: 1+ Gastrointestinal Symptoms GI Symtoms: Tube Present: Bowel Sounds: Recent Bowel Pattern: Stool Characteristics: Nutritional Diagnosis Nutritional Risk Acuity 2: Swallowing Problem Nutritional Risk Acuity 3: Fair Appetite Past Medical History: HTN, GERD, depression, hyperlipidemia, T2DM, aspiration pneumonia, and fragile X syndrome Nutritional Acuity: 2-Moderate Nutrition Diagnosis: Swallowing Difficulties Nutrition Etiology: Physiological Causes Nutrition Problem/Etiology/Sym: r/t dx oral and pharyngeal dysphagia AEB dx aspiration pneumonia Energy Requirement: 2100 (M-SJ X 1.2 SF) Protein Requirement: 67 (1gm/kg) Fluid Requirement: 2000 (30ml/kg) Diet Type: Dysphagia Stage 2, Thickened Liquid Nutrition Intervention: Encourage intake Additional Diet Restrictions: PUT PROTEIN POWDER IN APPROPRIATE FOODS Diet Comment To RSA: PT IS DIABETIC, OFFER THICKEN SF BOOST IF INTAKE < 50% Nutrition Monitoring & Eval Nutrition Follow-Up: Good Intake RD Patient Assessment Time: [address] Assessment Type: RD Re-Assessment Patient Nutrition Acuity: 2-Moderate Follow Up Date: Jun 07, 2017 Nutritional Comment: 05/25 Pt admitted post respiratory distress with aspiration pneumonia. Pt evaluated by SPL and dsyphagia diet recommended with thicken liquids. Alb low at 2. Pt has dx T2DM. BG elevated 120's- 170's. Will put protein powder in appropriate foods and offer SF nutr supplements to increase kcal and potein. Wt is up 10# from wt of 137# on 05/14. Pt does have 1+ edema to hands and feet. Will cont to monitor. 05/26 Pt is lactose free. Will offer lactose free nutr supplment if intake < 50. 05/30 Pt continues on dysphagia 2 diet with thickened liquids. Intakes averaging 79% of reg portions. Most recent blood glucose was 97. Pt continues to have 1+ non pitting edema of right hand. No new wt available. Will continue to offer lactose free nutr supplement if intakes < 50. Continue to monitor labs, intakes, etc. MARGO RUIZ May 30, 2017 12:16
[2017-05-31 16:10] VITALS: BP 145/76
--- NOTE | 2017-05-31 16:59 | Medical Nutrition Therapy ---
Nutrition Anthropometrics Height (Inches): 65 (from past admissions) Height (Calculated Centimeters: 149.948499 Weight (Pounds): 147 Weight (Calculated Kilograms): 67.018 BMI Calculated: 23.51 Isaias Nutrition Score: Adequate Isaias Nutrition Risk Score: 14 Dietary Referral Nutrition Risk Factors: Diff. Swallowing, Special Diet Nutrition Risk Comment: Dysphagia diet, needs supervision at meals, 50oz fluid restriction at [facility] Nutritional Diagnosis Nutritional Risk Acuity 2: Swallowing Problem Nutritional Risk Acuity 3: Fair Appetite Past Medical History: HTN, GERD, depression, hyperlipidemia, T2DM, aspiration pneumonia, and fragile X syndrome Nutritional Acuity: 2-Moderate Nutrition Diagnosis: Swallowing Difficulties Nutrition Etiology: Physiological Causes Nutrition Problem/Etiology/Sym: r/t dx oral and pharyngeal dysphagia AEB dx aspiration pneumonia Energy Requirement: 2100 (M-SJ X 1.2 SF) Protein Requirement: 67 (1gm/kg) Fluid Requirement: 2000 (30ml/kg) Diet Type: Dysphagia Stage 2 Nutrition Intervention: Cont diet as ordered, Encourage intake, HS snack Additional Diet Restrictions: PUT PROTEIN POWDER IN APPROPRIATE FOODS Diet Comment To RSA: PT IS DIABETIC, OFFER SF BOOST IF INTAKE < 50% Nutrition Monitoring & Eval Nutrition Goals: Eat 75-100% Meal RD Patient Assessment Time: [address] Assessment Type: RD Re-Assessment Patient Nutrition Acuity: 2-Moderate Follow Up Date: Jun 07, 2017 Nutritional Comment: 05/25 Pt admitted post respiratory distress with aspiration pneumonia. Pt evaluated by [facility] and dsyphagia diet recommended with thicken liquids. Alb low at 2. Pt has dx T2DM. BG elevated 120's- 170's. Will put protein powder in appropriate foods and offer SF nutr supplements to increase kcal and potein. Wt is up 10# from wt of 137# on 05/14. Pt does have 1+ edema to hands and feet. Will cont to monitor. 05/26 Pt is lactose free. Will offer lactose free nutr supplment if intake < 50. 05/30 Pt continues on dysphagia 2 diet with thickened liquids. Intakes averaging 79% of reg portions. Most recent blood glucose was 97. Pt continues to have 1+ non pitting edema of right hand. No new wt available. Will continue to offer lactose free nutr supplement if intakes < 50. Continue to monitor labs, intakes, etc. 05/31 pt is no longer on thicken liquids. Will offer thin liquids and nutr supplement if intake < 50%. RAQUEL ROMERO 16, 2018 16:59
[2017-05-31] MEDS: LEVOFLOXACIN 500 MG TAB PO SCH (21:11)
[2017-05-31] MEDS: EZETIMIBE 10 MG TAB PO SCH (21:11)
[2017-06-01] MEDS: SUCRALFATE 1 GM TAB PO SCH ×4 (06:29→19:27)
[2017-06-01 07:50] VITALS: BP 160/84
[2017-06-01] MEDS: metFORMIN HCL 500 MG TAB PO SCH ×2 (08:43→17:24)
[2017-06-01] MEDS: DOXAZOSIN MESYLATE 2 MG TAB PO SCH (08:43)
[2017-06-01] MEDS: MULTIVITAMINS TAB PO SCH (08:43)
[2017-06-01] MEDS: ATENOLOL 50 MG TAB PO SCH (08:43)
[2017-06-01] MEDS: PANTOPRAZOLE SOD 40 MG TABEC PO SCH (08:43)
[2017-06-01] MEDS: buPROPion XL 150 MG TABCR PO SCH (08:43)
[2017-06-01] MEDS: ENOXAPARIN 40 MG/0.4ML SYR SC SCH (08:44)
[2017-06-01] MEDS: CALCIUM CARBONATE/VITAMIN D3 PO SCH (08:44)
[2017-06-01] MEDS: VALPROIC ACID 250 MG CAP PO SCH ×4 (08:46→21:11)
[2017-06-01] MEDS: FESOTERODINE FUMARATE 4 MG PO SCH (09:00)
[2017-06-01] MEDS: LUTEIN PO SCH ×2 (09:00→21:00)
[2017-06-01] MEDS: ZEAXANTHIN PO SCH ×2 (09:00→21:00)
[2017-06-01 16:35] VITALS: BP 120/66
[2017-06-01] MEDS: EZETIMIBE 10 MG TAB PO SCH (21:11)
[2017-06-01] MEDS: LEVOFLOXACIN 500 MG TAB PO SCH (21:11)
[2017-06-02] MEDS: SUCRALFATE 1 GM TAB PO SCH ×4 (05:54→18:59)
[2017-06-02 07:35] VITALS: BP 167/87
[2017-06-02] MEDS: VALPROIC ACID 250 MG CAP PO SCH ×4 (08:38→20:26)
[2017-06-02] MEDS: metFORMIN HCL 500 MG TAB PO SCH ×2 (08:38→17:11)
[2017-06-02] MEDS: ENOXAPARIN 40 MG/0.4ML SYR SC SCH (08:57)
[2017-06-02] MEDS: DOXAZOSIN MESYLATE 2 MG TAB PO SCH (08:57)
[2017-06-02] MEDS: ATENOLOL 50 MG TAB PO SCH (08:58)
[2017-06-02] MEDS: buPROPion XL 150 MG TABCR PO SCH (08:58)
[2017-06-02] MEDS: MULTIVITAMINS TAB PO SCH (08:58)
[2017-06-02] MEDS: PANTOPRAZOLE SOD 40 MG TABEC PO SCH (08:58)
[2017-06-02] MEDS: CALCIUM CARBONATE/VITAMIN D3 PO SCH (08:58)
[2017-06-02] MEDS: ZEAXANTHIN PO SCH ×2 (08:59→20:26)
[2017-06-02] MEDS: LUTEIN PO SCH ×2 (08:59→20:26)
[2017-06-02] MEDS: FESOTERODINE FUMARATE 4 MG PO SCH (08:59)
--- NOTE | 2017-06-02 10:07 | Hospitalist Progress Note ---
Subjective Progress Notes Subjective Per nursing staff the patient is not progressing with therapy. He is eating well. He has completed a course of Levaquin. Physical Exam Vital Signs Date Time Temp Pulse Resp B/P (MAP) Pulse Ox O2 Delivery O2 Flow Rate FiO2 06/02/17 07:35 97.6 90 18 167/87 (113) 90 Nasal Cannula 2.0 General Appearance: Alert, Awake, No Acute Distress, Other (Has hiccups.) Neuro: Other Eyes: PERRLA Cardiovascular: Regular Rate and Rhythm Respiratory: Other (Crackles R base and midaxillary line.) GI: Soft and Non-Tender Extremities: Warm, Perfused, Other (No edema.) Integumentary: Generalized Fragile Skin Psych: Appropriate Mood & Affect Assessment and Plan Problems: (1) Aspiration pneumonia Status: Acute Assessment & Plan: Likely, secondary to an EGD done on 05/12. His chest x-ray showed multifocal right sided infiltrates. He has also had a fever and elevated CRP. He was successfully extubated 05/20. He was initially placed on empiric treatment with IV Primaxin, vancomycin, and levofloxacin. One of his blood cultures did grow E. coli (only in aerobic) and MSSA (only in anaerobic, so likely contaminant). Repeat blood cultures on 05/19 showed no growth. His sputum also grew E. coli. All of these were sensitive to Levaquin. Levofloxacin was continued on ECF orally to complete a 14 day course. (2) Acute respiratory failure Status: Resolved Assessment & Plan: He was intubated in the ER and remained on mechanical ventilation while on the medical floor until 05/20/17. (3) Acute renal failure Status: Resolved Assessment & Plan: He presented with an elevated creatinine due to sepsis. It improved with hydration. Will repeat labs in am. (4) DMII (diabetes mellitus, type 2) Status: Chronic Assessment & Plan: He had not been on chronic treatment. He has been started on metformin. His blood sugars have improved. (5) Edema Status: Acute Assessment & Plan: This was felt to be due to poor nutrition. A prealbumin was low at 10.1. He was treated with Lasix with resolution of his edema. A repeat prealbumin on 05/25 had improved to 14.4. Lasix was discontinued. He has continued to do well while on ECF. (6) Fragile X syndrome in male Status: Chronic Assessment & Plan: He is on bupropion and valproic acid. (7) Esophagitis Status: Acute Assessment & Plan: He had EGD with biopsies on 05/12/17. Grossly there was diffuse "pseumomembranous changes" through most of the entirety. Results showed the proximal esophagus biopsy with esophageal squamous mucosa with an area of ulceration and the GE junction biopsy showed an area of ulceration. There was not evidence of yeast on wet prep or biopsy. He was on Diflucan, but it was discontinued. He appears to be tolerating his dysphagia diet fairly well. He has been continued on oral Protonix and Carafate slurry AC and HS on ECF. Central Venous Access Medical Necessity for Access: Hemodynamic Monitoring, IV Access, Medication Administration Time Spent on Plan of Care: < 30 min SOLANGE JOHNSON MD Jun 02, 2017 10:07
[2017-06-02 16:00] VITALS: BP 147/82
[2017-06-02] MEDS: EZETIMIBE 10 MG TAB PO SCH (20:26)
[2017-06-03 05:46] LABS: PLATELET COUNT, AUTOMATED 411 K/uL (150-450)
[2017-06-03] MEDS: SUCRALFATE 1 GM TAB PO SCH ×4 (05:47→18:15)
[2017-06-03 07:30] VITALS: BP 144/67
[2017-06-03] MEDS: ZEAXANTHIN PO SCH ×2 (09:00→20:28)
[2017-06-03] MEDS: LUTEIN PO SCH ×2 (09:00→20:28)
[2017-06-03] MEDS: FESOTERODINE FUMARATE 4 MG PO SCH (09:00)
[2017-06-03] MEDS: CALCIUM CARBONATE/VITAMIN D3 PO SCH (09:04)
[2017-06-03] MEDS: MULTIVITAMINS TAB PO SCH (09:04)
[2017-06-03] MEDS: metFORMIN HCL 500 MG TAB PO SCH ×2 (09:04→16:44)
[2017-06-03] MEDS: ATENOLOL 50 MG TAB PO SCH (09:04)
[2017-06-03] MEDS: buPROPion XL 150 MG TABCR PO SCH (09:04)
[2017-06-03] MEDS: VALPROIC ACID 250 MG CAP PO SCH ×4 (09:04→20:29)
[2017-06-03] MEDS: PANTOPRAZOLE SOD 40 MG TABEC PO SCH (09:04)
[2017-06-03] MEDS: DOXAZOSIN MESYLATE 2 MG TAB PO SCH (09:04)
[2017-06-03] MEDS: ENOXAPARIN 40 MG/0.4ML SYR SC SCH (09:05)
[2017-06-03 15:50] VITALS: BP 130/78
[2017-06-03] MEDS: EZETIMIBE 10 MG TAB PO SCH (20:29)
[2017-06-04] MEDS: SUCRALFATE 1 GM TAB PO SCH ×4 (06:06→19:23)
[2017-06-04 08:00] VITALS: BP 149/78
[2017-06-04] MEDS: DOXAZOSIN MESYLATE 2 MG TAB PO SCH (08:44)
[2017-06-04] MEDS: CALCIUM CARBONATE/VITAMIN D3 PO SCH (08:44)
[2017-06-04] MEDS: ENOXAPARIN 40 MG/0.4ML SYR SC SCH (08:44)
[2017-06-04] MEDS: ATENOLOL 50 MG TAB PO SCH (08:44)
[2017-06-04] MEDS: metFORMIN HCL 500 MG TAB PO SCH ×2 (08:44→16:40)
[2017-06-04] MEDS: VALPROIC ACID 250 MG CAP PO SCH ×4 (08:44→21:01)
[2017-06-04] MEDS: MULTIVITAMINS TAB PO SCH (08:44)
[2017-06-04] MEDS: PANTOPRAZOLE SOD 40 MG TABEC PO SCH (08:45)
[2017-06-04] MEDS: buPROPion XL 150 MG TABCR PO SCH (08:45)
[2017-06-04] MEDS: FESOTERODINE FUMARATE 4 MG PO SCH (09:00)
[2017-06-04] MEDS: ZEAXANTHIN PO SCH ×2 (09:00→20:53)
[2017-06-04] MEDS: LUTEIN PO SCH ×2 (09:00→20:53)
[2017-06-04 16:00] VITALS: BP 142/67
[2017-06-04] MEDS: EZETIMIBE 10 MG TAB PO SCH (21:03)
[2017-06-05] MEDS: SUCRALFATE 1 GM TAB PO SCH ×4 (06:08→19:30)
[2017-06-05 07:30] VITALS: BP 169/83
[2017-06-05] MEDS: LUTEIN PO SCH ×2 (09:00→21:00)
[2017-06-05] MEDS: ZEAXANTHIN PO SCH ×2 (09:00→21:00)
[2017-06-05] MEDS: FESOTERODINE FUMARATE 4 MG PO SCH (09:00)
[2017-06-05] MEDS: buPROPion XL 150 MG TABCR PO SCH (09:22)
[2017-06-05] MEDS: metFORMIN HCL 500 MG TAB PO SCH ×2 (09:22→17:05)
[2017-06-05] MEDS: ATENOLOL 50 MG TAB PO SCH (09:22)
[2017-06-05] MEDS: DOXAZOSIN MESYLATE 2 MG TAB PO SCH (09:23)
[2017-06-05] MEDS: MULTIVITAMINS TAB PO SCH (09:23)
[2017-06-05] MEDS: CALCIUM CARBONATE/VITAMIN D3 PO SCH (09:23)
[2017-06-05] MEDS: PANTOPRAZOLE SOD 40 MG TABEC PO SCH (09:23)
[2017-06-05] MEDS: ENOXAPARIN 40 MG/0.4ML SYR SC SCH (09:24)
[2017-06-05] MEDS: VALPROIC ACID 250 MG CAP PO SCH ×4 (09:25→20:41)
[2017-06-05 17:46] VITALS: BP 172/90
[2017-06-05] MEDS ORDERED: PANT40TA65 PO (18:57)
[2017-06-05] MEDS ORDERED: METHYLCELLULOSE OU (18:57)
[2017-06-05] MEDS ORDERED: LUTE1CAP PO (18:57)
[2017-06-05] MEDS ORDERED: METF-410 PO (18:57)
[2017-06-05] MEDS ORDERED: EZET10TA41 PO (18:57)
[2017-06-05] MEDS ORDERED: SUCR1TAB51 PO (18:57)
--- NOTE | 2017-06-05 19:11 | Hospitalist Depart ---
Discharge Summary Reason for Hosp/Final Diag: (1) Weakness Status: Acute Hospital Course & Plan: Secondary pneumonia, poor nutrition and prolonged hospital stay. He is working with therapy. He is still requiring much assistance, so is going to the [facility] to continue work. (2) Aspiration pneumonia Status: Resolved Hospital Course & Plan: Likely, secondary to an EGD done on 05/12. His chest x -ray showed multifocal right sided infiltrates. He has also had a fever and elevated CRP. He was successfully extubated 05/20. He was initially placed on empiric treatment with IV Primaxin, vancomycin, and levofloxacin. One of his blood cultures did grow E. coli (only in aerobic) and MSSA (only in anaerobic, so likely contaminant). Repeat blood cultures on 05/19 showed no growth. His sputum also grew E. coli. All of these were sensitive to Levaquin. Levofloxacin was continued on ECF orally to complete a 14 day course. He is on a dysphagia diet and tolerating it well. (3) Edema Status: Acute Hospital Course & Plan: This was felt to be due to poor nutrition. A prealbumin was low at 10.1. He was treated with Lasix with resolution of his edema. A repeat prealbumin on 05/25 had improved to 14.4. Lasix was discontinued. He has continued to do well while on ECF. Repeat prealbumin as an outpatient. (4) Esophagitis Status: Acute Hospital Course & Plan: He had EGD with biopsies on 05/12/17. Grossly there was diffuse "pseumomembranous changes" through most of the entirety. Results showed the proximal esophagus biopsy with esophageal squamous mucosa with an area of ulceration and the GE junction biopsy showed an area of ulceration. There was not evidence of yeast on wet prep or biopsy. He was on Diflucan, but it was discontinued. He appears to be tolerating his dysphagia diet fairly well. He has been continued on oral Protonix and Carafate slurry AC and HS on ECF. (5) DMII (diabetes mellitus, type 2) Status: Chronic Hospital Course & Plan: He had not been on chronic treatment. He has been started on metformin. His blood sugars have improved. Will have glucose checked daily. (6) Fragile X syndrome in male Status: Chronic Hospital Course & Plan: He is on bupropion and valproic acid. (7) Acute renal failure Status: Resolved Hospital Course & Plan: He presented with an elevated creatinine due to sepsis. It improved with hydration. Will repeat labs in am. (8) Acute respiratory failure Status: Resolved Hospital Course & Plan: He was intubated in the ER and remained on mechanical ventilation while on the medical floor until 05/20/17. (9) Hypertension Status: Chronic Hospital Course & Plan: Valsartan was held for most of the hospitalization, but restarted the day of discharge because BP started to become elevated. Departure Weight (Pounds): 127 Weight (Ounces): 12.0 Result Diagram: 06/03/17 0530 06/03/17 05 Item Value Date Time Prealbumin 14.4 mg/dL L 05/25/17 0700 Total Bilirubin 0.5 mg/dl 05/25/17 0700 Aspartate Amino Transf (AST/SGOT) 19 U/L 05/25/17 0700 Alanine Aminotransferase (ALT/SGPT) 36 U/L 05/25/17 0700 Alkaline Phosphatase 67 U/L 05/25/17 0700 Blood Urea Nitrogen 9 mg/dl 05/25/17 0700 Creatinine 0.60 mg/dl L 05/25/17 0700 Sodium Level 133 mmol/L L 05/25/17 0700 Potassium Level 4.2 mmol/L 05/25/17 0700 Chloride Level 99 mmol/L 05/25/17 0700 Carbon Dioxide Level 30 mmol/L 05/25/17 0700 Sodium Level 134 mmol/L L 06/03/17 0530 Potassium Level 3.9 mmol/L 06/03/17 0530 Chloride Level 98 mmol/L 06/03/17 0530 Carbon Dioxide Level 29 mmol/L 06/03/17 0530 Blood Urea Nitrogen 7 mg/dl L 06/03/17 0530 Creatinine 0.50 mg/dl L 06/03/17 0530 Total Bilirubin 0.4 mg/dl 06/03/17 0530 Aspartate Amino Transf (AST/SGOT) 17 U/L 06/03/17 0530 Alanine Aminotransferase (ALT/SGPT) 35 U/L 06/03/17 0530 Alkaline Phosphatase 59 U/L 06/03/17 0530 White Blood Count 9.8 k/uL 05/25/17 0700 White Blood Count 5.4 k/uL 06/03/17 0530 Hemoglobin 10.3 g/dL L 06/03/17 0530 Hemoglobin 11.0 g/dL L 05/25/17 0700 Platelet Count 454 K/uL H 05/25/17 0700 Platelet Count 411 K/uL 06/03/17 0530 Condition: Improved Discharge: [facility] PT/OT Follow Up For: PT For Strengthening, OT For ADL's Discharge Instructions Home Meds Active Scripts [Hypromellose 0.4% Lub 15ML Btl] 15 ML SOLN No Conflict Check, 0 ML OU PRN Y for dryness for 30 Days, INSTILL 1 DROP Prov:GO KIRKLAND MD 06/05/17 Metformin Hcl (METFORMIN HCL) 500 Mg Tablet, 500 MG PO BIDBS for 30 Days, Prov:GO KIRKLAND MD 06/05/17 Lutein/Zeaxanthin (LUTEIN-ZEAXANTHIN 25-5 MG SFGL) 1 Each Capsule, 15 MG PO BID for 30 Days, CAPSULE Prov:GO KIRKLAND MD 06/05/17 Ezetimibe (ZETIA) 10 Mg Tablet, 10 MG PO QHS for 30 Days, Prov:GO KIRKLAND MD 06/05/17 Pantoprazole Sodium (PANTOPRAZOLE SODIUM) 40 Mg Tablet.dr, 40 MG PO QDAY for 30 Days, Prov:GO KIRKLAND MD 06/05/17 Sucralfate (SUCRALFATE) 1 Gm Tablet, 1 GM PO 0630,1100,1500,1900 for 30 Days, Prov:GO KIRKLAND MD 06/05/17 Reported Medications Valproic Acid (VALPROIC ACID) 250 Mg Cap, 500 MG PO QHS, CAP 05/16/17 Bupropion Hcl (BUPROPION XL) 150 Mg Tab.er.24h, 150 MG PO QDAY, #10 TAB 05/03/17 Magnesium Hydroxide (MILK OF MAGNESIA) 400 Mg/5 Ml Oral.susp, 30 ML PO PRN Y for CONSTIPATION, BOTTLE 06/02/16 Calcium Carbonate/Vitamin D3 (CALCIUM + VITAMIN D TABLET) 1 Each Tablet, 2 EACH PO DAILY 06/02/16 Doxazosin Mesylate (DOXAZOSIN MESYLATE) 2 Mg Tablet, 2 MG PO QDAY 03/15/16 Calcium Carbonate/Mag Hydrox (Antacid 1000-200 mg Tab Chew) 1 Each Tab.chew, 1000 MG PO PRN 05/26/15 Baclofen (BACLOFEN) 10 Mg Tablet, 10 MG PO PRN Y for HICCUPS, #30 TAB every 6 hours as needed. Only 2 in 24 hours 05/02/15 Valsartan (DIOVAN) 160 Mg Tablet, 160 MG PO QDAY 04/07/15 Fesoterodine Fumarate (TOVIAZ) 4 Mg Tabsr, 4 MG PO DAILY 03/21/15 Valproic Acid (VALPROIC ACID) 250 Mg Cap, 250 MG PO TID, CAP 01/28/14 Atenolol (ATENOLOL) 100 Mg Tablet, 1 TAB PO QDAY, TAB TAKE ONE TABLET BY MOUTH ONCE A DAY at 6PM 01/28/14 Multivitamin (ONE DAILY) 1 Each Tablet, 1 EACH PO DAILY 01/14/14 Discontinued Reported Medications Lutein (LUTEIN) 6 Mg Capsule, 6 MG PO BID, CAPSULE 05/16/17 Lactose-Free Food (ENSURE LIQUID) 237 Ml Liquid, 237 ML PO DAILY 06/02/16 Lactulose (CONSTULOSE) 10 Gm/15 Ml Solution, 30 ML PO TID Y for CONSTIPATION 06/02/16 Ranitidine Hcl (ZANTAC) 150 Mg Tablet, 150 MG PO BID, TAB 03/15/16 Bacitracin Zinc (Bacitracin Zinc) 1 Each Oint..ea., 1 CARMELO TP PRN 05/02/15 Cetyl Alc/Stearyl Alc/Pg/Sls (CETAPHIL CREAM) 454 Gm Cream..g., 454 GM TP DAILY dry skin on feet 03/21/15 Loperamide Hcl/Simethicone (IMODIUM MULTI-SYMPTOM REL CPLT) 1 Each Tablet, 4 MG PO Y for DIARRHEA after 2 consecutive loose stools 03/21/15 Acetaminophen (ACETAMINOPHEN) 500 Mg Tablet, 2 TAB PO Q4-6H Y for PAIN, TAB 01/28/14 Aspirin (Aspirin) 325 Mg Tab, 325 MG PO QDAY, 0 Refills 06/20/11 Special Instructions: Lactose Free, Dysphagia 2 Diet Glucose check qam. Call PCP per protocol CBC/CMP/Prealbumin in a couple days. Results to PCP. Venous Thromboembolism Antithrombotics Is Pt On Any Antithrombotics?: No GO KIRKLAND MD Jun 05, 2017 19:11
[2017-06-05] MEDS: EZETIMIBE 10 MG TAB PO SCH (20:41)
[2017-06-06] MEDS: SUCRALFATE 1 GM TAB PO SCH ×2 (05:46→12:00)
[2017-06-06 07:20] VITALS: BP 160/85
[2017-06-06] MEDS: CALCIUM CARBONATE/VITAMIN D3 PO SCH (08:18)
[2017-06-06] MEDS: PANTOPRAZOLE SOD 40 MG TABEC PO SCH (08:18)
[2017-06-06] MEDS: VALPROIC ACID 250 MG CAP PO SCH ×2 (08:18→12:00)
[2017-06-06] MEDS: ATENOLOL 50 MG TAB PO SCH (08:18)
[2017-06-06] MEDS: FESOTERODINE FUMARATE 4 MG PO SCH (08:18)
[2017-06-06] MEDS: DOXAZOSIN MESYLATE 2 MG TAB PO SCH (08:18)
[2017-06-06] MEDS: MULTIVITAMINS TAB PO SCH (08:18)
[2017-06-06] MEDS: ZEAXANTHIN PO SCH (08:18)
[2017-06-06] MEDS: metFORMIN HCL 500 MG TAB PO SCH (08:18)
[2017-06-06] MEDS: ENOXAPARIN 40 MG/0.4ML SYR SC SCH (08:18)
[2017-06-06] MEDS: LUTEIN PO SCH (08:18)
[2017-06-06] MEDS: buPROPion XL 150 MG TABCR PO SCH (08:19)
[2017-06-06] MEDS ORDERED: VALSARTAN 80 MG TAB PO SCH (09:00)
--- NOTE | 2017-06-06 10:13 | PT ECF NOTE ---
Type of Note: Discharge Summary Primary Medical Diagnosis: Aspiration pneumonia, acute respiratory failure Physical Therapy Discharge Date: 06/06/17 SUBJECTIVE: Prior Hospitalization: [facility] 05/14/17-05/24/17 Prior Level of Function: SBA with walker per caregiver report Prior Living Status: snf, resident of the [facility] Community Services: Support adequate Home Accessibility: All needs on one level Equipment Owned: Walker Medical Complications/Past Medical History: Fragile X syndrome, see EMR for details Psychosocial Support: Caregivers from [facility] Pain Scale (0-10): non verbalized nor displayed OBJECTIVE: Strength: Pt unable to follow cues for LE MMT, improved AROM against gravity , yet <3/5 ROM: not formally assessed, WFL Sensation: pt unable to verbalize sensory abnormalities. Other Neuro findings: See EMR, fragile X syndrome Bed Mobility: modA x2 Transfers: Max A x2 with EZ lift, at times pt completed squat pivot/stand pivot transfers with rehab but continued to require maxAx2 Gait: Pt unable ASSESSMENT: The patient has made little gains with functional mobility during short term rehab stay, it is unclear if progress has been limited by the pt's willingness to participate. Per caregivers at the [facility], the pt is not at baseline level of functional and therefore transition to long term acute care registered nurse rehab has been arranged. Problem List/Current Limitations: Decreased activity nba Decreased strength Decreased balance Generalized weakness Confusion Short Term Goals: (not met) Goals Updated 05/25/17 (After discussion with direct caregiver from [facility]) 1: Pt to complete bed mobility with Kee 2: Pt to complete stand pivot transfers with use of grab bar with min A 3: Pt to ambulate 5' with 4WW and Kee Care Home Goals: Pt to discharge to assisted with prior level of surfaces ( not met, pt transitioning to long term acute care registered nurse rehab) Patient Goals: discharge home (not met) PLAN: The patient will transition to group home rehab facility for continued skilled care. Thank you for this referral. If you have any questions, concerns, or comments about this report or plan, please contact me at . Kassie Lorenzo, PT, DPT MTDD
--- NOTE | 2017-06-06 10:52 | OT ECF NOTE ---
Type of Note: Discharge Note Primary Medical Diagnosis: Generalized weakness s/p ICU admission. Occupational Therapy Evaluation Date: 05/24/17 SUBJECTIVE: Prior Hospitalization: [facility] 05/14/17 thru 05/24/17 for aspiration pneumonia and acute respiratory failure. Intubated 05/14/18. Extubated 05/20/17. Prior Level of Function: Ambulates with SBA and RW. Has assist for all ADLs/ IADLs Prior Living Status: longterm ([facility]) Community Services: Support adequate, No known needs Home Accessibility: All needs on one level, Walk-in shower Equipment Owned: Front wheeled walker, Tub/shower chair Medical Complications/Past Medical History: Fragile X Syndrome, Type 2 DM, GERD, Hypernatremia, Hyperlipidemia, Dementia (Please refer to EMR for details) Psychosocial Support: Supportive staff at [facility] chcf Pain Scale (0-10): Pt did not verbalize pain during initial evaluation. No facial grimacing noted throughout evaluation. OBJECTIVE: Strength: Pt unable to follow verbal cues to complete MMT MMT: Right Left Shoulder Flexion [*] [*] Elbow Flexion [*] [*] Wrist Extension [*] [*] Merchandise Handler [*] [*] (5= normal, 4= good, 3= fair, 2= poor, 1= trace) ROM: Both upper extremities, Minimally limited Functional Transfer: Assistive Device: EZ/Patient assisted lift, Gait belt Transfer Ability: 2-person assist, Maximum assistance ADL: Upper body dressing: Assistive device: Upper body dressing ability: Moderate to Maximum assistance Lower body dressing: Assistive device: Lower body dressing ability: Total assistance Toileting: Assistive device: Bedside Commode Toileting ability: Total assistance Grooming/hygiene: Assistive device: Grooming ability: Total assistance Bathing: Assistive device: Bathing ability: Maximum to total assistance. Standardized Assessment: Christi Index of Activities of Daily Livin/20 at initial evaluation (). 06/04 at discharge date (06/06/17). ASSESSMENT: "Paddy" presented to [facility] with significant weakness and decreased endurance s/p hospital admission with intubation. At [facility], pt ambulated with SBA and RW. Currently, pt requires Max Ax2-3 with EZ lift for transfers and Max- Total assistance for ADLs. He will transition to [facility] for continued skilled rehab or possible placement. Problem List/Current Limitations: Decreased activity tolerance Decreased strength Decreased balance Generalized weakness Poor safety awareness Decreased problem solving Short Term Goals: 1) Pt will be Min A UB/LB dressing. GOAL NOT MET. 2) Pt will be Min A toileting. GOAL NOT MET. 3) Pt will be Min A grooming/hygiene. GOAL NOT MET. 4) Pt will be Min A shower task. GOAL NOT MET. 5) Pt Christi Index of ADLs score will increase by 2 points. GOAL NOT MET. Power Lineman Technician Goals: Return to [facility] with services Patient Goals: Return home Rehabilitation Prognosis: Good Barriers to Discharge: Medical hx, Cognition PLAN: Discharge to long-term subacute rehab for continued skilled services. Thank you for this referral. If you have any questions, concerns, or comments about this report or plan, please contact me at . Sadia Esparza MS, OTR/L Occupational Therapy [facility]
--- NOTE | 2017-06-06 12:30 | Medical Nutrition Therapy ---
Nutrition Anthropometrics Height (Inches): 65.00 Height (Calculated Centimeters: 165.692524 Weight (Pounds): 127 Weight (Calculated Kilograms): 57.946 BMI Calculated: 23.51 Isaias Nutrition Score: Adequate Isaias Nutrition Risk Score: 13 Dietary Referral Nutrition Risk Factors: Diff. Swallowing, Special Diet Nutrition Risk Comment: Dysphagia diet, needs supervision at meals, 50oz fluid restriction at [facility] Physical Findings Physical Appearance: BMI 21.3 - WNR Skin Appearance Skin Appearance: Edema Edema Location Modifier: Right Edema Location: Hand Type of Edema: Degree of Edema: 1+ Gastrointestinal Symptoms GI Symtoms: Tube Present: Bowel Sounds: Recent Bowel Pattern: Stool Characteristics: Nutritional Diagnosis Nutritional Risk Acuity 2: Swallowing Problem Nutritional Risk Acuity 3: Fair Appetite Past Medical History: HTN, GERD, depression, hyperlipidemia, T2DM, aspiration pneumonia, and fragile X syndrome Nutritional Acuity: 2-Moderate Nutrition Diagnosis: Swallowing Difficulties Nutrition Etiology: Physiological Causes Nutrition Problem/Etiology/Sym: r/t dx oral and pharyngeal dysphagia AEB dx aspiration pneumonia Energy Requirement: 2100 (M-SJ X 1.2 SF) Protein Requirement: 67 (1gm/kg) Fluid Requirement: 2000 (30ml/kg) Diet Type: Dysphagia Stage 2 Nutrition Intervention: Cont diet as ordered, Encourage intake, HS snack Additional Diet Restrictions: PUT PROTEIN POWDER IN APPROPRIATE FOODS Diet Comment To RSA: PT IS DIABETIC, OFFER SF BOOST IF INTAKE < 50% Nutrition Monitoring & Eval RD Patient Assessment Time: [address] Assessment Type: RD Re-Assessment Patient Nutrition Acuity: 2-Moderate Follow Up Date: Jun 14, 2017 Nutritional Comment: 05/25 Pt admitted post respiratory distress with aspiration pneumonia. Pt evaluated by SPL and dsyphagia diet recommended with thicken liquids. Alb low at 2. Pt has dx T2DM. BG elevated 120's- 170's. Will put protein powder in appropriate foods and offer SF nutr supplements to increase kcal and potein. Wt is up 10# from wt of 137# on 05/14. Pt does have 1+ edema to hands and feet. Will cont to monitor. 05/26 Pt is lactose free. Will offer lactose free nutr supplment if intake < 50. 05/30 Pt continues on dysphagia 2 diet with thickened liquids. Intakes averaging 79% of reg portions. Most recent blood glucose was 97. Pt continues to have 1+ non pitting edema of right hand. No new wt available. Will continue to offer lactose free nutr supplement if intakes < 50. Continue to monitor labs, intakes, etc. 05/31 pt is no longer on thicken liquids. Will offer thin liquids and nutr supplement if intake < 50%. 06/06 Pt continues on dysphagia 2 diet. Intakes averaging 50% of small to reg portions. Notable labs include low H/H, Na 134, BUN 7, and Cr 0.5. Pt wt 127#, down 20# from 05/24. Pt had 1-2+ pitting edema of right hand and both feet. This has since resolved with diuretic use per hospitalist note. Will continue to monitor weights, intakes, labs, etc. MARGO RUIZ Jun 06, 2017 09:10
== END 2017-06-06 13:10 | DRG 205 ==
LOC: SWB 13:55
PROVIDERS: ADMIT Internal Medicine; ATTEND Internal Medicine
DX: J95.89 Other postprocedural complications and disorders of respiratory system, not elsewhere classified (principal); J69.0 Pneumonitis due to inhalation of food and vomit; K22.10 Ulcer of esophagus without bleeding; R13.10 Dysphagia, unspecified; R53.1 Weakness; I10 Essential (primary) hypertension; E11.9 Type 2 diabetes mellitus without complications; K21.9 Gastro-esophageal reflux disease without esophagitis; Q99.2 Fragile X chromosome; E78.5 Hyperlipidemia, unspecified; F03.90 Unspecified dementia, unspecified severity, without behavioral disturbance, psychotic disturbance, mood disturbance, and anxiety; R60.9 Edema, unspecified; Y83.8 Other surgical procedures as the cause of abnormal reaction of the patient, or of later complication, without mention of misadventure at the time of the procedure; Y73.0 Diagnostic and monitoring gastroenterology and urology devices associated with adverse incidents; Z90.49 Acquired absence of other specified parts of digestive tract; Z88.0 Allergy status to penicillin
CPT/HCPCS: 36415; 36416; 82040; 82247; 82310; 82374; 82435; 82565; 82947; 82948; 84075; 84132; 84134; 84155; 84295; 84450; 84460; 84520; 85025; 97161; 97166; J1650

== ENCOUNTER → 2017-06-08 | Outpatient (REF) | payer MEDICARE, MEDICAID ==
[2017-05-15 13:16] VITALS: BMI 23.5
[~2017-06-08] MED LIST changes: +EZET10TA41 PO; +LUTE1CAP PO; +METF-410 PO; +METHYLCELLULOSE OU; +PANT40TA65 PO; +SUCR1TAB51 PO
== END ==
LOC: ZZLCC 15:30
PROVIDERS: ATTEND Nurse Practitioner Family
DX: J18.9 Pneumonia, unspecified organism (principal); R60.0 Localized edema; R77.0 Abnormality of albumin; E11.9 Type 2 diabetes mellitus without complications; Z79.899 Other long term (current) drug therapy
CPT/HCPCS: 80164; 82040; 82247; 82310; 82374; 82435; 82565; 82947; 83036; 84075; 84132; 84134; 84155; 84295; 84443; 84450; 84460; 84520; 85027

== ENCOUNTER → 2017-06-09 | Outpatient (REF) | payer MEDICARE, MEDICAID ==
[2017-05-15 13:16] VITALS: BMI 23.5
== END ==
LOC: ZZLCC 11:42
PROVIDERS: ATTEND Nurse Practitioner Family
DX: E87.6 Hypokalemia (principal)
CPT/HCPCS: 84132

== ENCOUNTER → 2017-06-21 | Outpatient (CLI) | payer OTHER ==
[2017-05-15 13:16] VITALS: BMI 23.5
--- NOTE | 2017-06-21 14:15 | RADIOLOGY IMAGING REPORT ---
FACILITY: [facility] - [place] PATIENT NAME: Glen Jones : 1945 MR: [id number] V: [id number] EXAM DATE: ORDERING PHYSICIAN: BILL BECERRA TECHNOLOGIST: Location: [facility] - [place] Patient: Glen Jones : 1945 Visit/Account:[id number] Date of Sevice: 06/21/2017 Exam type: CHEST PA AND LAT History: Follow-up pneumonia Comparison: May 21, 2017. Findings: Extensive airspace consolidation is again seen throughout the right lung. This appears more nodular at this time. Subtle airspace consolidation in the left mid to lower lung field is minimally improve d there is no evidence of pleural effusions. The cardiac silhouette is normal in size. Incidentally noted is moderate distention of several bowel loops in the upper abdomen. IMPRESSION: 1. Extensive airspace consolidations again seen throughout the right lung although appears more nodu lar at this time. Subtle airspace consolidation left mid to lower lung field is minimally improved a lthough findings are consistent with multifocal pneumonia Moderately distended loops of bowel in the upper abdomen could represent ileus versus obstruction. C linical correlation needed Report Dictated By: Jasmina Hickman MD at 06/21/2017 2:06 PM Report E-Signed By: Jasmina Hickman MD at 06/21/2017 2:11 PM [id number]:[id number]
== END ==
LOC: RAD 13:16
PROVIDERS: ATTEND Nurse Practitioner Family
DX: J18.9 Pneumonia, unspecified organism (principal)
CPT/HCPCS: 71046

== ENCOUNTER 2017-07-11 23:47 | Emergency (ER) | payer MEDICARE, MEDICAID ==
[2017-05-15 13:16] VITALS: Wt 57.9 kg
--- NOTE | 2017-07-11 23:48 | ER Report ---
History and Physical Time Seen By MD: 23:47 HPI/ROS CHIEF COMPLAINT: Vomited brown fluid HISTORY OF PRESENT ILLNESS: Mr. Jones is a 71-year-old male with a past medical history of HTN, DM-II, GERD, Fragile X Syndrome, Dyslipidemia, Dementia , Recurrent Aspirational Pneumonias and he was recently discharged from [facility] after a prolonged admission from 05/14/2017 through 06/05/17. He was intubated for respiratory failure and aspiration from 05/14 through 05/20. Patient's been doing well in the [facility] for the last month or so. Tonight he was found rolled over in bed with brown fluid out of his nose and his airway. Patient on arrival is alert and oriented and responding properly. He voices no complaints. There is staining of his bed materials. His nasal passages with brown fluid. It does not appear to be coffee-ground emesis. Patient's afebrile. His pulse ox is normal on his usual 2 L. Vital signs are stable. On report. REVIEW OF SYSTEMS: Respiratory: No cough, no dyspnea. Cardiovascular: No chest pain, no palpitations. Gastrointestinal: No vomiting, no abdominal pain. Musculoskeletal: No back pain. Allergies: Coded Allergies: Penicillins (Verified Allergy, Mild, 07/11/17) chlorpromazine (Verified Allergy, Mild, 07/11/17) Home Meds Active Scripts [Hypromellose 0.4% Lub 15ML Btl] 15 ML SOLN No Conflict Check, 0 ML OU PRN Y for dryness for 30 Days, INSTILL 1 DROP Prov:GO KIRKLAND MD 06/05/17 Metformin Hcl (METFORMIN HCL) 500 Mg Tablet, 500 MG PO BIDBS for 30 Days, Prov:GO KIRKLAND MD 06/05/17 Lutein/Zeaxanthin (LUTEIN-ZEAXANTHIN 25-5 MG SFGL) 1 Each Capsule, 15 MG PO BID for 30 Days, CAPSULE Prov:GO KIRKLAND MD 06/05/17 Ezetimibe (ZETIA) 10 Mg Tablet, 10 MG PO QHS for 30 Days, Prov:GO KIRKLAND MD 06/05/17 Pantoprazole Sodium (PANTOPRAZOLE SODIUM) 40 Mg Tablet.dr, 40 MG PO QDAY for 30 Days, Prov:GO KIRKLAND MD 06/05/17 Sucralfate (SUCRALFATE) 1 Gm Tablet, 1 GM PO 0630,1100,1500,1900 for 30 Days, Prov:GO KIRKLAND MD 06/05/17 Reported Medications Valproic Acid (VALPROIC ACID) 250 Mg Cap, 500 MG PO QHS, CAP 05/16/17 Bupropion Hcl (BUPROPION XL) 150 Mg Tab.er.24h, 150 MG PO QDAY, #10 TAB 05/03/17 Magnesium Hydroxide (MILK OF MAGNESIA) 400 Mg/5 Ml Oral.susp, 30 ML PO PRN Y for CONSTIPATION, BOTTLE 06/02/16 Calcium Carbonate/Vitamin D3 (CALCIUM + VITAMIN D TABLET) 1 Each Tablet, 2 EACH PO DAILY 06/02/16 Doxazosin Mesylate (DOXAZOSIN MESYLATE) 2 Mg Tablet, 2 MG PO QDAY 03/15/16 Calcium Carbonate/Mag Hydrox (Antacid 1000-200 mg Tab Chew) 1 Each Tab.chew, 1000 MG PO PRN 05/26/15 Baclofen (BACLOFEN) 10 Mg Tablet, 10 MG PO PRN Y for HICCUPS, #30 TAB every 6 hours as needed. Only 2 in 24 hours 05/02/15 Valsartan (DIOVAN) 160 Mg Tablet, 160 MG PO QDAY 04/07/15 Fesoterodine Fumarate (TOVIAZ) 4 Mg Tabsr, 4 MG PO DAILY 03/21/15 Valproic Acid (VALPROIC ACID) 250 Mg Cap, 250 MG PO TID, CAP 01/28/14 Atenolol (ATENOLOL) 100 Mg Tablet, 1 TAB PO QDAY, TAB TAKE ONE TABLET BY MOUTH ONCE A DAY at 6PM 01/28/14 Multivitamin (ONE DAILY) 1 Each Tablet, 1 EACH PO DAILY 01/14/14 Reviewed Nurses Notes: Yes Old Medical Records Reviewed: Yes Hx Smoking: No Smoking Status: Never Smoker Hx Substance Use Disorder: No Hx Alcohol Use: No Constitutional Vital Sign - Last 24 Hours 07/11/17 07/11/17 07/12/17 07/12/17 23:49 23:52 00:00 00:02 Temp 98.8 Pulse 72 72 Resp 11 14 B/P (MAP) 154/81 (105) 154/81 135/84 (101) Pulse Ox 99 99 O2 Delivery Nasal Cannula 07/12/17 07/12/17 07/12/17 07/12/17 00:17 00:30 00:30 00:30 Pulse 72 Resp 21 B/P (MAP) 168/103 (124) Pulse Ox 84 97 O2 Delivery Nasal Cannula O2 Flow Rate 2.0 2.0 07/12/17 07/12/17 07/12/17 07/12/17 00:30 00:32 00:39 00:47 Pulse 70 69 70 69 Resp 20 24 20 35 Pulse Ox 99 97 07/12/17 07/12/17 07/12/17 07/12/17 01:00 01:02 01:17 01:30 Pulse 71 67 Resp 22 B/P (MAP) 147/87 (107) 127/93 (104) Pulse Ox 100 Physical Exam Vital signs stable, afebrile, pulse ox normal, no acute distress General Appearance: The patient is alert, has no immediate need for airway protection and no current signs of toxicity. HEENT: Pupils equal and round no injection. Nasal passages are patent, with brown fluid staining his teeth., Oropharynx without redness or exudate, mucous members are moist Respiratory: Chest is non tender, lungs are clear to auscultation. No wheezing or rails Cardiac: regular rate and rhythm Gastrointestinal: Abdomen is soft and non tender, no masses, bowel sounds normal. Musculoskeletal: Neck: Neck is supple and non tender. Extremities have full range of motion and are non tender. 1+ edema bilateral lower extremities Skin: No rashes or lesions. DIFFERENTIAL DIAGNOSIS: After history and physical exam differential diagnosis was considered for aspiration, vomiting,shortness of breath including but not limited to pulmonary infectious process, COPD, asthma, pulmonary embolus and congestive heart failure. Medical Decision Making Data Points Result Diagram: 07/11/17 0025 07/11/17 0025 Laboratory Hematology Test 07/11/17 00:25 Red Blood Count 4.19 M/uL (4.00-5.60) Mean Corpuscular Volume 85.0 fL (80.0-96.0) Mean Corpuscular Hemoglobin 28.7 pg (26.0-33.0) Mean Corpuscular Hemoglobin Concent 33.8 g/dL (32.0-36.0) Red Cell Distribution Width 15.9 % (11.5-14.5) Mean Platelet Volume 7.9 fL (7.2-11.1) Neutrophils (%) (Auto) 44.1 % (39.4-72.5) Lymphocytes (%) (Auto) 39.5 % (17.6-49.6) Monocytes (%) (Auto) 9.8 % (4.1-12.4) Eosinophils (%) (Auto) 5.7 % (0.4-6.7) Basophils (%) (Auto) 0.9 % (0.3-1.4) Nucleated RBC Relative Count (auto) 0.0 /100WBC Neutrophils # (Auto) 3.2 K/uL (2.0-7.4) Lymphocytes # (Auto) 2.9 K/uL (1.3-3.6) Monocytes # (Auto) 0.7 K/uL (0.3-1.0) Eosinophils # (Auto) 0.4 K/uL (0.0-0.5) Basophils # (Auto) 0.1 K/uL (0.0-0.1) Nucleated RBC Absolute Count (auto) 0.00 K/uL Sodium Level 130 mmol/L (137-145) Potassium Level 4.2 mmol/L (3.5-5.0) Chloride Level 92 mmol/L (98-107) Carbon Dioxide Level 31 mmol/L (22-30) Blood Urea Nitrogen 16 mg/dl (9-21) Creatinine 0.60 mg/dl (0.66-1.25) Glomerular Filtration Rate Calc > 60.0 Random Glucose 118 mg/dl (75-110) Calcium Level 9.3 mg/dl (8.4-10.2) Total Bilirubin 0.1 mg/dl (0.2-1.3) Aspartate Amino Transf (AST/SGOT) 11 U/L (0-35) Alanine Aminotransferase (ALT/SGPT) 18 U/L (0-56) Alkaline Phosphatase 70 U/L (0-126) Troponin I < 0.012 ng/ml Total Protein 7.5 gm/dl (6.3-8.2) Albumin 3.1 g/dl (3.5-5.0) Chemistry Test 07/11/17 00:25 White Blood Count 7.4 k/uL (4.5-11.0) Red Blood Count 4.19 M/uL (4.00-5.60) Hemoglobin 12.0 g/dL (14.0-18.0) Hematocrit 35.6 % (42.0-52.0) Mean Corpuscular Volume 85.0 fL (80.0-96.0) Mean Corpuscular Hemoglobin 28.7 pg (26.0-33.0) Mean Corpuscular Hemoglobin Concent 33.8 g/dL (32.0-36.0) Red Cell Distribution Width 15.9 % (11.5-14.5) Platelet Count 315 K/uL (150-450) Mean Platelet Volume 7.9 fL (7.2-11.1) Neutrophils (%) (Auto) 44.1 % (39.4-72.5) Lymphocytes (%) (Auto) 39.5 % (17.6-49.6) Monocytes (%) (Auto) 9.8 % (4.1-12.4) Eosinophils (%) (Auto) 5.7 % (0.4-6.7) Basophils (%) (Auto) 0.9 % (0.3-1.4) Nucleated RBC Relative Count (auto) 0.0 /100WBC Neutrophils # (Auto) 3.2 K/uL (2.0-7.4) Lymphocytes # (Auto) 2.9 K/uL (1.3-3.6) Monocytes # (Auto) 0.7 K/uL (0.3-1.0) Eosinophils # (Auto) 0.4 K/uL (0.0-0.5) Basophils # (Auto) 0.1 K/uL (0.0-0.1) Nucleated RBC Absolute Count (auto) 0.00 K/uL Glomerular Filtration Rate Calc > 60.0 Calcium Level 9.3 mg/dl (8.4-10.2) Total Bilirubin 0.1 mg/dl (0.2-1.3) Aspartate Amino Transf (AST/SGOT) 11 U/L (0-35) Alanine Aminotransferase (ALT/SGPT) 18 U/L (0-56) Alkaline Phosphatase 70 U/L (0-126) Troponin I < 0.012 ng/ml Total Protein 7.5 gm/dl (6.3-8.2) Albumin 3.1 g/dl (3.5-5.0) EKG/Imaging EKG Interpretation 12 lead EK Rhythm: normal sinus rhythm, wandering baseline an artifact noted Tabor: normal QRS: normal ST segments: normal, comparison to previous EKG dated 05/19/17, no overall significant morphologic change Imaging X-ray: Single view portable chest x-ray was obtained. I viewed the images myself on the PACS system. My interpretation of the images is: Clear lung olsen, no infiltrate, comparison to previous chest x-ray dated 06/21/17, there is significant clearing of the lung olsen.. The radiologist interpretation had no clinically significant variation from this interpretation. ED Course/Re-evaluation Clinical Indication for ER IV: IV Access ED Course Patient was admitted to an examination room. H&P was done. The differential diagnoses was considered. On clinical examination. Patient voices no complaints. He has brown emesis fluid. Chest x-ray shows no infiltrate. His saturations are normal. His diagnostic laboratory studies are unremarkable. His EKG and troponin are unremarkable. Patient be returned to the [facility]. Decision to Disposition Date: Jul 12, 2017 Decision to Disposition Time: 00:38 Depart Departure Latest Vital Signs Vital Signs Date Time Temp Pulse Resp B/P (MAP) Pulse Ox O2 Delivery O2 Flow Rate FiO2 07/12/17 01:30 127/93 (104) 07/12/17 01:17 67 22 100 07/12/17 00:30 2.0 07/12/17 00:30 Nasal Cannula 07/11/17 23:52 98.8 Core Temperature (Celsius): 37.2 Impression: Primary Impression: Vomiting Additional Impression: History of aspiration pneumonia Condition: Improved Disposition: HOME OR SELF-CARE Problem Qualifiers Primary Impression: Vomiting Vomiting type: unspecified Vomiting Intractability: unspecified Nausea presence: unspecified Qualified Codes: R11.10 - Vomiting, unspecified TESSIE FERGUSON DO Jul 11, 2017 23:48
[2017-07-11] MEDS ORDERED: NS(*) 0.9% 500 ML BAG 500 ML IV ONE (23:57)
[2017-07-12] MEDS ORDERED: ALBUTEROL/IPRATROPIUM 3 ML NEB NEB ONE
[2017-07-12] MEDS ORDERED: NS(*) 0.9% 1000 ML BAG 1,000 ML IV ONE (00:35)
[2017-07-12 00:43] LABS: PLATELET COUNT, AUTOMATED 315 K/uL (150-450)
--- NOTE | 2017-07-12 01:20 | RADIOLOGY IMAGING REPORT ---
FACILITY: [facility] [place] PATIENT NAME: Glen Jones : 1945 MR: [id number] V: [id number] EXAM DATE: ORDERING PHYSICIAN: TESSIE FERGUSON TECHNOLOGIST: [place] [facility] [place] Glen [place] : 1945 Visit/Account:[id number] Date of Sevice: 07/11/2017 EXAMINATION: Portable chest radiograph single view at 0045 hours HISTORY: Respiratory distress. COMPARISON: 06/21/2017. FINDINGS: A single portable AP view of the chest is obtained. Lines/tubes: None. Lungs/pleura: Patchy consolidation in the right mid and lower lung is not significantly changed. No focal consolidation on the left. There is no pleural effusion. Heart: Negative. Mediastinum: Atherosclerotic calcifications of the aorta. Bony structures/body wall: Negative. IMPRESSION: 1. Patchy consolidation in the right mid and lower lung is unchanged and is suspicious for pneumonia. Continued radiographic follow-up to resolution is recommended. 2. Pneumonia of the left lung has cleared. Report Dictated By: Alejandrina Crowe MD at 07/12/2017 1:13 AM Report E-Signed By: Alejandrina Crowe MD at 07/12/2017 1:15 AM WSN:[id number]
[2017-07-12 01:30] VITALS: BP 127/93
--- NOTE | 2017-07-12 02:50 | EKG ---
FACILITY: [facility] - [place] PATIENT NAME: PAMELA JAMES : [id number] MR: [id number] V: [id number] EXAM DATE: ORDERING PHYSICIAN: TESSIE FERGUSON TECHNOLOGIST: JUAN Test Reason : DYSP/ASPIRATION Blood Pressure : / mmHG Vent. Rate : 067 BPM Atrial Rate : 067 BPM P-R Int : 202 ms QRS Dur : 074 ms QT Int : 386 ms P-R-T Axes : 087 034 025 degrees QTc Int : 407 ms Normal sinus rhythm Moderate voltage criteria for LVH, may be normal variant Cannot rule out Septal infarct (cited on or before 19-MAY-2017) Abnormal ECG When compared with ECG of 19-MAY-2017 05:14, Relativley unchanged but now with baseline artifact so difficult to strictly compare Confirmed by GO KIRKLAND ([id number]) on 07/12/2017 7:55:00 AM Referred By: Confirmed By:GO KIRKLAND
== END 2017-07-12 01:42 | disposition home or self-care (01) ==
LOC: ER 23:57
DX: R11.10 Vomiting, unspecified (principal); I10 Essential (primary) hypertension; E11.9 Type 2 diabetes mellitus without complications; K21.9 Gastro-esophageal reflux disease without esophagitis; Q99.2 Fragile X chromosome; E78.5 Hyperlipidemia, unspecified; F03.90 Unspecified dementia, unspecified severity, without behavioral disturbance, psychotic disturbance, mood disturbance, and anxiety; Z79.84 Long term (current) use of oral hypoglycemic drugs
CPT/HCPCS: 71045; 84484; 85025; 93005; 94640; 96360; 99284; J7040; J7620; 82040; 82247; 82310; 82374; 82435; 82565; 82947; 84075; 84132; 84155; 84295; 84450; 84460; 84520

== ENCOUNTER → 2017-07-11 | Outpatient (CLI) | payer MEDICARE, MEDICAID ==
[2017-05-15 13:16] VITALS: BMI 23.5
== END ==
LOC: AMB 23:33
PROVIDERS: ATTEND Nurse Practitioner
DX: R11.10 Vomiting, unspecified (principal)
CPT/HCPCS: A0425; A0429

== ENCOUNTER → 2017-07-12 | Outpatient (CLI) | payer MEDICARE, MEDICAID ==
[2017-05-15 13:16] VITALS: BMI 23.5
== END ==
LOC: AMB 01:35
PROVIDERS: ATTEND Nurse Practitioner
DX: R53.81 Other malaise (principal)
CPT/HCPCS: A0425; A0428

== ENCOUNTER → 2017-08-12 | Outpatient (CLI) | payer OTHER, MEDICARE, MEDICAID ==
[2017-05-15 13:16] VITALS: BMI 23.5
--- NOTE | 2017-08-12 11:12 | RADIOLOGY IMAGING REPORT ---
FACILITY: [facility] PATIENT NAME: Glen Jones : 1945 MR: [id number] V: [id number] EXAM DATE: ORDERING PHYSICIAN: BILL BECERRA TECHNOLOGIST: Location: [facility] Patient: Glen Jones : 1945 Visit/Account:[id number] Date of Sevice: 08/12/2017 Exam type: CHEST PA AND LAT History: Pneumonia Comparison: July 12, 2017. Findings: Patchy airspace consolidation right lung is minimally improved. The left lung appears relatively wel l aerated this time. Is no evidence pleural effusion's. Cardiac silhouette is normal in size. IMPRESSION: 1. Patchy airspace consolidation the right lung is minimally improved consistent with the history of pneumonia Report Dictated By: Jasmina Hickman MD at 08/12/2017 10:37 AM Report E-Signed By: Jasmina Hickman MD at 08/12/2017 11:08 AM WSN:[email or web address]
== END ==
LOC: RAD 10:06
PROVIDERS: ATTEND Nurse Practitioner Family
DX: J18.9 Pneumonia, unspecified organism (principal)
CPT/HCPCS: 71046

== ENCOUNTER 2017-10-01 10:52 | Inpatient (IN) | payer MEDICARE, MEDICAID ==
[~2017-10-01] VITALS: Ht 165.1 cm; Wt 57.5 kg
[~2017-10-01 10:52] MED LIST changes: +BACI3.5O25 OD; +BUPR-149 PO; +FLUC100T39 PO; -METF-410 PO; +METF-411 PO; +MULT-865 PO; -RANI-324 PO; +RANI-366 PO; +[UNRECOGNIZED DRUG - OTHER]; +[UNRECOGNIZED DRUG - OTHER] TOP; +[UNRECOGNIZED DRUG - OTHER] TOP
--- NOTE | 2017-10-01 11:04 | ER Report ---
History and Physical Time Seen By MD: 11:04 HPI/ROS CHIEF COMPLAINT: Bloody nose, is acting like himself, hiccups HISTORY OF PRESENT ILLNESS: 72-year-old male patient presents to emergency room with complaint of not acting like himself, bloody nose and he comes. Patient is a resident of the [facility], and has a long-standing history of diabetes, aspiration pneumonia, urinary tract infection. The caregiver state that this morning he had a bloody nose. He stated that he did not have any nausea or vomiting. He did have some hiccups, for which they did treat him with baclofen. They state that he has been breathing normally, they state that they're concerned that he is just not acting like himself. Provider is concerned these a little more pale than he normally is. REVIEW OF SYSTEMS: Respiratory: As noted above Cardiovascular: No chest pain, no palpitations. Gastrointestinal: As noted above Musculoskeletal: No back pain. Allergies: Coded Allergies: Penicillins (Verified Allergy, Mild, 07/11/17) chlorpromazine (Verified Allergy, Mild, 07/11/17) Home Meds Active Scripts [Hypromellose 0.4% Lub 15ML Btl] 15 ML SOLN No Conflict Check, 0 ML OU PRN Y for dryness for 30 Days, INSTILL 1 DROP Prov:GO KIRKLAND MD 06/05/17 Metformin Hcl (METFORMIN HCL) 500 Mg Tablet, 500 MG PO BIDBS for 30 Days, Prov:GO KIRKLAND MD 06/05/17 Lutein/Zeaxanthin (LUTEIN-ZEAXANTHIN 25-5 MG SFGL) 1 Each Capsule, 15 MG PO BID for 30 Days, CAPSULE Prov:GO KIRKLAND MD 06/05/17 Ezetimibe (ZETIA) 10 Mg Tablet, 10 MG PO QHS for 30 Days, Prov:GO KIRKLAND MD 06/05/17 Reported Medications Tamsulosin Hcl (TAMSULOSIN HCL) 0.4 Mg Cap.er.24h, 0.4 MG PO, CAP 10/01/17 Omeprazole (OMEPRAZOLE) 20 Mg Capsule.dr, 1 CAP PO QDAY, CAP 10/01/17 Losartan Potassium (LOSARTAN POTASSIUM) 100 Mg Tablet, 100 MG PO QDAY 10/01/17 Bupropion Hcl (BUPROPION XL) 150 Mg Tab.er.24h, 150 MG PO QDAY, #10 TAB 5/19/18 Acetaminophen 500 Mg Tab (ACETAMINOPHEN EXTRA STRENGTH) 500 Mg Tablet, 500 MG PO Q4-6H, TAB 10/01/17 Vit C/Ainsley Ac/Lut/Copper/Znox (PRESERVISION LUTEIN SOFTGEL) 1 Each Capsule, 1 EACH PO BID, CAPSULE 05/12/17 [equate body powder] No Conflict Check, 1 CARMELO TOP DAILY Sprinkle a light amount on clean, dry feet daily prior to putting on socks and shoes 05/12/17 Lactose-Free Food (ENSURE LIQUID) 237 Ml Liquid, 237 ML PO HS 05/12/17 [closys toothpaste] No Conflict Check, 1 CARMELO BID 05/12/17 Cetyl Alc/Stearyl Alc/Pg/Sls (CETAPHIL CREAM) 454 Gm Cream..g., 454 GM TP HS Apply to both feet before bed 05/12/17 Calcium Carbonate/Vitamin D3 (CALCIUM 600 + VIT D 200 TABLET) 1 Each Tablet, 1 EACH PO DAILY 05/12/17 Bacitracin/Polymyxin B Sulfate (BACITRACIN-POLYMYXIN EYE OINT) 3.5 Gm Oint...g. , 3.5 GM OD BID 05/12/17 Bupropion Hcl (BUPROPION XL) 150 Mg Tab.er.24h, 150 MG PO QDAY, #10 TAB 05/03/17 Magnesium Hydroxide (MILK OF MAGNESIA) 400 Mg/5 Ml Oral.susp, 30 ML PO PRN Y for CONSTIPATION, BOTTLE 06/02/16 Calcium Carbonate/Mag Hydrox (Antacid 1000-200 mg Tab Chew) 1 Each Tab.chew, 1000 MG PO PRN 05/26/15 Baclofen (BACLOFEN) 10 Mg Tablet, 10 MG PO PRN Y for HICCUPS, #30 TAB every 6 hours as needed. Only 2 in 24 hours 05/02/15 Valproic Acid (VALPROIC ACID) 250 Mg Cap, 250 MG PO ACHS, CAP 01/28/14 Atenolol (ATENOLOL) 100 Mg Tablet, 1 TAB PO QDAY, TAB TAKE ONE TABLET BY MOUTH ONCE A DAY at 6PM 01/28/14 Multivitamin (ONE DAILY) 1 Each Tablet, 1 EACH PO DAILY 01/14/14 Discontinued Reported Medications Valproic Acid (VALPROIC ACID) 250 Mg Cap, 500 MG PO QHS, CAP 05/16/17 Fluconazole (FLUCONAZOLE) 100 Mg Tablet, 100 MG PO QDAY for 20 Days, #20 TAB 0 Refills 05/13/17 Valsartan (DIOVAN) 160 Mg Tablet, 160 MG PO DAILY 05/12/17 Valproic Acid (VALPROIC ACID) 250 Mg Cap, 250 MG PO QID, CAP 05/12/17 Fesoterodine Fumarate (TOVIAZ) 4 Mg Tabsr, 4 MG PO DAILY 05/12/17 Sodium Chloride (SODIUM CHLORIDE) 1 Gm Tab, 1 GM PO DAILY, TAB 05/12/17 Ranitidine Hcl (ZANTAC) 150 Mg Tablet, 150 MG PO BID, TAB 05/12/17 Magnesium Hydroxide (MILK OF MAGNESIA) 400 Mg/5 Ml Oral.susp, 30 ML PO HS, BOTTLE 05/12/17 Multivitamin (DAILY MULTIPLE VITAMIN) 1 Each Tablet, 1 TAB PO DAILY 05/12/17 [body powder] No Conflict Check, 1 CARMELO TOP DAILY After showering and drying off, Paddy should be assisted in applying cornstarch powder to his groin area each day. 05/12/17 Doxazosin Mesylate (DOXAZOSIN MESYLATE) 2 Mg Tablet, 2 MG PO HS 05/12/17 Bupropion Hcl (BUPROPION XL) 150 Mg Tab.er.24h, 150 MG PO QDAY, #10 TAB 05/12/17 Atenolol (ATENOLOL) 50 Mg Tablet, 2 TAB PO QDAY, TAB 05/12/17 Aspirin (ASPIRIN) 325 Mg Tablet, 325 MG PO DAILY, TAB 05/12/17 Calcium Carbonate/Vitamin D3 (CALCIUM + VITAMIN D TABLET) 1 Each Tablet, 2 EACH PO DAILY 06/02/16 Doxazosin Mesylate (DOXAZOSIN MESYLATE) 2 Mg Tablet, 2 MG PO QDAY 03/15/16 Valsartan (DIOVAN) 160 Mg Tablet, 160 MG PO QDAY 04/07/15 Fesoterodine Fumarate (TOVIAZ) 4 Mg Tabsr, 4 MG PO DAILY 03/21/15 Discontinued Scripts Pantoprazole Sodium (PANTOPRAZOLE SODIUM) 40 Mg Tablet.dr, 40 MG PO QDAY for 30 Days, Prov:GO KIRKLAND MD 06/05/17 Sucralfate (SUCRALFATE) 1 Gm Tablet, 1 GM PO 0630,1100,1500,1900 for 30 Days, Prov:GO KIRKLAND MD 06/05/17 Past Medical/Surgical History Patient has a past medical history of fragile X, 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 Patient has surgical history of dental surgery, TURP, cystoscopy, urethral dilation, colonoscopy, cholecystectomy, EGD. Patient has a family medical history of cancer. Reviewed Nurses Notes: Yes Hx Smoking: No Smoking Status: Never Smoker Hx Substance Use Disorder: No Hx Alcohol Use: No Constitutional Vital Sign - Last 24 Hours 10/01/17 10/01/17 10/01/17 10/01/17 10:52 11:01 11:03 11:07 Temp 98.2 Pulse ??? 77 77 Resp 18 B/P (MAP) 165/84 (111) 165/84 Pulse Ox 90 90 O2 Delivery Room Air 10/01/17 10/01/17 10/01/17 10/01/17 11:22 11:30 11:37 12:00 Pulse 77 78 B/P (MAP) 156/90 (112) 152/81 (104) Pulse Ox 87 89 10/01/17 10/01/17 10/01/17 10/01/17 12:06 12:07 12:22 12:27 Pulse 74 78 74 Resp 23 13 28 Pulse Ox 93 95 96 O2 Flow Rate 2.0 10/01/17 10/01/17 10/01/17 10/01/17 12:30 12:42 12:57 13:00 Pulse 77 78 Resp 27 22 B/P (MAP) 148/80 (102) 137/77 (97) Pulse Ox 96 100 10/01/17 10/01/17 10/01/17 10/01/17 13:12 13:27 13:30 13:42 Pulse 80 79 75 Resp 17 15 21 B/P (MAP) 146/91 (109) Pulse Ox 95 10/01/17 10/01/17 10/01/17 13:57 14:00 14:12 Pulse 74 75 Resp 21 31 B/P (MAP) 144/77 (99) Pulse Ox 97 96 Intake and Output 10/01/17 10/01/17 10/02/17 15:00 23:00 07:00 Output Total 150 ml Balance -150 ml Physical Exam General Appearance: The patient is alert, has no immediate need for airway protection and no current signs of toxicity. Respiratory: Chest is non tender, lungs are clear to auscultation. Cardiac: regular rate and rhythm Gastrointestinal: Abdomen is soft and non tender, no masses, bowel sounds normal. Musculoskeletal: Neck: Neck is supple and non tender. Extremities have full range of motion and are non tender. Skin: No rashes or lesions. DIFFERENTIAL DIAGNOSIS: After history and physical exam differential diagnosis was considered for UTI, pneumonia, aspiration, anemia. Medical Decision Making Data Points Result Diagram: 10/01/17 1130 10/01/17 1130 Laboratory Hematology Test 10/01/17 11:30 10/01/17 11:46 Red Blood Count 5.08 M/uL (4.00-5.60) Mean Corpuscular Volume 83.0 fL (80.0-96.0) Mean Corpuscular Hemoglobin 27.5 pg (26.0-33.0) Mean Corpuscular Hemoglobin Concent 33.1 g/dL (32.0-36.0) Red Cell Distribution Width 15.7 % (11.5-14.5) Mean Platelet Volume 8.4 fL (7.2-11.1) Neutrophils (%) (Auto) 79.1 % (39.4-72.5) Lymphocytes (%) (Auto) 11.7 % (17.6-49.6) Monocytes (%) (Auto) 8.5 % (4.1-12.4) Eosinophils (%) (Auto) 0.1 % (0.4-6.7) Basophils (%) (Auto) 0.6 % (0.3-1.4) Nucleated RBC Relative Count (auto) 0.0 /100WBC Neutrophils # (Auto) 9.2 K/uL (2.0-7.4) Lymphocytes # (Auto) 1.4 K/uL (1.3-3.6) Monocytes # (Auto) 1.0 K/uL (0.3-1.0) Eosinophils # (Auto) 0.0 K/uL (0.0-0.5) Basophils # (Auto) 0.1 K/uL (0.0-0.1) Nucleated RBC Absolute Count (auto) 0.00 K/uL Peripheral Blood Smear Yes Y/N Sodium Level 143 mmol/L (137-145) Potassium Level 4.4 mmol/L (3.5-5.0) Chloride Level 100 mmol/L (98-107) Carbon Dioxide Level 24 mmol/L (22-30) Blood Urea Nitrogen 30 mg/dl (9-21) Creatinine 0.70 mg/dl (0.66-1.25) Glomerular Filtration Rate Calc > 60.0 Random Glucose 153 mg/dl (75-110) Calcium Level 10.3 mg/dl (8.4-10.2) Total Bilirubin 1.0 mg/dl (0.2-1.3) Aspartate Amino Transf (AST/SGOT) 19 U/L (0-35) Alanine Aminotransferase (ALT/SGPT) 15 U/L (0-56) Alkaline Phosphatase 63 U/L (0-126) Total Protein 7.3 gm/dl (6.3-8.2) Albumin 3.9 g/dl (3.5-5.0) Urine Color Yellow Urine Clarity Clear Urine pH 5.0 pH (4.8-9.5) Urine Specific [place] 1.021 Urine Protein 30 mg/dL (NEGATIVE) Urine Glucose (UA) 50 mg/dL (NEGATIVE) Urine Ketones 20 mg/dL (NEGATIVE) Urine Blood Moderate (NEGATIVE) Urine Nitrite Negative (NEGATIVE) Urine Bilirubin Negative (NEGATIVE) Urine Urobilinogen Negative mg/dL (0.2-1.9) Urine Leukocyte Esterase Negative (NEGATIVE) Urine RBC <1 /HPF (0-2/HPF) Urine WBC 1 /HPF (0-5/HPF) Urine Squamous Epithelial Cells None /LPF (NONE-FEW) Urine Bacteria Negative /HPF (NONE-FEW) Urine Mucus Few /HPF (NONE-FEW) Chemistry Test 10/01/17 11:30 10/01/17 11:46 White Blood Count 11.6 k/uL (4.5-11.0) Red Blood Count 5.08 M/uL (4.00-5.60) Hemoglobin 14.0 g/dL (14.0-18.0) Hematocrit 42.2 % (42.0-52.0) Mean Corpuscular Volume 83.0 fL (80.0-96.0) Mean Corpuscular Hemoglobin 27.5 pg (26.0-33.0) Mean Corpuscular Hemoglobin Concent 33.1 g/dL (32.0-36.0) Red Cell Distribution Width 15.7 % (11.5-14.5) Platelet Count 247 K/uL (150-450) Mean Platelet Volume 8.4 fL (7.2-11.1) Neutrophils (%) (Auto) 79.1 % (39.4-72.5) Lymphocytes (%) (Auto) 11.7 % (17.6-49.6) Monocytes (%) (Auto) 8.5 % (4.1-12.4) Eosinophils (%) (Auto) 0.1 % (0.4-6.7) Basophils (%) (Auto) 0.6 % (0.3-1.4) Nucleated RBC Relative Count (auto) 0.0 /100WBC Neutrophils # (Auto) 9.2 K/uL (2.0-7.4) Lymphocytes # (Auto) 1.4 K/uL (1.3-3.6) Monocytes # (Auto) 1.0 K/uL (0.3-1.0) Eosinophils # (Auto) 0.0 K/uL (0.0-0.5) Basophils # (Auto) 0.1 K/uL (0.0-0.1) Nucleated RBC Absolute Count (auto) 0.00 K/uL Peripheral Blood Smear Yes Y/N Glomerular Filtration Rate Calc > 60.0 Calcium Level 10.3 mg/dl (8.4-10.2) Total Bilirubin 1.0 mg/dl (0.2-1.3) Aspartate Amino Transf (AST/SGOT) 19 U/L (0-35) Alanine Aminotransferase (ALT/SGPT) 15 U/L (0-56) Alkaline Phosphatase 63 U/L (0-126) Total Protein 7.3 gm/dl (6.3-8.2) Albumin 3.9 g/dl (3.5-5.0) Urine Color Yellow Urine Clarity Clear Urine pH 5.0 pH (4.8-9.5) Urine Specific [place] 1.021 Urine Protein 30 mg/dL (NEGATIVE) Urine Glucose (UA) 50 mg/dL (NEGATIVE) Urine Ketones 20 mg/dL (NEGATIVE) Urine Blood Moderate (NEGATIVE) Urine Nitrite Negative (NEGATIVE) Urine Bilirubin Negative (NEGATIVE) Urine Urobilinogen Negative mg/dL (0.2-1.9) Urine Leukocyte Esterase Negative (NEGATIVE) Urine RBC <1 /HPF (0-2/HPF) Urine WBC 1 /HPF (0-5/HPF) Urine Squamous Epithelial Cells None /LPF (NONE-FEW) Urine Bacteria Negative /HPF (NONE-FEW) Urine Mucus Few /HPF (NONE-FEW) Urinalysis Test 10/01/17 11:46 Urine Color Yellow Urine Clarity Clear Urine pH 5.0 pH (4.8-9.5) Urine Specific [place] 1.021 Urine Protein 30 mg/dL (NEGATIVE) Urine Glucose (UA) 50 mg/dL (NEGATIVE) Urine Ketones 20 mg/dL (NEGATIVE) Urine Blood Moderate (NEGATIVE) Urine Nitrite Negative (NEGATIVE) Urine Bilirubin Negative (NEGATIVE) Urine Urobilinogen Negative mg/dL (0.2-1.9) Urine Leukocyte Esterase Negative (NEGATIVE) Urine RBC <1 /HPF (0-2/HPF) Urine WBC 1 /HPF (0-5/HPF) Urine Squamous Epithelial Cells None /LPF (NONE-FEW) Urine Bacteria Negative /HPF (NONE-FEW) Urine Mucus Few /HPF (NONE-FEW) EKG/Imaging Imaging CHEST SINGLE AP Indication: Fever. Malaise. Comparison: 08/12/2017 Findings: There are bilateral midlung and basilar interstitial opacities seen. More focal airspace opacity seen in the right perihilar region and extending into the right midlung. These changes are more pronounced than on the prior study. Increased density overlies the right hilum on today's study as well. Appearance is suspicious for a right-sided pneumonia. Cannot exclude hilar adenopathy given the appearance of the hilum. Interstitial opacities could reflect developing interstitial edema type pattern is well. Correlate clinically. No pleural effusion or pneumothorax. Heart size is within normal limits. IMPRESSION: 1. Worsening right hilar and right midlung opacities when compared to the prior exam. Correlate for a right-sided pneumonia. Continued radiographic follow-up recommended. If this does not fully clear, CT scan recommended. 2. Mild bilateral midlung and lung base interstitial opacities. Findings are nonspecific and were seen previously. This could reflect chronic change or early interstitial edema. Correlate clinically. Report Dictated By: Ryne Joseph at 10/01/2017 12:36 PM Report E-Signed By: Ryne Joseph at 10/01/2017 12:40 PM EXAMINATION: VENOUS DOPP LOW RIGHT EXTREMIT COMPARISON: None Available HISTORY: Right leg swelling. FINDINGS: Standard right lower extremity Doppler ultrasound with color flow and spectral analysis is performed. The common femoral, femoral, and popliteal veins are widely patent and compress appropriately. The visualized calf veins and the proximal greater saphenous vein are patent. No popliteal fluid collection. IMPRESSION: No right lower extremity deep venous thrombosis. Report Dictated By: Manny Pacheco MD at 10/01/2017 1:36 PM Report E-Signed By: Manny Pacheco MD at 10/01/2017 1:37 PM ED Course/Re-evaluation ED Course Patient was admitted to exam room, history and physical were obtained. Differential diagnoses were considered. On examination lungs are clear, heart is regular, right lower extremity was edematous. A CBC, CMP, chest x-ray, urinalysis, left lower extremity venous Doppler were done. The urine was negative, CMP was unremarkable. The CBC showed an elevated white count 11,000 with a left shift. Chest x-ray showed a developing infiltrate in the right middle lobe. CT scan of the head was negative. I discussed the findings with the patient and his caregivers. I do believe that the patient has a developing pneumonia especially with his history of aspiration pneumonia. I discussed case with Dr. Marquez, hospitalist, who agreed to accept the patient for admission. Patient will be admitted with diagnosis of pneumonia. Decision to Disposition Date: October 01, 2017 Decision to Disposition Time: 14:00 Depart Departure Latest Vital Signs Vital Signs Date Time Temp Pulse Resp B/P (MAP) Pulse Ox O2 Delivery O2 Flow Rate FiO2 10/01/17 14:12 75 31 96 10/01/17 14:00 144/77 (99) 10/01/17 12:06 2.0 10/01/17 11:03 98.2 Room Air Core Temperature (Celsius): 37.2 Impression: Primary Impression: Pneumonia Condition: Condition Unchanged Disposition: Admitted from ER Referrals: BILL BECERRA [employer] (PCP) Problem Qualifiers Primary Impression: Pneumonia Pneumonia type: aspiration pneumonia Aspiration pneumonia type: unspecified Laterality: right Lung location: middle lobe of lung Qualified Codes: J69.0 - Pneumonitis due to inhalation of food and vomit VIVI BABB [employer] October 01, 2017 11:04
[2017-10-01 11:38] LABS: PLATELET COUNT, AUTOMATED 247 K/uL (150-450)
[2017-10-01] MEDS ORDERED: NS(*) 0.9% 1000 ML BAG 1,000 ML IV ONE (11:55)
[2017-10-01] MEDS ORDERED: ACET-2146 PO (12:15)
[2017-10-01] MEDS ORDERED: BUPR-124 PO (12:15)
[2017-10-01] MEDS ORDERED: OMEP-125 PO (12:17)
[2017-10-01] MEDS ORDERED: LOSA100T67 PO (12:17)
[2017-10-01] MEDS ORDERED: TAMS0.4C70 PO (12:17)
--- NOTE | 2017-10-01 12:44 | RADIOLOGY IMAGING REPORT ---
FACILITY: PATIENT NAME: Glen Jones : 1945 MR: [id number] V: [id number] EXAM DATE: ORDERING PHYSICIAN: VIVI BABB TECHNOLOGIST: Location: [facility] [place] Patient: Glen Jones : 1945 Visit/Account:[id number] Date of Sevice: 10/01/2017 CHEST SINGLE AP Indication: Fever. Malaise. Comparison: 08/12/2017 Findings: There are bilateral midlung and basilar interstitial opacities seen. More focal airspace opacity seen in the right perihilar region and extending into the right midlung. These changes are more pronounc ed than on the prior study. Increased density overlies the right hilum on today's study as well. Appe arance is suspicious for a right-sided pneumonia. Cannot exclude hilar adenopathy given the appearanc e of the hilum. Interstitial opacities could reflect developing interstitial edema type pattern is we ll. Correlate clinically. No pleural effusion or pneumothorax. Heart size is within normal limits. IMPRESSION: 1. Worsening right hilar and right midlung opacities when compared to the prior exam. Correlate for a right-sided pneumonia. Continued radiographic follow-up recommended. If this does not fully clear, C T scan recommended. 2. Mild bilateral midlung and lung base interstitial opacities. Findings are nonspecific and were see n previously. This could reflect chronic change or early interstitial edema. Correlate clinically. Report Dictated By: Ryne Joseph at 10/01/2017 12:36 PM Report E-Signed By: Ryne Joseph at 10/01/2017 12:40 PM WSN:[id number]
--- NOTE | 2017-10-01 13:42 | RADIOLOGY IMAGING REPORT ---
FACILITY: [facility] PATIENT NAME: Glen Jones : 1945 MR: [id number] V: [id number] EXAM DATE: ORDERING PHYSICIAN: VIVI BABB TECHNOLOGIST: Location: [facility] [place] Patient: Glen Jones : 1945 Visit/Account:[id number] Date of Sevice: 10/01/2017 EXAMINATION: VENOUS DOPP LOW RIGHT EXTREMIT COMPARISON: None Available HISTORY: Right leg swelling. FINDINGS: Standard right lower extremity Doppler ultrasound with color flow and spectral analysis is performed. The common femoral, femoral, and popliteal veins are widely patent and compress appropriately. The v isualized calf veins and the proximal greater saphenous vein are patent. No popliteal fluid collection. IMPRESSION: No right lower extremity deep venous thrombosis. Report Dictated By: Manny Pacheco MD at 10/01/2017 1:36 PM Report E-Signed By: Manny Pacheco MD at 10/01/2017 1:37 PM WSN:[id number]
[2017-10-01 14:45] VITALS: BP 139/67
[2017-10-01 15:00] VITALS: BP 139/67
[2017-10-01] MEDS ORDERED: NS(*) 0.9% 1000 ML BAG 1,000 ML IV PRN (16:25)
[2017-10-01] MEDS ORDERED: INFLUENZA VIRUS VAC 0.5 ML SYR IM ONLY ONE (16:25)
[2017-10-01] MEDS ORDERED: ALBUTEROL 2.5 MG/3 ML NEB NEB PRN (16:25)
[2017-10-01] MEDS ORDERED: ACETAMINOPHEN 500 MG TAB PO PRN (16:25)
--- NOTE | 2017-10-01 16:47 | History & Physical ---
History of Present Illness Chief Complaint altered mood History of Present Illness This patient was brought to the emergency room when his caregivers noted that he wasn't acting right. He has a history of intractable hiccups with aspiration in the past. Today he had another episode and it is reported that he was acting different ever since. They do not report any cough, fever, or shortness of breath at home. History Problems: (1) Hyperlipemia Status: Chronic (2) GERD (gastroesophageal reflux disease) Status: Chronic (3) Intractable hiccups Status: Chronic (4) Aspiration into airway Status: Acute (5) Upper GI bleed Status: Chronic (6) BPH (benign prostatic hyperplasia) Status: Chronic (7) HTN (hypertension) Status: Chronic (8) Mental retardation Status: Chronic (9) Fragile X syndrome in male Status: Chronic (10) DMII (diabetes mellitus, type 2) Status: Chronic Home Meds Active Scripts [Hypromellose 0.4% Lub 15ML Btl] 15 ML SOLN No Conflict Check, 0 ML OU PRN Y for dryness for 30 Days, INSTILL 1 DROP Prov:GO KIRKLAND MD 06/05/17 Metformin Hcl (METFORMIN HCL) 500 Mg Tablet, 500 MG PO BIDBS for 30 Days, Prov:GO KIRKLAND MD 06/05/17 Lutein/Zeaxanthin (LUTEIN-ZEAXANTHIN 25-5 MG SFGL) 1 Each Capsule, 15 MG PO BID for 30 Days, CAPSULE Prov:GO KIRKLAND MD 06/05/17 Ezetimibe (ZETIA) 10 Mg Tablet, 10 MG PO QHS for 30 Days, Prov:GO KIRKLAND MD 06/05/17 Reported Medications Tamsulosin Hcl (TAMSULOSIN HCL) 0.4 Mg Cap.er.24h, 0.4 MG PO, CAP 10/01/17 Omeprazole (OMEPRAZOLE) 20 Mg Capsule.dr, 1 CAP PO QDAY, CAP 10/01/17 Losartan Potassium (LOSARTAN POTASSIUM) 100 Mg Tablet, 100 MG PO QDAY 10/01/17 Bupropion Hcl (BUPROPION XL) 150 Mg Tab.er.24h, 150 MG PO QDAY, #10 TAB 10/01/17 Acetaminophen 500 Mg Tab (ACETAMINOPHEN EXTRA STRENGTH) 500 Mg Tablet, 500 MG PO Q4-6H, TAB 10/01/17 Vit C/Ainsley Ac/Lut/Copper/Znox (PRESERVISION LUTEIN SOFTGEL) 1 Each Capsule, 1 EACH PO BID, CAPSULE 05/12/17 [equate body powder] No Conflict Check, 1 CARMELO TOP DAILY Sprinkle a light amount on clean, dry feet daily prior to putting on socks and shoes 05/12/17 Lactose-Free Food (ENSURE LIQUID) 237 Ml Liquid, 237 ML PO HS 05/12/17 [closys toothpaste] No Conflict Check, 1 CARMELO BID 05/12/17 Cetyl Alc/Stearyl Alc/Pg/Sls (CETAPHIL CREAM) 454 Gm Cream..g., 454 GM TP HS Apply to both feet before bed 05/12/17 Calcium Carbonate/Vitamin D3 (CALCIUM 600 + VIT D 200 TABLET) 1 Each Tablet, 1 EACH PO DAILY 05/12/17 Bacitracin/Polymyxin B Sulfate (BACITRACIN-POLYMYXIN EYE OINT) 3.5 Gm Oint...g. , 3.5 GM OD BID 05/12/17 Bupropion Hcl (BUPROPION XL) 150 Mg Tab.er.24h, 150 MG PO QDAY, #10 TAB 05/03/17 Magnesium Hydroxide (MILK OF MAGNESIA) 400 Mg/5 Ml Oral.susp, 30 ML PO PRN Y for CONSTIPATION, BOTTLE 06/02/16 Calcium Carbonate/Mag Hydrox (Antacid 1000-200 mg Tab Chew) 1 Each Tab.chew, 1000 MG PO PRN 05/26/15 Baclofen (BACLOFEN) 10 Mg Tablet, 10 MG PO PRN Y for HICCUPS, #30 TAB every 6 hours as needed. Only 2 in 24 hours 05/02/15 Valproic Acid (VALPROIC ACID) 250 Mg Cap, 250 MG PO ACHS, CAP 01/28/14 Atenolol (ATENOLOL) 100 Mg Tablet, 1 TAB PO QDAY, TAB TAKE ONE TABLET BY MOUTH ONCE A DAY at 6PM 01/28/14 Multivitamin (ONE DAILY) 1 Each Tablet, 1 EACH PO DAILY 01/14/14 Discontinued Reported Medications Valproic Acid (VALPROIC ACID) 250 Mg Cap, 500 MG PO QHS, CAP 05/16/17 Fluconazole (FLUCONAZOLE) 100 Mg Tablet, 100 MG PO QDAY for 20 Days, #20 TAB 0 Refills 05/13/17 Valsartan (DIOVAN) 160 Mg Tablet, 160 MG PO DAILY 05/12/17 Valproic Acid (VALPROIC ACID) 250 Mg Cap, 250 MG PO QID, CAP 05/12/17 Fesoterodine Fumarate (TOVIAZ) 4 Mg Tabsr, 4 MG PO DAILY 05/12/17 Sodium Chloride (SODIUM CHLORIDE) 1 Gm Tab, 1 GM PO DAILY, TAB 05/12/17 Ranitidine Hcl (ZANTAC) 150 Mg Tablet, 150 MG PO BID, TAB 05/12/17 Magnesium Hydroxide (MILK OF MAGNESIA) 400 Mg/5 Ml Oral.susp, 30 ML PO HS, BOTTLE 05/12/17 Multivitamin (DAILY MULTIPLE VITAMIN) 1 Each Tablet, 1 TAB PO DAILY 05/12/17 [body powder] No Conflict Check, 1 CARMELO TOP DAILY After showering and drying off, Paddy should be assisted in applying cornstarch powder to his groin area each day. 05/12/17 Doxazosin Mesylate (DOXAZOSIN MESYLATE) 2 Mg Tablet, 2 MG PO HS 05/12/17 Bupropion Hcl (BUPROPION XL) 150 Mg Tab.er.24h, 150 MG PO QDAY, #10 TAB 05/12/17 Atenolol (ATENOLOL) 50 Mg Tablet, 2 TAB PO QDAY, TAB 05/12/17 Aspirin (ASPIRIN) 325 Mg Tablet, 325 MG PO DAILY, TAB 05/12/17 Calcium Carbonate/Vitamin D3 (CALCIUM + VITAMIN D TABLET) 1 Each Tablet, 2 EACH PO DAILY 06/02/16 Doxazosin Mesylate (DOXAZOSIN MESYLATE) 2 Mg Tablet, 2 MG PO QDAY 03/15/16 Valsartan (DIOVAN) 160 Mg Tablet, 160 MG PO QDAY 04/07/15 Fesoterodine Fumarate (TOVIAZ) 4 Mg Tabsr, 4 MG PO DAILY 03/21/15 Discontinued Scripts Pantoprazole Sodium (PANTOPRAZOLE SODIUM) 40 Mg Tablet.dr, 40 MG PO QDAY for 30 Days, Prov:GO KIRKLAND MD 06/05/17 Sucralfate (SUCRALFATE) 1 Gm Tablet, 1 GM PO 0630,1100,1500,1900 for 30 Days, Prov:GO KIRKLAND MD 06/05/17 Allergies: Coded Allergies: Penicillins (Verified Allergy, Mild, 07/11/17) chlorpromazine (Verified Allergy, Mild, 07/11/17) Patient History: FH: cancer pt doesn't know. FH: diabetes mellitus pt doesn't know. FHx: heart disease pt doesn't know. Hx Smoking: No Smoking Status: Never Smoker Caffeine Intake: Soda Caffeine/Cups Per Day: RARELY Hx Alcohol Use: No Hx Substance Use Disorder: No Social Drug Use: Never Review of Systems All Systems Reviewed/Normal: Yes Exam Vital Signs Vital Signs Date Time Temp Pulse Resp B/P (MAP) Pulse Ox O2 Delivery O2 Flow Rate FiO2 10/01/17 15:11 94 Nasal Cannula 2.0 10/01/17 14:45 98.3 69 18 139/67 (91) Neuro: No Gross deficits Eyes: PERRLA Cardiovascular: Regular Rate and Rhythm Respiratory: Clear to Auscultation GI: Abd Soft and Non-Tender Extremities: No Edema Integumentary: No Cyanosis Medical Decision Making Data Points Result Diagram: 10/01/17 1130 10/01/17 1130 EKG / Imaging Imaging Chest x-ray reviewed. Assessment and Plan Problems: (1) Aspiration pneumonia Status: Resolved Assessment & Plan: He does have a history of aspiration secondary to intractable hiccups and apparently had another episode of this today. His chest x-ray does show some increased hilar infiltrate on the right and his WBC is slightly elevated. We have started him on empiric treatment with clindamycin. Also of note, radiology did recommend that his chest x-ray be followed to clear and that a CT scan be ordered if this does not resolve. Cultures are pending. (2) DMII (diabetes mellitus, type 2) Status: Chronic Assessment & Plan: He is on chronic treatment with metformin, which has been placed on hold. He has been placed on sliding scale level #2. (3) Fragile X syndrome in male Status: Chronic Assessment & Plan: He does reside at the [facility] and is on chronic treatment with bupropion and valproic acid. (4) Hypertension Status: Chronic Assessment & Plan: He is on chronic treatment with atenolol and losartan. (5) BPH (benign prostatic hyperplasia) Status: Chronic Assessment & Plan: He is on chronic treatment with tamsulosin. (6) Intractable hiccups Status: Chronic Assessment & Plan: He does take baclofen as needed for these episodes. Venous Thromboembolism Antithrombotics Is Pt On Any Antithrombotics?: No Exam Sepsis Risk: No Definite Risk Problem Qualifiers (1) Hypertension: Hypertension type: essential hypertension Qualified Codes: I10 - Essential ( primary) hypertension RICHARD HERNANDEZ DO October 01, 2017 16:47
[2017-10-01] MEDS: CLINDAMYCIN(*) 300 MG/2 ML VI 300 MG in NS(*) 0.9% 100 ML BAG 100 ML IVPB SCH (17:42)
[2017-10-01] MEDS ORDERED: MENT118G (21:07)
[2017-10-01] MEDS ORDERED: HYDR28.425 (21:07)
[2017-10-01] MEDS ORDERED: CETY454C2 TP (21:07)
[2017-10-01] MEDS ORDERED: [UNRECOGNIZED DRUG - CODE] PO (21:07)
[2017-10-01] MEDS: VALPROIC ACID 250 MG CAP PO SCH (21:19)
[2017-10-01] MEDS: TAMSULOSIN HCL 0.4 MG CAP PO SCH (21:19)
[2017-10-01] MEDS: BACLOFEN 10 MG TAB PO PRN (21:19)
[2017-10-01 21:31] VITALS: BP 143/90
[2017-10-02] MEDS: CLINDAMYCIN(*) 300 MG/2 ML VI 300 MG in NS(*) 0.9% 100 ML BAG 100 ML IVPB SCH ×3 (01:37→16:48)
[2017-10-02 05:36] VITALS: BP 120/52
[2017-10-02] MEDS: VALPROIC ACID 250 MG CAP PO SCH ×4 (05:38→20:58)
[2017-10-02 06:14] LABS: PLATELET COUNT, AUTOMATED 179 K/uL (150-450)
--- NOTE | 2017-10-02 07:06 | RADIOLOGY IMAGING REPORT ---
FACILITY: [facility] [place] PATIENT NAME: Glen Jones : 1945 MR: [id number] V: [id number] EXAM DATE: ORDERING PHYSICIAN: RICHARD HERNANDEZ TECHNOLOGIST: Location: [facility] Patient: Glen Jones : 1945 Visit/Account:[id number] Date of Sevice: 10/02/2017 CHEST SINGLE AP Additional pertinent History: Pneumonia. COMPARISON STUDIES: 10/01/2017 FINDINGS: Support lines and catheters: None Lungs and Pleura: Coarse interstitial bronchitic lung changes throughout both lung olsen. The degre e of patchy interstitial lung change seen in the perihilar regions Heart and vasculature: Negative. Blaire and Mediastinum: Negative. Bones and Chest wall: Negative. Upper Abdomen: Negative. IMPRESSION: 1. Patchy perihilar interstitial lung change. No significant interval change previous study. Report Dictated By: Georgi Mack MD at 10/02/2017 6:55 AM Report E-Signed By: Georgi Mack MD at 10/02/2017 7:01 AM WSN:[id number]
[2017-10-02 07:57] VITALS: BP 144/70
[2017-10-02] MEDS: ATENOLOL 50 MG TAB PO SCH (09:01)
[2017-10-02] MEDS: LOSARTAN POTASSIUM 50 MG TAB PO SCH (09:01)
[2017-10-02] MEDS: buPROPion XL 150 MG TABCR PO SCH (09:01)
[2017-10-02] MEDS: ENOXAPARIN 40 MG/0.4ML SYR SC SCH (09:02)
[2017-10-02] MEDS: BACLOFEN 10 MG TAB PO PRN (09:03)
[2017-10-02 12:55] VITALS: Ht 165.1 cm; Wt 57.5 kg
--- NOTE | 2017-10-02 13:07 | Medical Nutrition Therapy ---
Nutrition Anthropometrics Height (Inches): 65.00 Height (Calculated Centimeters: 165.602478 Weight (Pounds): 126 Weight (Calculated Kilograms): 57.493 BMI Calculated: 20.97 Isaias Nutrition Score: Probably Inadequate Isaias Nutrition Risk Score: 14 Dietary Referral Nutrition Risk Factors: Diff. Swallowing, Special Diet Nutrition Risk Comment: Dysphagia diet, needs supervision at meals, 50oz fluid restriction at [facility] Physical Findings Physical Appearance: WNR Skin Appearance Skin Appearance: Edema Edema Location Modifier: Both Edema Location: Lower Extremity Type of Edema: Degree of Edema: Gastrointestinal Symptoms GI Symtoms: Tube Present: Bowel Sounds: Recent Bowel Pattern: Stool Characteristics: Nutrition/Food History Difficulty Swallowing Nutritional Diagnosis Nutritional Risk Acuity 2: Swallowing Problem Past Medical History: HTN, GERD, depression, hyperlipidemia, T2DM, aspiration pneumonia, and fragile X syndrome Nutritional Acuity: 2-Moderate Nutrition Diagnosis: Swallowing Difficulties Nutrition Etiology: Physiological Causes Nutrition Problem/Etiology/Sym: Swallowing Difficulty related to diagnosis of oral and pharyngeal dysphagia AEB dx aspiration pneumonia and need for Dysphagia 2 Diet. Energy Requirement: 2100 (Benicia-St Jeor: Actual BW X 1.2) Protein Requirement: 67 (Actual BW Kg X 1) Fluid Requirement: 2100 Diet Type: Dysphagia Stage 2 Nutrition Intervention: Cont diet as ordered Nutrition Monitoring & Eval Nutrition Goals: Eat 75-100% Meal RD Patient Assessment Time: [address] Assessment Type: RD Assessment Patient Nutrition Acuity: 2-Moderate Follow Up Date: October 04, 2017 Nutritional Comment: Pt admitted with aspiration pneumonia. Pt has history of swallowing difficlulty with dyshagia diet and thickened liquids. Alb 3.9, Glu 112, Low H/H. Lispro SSI. Within normal wt range with BMI of 21.0. Receiving Dyphagia Stage 2 diet with no reports of intake. Monitier intake, labs, etc.-MALCOLM MESSER October 02, 2017 13:07
--- NOTE | 2017-10-02 13:34 | Hospitalist Progress Note ---
Subjective Progress Notes Subjective Staff would like a ST eval because aspiration concerns. He slept well o/n. Physical Exam Vital Signs Date Time Temp Pulse Resp B/P (MAP) Pulse Ox O2 Delivery O2 Flow Rate FiO2 10/02/17 08:10 94 Nasal Cannula 4.0 10/02/17 07:57 98.1 70 20 144/70 (94) Intake and Output 10/03/17 07:00 Intake Total 102 ml Balance 102 ml IV Total 102 ml # Voids 1 General Appearance: Alert, Awake, No Acute Distress (Breathing comfortably.) Neuro: Other (Not answering questions (baseline), but following commands.) Cardiovascular: Regular Rate and Rhythm Respiratory: Clear to Auscultation Result Diagram: 10/02/1754610/02/17546 Assessment and Plan Problems: (1) Aspiration pneumonia Status: Resolved Assessment & Plan: He does have a history of aspiration secondary to intractable hiccups/dysphagia and apparently had another episode the day of admission. His chest x-ray does show some increased hilar infiltrate on the right and his WBC was elevated. We have started him on empiric treatment with clindamycin. Also of note, radiology did recommend that his chest x-ray be followed to clear and that a CT scan be ordered if this does not resolve. Cultures are pending. Temperature of [address]. He will be on a dysphagia 2 diet, per previous ST recommendations in May. (2) DMII (diabetes mellitus, type 2) Status: Chronic Assessment & Plan: He is on chronic treatment with metformin, which has been placed on hold. He has been placed on sliding scale level #2. (3) Fragile X syndrome in male Status: Chronic Assessment & Plan: He does reside at the [facility] and is on chronic treatment with bupropion and valproic acid. (4) Hypertension Status: Chronic Assessment & Plan: He is on chronic treatment with atenolol and losartan. (5) BPH (benign prostatic hyperplasia) Status: Chronic Assessment & Plan: He is on chronic treatment with tamsulosin. (6) Intractable hiccups Status: Chronic Assessment & Plan: He does take baclofen as needed for these episodes. Exam Sepsis Risk: No Definite Risk Problem Qualifiers (1) Hypertension: Hypertension type: essential hypertension Qualified Codes: I10 - Essential ( primary) hypertension GO KIRKLAND MD October 02, 2017 13:34
[2017-10-02 14:47] VITALS: BP 129/71
[2017-10-02 20:03] VITALS: BP 138/64
[2017-10-02] MEDS: INSULIN HUM LISPRO 100 UN/ML 3 ML VIAL SUBQ PRN (20:58)
[2017-10-02] MEDS: TAMSULOSIN HCL 0.4 MG CAP PO SCH (20:58)
[2017-10-02 22:43] VITALS: BP 140/61
[2017-10-03] MEDS: CLINDAMYCIN(*) 300 MG/2 ML VI 300 MG in NS(*) 0.9% 100 ML BAG 100 ML IVPB SCH ×3 (00:31→17:16)
[2017-10-03 04:05] VITALS: BP 142/71
[2017-10-03] MEDS: VALPROIC ACID 250 MG CAP PO SCH ×4 (05:41→21:28)
[2017-10-03 05:57] LABS: PLATELET COUNT, AUTOMATED 193 K/uL (150-450)
[2017-10-03 06:57] VITALS: BP 142/76
[2017-10-03] MEDS: buPROPion XL 150 MG TABCR PO SCH (08:19)
[2017-10-03] MEDS: LOSARTAN POTASSIUM 50 MG TAB PO SCH (08:19)
[2017-10-03] MEDS: ATENOLOL 50 MG TAB PO SCH (08:19)
[2017-10-03] MEDS: ENOXAPARIN 40 MG/0.4ML SYR SC SCH (08:19)
--- NOTE | 2017-10-03 11:26 | Hospitalist Progress Note ---
Subjective Progress Notes Subjective He has no complaints this morning. Patient Complains of: Cardiovascular: No: Chest Pain Respiratory: No: Shortness of Breath Physical Exam Vital Signs Date Time Temp Pulse Resp B/P (MAP) Pulse Ox O2 Delivery O2 Flow Rate FiO2 10/03/17 08:14 94 Nasal Cannula 1.0 10/03/17 06:57 97.3 20 142/76 (98) 10/03/17 04:05 65 Intake and Output 10/04/17 07:00 Intake Total 102 ml Balance 102 ml IV Total 102 ml General Appearance: Alert, Awake, No Acute Distress, Afebrile Cardiovascular: Regular Rate and Rhythm Respiratory: No Respiratory Distress, Other (right lower lobe crackles present ) GI: Soft and Non-Tender Psych: Alert & Oriented X3, Appropriate Mood & Affect Result Diagram: 10/03/1752110/03/17521 Assessment and Plan Problems: (1) Aspiration pneumonia Status: Resolved Assessment & Plan: He does have a history of aspiration secondary to intractable hiccups/dysphagia and apparently had another episode the day of admission. His chest x-ray does show some increased hilar infiltrate on the right and his WBC was elevated. We have started him on empiric treatment with clindamycin. Also of note, radiology did recommend that his chest x-ray be followed to clear and that a CT scan be ordered if this does not resolve. Cultures pending show no growth. ST consult recommends patient to be on thickened liquids. He will also be on a dysphagia 2 diet, per previous ST recommendations in May. (2) DMII (diabetes mellitus, type 2) Status: Chronic Assessment & Plan: He is on chronic treatment with metformin, which has been placed on hold. He has been placed on sliding scale level #2. (3) Fragile X syndrome in male Status: Chronic Assessment & Plan: He does reside at the [facility] and is on chronic treatment with bupropion and valproic acid. (4) Hypertension Status: Chronic Assessment & Plan: He is on chronic treatment with atenolol and losartan. (5) BPH (benign prostatic hyperplasia) Status: Chronic Assessment & Plan: He is on chronic treatment with tamsulosin. (6) Intractable hiccups Status: Chronic Assessment & Plan: He does take baclofen as needed for these episodes. Exam Sepsis Risk: No Definite Risk Problem Qualifiers (1) Hypertension: Hypertension type: essential hypertension Qualified Codes: I10 - Essential ( primary) hypertension IONA HORTONP October 03, 2017 11:26
[2017-10-03] MEDS: INSULIN HUM LISPRO 100 UN/ML 3 ML VIAL SUBQ PRN ×3 (11:50→21:25)
[2017-10-03 11:52] VITALS: BP 148/84
--- NOTE | 2017-10-03 13:10 | SLP BEDSIDE SWALLOW EVALUATION ---
DYSPHAGIA diver assistant: Nikia Esparza MS, [facility]-SOIL ANALYST Type of Assessment: Dysphagia Evaluation Patient: Glen Jones : 1945, 72 yo Evaluation Date: 10/03/2017 BACKGROUND The patient is a 72 year old male w/ pmhx significant for aspiration pneumonia secondary to dysphagia and episodic, intractable hiccups. Pt also w/ Fragile X Syndrome. He resides at the [facility] in [place]. Pt was admitted to [facility] through the ER on 10/01 w/ diagnosis of pneumonia. CXR identified R sided hilar infiltrates , and WBC was elevated. Pt was previously consuming soft, moist textures and regular, thin liquids. Primary Medical Diagnosis: aspiration pneumonia Pain Scale (0-10): patient w/ no reports of pain. LOC / Participation: alert, cooperative. Follows Instructions: intermittently (~50%) Orientation: A&O x4. Functional Communication Deficits impact swallow function/safety, or response to therapy: yes ASSESSMENT Sialorrhea: No Xerostomia: No Supplemental Oxygen Use: Yes. 1.0 LPM via NC. COPD Dx: No Pain with Swallow: Denies. Oropharyngeal Structure and Function: Oromotor exam was somewhat limited 2/2 difficulty following verbal and visual instructions. Pt w/ decreased lingual coordination and reduced labial seal. Pharyngeally, pt demonstrated diminished hyolaryngeal elevation/excursion to palpation. Weak, breathy cough was also noted. Administered PO trials of the following: ice chips, thin liquids via tsp, thin liquids via cup sip, nectar thick liquids via cup sip, pureed solids, soft solids, and mixed consistencies. Pt was highly impulsive during PO intake w/ tendency to consume large bites/sips in rapid succession. Continuous verbal and tactile cues were necessary to promote safe rate/volume of intake. Oral phase was characterized by anterior, vertical/munch vs effective rotary chew pattern w / trials of soft solids. This resulted in oral scatter, decreased bolus cohesion , and post-swallow oral residue across PO trials. Residue was also present w/ pureed textures. However, pt effectively cleared material w/ nectar liquid wash. Anterior spillage occurred across all liquid and solid trials (apart from ice chips) likely 2/2 decreased oromotor coordination and decreased labial seal. S/sx of pharyngeal dysphagia were also present, including cough and/or vocal changes across trials of thin liquids via cup. Seat Pleasant, puree, and mixed consistencies (juicy peaches) were all tolerated w/ no overt s/sx of aspiration. Unable to directly observe pt w/ medication administration. However, suspect that decreased coordination of oral musculature paired w/ compromised respiratory status may result in difficulty managing whole medications paired w / non-viscous, thin liquids. Immersing whole meds in puree is recommended at this time. ST ASSESSMENT SUMMARY MAE: Level 3: Moderate oropharyngeal Dysphagia. 1:1 supervision required. See compensatory swallow strategies below. 2 or more diet consistencies restricted ( dysphagia II, nectar thick liquids). Aspiration Risk: Moderately increased. Suspected aspiration of thin liquids. Pt is also at increased risk for aspiration of solids d/t oral dysphagia and maladaptive, impulsive self-feeding patterns. Respiratory status is compromised , and pt has pmhx of oropharyngeal dysphagia. Speech Therapy Need ST will continue monitor diet tolerance, provide diet upgrade recommendations, and instruct patient/caregiver re: safe swallow strategies to minimize risk for aspiration. RECOMMENDATIONS 1. Diet: dysphagia II, nectar thick liquids. 2. Medications: Cut large pills in half. Immerse meds in puree. 3. Compensatory Techniques: 1:1 supervision during PO intake, regular oral hygiene, upright positioning during PO intake, cues to consume small bites/sips , cues to decrease rate of intake, ensure complete mastication of all material prior to swallow initiation, check for pocketing/residue, alternate bites and sips. PLAN OF CARE Goals 1. Caregivers will receive education regarding safe swallow strategies/ precautions, diet modification recommendations, and compensatory techniques, and will provide verbal/visual demonstration of comprehension. 2. Patient will participate in liquid trials w/ ST to advance diet as indicated for safe oral intake. 3. Patient will safely tolerate least restrictive diet textures at PLOF ( dysphagia II, thin liquids) with appropriate support via trained caregivers. Rehabilitation Prognosis: Good. Thank you for this referral. Nikia Esparza M.S., [facility]NA[facility]ST Speech Therapist [*] BENITO
[2017-10-03 19:54] VITALS: BP 164/93
[2017-10-03] MEDS: TAMSULOSIN HCL 0.4 MG CAP PO SCH (21:28)
[2017-10-03 23:40] VITALS: BP 172/91
[2017-10-04] MEDS: CLINDAMYCIN(*) 300 MG/2 ML VI 300 MG in NS(*) 0.9% 100 ML BAG 100 ML IVPB SCH ×2 (01:20→09:05)
[2017-10-04 03:38] VITALS: BP 163/89
[2017-10-04 06:21] VITALS: BP 160/89
[2017-10-04] MEDS: VALPROIC ACID 250 MG CAP PO SCH ×2 (06:23→12:19)
[2017-10-04] MEDS ORDERED: BARIUM SULFATE 240 ML ORAL SUS (NECTAR) ONE (08:40)
[2017-10-04] MEDS ORDERED: BARIUM SULFATE 148 GM POWDER ONE (08:40)
[2017-10-04] MEDS: ATENOLOL 50 MG TAB PO SCH (09:05)
[2017-10-04] MEDS: LOSARTAN POTASSIUM 50 MG TAB PO SCH (09:05)
[2017-10-04] MEDS: buPROPion XL 150 MG TABCR PO SCH (09:05)
[2017-10-04] MEDS: ENOXAPARIN 40 MG/0.4ML SYR SC SCH (09:05)
--- NOTE | 2017-10-04 09:20 | RADIOLOGY IMAGING REPORT ---
FAC[place]: [facility] [place] PATIENT NAME: Glen Jones : 1945 MR: [id number] V: [id number] EXAM DATE: ORDERING PHYSICIAN: IONA HORTON TECHNOLOGIST: Location: [facility] Patient: Glen Jones : 1945 Visit/Account:[id number] Date of Sevice: 10/04/2017 EXAMINATION: Modified speech swallowing study 10/04/2017 7:53 AM HISTORY: suspected aspiration pnx, clinical s/sx w/ all thins COMPARISON: None FLUOROSCOPY TIME: 4.0 minutes DOSE: DAP was 811.46 uGy/m2 FINDINGS: Modified speech swallowing study was performed by Lina allen. I monitored evaluation . The patient ingested multiple consistencies of barium. Deep laryngeal penetration was noted withi n liquids at multiple points but no minh aspiration was clearly documented. There was some mild sta sis post fall in which the patient cleared with additional swallows. He ingested a barium tablet wit hout difficulty. Imaging over the chest it was visible that the tablet and some of the ingested dayday um were holding up in the esophagus and the distal esophagus appeared narrow. IMPRESSION: Modified speech swallowing study performed, as above. We did discuss the poor clearance of the esoph oleksandr and narrowed distal appearance and referral to gastroenterology with consideration for EGD or po ssibly a true esophagram was discussed with speech pathology. Report Dictated By: Nikolay Cruz MD at 10/04/2017 9:12 AM Report E-Signed By: Nikolay Cruz MD at 10/04/2017 9:15 AM WSN:[id number]
[2017-10-04] MEDS ORDERED: CLIN300C99 PO (09:47)
--- NOTE | 2017-10-04 09:59 | Hospitalist Depart ---
Discharge Summary Reason for Hosp/Final Diag: (1) Aspiration pneumonia Status: Resolved Hospital Course & Plan: He does have a history of aspiration secondary to intractable hiccups/dysphagia and apparently had another episode the day of admission. His chest x-ray does show some increased hilar infiltrate on the right and his WBC was elevated. We have started him on empiric treatment with clindamycin and he will be switched to oral Clindamycin today. Cultures pending show no growth. He will also be on a dysphagia 2 diet, per previous ST recommendations, and he will require supervision for further meals and drinks. It is recommended he use a Provale cup to limit the amount of liquids he takes in at one time, a prescription was written for this. (2) DMII (diabetes mellitus, type 2) Status: Chronic Hospital Course & Plan: He is on chronic treatment with metformin. (3) Fragile X syndrome in male Status: Chronic Hospital Course & Plan: He does reside at the [facility] and is on chronic treatment with bupropion and valproic acid. (4) Hypertension Status: Chronic Hospital Course & Plan: He is on chronic treatment with atenolol and losartan. (5) BPH (benign prostatic hyperplasia) Status: Chronic Hospital Course & Plan: He is on chronic treatment with tamsulosin. (6) Intractable hiccups Status: Chronic Hospital Course & Plan: He does take baclofen as needed for these episodes. Departure Latest Vital Signs Vital Signs 10/03/17 10/04/17 10/04/17 23:40 06:21 07:26 Temp 98.1 Pulse 61 Resp 24 B/P (MAP) 160/89 (112) Pulse Ox 94 O2 Delivery Nasal Cannula O2 Flow Rate 2.0 Weight (Pounds): 126 Weight (Ounces): 12.0 Result Diagram: 10/03/1752110/03/17521 Condition: Improved Discharge: Assisted Living Discharge Instructions Home Meds Active Scripts Clindamycin Hcl (CLINDAMYCIN HCL) 300 Mg Capsule, 600 MG PO TID, #24 CAPSULE Prov:IONA HORTON [employer] 10/04/17 [Hypromellose 0.4% Lub 15ML Btl] 15 ML SOLN No Conflict Check, 0 ML OU PRN Y for dryness for 30 Days, INSTILL 1 DROP Prov:GO KIRKLAND MD 06/05/17 Metformin Hcl (METFORMIN HCL) 500 Mg Tablet, 500 MG PO BIDBS for 30 Days, Prov:GO KIRKLAND MD 06/05/17 Lutein/Zeaxanthin (LUTEIN-ZEAXANTHIN 25-5 MG SFGL) 1 Each Capsule, 15 MG PO BID for 30 Days, CAPSULE Prov:GO KIRKLAND MD 06/05/17 Ezetimibe (ZETIA) 10 Mg Tablet, 10 MG PO QHS for 30 Days, Prov:GO KIRKLAND MD 06/05/17 Reported Medications Guaifenesin/Dextromethorphan (SILTUSSIN DM COUGH SYRUP) 118 Ml Syrup, 118 ML PO Y for CONGESTION 10/01/17 Hydrocortisone (Hydrocortisone) 1 % Cream..g., Y for ITCHING 10/01/17 Cetyl Alc/Stearyl Alc/Pg/Sls (CETAPHIL CREAM) 454 Gm Cream..g., 454 GM TP Y for HYDRATION 10/01/17 Menthol (BIOFREEZE) 118 Ml Gel..ml., Y for PAIN 10/01/17 Tamsulosin Hcl (TAMSULOSIN HCL) 0.4 Mg Cap.er.24h, 0.4 MG PO, CAP 10/01/17 Omeprazole (OMEPRAZOLE) 20 Mg Capsule.dr, 1 CAP PO QDAY, CAP 10/01/17 Losartan Potassium (LOSARTAN POTASSIUM) 100 Mg Tablet, 100 MG PO QDAY 10/01/17 Acetaminophen 500 Mg Tab (ACETAMINOPHEN EXTRA STRENGTH) 500 Mg Tablet, 500 MG PO Q4-6H, TAB 10/01/17 Vit C/Ainsley Ac/Lut/Copper/Znox (PRESERVISION LUTEIN SOFTGEL) 1 Each Capsule, 1 EACH PO BID, CAPSULE 05/12/17 [equate body powder] No Conflict Check, 1 CARMELO TOP DAILY Sprinkle a light amount on clean, dry feet daily prior to putting on socks and shoes 05/12/17 Lactose-Free Food (ENSURE LIQUID) 237 Ml Liquid, 237 ML PO HS 05/12/17 [closys toothpaste] No Conflict Check, 1 CARMELO BID 05/12/17 Cetyl Alc/Stearyl Alc/Pg/Sls (CETAPHIL CREAM) 454 Gm Cream..g., 454 GM TP HS Apply to both feet before bed 05/12/17 Calcium Carbonate/Vitamin D3 (CALCIUM 600 + VIT D 200 TABLET) 1 Each Tablet, 1 EACH PO DAILY 05/12/17 Bacitracin/Polymyxin B Sulfate (BACITRACIN-POLYMYXIN EYE OINT) 3.5 Gm Oint...g. , 3.5 GM OD BID 05/12/17 Bupropion Hcl (BUPROPION XL) 150 Mg Tab.er.24h, 150 MG PO QDAY, #10 TAB 05/03/17 Magnesium Hydroxide (MILK OF MAGNESIA) 400 Mg/5 Ml Oral.susp, 30 ML PO PRN Y for CONSTIPATION, BOTTLE 06/02/16 Calcium Carbonate/Mag Hydrox (Antacid 1000-200 mg Tab Chew) 1 Each Tab.chew, 1000 MG PO PRN 05/26/15 Baclofen (BACLOFEN) 10 Mg Tablet, 10 MG PO PRN Y for HICCUPS, #30 TAB every 6 hours as needed. Only 2 in 24 hours 05/02/15 Valproic Acid (VALPROIC ACID) 250 Mg Cap, 250 MG PO ACHS, CAP 01/28/14 Atenolol (ATENOLOL) 100 Mg Tablet, 1 TAB PO QDAY, TAB TAKE ONE TABLET BY MOUTH ONCE A DAY at 6PM 01/28/14 Multivitamin (ONE DAILY) 1 Each Tablet, 1 EACH PO DAILY 01/14/14 Discontinued Reported Medications Bupropion Hcl (BUPROPION XL) 150 Mg Tab.er.24h, 150 MG PO QDAY, #10 TAB 10/01/17 Valproic Acid (VALPROIC ACID) 250 Mg Cap, 500 MG PO QHS, CAP 05/16/17 Fluconazole (FLUCONAZOLE) 100 Mg Tablet, 100 MG PO QDAY for 20 Days, #20 TAB 0 Refills 05/13/17 Valsartan (DIOVAN) 160 Mg Tablet, 160 MG PO DAILY 05/12/17 Valproic Acid (VALPROIC ACID) 250 Mg Cap, 250 MG PO QID, CAP 05/12/17 Fesoterodine Fumarate (TOVIAZ) 4 Mg Tabsr, 4 MG PO DAILY 05/12/17 Sodium Chloride (SODIUM CHLORIDE) 1 Gm Tab, 1 GM PO DAILY, TAB 05/12/17 Ranitidine Hcl (ZANTAC) 150 Mg Tablet, 150 MG PO BID, TAB 05/12/17 Magnesium Hydroxide (MILK OF MAGNESIA) 400 Mg/5 Ml Oral.susp, 30 ML PO HS, BOTTLE 05/12/17 Multivitamin (DAILY MULTIPLE VITAMIN) 1 Each Tablet, 1 TAB PO DAILY 05/12/17 [body powder] No Conflict Check, 1 CARMELO TOP DAILY After showering and drying off, Paddy should be assisted in applying cornstarch powder to his groin area each day. 05/12/17 Doxazosin Mesylate (DOXAZOSIN MESYLATE) 2 Mg Tablet, 2 MG PO HS 05/12/17 Bupropion Hcl (BUPROPION XL) 150 Mg Tab.er.24h, 150 MG PO QDAY, #10 TAB 05/12/17 Atenolol (ATENOLOL) 50 Mg Tablet, 2 TAB PO QDAY, TAB 05/12/17 Aspirin (ASPIRIN) 325 Mg Tablet, 325 MG PO DAILY, TAB 05/12/17 Calcium Carbonate/Vitamin D3 (CALCIUM + VITAMIN D TABLET) 1 Each Tablet, 2 EACH PO DAILY 06/02/16 Doxazosin Mesylate (DOXAZOSIN MESYLATE) 2 Mg Tablet, 2 MG PO QDAY 03/15/16 Valsartan (DIOVAN) 160 Mg Tablet, 160 MG PO QDAY 04/07/15 Fesoterodine Fumarate (TOVIAZ) 4 Mg Tabsr, 4 MG PO DAILY 03/21/15 Discontinued Scripts Pantoprazole Sodium (PANTOPRAZOLE SODIUM) 40 Mg Tablet.dr, 40 MG PO QDAY for 30 Days, Prov:GO KIRKLAND MD 06/05/17 Sucralfate (SUCRALFATE) 1 Gm Tablet, 1 GM PO 0630,1100,1500,1900 for 30 Days, Prov:GO KIRKLAND MD 06/05/17 Activity: As Tolerated Special Instructions: Continue Dysphagia Diet, Total feed, thin liquids with provale cup Continue Clindamycin for 4 days Follow up with Bill PITTS within one week Copies to: BILL BECERRA APRNP-C Venous Thromboembolism Antithrombotics Is Pt On Any Antithrombotics?: No Problem Qualifiers (1) Hypertension: Hypertension type: essential hypertension Qualified Codes: I10 - Essential ( primary) hypertension IONA HORTON October 04, 2017 09:59
--- NOTE | 2017-10-04 11:19 | Medical Nutrition Therapy ---
Nutrition Anthropometrics Height (Inches): 65.00 Height (Calculated Centimeters: 165.530906 Weight (Pounds): 126 Weight (Calculated Kilograms): 57.493 BMI Calculated: 20.97 Isaias Nutrition Score: Adequate Isaias Nutrition Risk Score: 15 Dietary Referral Nutrition Risk Factors: Diff. Swallowing, Special Diet Nutrition Risk Comment: Dysphagia diet, needs supervision at meals, 50oz fluid restriction at [facility] Physical Findings Physical Appearance: WNR Skin Appearance Skin Appearance: Edema Edema Location Modifier: Both Edema Location: Lower Extremity Type of Edema: Degree of Edema: Gastrointestinal Symptoms GI Symtoms: Change in Bowel Pattern Tube Present: Bowel Sounds: Recent Bowel Pattern: Stool Characteristics: Nutritional Diagnosis Nutritional Risk Acuity 2: Swallowing Problem Past Medical History: HTN, GERD, depression, hyperlipidemia, T2DM, aspiration pneumonia, and fragile X syndrome Nutritional Acuity: 2-Moderate Nutrition Diagnosis: Swallowing Difficulties Nutrition Etiology: Physiological Causes Nutrition Problem/Etiology/Sym: Swallowing Difficulty related to diagnosis of oral and pharyngeal dysphagia AEB dx aspiration pneumonia and need for Dysphagia 2 Diet. Energy Requirement: 2100 (Otoe-St Jeor: Actual BW X 1.2) Protein Requirement: 67 (Actual BW Kg X 1) Fluid Requirement: 2100 Diet Type: Dysphagia Stage 2 Nutrition Intervention: Cont diet as ordered Nutrition Monitoring & Eval Nutrition Goals: Eat 75-100% Meal RD Patient Assessment Time: [address] Assessment Type: RD Re-Assessment Patient Nutrition Acuity: 2-Moderate Follow Up Date: October 07, 2017 Nutritional Comment: Pt admitted with aspiration pneumonia. Pt has history of swallowing difficlulty with dyshagia diet and thickened liquids. Alb 3.9, Glu 112, Low H/H. Lispro SSI. Within normal wt range with BMI of 21.0. Receiving Dyphagia Stage 2 diet with no reports of intake. Monitier intake, labs, etc.-DRT . 10/04 Pt is tolerating thicken liquid and dysphagia stage 2 diet very well, with oral intake of 100%. Pt has elevated whole bloog glucose 137. No other lab vaules are of concern at this time. Continue to monitor pt progress and encourage intake. JONES MASSEY October 04, 2017 11:19
[2017-10-04] MEDS: INSULIN HUM LISPRO 100 UN/ML 3 ML VIAL SUBQ PRN (12:22)
--- NOTE | 2017-10-05 11:35 | SLP MODIFIED BARIUM SWALLOW ---
Speech Language Pathology Modified Barium Swallow Evaluation Report Date of Evaluation: 10/04/2017 Patient Name: Glen Jones Patient : 1945, 72 years Physician: GISSELLE Camarena Clinician: Nikia Esparza M.S., CCC-[facility] BACKGROUND The patient is a 72 year old male who was referred for an MBSS following hospitalization w/ suspected aspiration pneumonia. Pt was evaluated by ST at the bedside, w/ clinical s/sx of aspiration noted across two consecutive dates during administration of thin liquid PO trials. Pt has been consuming a Dysphagia II diet and nectar thick liquids w/ 1:1 supervision during PO intake. Pt currently resides at [facility], and receives caregiver supervision during meals. Pt w/ hx of prior MBSS on 02/23/16, w/ results indicating mildly elevated risk for aspiration 2/2 mild oral dysphagia and pooling in pharyngeal vestibule. No penetration or aspiration was witnessed at that time. ST recommended JOZEF w/ caregiver supervision to monitor rate of intake and appropriately modify bolus sizes. Primary Diagnosis: Aspiration Pneumonia Oxygen Supplementation: 2LPM via NC. Level of Consciousness: non-altered Cognition: severe impairments, pmhx of Fragile X syndrome Language: expressive and receptive impairments Speech: dysarthric, imprecise consonant production Voice: wet Non-verbal Oral Structure and Function: impaired; decreased labial seal, low tone, poor lingual coordination Pain with Swallow: denies MODIFIED BARIUM SWALLOW In conjunction with radiology, lateral view with trials of the following consistencies: 15 ml of thin liquid, thins via self-serve cup sip, nectar thick liquids via cup sip, pureed solids, mechanically soft solids, mixed consistencies, regular solids, and a 1cm barium pill. ORAL STAGE Mild to moderate dysphagia characterized by discoordination and decreased strength of oral musculature, resulting in varying levels of oral residue, decreased efficiency of a-p transit, intermittent anterior spillage, and inefficient, anterior mastication pattern. Pt was also highly impulsive across all PO trials w/ consumption of large bolus sizes in rapid succession. Pt was not responsive to verbal cues for decreased rate/size of intake. Thin liquids (15ml and cup sip): decreased labial seal w/ anterior spillage, minimal post-swallow lingual residue. [place] thick liquids: decreased labial seal w/ anterior spillage, mild post- swallow lingual residue. Puree: delayed a-p transit, mild post-swallow lingual residue. Mechanically soft solids, regular solids, mixed textures: anterior mastication pattern, delayed a-p transit, piecemeal deglutition, mild post-swallow lingual residue. PHARYNGEAL STAGE Moderate dysphagia characterized by decreased BOT retraction (BOT does not consistently contact posterior pharyngeal wall), decreased posterior pharyngeal wall movement, delayed swallow onset varying from the level of the valleculae to the level of the pyriforms, diminished hyolaryngeal excursion (elevation WFL ) and subsequently reduced epiglottic inversion. Decreased pharyngeal strength resulted in mild to moderate post-swallow residue in the valleculae, pyriform sinus, and lower posterior pharyngeal wall. However, residue was consistently cleared w/ use of double swallow. Poor timing of swallow mechanism paired w/ decreased airway protection appeared to result in consistent penetration with consumption of thin liquids and nectar thick liquids. Controlled quantity of thins (15ml) helped to decrease quantity of penetration and provided pt w/ time to clear laryngeal vestibule w/ use of double swallow prior to initiation of subsequent trials. Thin Liquid 15ml: delayed swallow onset observed to the level of the pyriforms , penetration into the laryngeal vestibule above the vocal folds, mild residue in the valleculae, pyriforms, and posterior pharyngeal wall. Residue cleared w/ double swallow. Thin liquids cup sip: delayed swallow onset observed to the level of the pyriforms, penetration into the laryngeal vestibule w/ vocal fold contact, mild to moderate residue in the valleculae, pyriforms, and posterior pharyngeal wall. Residue cleared w/ double swallow. Pt made unsuccessful attempts to clear penetration. [place] Thick Liquids: delayed swallow onset observed to the level of the pyriforms, penetration into the laryngeal vestibule above the vocal folds, moderate residue in the valleculae, pyriforms, and posterior pharyngeal wall. Residue cleared w/ double swallow. Pureed Food: delayed swallow onset observed to the level of the pyriforms, penetration into the laryngeal vestibule above the vocal folds, moderate residue in the valleculae, pyriforms, and posterior pharyngeal wall. Residue cleared w/ double swallow. Mechanical Soft Foods, mixed consistencies, and regular solids: delayed swallow onset observed to the level of the valleculae with material beginning to spill over the epiglottis, minimal residue in the valleculae, pyriforms, and posterior pharyngeal wall. Residue cleared w/ double swallow. Penetration/Aspiration Scale*: Thin liquid: Score of 5, material enters airway, contacts vocal folds, and is not ejected from airway despite attempts [place] thick liquids: Score of 2, material enters airway, remains above vocal folds, and is ejected from the airway. Puree, soft, mixed, and regular solids: Score of 1, contrast does not enter airway Pill: Score of 1, contrast does not enter airway *(Jose et al. 1996) ESOPHAGEAL STAGE Potentially decreased UES movement w/ temporary stasis of 1 cm barium pill in pyriforms. Pill was immersed in puree, and successfully cleared when chased w/ additional bite of puree. Potential narrowing was noted in lower portion of esophagus. Discussed w/ radiologist. Pt also w/ notable esophageal stasis from previously administered PO trials. SUMMARY and RECOMMENDATIONS Aspiration Risk: moderate risk w/ liquids 2/2 notably delayed initiation of pharyngeal swallow onset and subsequent penetration of material into airway. Risk is further elevated 2/2 pooling/residue in pharynx, although material was successfully cleared w/ use of double swallow. Pt is negatively impacted by maladaptive, impulsive feeding patterns and will benefit from caregivers continuing to closely monitor intake rate and bolus size. Recommend the followin. Diet: dysphagia II, thin liquids via volume controlled sips. 2. Consider Provale cup to restrict bolus size during liquid intake and to minimize burden of care. 3. Pills should be cut in half and administered with puree. Deliver one at a time. Follow with additional bite of puree to clear. 4. Consistent caregiver supervision/assistance w/ PO intake to ensure safe, appropriate delivery of small bite/sip sizes at a decreased rate of intake. 5. GI consult to consider potential EGD or true esophagram 2/2 observed esophageal narrowing and stasis. Thank you for this referral. Please call [phone] to contact the [facility]. Nikia Esparza M.S., [facility] [*] MTDD
== END 2017-10-04 14:20 | disposition home or self-care (01) | DRG 179 ==
LOC: ER 11:03 → MED 14:24
PROVIDERS: ADMIT Family Medicine; ATTEND Family Medicine
DX: J69.0 Pneumonitis due to inhalation of food and vomit (principal); N40.0 Benign prostatic hyperplasia without lower urinary tract symptoms; I10 Essential (primary) hypertension; E11.9 Type 2 diabetes mellitus without complications; K21.9 Gastro-esophageal reflux disease without esophagitis; R06.6 Hiccough; E78.5 Hyperlipidemia, unspecified; F79 Unspecified intellectual disabilities; R04.0 Epistaxis; R13.10 Dysphagia, unspecified; Q99.2 Fragile X chromosome; Z88.0 Allergy status to penicillin; Z88.8 Allergy status to other drugs, medicaments and biological substances; I25.2 Old myocardial infarction; Z90.49 Acquired absence of other specified parts of digestive tract; Z79.84 Long term (current) use of oral hypoglycemic drugs
CPT/HCPCS: 36415; 36416; 71045; 74230; 81001; 82040; 82247; 82310; 82374; 82435; 82565; 82947; 82948; 84075; 84132; 84155; 84295; 84450; 84460; 84520; 85025; 87040; 94667; 99285; J1650; J3490; J7030; J7050

== ENCOUNTER 2017-11-02 11:00 | Outpatient (RCR) | payer MEDICARE, MEDICAID ==
[2017-10-02 12:55] VITALS: Wt 56.7 kg
[~2017-11-02 11:00] MED LIST changes: +ACET-2146 PO; +CLIN300C99 PO; +HYDR28.425; +LOSA100T67 PO; +MENT118G; +OMEP-125 PO; +TAMS0.4C70 PO; +[UNRECOGNIZED DRUG - CODE] PO
--- NOTE | 2017-11-02 17:26 | Medical Nutrition Therapy ---
Nutrition Anthropometrics Weight (Pounds): 125 BMI: 20 Isaias Nutrition Score: Isaias Nutrition Risk Score: Dietary Referral Nutrition Risk Factors: Diff. Swallowing, Special Diet Nutrition Risk Comment: Dysphagia diet, needs supervision at meals, 50oz fluid restriction at [facility] Nutritional Education Nutrition Education Topic: Other (wt gain needed with dysphagia.) Learning Barriers: Cognitive Learning Readiness: Little Interest (caregiver interested, pt showed little interest) Teaching Recipient: Patient, Primary Caregiver Nutrition Counseling: [facility] pt attended session on nutrition to assist with wt gain and review swallowing issue. Pt did not show interest in session but care givers were interested. discussed importance of proper texture of foods and how his did would be incorporated in main meal plan. Majority of session was spent developing healthy weekly meal plan with care givers. Care givers will f/u with meal ideas which will be reviewed by RD. Goal is to provide 4 week menu that works with pt's nutrtional needs. Nutrition Monitoring & Eval RD Patient Assessment Time: 60 minutes Nutritional Comment: Provided 60 minutes MNT for dsyphagia diet with wt gain desired. Copies To Copies to: JOSÉ ANTONIO ERWIN MD, BETH Nov 02, 2017 13:15
[2017-11-09] MEDS ORDERED: LOPE2CAP15 PO (10:25)
[2017-11-09] MEDS ORDERED: METF-411 PO (10:25)
== END 2017-12-07 ==
LOC: DIET 11:00
PROVIDERS: ATTEND Psychiatry & Neurology Psychiatry
DX: Z71.3 Dietary counseling and surveillance (principal); R63.5 Abnormal weight gain; Q99.2 Fragile X chromosome; R13.10 Dysphagia, unspecified; Z68.20 Body mass index [BMI] 20.0-20.9, adult
CPT/HCPCS: 97802; 97804

== ENCOUNTER → 2017-11-18 | Day surgery (SDC) | payer MEDICARE, MEDICAID ==
[2017-10-02 12:55] VITALS: Ht 165.1 cm; Wt 49.4 kg
[~2017-11-18] VITALS: Ht 165.1 cm; Wt 49.4 kg
[~2017-11-18] MED LIST changes: +LIDOCAINE MPF 1% 5 ML VIAL ONE; +LIDOCAINE/SOD BICARB 8.4% SYR ID ONE; +LOPE2CAP15 PO; +NORMOSOL R SOLN(*) 1000 ML BAG 1,000 ML IV PRN; +PROPOFOL EMUL(*) 10MG/ML 20 ML 40 ML ONE; +hydrALAZINE HCL 20 MG/ML VIAL ONE
[2017-11-18 06:44] VITALS: BP 179/102
[2017-11-18 07:22] VITALS: BP 139/73
--- NOTE | 2017-11-18 07:31 | Short(Outpt) Discharge Summary ---
Discharge Summary Reason for Hosp/Final Diag: (1) Dysphagia Status: Acute Hospital Course & Plan: EGD with dilation completed without problems. Departure Discharge to: Home, Self Care Discharge Instructions Home Meds Active Scripts Metformin Hcl (METFORMIN HCL) 500 Mg Tablet, 1000 MG PO BIDBS for 30 Days, Prov:RICHARD WHYTE MD 11/09/17 [Hypromellose 0.4% Lub 15ML Btl] 15 ML SOLN No Conflict Check, 0 ML OU PRN Y for dryness for 30 Days, INSTILL 1 DROP Prov:GO KIRKLAND MD 06/05/17 Ezetimibe (ZETIA) 10 Mg Tablet, 10 MG PO QHS for 30 Days, Prov:GO KIRKLAND MD 06/05/17 Reported Medications Loperamide HCl (Imodium A-D) 2 Mg Capsule, 2 CAP PO PRN 11/09/17 Guaifenesin/Dextromethorphan (SILTUSSIN DM COUGH SYRUP) 118 Ml Syrup, 20 ML PO Y for CONGESTION 10/01/17 Hydrocortisone (Hydrocortisone) 1 % Cream..g., Y for ITCHING 10/01/17 Menthol (BIOFREEZE) 118 Ml Gel..ml., Y for PAIN 10/01/17 Tamsulosin Hcl (TAMSULOSIN HCL) 0.4 Mg Cap.er.24h, 0.4 MG PO, CAP 10/01/17 Omeprazole (OMEPRAZOLE) 20 Mg Capsule.dr, 1 CAP PO QDAY, CAP 10/01/17 Losartan Potassium (LOSARTAN POTASSIUM) 100 Mg Tablet, 100 MG PO QDAY 10/01/17 Acetaminophen 500 Mg Tab (ACETAMINOPHEN EXTRA STRENGTH) 500 Mg Tablet, 500 MG PO Q4-6H Y for PAIN, TAB 10/01/17 [equate body powder] No Conflict Check, 1 CARMELO TOP DAILY Sprinkle a light amount on clean, dry feet daily prior to putting on socks and shoes 05/12/17 Lactose-Free Food (ENSURE LIQUID) 237 Ml Liquid, 237 ML PO HS 05/12/17 [closys toothpaste] No Conflict Check, 1 CARMELO BID 05/12/17 Cetyl Alc/Stearyl Alc/Pg/Sls (CETAPHIL CREAM) 454 Gm Cream..g., 454 GM TP HS Apply to both feet before bed 05/12/17 Calcium Carbonate/Vitamin D3 (CALCIUM 600 + VIT D 200 TABLET) 1 Each Tablet, 1 EACH PO DAILY 05/12/17 Bacitracin/Polymyxin B Sulfate (BACITRACIN-POLYMYXIN EYE OINT) 3.5 Gm Oint...g. , 3.5 GM OD PRN 05/12/17 Bupropion Hcl (BUPROPION XL) 150 Mg Tab.er.24h, 150 MG PO QDAY, #10 TAB 05/03/17 Magnesium Hydroxide (MILK OF MAGNESIA) 400 Mg/5 Ml Oral.susp, 30 ML PO QDAY, BOTTLE 06/02/16 Calcium Carbonate/Mag Hydrox (Antacid 1000-200 mg Tab Chew) 1 Each Tab.chew, 1000 MG PO PRN 05/26/15 Baclofen (BACLOFEN) 10 Mg Tablet, 10 MG PO PRN Y for HICCUPS, #30 TAB every 6 hours as needed. Only 2 in 24 hours 05/02/15 Valproic Acid (VALPROIC ACID) 250 Mg Cap, 250 MG PO ACHS, CAP 01/28/14 Atenolol (ATENOLOL) 100 Mg Tablet, 1 TAB PO QDAY, TAB TAKE ONE TABLET BY MOUTH ONCE A DAY at 6PM 01/28/14 Multivitamin (ONE DAILY) 1 Each Tablet, 1 EACH PO DAILY 01/14/14 Follow up Referrals: General Surgery - 12/05/17 @ Surgery, General with Richard Whyte Md Glen has a follow up appointment scheduled with Dr. Whyte on 12/05/17, at 11: 15am. Diet: Regular Activity: As Tolerated Special Instructions: Diet as tolerated. Eat slowly. Problem Qualifiers (1) Dysphagia: Dysphagia type: esophageal phase Qualified Codes: R13.10 - Dysphagia, unspecified RICHARD WHYTE MD Nov 18, 2017 07:31
[2017-11-18 08:00] VITALS: BP 125/88
[2017-11-18 08:21] VITALS: BP 116/72
== END ==
LOC: OR 01:15
PROVIDERS: ATTEND Surgery
DX: K44.9 Diaphragmatic hernia without obstruction or gangrene (principal)
CPT/HCPCS: 43248; J0360; J2001; J2704; 36416; 82948

== ENCOUNTER → 2018-02-06 | Outpatient (CLI) | payer MEDICARE, MEDICAID ==
[2017-10-02 12:55] VITALS: BMI 21.0
[~2018-02-06] MED LIST changes: -LIDOCAINE MPF 1% 5 ML VIAL ONE; -LIDOCAINE/SOD BICARB 8.4% SYR ID ONE; -LOSA100T67 PO; +LOSA100T69 PO; -METF-411 PO; +METF-450 PO; -NORMOSOL R SOLN(*) 1000 ML BAG 1,000 ML IV PRN; -PROPOFOL EMUL(*) 10MG/ML 20 ML 40 ML ONE; +SODI100037 MC; -[UNRECOGNIZED DRUG - CODE] MC; -hydrALAZINE HCL 20 MG/ML VIAL ONE
--- NOTE | 2018-02-06 16:03 | RADIOLOGY IMAGING REPORT ---
FACILITY: [facility] PATIENT NAME: Glen Jones : 1945 MR: [id number] V: [id number] EXAM DATE: ORDERING PHYSICIAN: DORINDA FRIAS TECHNOLOGIST: Location: [facility] [place] Patient: Glen Jones : 1945 Visit/Account:[id number] Date of Sevice: 02/06/2018 Exam type: CHEST PA AND LAT History: Comparison: October 02, 2017. Findings: Patchy airspace consolidation the left mid to lower lung field is again noted although appears slight ly improved when compared to the prior study. This could represent chronic scarring although a new i nfiltrate is not excluded. There suggestion of nodular density seen in the right lung the largest me asures approximately 1.2 centers in diameter projects over the right heart border. There is no evide nce of pleural effusions or pulmonary edema. The cardiac silhouette is borderline enlarged. IMPRESSION: 1. Patchy airspace consolidation is seen in the left mid to lower lung field although appears slight ly improved when compared to October 02, 2017. Differential diagnosis would include chronic scarring fro m the previous pneumonia although superimposed acute pneumonia is also included in the differential d iagnosis Congestion of nodular densities projecting over the right lung. Depending upon the clinical presenta tion chest CT may be helpful for further evaluation Report Dictated By: Jasmina Hickman MD at 02/06/2018 3:56 PM Report E-Signed By: Jasmina Hickman MD at 02/06/2018 3:59 PM WSN:[email or web address]
== END ==
LOC: RAD 14:44
PROVIDERS: ATTEND Physician Assistant Medical
DX: R91.1 Solitary pulmonary nodule (principal)
CPT/HCPCS: 71046

== ENCOUNTER → 2018-02-27 | Outpatient (CLI) | payer MEDICARE, MEDICAID ==
[2017-10-02 12:55] VITALS: BMI 21.0
--- NOTE | 2018-02-27 16:58 | RADIOLOGY IMAGING REPORT ---
FACILITY: PATIENT NAME: Glen Jones : 1945 MR: [id number] V: [id number] EXAM DATE: ORDERING PHYSICIAN: DEMETRIO GARCIA TECHNOLOGIST: Location: [facility] Patient: Glen Jones : 1945 Visit/Account:[id number] Date of Sevice: 02/27/2018 Exam type: CHEST PA AND LAT History: Cough Comparison: February 06, 2018. Findings: There is better aeration of the left mid to lower lung field when compared the prior study. There is mild peribronchial thickening present bilaterally although most prominent in the lung bases. This c ould represent residual scarring from patient's previous pneumonia versus an acute bronchitis.. No l obar infiltrates are identified. This no evidence of pleural effusions. The cardiac silhouette is n ormal. IMPRESSION: 1. Better aeration of the lung olsen when compared to the prior study from February 06, 2018. There is peribronchial thickening bilaterally most prominent in the lung bases which could represent residual scarring from patient's previous pneumonia although different diagnosis would include acute bronchitis Report Dictated By: Jasmina Hickman MD at 02/27/2018 4:52 PM Report E-Signed By: Jasmina Hickman MD at 02/27/2018 4:55 PM WSN:[email or web address]
== END ==
LOC: RAD 16:11
PROVIDERS: ATTEND Family Medicine
DX: J98.09 Other diseases of bronchus, not elsewhere classified (principal); R05 Cough
CPT/HCPCS: 71046

== ENCOUNTER 2018-03-01 10:35 | Emergency (ER) | payer MEDICARE, MEDICAID ==
[2017-10-02 12:55] VITALS: Wt 52.2 kg
[2018-03-01] MEDS ORDERED: NS 0.9% IV ONE (10:55)
--- NOTE | 2018-03-01 11:01 | ER Report ---
History and Physical Time Seen By MD: 10:52 Hx. of Stated Complaint: weakness diff breathing HPI/ROS CHIEF COMPLAINT: Fever shortness of breath difficulty breathing HISTORY OF PRESENT ILLNESS: 72-year-old male comes emergency Department today with a complaint of difficulty breathing patient has a known history of mental disorders he's had histories of aspiration pneumonia was recently diagnosed with pneumonia about 2 weeks ago started on some antibiotics repeat x-ray about 5 days ago emesis some mild improvement over last 3 or 4 days he began spiking fevers once again fevers 100 102 crackles and difficulty in breathing coarse breath sounds sent over here for urgent evaluation patient has no additional complaints at this time REVIEW OF SYSTEMS: Respiratory: Mild cough shortness of breath Cardiovascular: No chest pain, no palpitations. Gastrointestinal: No vomiting, no abdominal pain. Musculoskeletal: No back pain. Remainder of the 14 system rev: Yes Allergies: Coded Allergies: Penicillins (Verified Allergy, Mild, 03/01/18) chlorpromazine (Verified Allergy, Mild, 03/01/18) Home Meds Active Scripts Metformin Hcl (METFORMIN HCL) 500 Mg Tablet, 1000 MG PO BIDBS for 30 Days, Prov:RICHARD WHYTE MD 11/09/17 [Hypromellose 0.4% Lub 15ML Btl] 15 ML SOLN No Conflict Check, 0 ML OU PRN PRN for dryness for 30 Days, INSTILL 1 DROP Prov:GO KIRKLAND MD 06/05/17 Ezetimibe (ZETIA) 10 Mg Tablet, 10 MG PO QHS for 30 Days, Prov:GO KIRKLAND MD 06/05/17 Reported Medications Valproic Acid (VALPROIC ACID) 250 Mg Cap, 250 MG PO 3-4XD, CAP 03/01/18 Hydrocortisone (Hydrocortisone) 1 % Cream..g., PRN for ITCHING 10/01/17 Menthol (BIOFREEZE) 118 Ml Gel..ml., PRN for PAIN 10/01/17 Tamsulosin Hcl (TAMSULOSIN HCL) 0.4 Mg Cap.er.24h, 0.4 MG PO, CAP 10/01/17 Omeprazole (OMEPRAZOLE) 20 Mg Capsule.dr, 1 CAP PO QDAY, CAP 10/01/17 Losartan Potassium (LOSARTAN POTASSIUM) 100 Mg Tablet, 100 MG PO QDAY 10/01/17 Acetaminophen 500 Mg Tab (ACETAMINOPHEN EXTRA STRENGTH) 500 Mg Tablet, 500 MG PO Q4-6H PRN for PAIN, TAB 10/01/17 [equate body powder] No Conflict Check, 1 CARMELO TOP DAILY Sprinkle a light amount on clean, dry feet daily prior to putting on socks and shoes 05/12/17 [closys toothpaste] No Conflict Check, 1 CARMELO BID 05/12/17 Cetyl Alc/Stearyl Alc/Pg/Sls (CETAPHIL CREAM) 454 Gm Cream..g., 454 GM TP HS Apply to both feet before bed 05/12/17 Calcium Carbonate/Vitamin D3 (CALCIUM 600 + VIT D 200 TABLET) 1 Each Tablet, 1 EACH PO DAILY 05/12/17 Bacitracin/Polymyxin B Sulfate (BACITRACIN-POLYMYXIN EYE OINT) 3.5 Gm Oint...g., 3.5 GM OD PRN 05/12/17 Bupropion Hcl (BUPROPION XL) 150 Mg Tab.er.24h, 150 MG PO QDAY, #10 TAB 05/03/17 Magnesium Hydroxide (MILK OF MAGNESIA) 400 Mg/5 Ml Oral.susp, 30 ML PO QDAY, BOTTLE 06/02/16 Calcium Carbonate/Mag Hydrox (Antacid 1000-200 mg Tab Chew) 1 Each Tab.chew, 1000 MG PO PRN 05/26/15 Baclofen (BACLOFEN) 10 Mg Tablet, 10 MG PO PRN PRN for HICCUPS, #30 TAB every 6 hours as needed. Only 2 in 24 hours 05/02/15 Valproic Acid (VALPROIC ACID) 250 Mg Cap, 250 MG PO ACHS, CAP 01/28/14 Atenolol (ATENOLOL) 100 Mg Tablet, 1 TAB PO QDAY, TAB TAKE ONE TABLET BY MOUTH ONCE A DAY at 6PM 01/28/14 Multivitamin (ONE DAILY) 1 Each Tablet, 1 EACH PO DAILY 01/14/14 Discontinued Reported Medications Loperamide HCl (Imodium A-D) 2 Mg Capsule, 2 CAP PO PRN 11/09/17 Guaifenesin/Dextromethorphan (SILTUSSIN DM COUGH SYRUP) 118 Ml Syrup, 20 ML PO PRN for CONGESTION 10/01/17 Lactose-Free Food (ENSURE LIQUID) 237 Ml Liquid, 237 ML PO HS 05/12/17 Reviewed Nurses Notes: Yes Old Medical Records Reviewed: Yes Hx Smoking: No Smoking Status: Never Smoker Hx Substance Use Disorder: No Hx Alcohol Use: No Constitutional Vital Sign - Last 24 Hours 03/01/18 03/01/18 03/01/18 03/01/18 10:40 10:45 10:46 10:50 Temp 99.7 Pulse ??? 77 77 76 Resp 36 23 B/P (MAP) 130/85 (100) 130/85 Pulse Ox 92 91 92 O2 Delivery Nasal Cannula 03/01/18 03/01/18 03/01/18 03/01/18 10:50 10:55 11:00 11:05 Pulse 76 76 75 Resp 28 37 42 B/P (MAP) 132/84 (100) Pulse Ox 92 91 93 O2 Flow Rate 3.0 03/01/18 03/01/18 03/01/18 03/01/18 11:10 11:15 11:15 11:20 Pulse 73 74 75 Resp 40 31 28 Pulse Ox 92 92 94 FiO2 40.0 03/01/18 03/01/18 03/01/18 03/01/18 11:25 11:30 11:45 12:00 Pulse 73 73 72 74 Resp 36 40 30 37 B/P (MAP) 124/83 (97) 140/94 (109) Pulse Ox 96 95 96 93 03/01/18 03/01/18 03/01/18 03/01/18 12:15 12:30 12:45 13:00 Pulse 69 71 68 Resp 42 34 33 B/P (MAP) 101/63 (76) 132/84 (100) Pulse Ox 92 96 94 Physical Exam General Appearance: The patient is alert, has no immediate need for airway protection and no current signs of toxicity. Appears at baseline mental status Eyes: Pupils equal and round no injection. Respiratory: Coarse breath sounds throughout both lung olsen worse at the bases sister muscle utilization no wheezes Cardiac: regular rate and rhythm [ ] Gastrointestinal: Abdomen is soft and non tender, no masses, bowel sounds normal. Musculoskeletal: Neck: Neck is supple and non tender. Extremities have full range of motion and are non tender. Skin: No rashes or lesions. [ ] DIFFERENTIAL DIAGNOSIS: After history and physical exam differential diagnosis was considered for aspiration pneumonia pneumonia bronchitis pneumothoraces cardiac abnormality heart failure Medical Decision Making Data Points Result Diagram: 03/01/18 1124 03/01/18 1115 Laboratory Hematology Test 03/01/18 11:11 03/01/18 11:15 03/01/18 11:24 03/01/18 11:44 Prothrombin Time 14.6 seconds (12.0-14.4) Prothromb Time International Ratio 1.14 Activated Partial Thromboplast Time 38 seconds (23-35) Sodium Level 129 mmol/L (137-145) Potassium Level 5.7 mmol/L (3.5-5.0) Chloride Level 91 mmol/L (98-107) Carbon Dioxide Level 27 mmol/L (22-30) Blood Urea Nitrogen 32 mg/dl (9-21) Creatinine 0.70 mg/dl (0.66-1.25) Glomerular Filtration Rate Calc > 60.0 Random Glucose 184 mg/dl (75-110) Lactate 4.9 mmol/L (0.7-2.1) Calcium Level 10.0 mg/dl (8.4-10.2) Total Bilirubin 1.0 mg/dl (0.2-1.3) Aspartate Amino Transf (AST/SGOT) 13 U/L (0-35) Alanine Aminotransferase (ALT/SGPT) 16 U/L (0-56) Alkaline Phosphatase 54 U/L (0-126) Total Protein 5.9 g/dl (6.3-8.2) Albumin 2.9 g/dl (3.5-5.0) Red Blood Count 4.25 M/uL (4.00-5.60) Mean Corpuscular Volume 83.4 fL (80.0-96.0) Mean Corpuscular Hemoglobin 27.7 pg (26.0-33.0) Mean Corpuscular Hemoglobin Concent 33.2 g/dL (32.0-36.0) Red Cell Distribution Width 15.8 % (11.5-14.5) Mean Platelet Volume 7.8 fL (7.2-11.1) Neutrophils (%) (Auto) 64.4 % (39.4-72.5) Lymphocytes (%) (Auto) 16.0 % (17.6-49.6) Monocytes (%) (Auto) 18.9 % (4.1-12.4) Eosinophils (%) (Auto) 0.0 % (0.4-6.7) Basophils (%) (Auto) 0.7 % (0.3-1.4) Nucleated RBC Relative Count (auto) 0.0 /100WBC Neutrophils # (Auto) 4.3 K/uL (2.0-7.4) Lymphocytes # (Auto) 1.1 K/uL (1.3-3.6) Monocytes # (Auto) 1.3 K/uL (0.3-1.0) Eosinophils # (Auto) 0.0 K/uL (0.0-0.5) Basophils # (Auto) 0.0 K/uL (0.0-0.1) Nucleated RBC Absolute Count (auto) 0.00 K/uL B-Type Natriuretic Peptide 3060 pg/ml (0-100) Urine Color Yellow Urine Clarity Clear Urine pH 5.0 pH (4.8-9.5) Urine Specific [place] 1.020 Urine Protein 30 mg/dL (NEGATIVE) Urine Glucose (UA) Negative mg/dL (NEGATIVE) Urine Ketones Trace mg/dL (NEGATIVE) Urine Blood Negative (NEGATIVE) Urine Nitrite Negative (NEGATIVE) Urine Bilirubin Negative (NEGATIVE) Urine Urobilinogen Negative mg/dL (0.2-1.9) Urine Leukocyte Esterase Negative (NEGATIVE) Urine RBC 2 /HPF (0-2/HPF) Urine WBC <1 /HPF (0-5/HPF) Urine Squamous Epithelial Cells None /LPF (NONE-FEW) Urine Bacteria Few /HPF (NONE-FEW) Urine Hyaline Casts Few /LPF (NONE-FEW) Urine Mucus Few /HPF (NONE-FEW) Chemistry Test 03/01/18 11:11 03/01/18 11:15 03/01/18 11:24 03/01/18 11:44 Prothrombin Time 14.6 seconds (12.0-14.4) Prothromb Time International Ratio 1.14 Activated Partial Thromboplast Time 38 seconds (23-35) Glomerular Filtration Rate Calc > 60.0 Lactate 4.9 mmol/L (0.7-2.1) Calcium Level 10.0 mg/dl (8.4-10.2) Total Bilirubin 1.0 mg/dl (0.2-1.3) Aspartate Amino Transf (AST/SGOT) 13 U/L (0-35) Alanine Aminotransferase (ALT/SGPT) 16 U/L (0-56) Alkaline Phosphatase 54 U/L (0-126) Total Protein 5.9 g/dl (6.3-8.2) Albumin 2.9 g/dl (3.5-5.0) White Blood Count 6.7 k/uL (4.5-11.0) Red Blood Count 4.25 M/uL (4.00-5.60) Hemoglobin 11.8 g/dL (14.0-18.0) Hematocrit 35.4 % (42.0-52.0) Mean Corpuscular Volume 83.4 fL (80.0-96.0) Mean Corpuscular Hemoglobin 27.7 pg (26.0-33.0) Mean Corpuscular Hemoglobin Concent 33.2 g/dL (32.0-36.0) Red Cell Distribution Width 15.8 % (11.5-14.5) Platelet Count 389 K/uL (150-450) Mean Platelet Volume 7.8 fL (7.2-11.1) Neutrophils (%) (Auto) 64.4 % (39.4-72.5) Lymphocytes (%) (Auto) 16.0 % (17.6-49.6) Monocytes (%) (Auto) 18.9 % (4.1-12.4) Eosinophils (%) (Auto) 0.0 % (0.4-6.7) Basophils (%) (Auto) 0.7 % (0.3-1.4) Nucleated RBC Relative Count (auto) 0.0 /100WBC Neutrophils # (Auto) 4.3 K/uL (2.0-7.4) Lymphocytes # (Auto) 1.1 K/uL (1.3-3.6) Monocytes # (Auto) 1.3 K/uL (0.3-1.0) Eosinophils # (Auto) 0.0 K/uL (0.0-0.5) Basophils # (Auto) 0.0 K/uL (0.0-0.1) Nucleated RBC Absolute Count (auto) 0.00 K/uL B-Type Natriuretic Peptide 3060 pg/ml (0-100) Urine Color Yellow Urine Clarity Clear Urine pH 5.0 pH (4.8-9.5) Urine Specific [place] 1.020 Urine Protein 30 mg/dL (NEGATIVE) Urine Glucose (UA) Negative mg/dL (NEGATIVE) Urine Ketones Trace mg/dL (NEGATIVE) Urine Blood Negative (NEGATIVE) Urine Nitrite Negative (NEGATIVE) Urine Bilirubin Negative (NEGATIVE) Urine Urobilinogen Negative mg/dL (0.2-1.9) Urine Leukocyte Esterase Negative (NEGATIVE) Urine RBC 2 /HPF (0-2/HPF) Urine WBC <1 /HPF (0-5/HPF) Urine Squamous Epithelial Cells None /LPF (NONE-FEW) Urine Bacteria Few /HPF (NONE-FEW) Urine Hyaline Casts Few /LPF (NONE-FEW) Urine Mucus Few /HPF (NONE-FEW) Coagulation Test 03/01/18 11:11 Prothrombin Time 14.6 seconds Prothromb Time International Ratio 1.14 Activated Partial Thromboplast Time 38 seconds Urinalysis Test 03/01/18 11:44 Urine Color Yellow Urine Clarity Clear Urine pH 5.0 pH (4.8-9.5) Urine Specific [place] 1.020 Urine Protein 30 mg/dL (NEGATIVE) Urine Glucose (UA) Negative mg/dL (NEGATIVE) Urine Ketones Trace mg/dL (NEGATIVE) Urine Blood Negative (NEGATIVE) Urine Nitrite Negative (NEGATIVE) Urine Bilirubin Negative (NEGATIVE) Urine Urobilinogen Negative mg/dL (0.2-1.9) Urine Leukocyte Esterase Negative (NEGATIVE) Urine RBC 2 /HPF (0-2/HPF) Urine WBC <1 /HPF (0-5/HPF) Urine Squamous Epithelial Cells None /LPF (NONE-FEW) Urine Bacteria Few /HPF (NONE-FEW) Urine Hyaline Casts Few /LPF (NONE-FEW) Urine Mucus Few /HPF (NONE-FEW) ED Course/Re-evaluation ED Course ED clinical course immediate 2-year-old male comes emergency Department today with hypoxia grade fever and alterations in baseline he demonstrates on his crystal st x-ray interstitial pneumonia most likely aspirate base which is worsened from his last x-ray several days ago zoetic gradient for febrile subjectively antiemetics initiated fluid resuscitation started a septic protocol enacted patient be admitted diagnosis interstitial pneumonia due to respiratory [place] placed patient on BiPAP resting comfortably Decision to Disposition Date: Mar 01, 2018 Decision to Disposition Time: 13:32 Depart Departure Latest Vital Signs Vital Signs Date Time Temp Pulse Resp B/P (MAP) Pulse Ox O2 Delivery O2 Flow Rate FiO2 03/01/18 13:00 68 33 132/84 (100) 94 03/01/18 11:15 40.0 03/01/18 10:50 3.0 03/01/18 10:46 99.7 Nasal Cannula Core Temperature (Celsius): 37.2 Impression: Primary Impression: Aspiration pneumonia Condition: Improved Disposition: Admitted from ER Referrals: DEMETRIO GARCIA DO (PCP) SANDRINE MACDONALD MD Mar 01, 2018 11:01
[2018-03-01] MEDS ORDERED: VAL250 PO (11:04)
[2018-03-01 11:33] LABS: PLATELET COUNT, AUTOMATED 389 K/uL (150-450)
[2018-03-01 11:35] LABS: INR 1.14
[2018-03-01] MEDS ORDERED: AZITHROMYCIN(*) 500 MG 500 MG in NS(*) 0.9% 250 ML BAG 250 ML IVPB ONE (12:45)
[2018-03-01] MEDS ORDERED: VANCOMYCIN(*) 1 GM VIAL 2 GM in NS(*) 0.9% 250 ML BAG 250 ML IVPB ONE (12:45)
--- NOTE | 2018-03-01 13:12 | RADIOLOGY IMAGING REPORT ---
FACILITY: [facility] PATIENT NAME: Glen Jones : 1945 MR: [id number] V: [id number] EXAM DATE: ORDERING PHYSICIAN: SANDRINE MACDONALD TECHNOLOGIST: Location: [facility] Patient: Glen Jones : 1945 Visit/Account:[id number] Date of Sevice: 03/01/2018 Exam type: CHEST SINGLE AP History: Respiratory distress Comparison: February 27, 2018. Findings: There is been development of diffuse interstitial prominence throughout the lungs findings are consis tent with interstitial pulmonary edema versus interstitial infiltrates. Peribronchial thickening fadi ears similar to the prior study. No evidence of pleural effusions. The cardiac silhouette is normal . IMPRESSION: 1. Interval increase in interstitial markings diffusely throughout the lungs consistent with interst itial pulmonary edema versus interstitial infiltrates Bronchial thickening appears similar to the prior study Report Dictated By: Jasmina Hickman MD at 03/01/2018 1:07 PM Report E-Signed By: Jasmina Hickman MD at 03/01/2018 1:09 PM WSN:[email or web address]
--- NOTE | 2018-03-01 15:00 | EKG ---
FACILITY: [facility] PATIENT NAME: PAMELA JAMES : [id number] MR: [id number]: [id number] EXAM DATE: ORDERING PHYSICIAN: SANDRINE MACDONALD TECHNOLOGIST: Test Reason : Blood Pressure : / mmHG Vent. Rate : 071 BPM Atrial Rate : 071 BPM P-R Int : 204 ms QRS Dur : 084 ms QT Int : 390 ms P-R-T Axes : 078 032 054 degrees QTc Int : 423 ms Normal sinus rhythm Moderate voltage criteria for LVH, may be normal variant Borderline ECG Relatively unchanged Confirmed by GO KIRKLAND ([id number]) on 03/01/2018 6:55:48 PM Referred By: Confirmed By:GO KIRKLAND
[2018-03-01 16:30] VITALS: BP 113/69
--- NOTE | 2018-03-01 17:47 | Hospitalist Consultation ---
History of Present Illness Requesting Physician Wendie Reason for Consult Aspiration Pneumonia History of Present Illness 72yo male with Fragile X syndrome and h/o aspiration pneumonia who was brought to the ER for increased WOB. A couple weeks ago he was put on antibiotics for a pneumonia. He did improve some, but then began to worsen over the last couple of days. He saw his PCP 2 days ago and was started on Cefdinir. He has had temperatures to 101 degrees. Last night, he vomited two times. He continued to worsen so was brought to the ER. The patient is not able to communicate any symptoms. In the ER, he was placed on BIPAP because of his increased WOB and also was fluid bolused based on the sepsis protocol. He was given Vancomycin and Azithromycin. History Problems: (1) GERD (gastroesophageal reflux disease) Status: Chronic (2) HTN (hypertension) Status: Chronic (3) Intractable hiccups Status: Chronic (4) Fragile X syndrome in male Status: Chronic (5) BPH (benign prostatic hyperplasia) Status: Chronic (6) Aspiration pneumonia Status: Chronic Home Meds Active Scripts Metformin Hcl (METFORMIN HCL) 500 Mg Tablet, 1000 MG PO BIDBS for 30 Days, Prov:RICHARD WHYTE MD 11/09/17 [Hypromellose 0.4% Lub 15ML Btl] 15 ML SOLN No Conflict Check, 0 ML OU PRN PRN for dryness for 30 Days, INSTILL 1 DROP Prov:GO KIRKLAND MD 06/05/17 Ezetimibe (ZETIA) 10 Mg Tablet, 10 MG PO QHS for 30 Days, Prov:GO KIRKLAND MD 06/05/17 Reported Medications Valproic Acid (VALPROIC ACID) 250 Mg Cap, 250 MG PO 3-4XD, CAP 03/01/18 Hydrocortisone (Hydrocortisone) 1 % Cream..g., PRN for ITCHING 10/01/17 Menthol (BIOFREEZE) 118 Ml Gel..ml., PRN for PAIN 10/01/17 Tamsulosin Hcl (TAMSULOSIN HCL) 0.4 Mg Cap.er.24h, 0.4 MG PO, CAP 10/01/17 Omeprazole (OMEPRAZOLE) 20 Mg Capsule.dr, 1 CAP PO QDAY, CAP 10/01/17 Losartan Potassium (LOSARTAN POTASSIUM) 100 Mg Tablet, 100 MG PO QDAY 5/19/18 Acetaminophen 500 Mg Tab (ACETAMINOPHEN EXTRA STRENGTH) 500 Mg Tablet, 500 MG PO Q4-6H PRN for PAIN, TAB 10/01/17 [equate body powder] No Conflict Check, 1 CARMELO TOP DAILY Sprinkle a light amount on clean, dry feet daily prior to putting on socks and shoes 05/12/17 [closys toothpaste] No Conflict Check, 1 CARMELO BID 05/12/17 Cetyl Alc/Stearyl Alc/Pg/Sls (CETAPHIL CREAM) 454 Gm Cream..g., 454 GM TP HS Apply to both feet before bed 05/12/17 Calcium Carbonate/Vitamin D3 (CALCIUM 600 + VIT D 200 TABLET) 1 Each Tablet, 1 EACH PO DAILY 05/12/17 Bacitracin/Polymyxin B Sulfate (BACITRACIN-POLYMYXIN EYE OINT) 3.5 Gm Oint...g., 3.5 GM OD PRN 05/12/17 Bupropion Hcl (BUPROPION XL) 150 Mg Tab.er.24h, 150 MG PO QDAY, #10 TAB 05/03/17 Magnesium Hydroxide (MILK OF MAGNESIA) 400 Mg/5 Ml Oral.susp, 30 ML PO QDAY, BOTTLE 06/02/16 Calcium Carbonate/Mag Hydrox (Antacid 1000-200 mg Tab Chew) 1 Each Tab.chew, 1000 MG PO PRN 05/26/15 Baclofen (BACLOFEN) 10 Mg Tablet, 10 MG PO PRN PRN for HICCUPS, #30 TAB every 6 hours as needed. Only 2 in 24 hours 05/02/15 Valproic Acid (VALPROIC ACID) 250 Mg Cap, 250 MG PO ACHS, CAP 01/28/14 Atenolol (ATENOLOL) 100 Mg Tablet, 1 TAB PO QDAY, TAB TAKE ONE TABLET BY MOUTH ONCE A DAY at 6PM 01/28/14 Multivitamin (ONE DAILY) 1 Each Tablet, 1 EACH PO DAILY 01/14/14 Discontinued Reported Medications Loperamide HCl (Imodium A-D) 2 Mg Capsule, 2 CAP PO PRN 11/09/17 Guaifenesin/Dextromethorphan (SILTUSSIN DM COUGH SYRUP) 118 Ml Syrup, 20 ML PO PRN for CONGESTION 10/01/17 Lactose-Free Food (ENSURE LIQUID) 237 Ml Liquid, 237 ML PO HS 12/28/17 Allergies: Coded Allergies: Penicillins (Verified Allergy, Mild, 03/01/18) chlorpromazine (Verified Allergy, Mild, 03/01/18) Patient History: FH: cancer pt doesn't know. FH: diabetes mellitus pt doesn't know. FHx: heart disease pt doesn't know. Hx Smoking: No Smoking Status: Never Smoker Caffeine Intake: Soda Caffeine/Cups Per Day: RARELY Hx Alcohol Use: No Hx Substance Use Disorder: No Social Drug Use: Never Review of Systems All Systems Reviewed/Normal: Yes, Except as Noted Exam Vital Signs Vital Signs Date Time Temp Pulse Resp B/P (MAP) Pulse Ox O2 Delivery O2 Flow Rate FiO2 03/01/18 16:55 68 31 91 03/01/18 16:30 113/69 (84) 03/01/18 11:15 40.0 03/01/18 10:50 3.0 03/01/18 10:46 99.7 Nasal Cannula General Appearance: Alert, Awake, Other (Moderate work of breathing. Tachypneic) Cardiovascular: Regular Rate and Rhythm (Distant heart tones) Respiratory: Other (Bibasilar insp crackles) GI: Abd Soft and Non-Tender Extremities: No Edema Integumentary: No Jaundice, No Cyanosis Medical Decision Making Data Points Result Diagram: 03/01/18 1124 03/01/18 1115 Item Value Date Time Neutrophils (%) (Auto) 64.4 % 03/01/18 1124 Lymphocytes (%) (Auto) 16.0 % L 03/01/18 1124 Monocytes (%) (Auto) 18.9 % H 03/01/18 1124 Eosinophils (%) (Auto) 0.0 % L 03/01/18 1124 Arterial Blood pH 7.39 03/01/18 1425 Arterial Blood Partial Pressure CO2 44 mmHg H 03/01/18 1425 Arterial Blood Partial Pressure O2 69 mmHg 03/01/18 1425 Arterial Blood HCO3 26 mmol/L 03/01/18 1425 Arterial Blood Oxygen Saturation 93 % 03/01/18 1425 Prothromb Time International Ratio 1.14 03/01/18 1111 Troponin I 0.434 ng/ml *H 03/01/18 1357 Troponin I 0.401 ng/ml *H 03/01/18 1124 B-Type Natriuretic Peptide 3060 pg/ml H 03/01/18 1124 Lactate 4.9 mmol/L *H 03/01/18 1115 Lactate 2.7 mmol/L H 03/01/18 1357 Total Bilirubin 1.0 mg/dl 03/01/18 1115 Aspartate Amino Transf (AST/SGOT) 13 U/L 03/01/18 1115 Alanine Aminotransferase (ALT/SGPT) 16 U/L 03/01/18 1115 Alkaline Phosphatase 54 U/L 03/01/18 1115 Sodium Level 129 mmol/L L 03/01/18 1115 Potassium Level 5.7 mmol/L H 03/01/18 1115 Urine RBC 2 /HPF 03/01/18 1144 Urine WBC <1 /HPF 03/01/18 1144 Urine Squamous Epithelial Cells None /LPF 03/01/18 1144 Urine Leukocyte Esterase Negative 03/01/18 1144 EKG / Imaging EKG Interpretation NSR, no obvious ST-T abnormalities Imaging CXR - 1. Interval increase in interstitial markings diffusely throughout the lungs consistent with interstitial pulmonary edema versus interstitial infiltrates Assessment and Plan Problems: (1) Respiratory distress Status: Acute Assessment & Plan: He presented with a couple days of increased work of breathing. He was recently on a course of antibiotics for pneumonia and he has a h/o aspiration pneumonia. However, today, his BNP was the highest it's been at 3060 and his troponin was 0.401 and then trended up to 0.434 in 2.5 hours. ECG was wnl. CXR was concerning for pulmonary edema vs interstitial infiltrates. WBC was normal and a normal neutrophil percentage. I am concerned that the patient has a primary cardiac cause of pulmonary edema and needs a Agency Legal Counsel for further evaluation. Pneumonia is still a concern and should be treated. The staff at the [facility] report that they want to be aggressive with treatment and are willing to have the patient transferred to receive that care. The plan was discussed with Dr. Macdonald and he is in agreement. Copies to: SANDRINE MACDONALD MD; DORINDA FRIAS; DEMETRIO GARCIA DO ; Venous Thromboembolism Antithrombotics Is Pt On Any Antithrombotics?: No Exam Sepsis Risk: Possible Severe Sepsis Risk GO KIRKLAND MD Mar 01, 2018 17:47
== END 2018-03-01 17:20 | disposition short-term general hospital (02) ==
LOC: ER 10:48
DX: J69.0 Pneumonitis due to inhalation of food and vomit (principal)
CPT/HCPCS: 36415; 36600; 71045; 81001; 82803; 83605; 83880; 84484; 85025; 85610; 85730; 87040; 87088; 93005; 94660; 96365; 96367; 99284; A4353; J0456; J3370; J7030; J7050; 82040; 82247; 82310; 82374; 82435; 82565; 82947; 84075; 84132; 84155; 84295; 84450; 84460; 84520

== ENCOUNTER → 2018-03-01 | Outpatient (CLI) | payer MEDICARE, MEDICAID ==
[2017-10-02 12:55] VITALS: BMI 21.0
== END ==
LOC: AMB 16:45
PROVIDERS: ATTEND Nurse Practitioner
DX: I21.4 Non-ST elevation (NSTEMI) myocardial infarction (principal)
CPT/HCPCS: A0425; A0426

== ENCOUNTER → 2018-04-10 | Outpatient (CLI) | payer MEDICARE, MEDICAID ==
[2017-10-02 12:55] VITALS: BMI 21.0
--- NOTE | 2018-04-10 13:44 | RADIOLOGY IMAGING REPORT ---
[place] [facility] [place] NAME: Glen Jones : 1945 MR: [id number] V: [id number] EXAM DATE: ORDERING PHYSICIAN: DEMETRIO GARCIA TECHNOLOGIST: Location: [facility] Patient: Glen Jones : 1945 Visit/Account:[id number] Date of Sevice: 04/10/2018 Exam type: CHEST PA AND LAT History: Shortness of breath Comparison: March 01, 2018 and February 27, 2018. Findings: Coarse peribronchial thickening bilaterally has increased in the interim. This likely represents an acute peribronchial inflammatory process. There is also increasing airspace consolidation in the lef t lung base with air bronchograms consistent with infiltrate and/or atelectasis. Cardiac silhouette is normal in size IMPRESSION: 1. Coarse peribronchial thickening bilaterally has increase in the interim consistent with an acute peribronchial inflammatory process Increasing airspace consolidation left lung base with air bronchograms is consistent with infiltrate and/or atelectasis Report Dictated By: Jasmina Hickman MD at 04/10/2018 1:14 PM Report E-Signed By: Jasmina Hickman MD at 04/10/2018 1:40 PM WSN:[email or web address]
== END ==
LOC: RAD 12:08
PROVIDERS: ATTEND Family Medicine
DX: R91.8 Other nonspecific abnormal finding of lung field (principal); R06.02 Shortness of breath
CPT/HCPCS: 71046

== ENCOUNTER → 2018-05-31 | Outpatient (CLI) | payer MEDICARE, MEDICAID ==
[2017-10-02 12:55] VITALS: BMI 21.0
[~2018-05-31] MED LIST changes: -LOSA100T69 PO; +LOSA100T75 PO; -MULT-1097 PO; +MULT-1540 PO
--- NOTE | 2018-05-31 13:36 | RADIOLOGY IMAGING REPORT ---
FACILITY: [facility] PATIENT NAME: Glen Jones : 1945 MR: [id number] V: [id number] EXAM DATE: ORDERING PHYSICIAN: DEMETRIO GARCIA TECHNOLOGIST: Location: [facility] Patient: Glen Jones : 1945 Visit/Account:[id number] Date of Sevice: 05/31/2018 Technique: HIP LEFT HISTORY: Left hip pain Comparison studies: Pelvic radiograph 04/16/2015 FINDINGS: There is no acute fracture. Degenerative changes are noted within the femoroacetabular elizabeth nts. Within the left hip there is joint space narrowing. Moderate stool volume is noted within the rectal vault. IMPRESSION: 1. Degenerative changes of the left hip as above. Report Dictated By: Ed Denson DO at 05/31/2018 1:30 PM Report E-Signed By: Ed Denson DO at 05/31/2018 1:32 PM WSN:[email or web address]
== END ==
LOC: RAD 12:59
PROVIDERS: ATTEND Family Medicine
DX: M16.12 Unilateral primary osteoarthritis, left hip (principal)

== ENCOUNTER 2018-06-04 09:15 | Inpatient (IN) | payer MEDICARE, MEDICAID ==
[2017-10-02 12:55] VITALS: Ht 175.3 cm; Wt 55.9 kg
[~2018-06-04] VITALS: Ht 175.3 cm; Wt 55.9 kg
[2018-06-04] VITALS (48 sets, daily range): BP systolic 70–120; BP diastolic 45–76
--- NOTE | 2018-06-04 09:11 | ER Report ---
History and Physical Time Seen By MD: 10:16 HPI/ROS CHIEF COMPLAINT: Respiratory failure, aspiration HISTORY OF PRESENT ILLNESS: Patient is a 73-year-old male from [facility] ([place] she was found to be in respiratory failure after being found minimally responsive covered in vomitus. EMS was called, patient was noted to be hypoxic with oxygen saturations of low 70% on nonrebreather. Patient was in clear respiratory distress at time of initial ED arrival. Patient was brought to room 6 resuscitation bay. IV access was obtained. Patient was intubated shortly after arrival due to respiratory failure in spite of high flow oxygen. REVIEW OF SYSTEMS: Unable to obtain due to mental status and clinical presentation Allergies: Coded Allergies: Penicillins (Verified Allergy, Mild, 03/01/18) chlorpromazine (Verified Allergy, Mild, 03/01/18) Home Meds Active Scripts Metformin Hcl (METFORMIN HCL) 500 Mg Tablet, 1000 MG PO BIDBS for 30 Days, Prov:RICHARD WHYTE MD 11/09/17 [Hypromellose 0.4% Lub 15ML Btl] 15 ML SOLN No Conflict Check, 0 ML OU PRN PRN for dryness for 30 Days, INSTILL 1 DROP Prov:GO KIRKLAND MD 06/05/17 Ezetimibe (ZETIA) 10 Mg Tablet, 10 MG PO QHS for 30 Days, Prov:GO KIRKLAND MD 06/05/17 Reported Medications Polyethylene Glycol 3350 (MIRALAX) 17 Gm Powd.pack, 17 GM PO PRN, PKT 06/05/18 Triamcinolone Acetonide 0.1% Cr 15 Gm Tube (TRIAMCINOLONE ACETONIDE 0.1% CREAM) 15 Gm Cream..g., 15 GM TP BID, TUBE for 14 days. end on 06/14/2018 06/05/18 Terazosin Hcl (TERAZOSIN HCL) 1 Mg Capsule, 1 MG PO QHS, CAPSULE 06/05/18 Metoprolol Tartrate (METOPROLOL TARTRATE) 25 Mg Tablet, 50 MG PO BID, TAB 06/05/18 Fluticasone Prop 50 Mcg Ns (FLONASE 50 MCG NS) 16 Gm [place].susp, 2 SPRAYS NS QDAY, BOT 06/05/18 Fluticasone Prop 50 Mcg Ns (FLONASE 50 MCG NS) 16 Gm [place].susp, 1 SPRAY NS QDAY, BOT 06/05/18 Lactose-Free Food (ENSURE PLUS) 237 Ml Liquid, 237 ML PO QDAY 06/05/18 Doxycycline Hyclate (DOXYCYCLINE HYCLATE) 100 Mg Capsule, 100 MG PO BID, CAPSULE 06/05/18 Albuterol Sulfate 0.083% (ALBUTEROL SULFATE 0.083%) 2.5 Mg/3 Ml Vial.neb, 2.5 MG INH TID, INH 0800/1200/2000 06/05/18 Bupropion Hcl (BUPROPION HCL) 75 Mg Tablet, 75 MG PO BID, #10 TAB 06/05/18 Valproic Acid (VALPROIC ACID) 250 Mg Cap, 250 MG PO 3-4XD, CAP 03/01/18 Hydrocortisone (Hydrocortisone) 1 % Cream..g., PRN for ITCHING 10/01/17 Menthol (BIOFREEZE) 118 Ml Gel..ml., PRN for PAIN 10/01/17 Tamsulosin Hcl (TAMSULOSIN HCL) 0.4 Mg Cap.er.24h, 0.4 MG PO, CAP 10/01/17 Omeprazole (OMEPRAZOLE) 20 Mg Capsule.dr, 1 CAP PO QDAY, CAP 10/01/17 Losartan Potassium (LOSARTAN POTASSIUM) 100 Mg Tablet, 100 MG PO QDAY 10/01/17 Acetaminophen 500 Mg Tab (ACETAMINOPHEN EXTRA STRENGTH) 500 Mg Tablet, 500 MG PO Q4-6H PRN for PAIN, TAB 10/01/17 [equate body powder] No Conflict Check, 1 CARMELO TOP DAILY Sprinkle a light amount on clean, dry feet daily prior to putting on socks and shoes 05/12/17 [closys toothpaste] No Conflict Check, 1 CARMELO BID 05/12/17 Cetyl Alc/Stearyl Alc/Pg/Sls (CETAPHIL CREAM) 454 Gm Cream..g., 454 GM TP HS Apply to both feet before bed 05/12/17 Calcium Carbonate/Vitamin D3 (CALCIUM 600 + VIT D 200 TABLET) 1 Each Tablet, 1 EACH PO DAILY 05/12/17 Bacitracin/Polymyxin B Sulfate (BACITRACIN-POLYMYXIN EYE OINT) 3.5 Gm Oint...g., 3.5 GM OD PRN 05/12/17 Magnesium Hydroxide (MILK OF MAGNESIA) 400 Mg/5 Ml Oral.susp, 30 ML PO QDAY, BOTTLE 06/02/16 Calcium Carbonate/Mag Hydrox (Antacid 1000-200 mg Tab Chew) 1 Each Tab.chew, 1000 MG PO PRN 05/26/15 Baclofen (BACLOFEN) 10 Mg Tablet, 10 MG PO PRN PRN for HICCUPS, #30 TAB every 6 hours as needed. Only 2 in 24 hours 05/02/15 Valproic Acid (VALPROIC ACID) 250 Mg Cap, 250 MG PO ACHS, CAP 01/28/14 Atenolol (ATENOLOL) 100 Mg Tablet, 1 TAB PO QDAY, TAB TAKE ONE TABLET BY MOUTH ONCE A DAY at 6PM 01/28/14 Multivitamin (ONE DAILY) 1 Each Tablet, 1 EACH PO DAILY 01/14/14 Discontinued Reported Medications Bupropion Hcl (BUPROPION XL) 150 Mg Tab.er.24h, 150 MG PO QDAY, #10 TAB 05/03/17 Hx Smoking: No Smoking Status: Never Smoker Hx Substance Use Disorder: No Hx Alcohol Use: No Constitutional Vital Sign - Last 24 Hours 06/04/18 06/04/18 06/04/18 06/04/18 09:15 09:19 09:20 09:25 Pulse 127 130 148 Resp 49 11 B/P (MAP) 135/74 (94) 139/87 (104) Pulse Ox 71 75 76 06/04/18 06/04/18 06/04/18 06/04/18 09:30 09:31 09:35 09:40 Temp 99.5 Pulse 117 115 116 Resp 23 72 60 B/P (MAP) 102/64 (77) 138/86 (103) 150/77 (101) Pulse Ox 67 93 92 06/04/18 06/04/18 06/04/18 06/04/18 09:40 09:45 09:50 09:55 Pulse 119 120 132 Resp 64 62 62 B/P (MAP) 155/91 (112) 161/90 (113) 155/84 (107) Pulse Ox 89 90 81 FiO2 100.0 06/04/18 06/04/18 06/04/18 06/04/18 10:00 10:05 10:10 10:15 Pulse 141 ??? 104 ??? Resp 56 21 B/P (MAP) 144/93 (110) 74/47 (56) 67/45 (52) 72/50 (57) Pulse Ox 77 91 76 93 06/04/18 06/04/18 06/04/18 06/04/18 10:20 10:25 10:30 10:30 Pulse 102 100 103 Resp 23 20 45 B/P (MAP) 75/50 (58) 76/51 (59) 97/64 (75) Pulse Ox 95 97 78 FiO2 100.0 06/04/18 06/04/18 10:35 10:40 Pulse 107 101 Resp 45 42 B/P (MAP) 104/73 (83) 113/77 (89) Pulse Ox 88 89 Intake and Output 06/04/18 06/04/18 06/05/18 15:00 23:00 07:00 Intake Total 1000 ml Output Total 0 ml Balance 1000 ml Physical Exam General Appearance: Patient is toxic in appearance, not protecting his airway and in acute respiratory failure Eyes: Pupils equal and round no pallor or injection. ENT, Mouth: + Vomitus present in the oropharynx Respiratory: Coarse respirations in all lung olsen, diminished at bases likely secondary to aspiration Cardiovascular: Sinus tachycardia Gastrointestinal: Abdomen mildly distended, nonrigid Neurological: Somnolent, altered mental status, moving all extremities spontaneously Skin: Warm and dry, no rashes. Musculoskeletal: Neck is supple non tender. Extremities are nontender, nonswollen and have full range of motion. DIFFERENTIAL DIAGNOSIS: After history and physical exam differential diagnosis was considered for altered mental status including but not limited to hypoglycemia, infectious process, electrolyte abnormality, head injury and intoxicants, aspiration pneumonia, shock Medical Decision Making Data Points Result Diagram: 06/05/18 0500 06/05/18 0500 Laboratory Hematology Test 06/04/18 09:20 06/04/18 10:12 Prothrombin Time 14.0 seconds (12.0-14.4) Prothromb Time International Ratio 1.08 Activated Partial Thromboplast Time 21 seconds (23-35) Peripheral Blood Smear No Y/N Chemistry Test 06/04/18 09:20 06/04/18 10:12 Prothrombin Time 14.0 seconds (12.0-14.4) Prothromb Time International Ratio 1.08 Activated Partial Thromboplast Time 21 seconds (23-35) Peripheral Blood Smear No Y/N Coagulation Test 06/04/18 09:20 Prothrombin Time 14.0 seconds Prothromb Time International Ratio 1.08 Activated Partial Thromboplast Time 21 seconds Microbiology Microbiology Date/Time Source Procedure Growth Status 06/04/18 10:27 Blood Peripheral Draw Blood Culture - Preliminary NO GROWTH AFTER 1 DAY, REINCUBATED Resulted 06/04/18 10:21 Blood Peripheral Draw Blood Culture - Preliminary NO GROWTH AFTER 1 DAY, REINCUBATED Resulted EKG/Imaging EKG Interpretation Test Reason : CODE BLUE Blood Pressure : / mmHG Vent. Rate : 099 BPM Atrial Rate : 099 BPM P-R Int : 172 ms QRS Dur : 086 ms QT Int : 370 ms P-R-T Axes : 075 063 070 degrees QTc Int : 474 ms Normal sinus rhythm Normal ECG When compared with ECG of 03.01.2018 No significant change was found Confirmed by Tae Galicia ([id number]) on 06/04/2018 1:58:08 PM Referred By: Confirmed By:Tae Harmon Monitor Interpretation: Normal Sinus Rhythm Imaging Exam type: CHEST SINGLE AP History: ET tube placement, NG tube placement Comparison: 04/10/2018. Findings: ET tube is 6 cm above the sarah just below the clavicles. NG tube projects over the stomach. Stomach is filled with air. Both lungs are well-expanded. Bilateral interstitial and pulmonary vascular prominence is noted bilaterally slightly more prominent than prior examination. I cannot exclude pneumonia or mild failure. No pleural effusion or pneumothorax. Heart size is enlarged. The osseous structures junction a mild scoliosis. IMPRESSION: 1. ET tube is 6 cm above the sarah. NG tube overlies the stomach. Stomach is filled with air. 2. Prominent interstitial and pulmonary vascular markings are slightly more prominent than prior examinations. I cannot exclude superimposed pneumonia or mild failure amongst a background of chronic interstitial changes. [place] [facility] [place]: Glen Jones : 1945 Visit/Account:[id number] Date of Sevice: 06/04/2018 Exam: KUB SINGLE VIEW ABDOMEN Indication: INTUBATION, NG tube placement Comparison: None available Findings: Tip of the nasogastric tube terminates within the stomach. Recommend that the catheter be advanced another 3 to 5 cm. The stomach is distended. There is a nonobstructive bowel gas pattern. Moderate amount stool is noted within the transverse colon. IMPRESSION: 1. Nasogastric tube is within the stomach, recommend that it be advanced approximately 3 to 5 cm however. 2. Mild constipation ED Course/Re-evaluation ED Course Patient is a 73-year-old male who comes in with respiratory failure likely secondary to aspiration of gastric contents found minimally responsive by staff at [facility] ([place] Initially patient's code status was unknown, patient was found to be unable to protect his airway with oxygen saturations of approximately 70% on nonrebreather. IV access was obtained and patient was administered succinylcholine and etomidate. Patient's vocal cords were visualized using Glidescope 3-0 blade however it was brought to the attention of the patient was DO NOT RESUSCITATE, DO NOT INTUBATE however on further review, documentation was not current and invalid so the patient was intubated using an endotracheal tube 7.5. Endotracheal tube placement was confirmed using capnography, lung sounds were auscultated in all lung olsen. NG tube was placed to decompress the gastric bubble. Patient was then placed on propofol infusion for post intubation sedation however blood pressure initially dropped so infusion was discontinued, patient was placed on ketamine. Patient was noted to have a lactate is 7.7. KUB showed no free air in the abdomen or obstructive pattern. I contacted the patient's current power of finance attorney and updated him regarding my findings and the patient's condition and he voiced understanding. Power of finance attorney gave permission to proceed with care in the inpatient setting. Patient was administered IV resuscitation fluids, given empiric and a microbial coverage. I discussed the patient with Dr. Carmela harmon who accepted the patient to ICU critical care. Procedure Please see nursing note for further details. Patient was intubated using a Glidescope 3-0 and a 7.5 endotracheal tube. Cords were clearly visualized, there was gastric contents present in the posterior oropharynx. Endotracheal tube was visualized passing through the vocal cords, capnography confirmed placement, chest x-ray was completed to also confirm placement. Patient had bilateral breath sounds on post intubation auscultation, there condensation was present in the and his rectal tube. Decision to Disposition Date: Jun 04, 2018 Decision to Disposition Time: 11:42 Critical Care Time 45 minutes of critical care time Depart Departure Latest Vital Signs Vital Signs Date Time Temp Pulse Resp B/P (MAP) Pulse Ox O2 Delivery O2 Flow Rate FiO2 06/04/18 10:40 101 42 113/77 (89) 89 06/04/18 10:30 100.0 06/04/18 09:31 99.5 Core Temperature (Celsius): 37.2 Impression: Primary Impression: Acute respiratory failure Additional Impression: Aspiration into airway Condition: Critical Disposition: Admitted from ER Referrals: DEMETRIO GARCIA DO (PCP) Problem Qualifiers TANNER RITCHIE DO Jun 04, 2018 09:11
[~2018-06-04 09:15] MED LIST changes: -ALBU2.5V36 INH; -ASPI-1471 PO; -ASPI81TA94 PO; -CALC1TAB32 PO; -DOXY-181 PO; -FLUT16SP19 NS; -GUAI177L6 PO; -HYPR15DR22 OU; -LACT-214 PO; -LOPE-147 PO; -METO-253 PO; -METO25TA93 PO; -OXYGENHOME INH; -POLY17PO25 PO; -TERA1CAP38 PO; -TRIA15CR40 TP
[2018-06-04] MEDS ORDERED: ETOMIDATE 20 MG/10 ML VIAL IVP ONE (09:30)
[2018-06-04] MEDS ORDERED: PROPOFOL(*)1000 MG/100 ML VIAL 100 ML IVPB ONE (09:30)
[2018-06-04] MEDS ORDERED: SUCCINYLCHOL CHL 200MG/10ML VL IVP ONE (09:30)
[2018-06-04] MEDS ORDERED: NS(*) 0.9% 1000 ML BAG 1,000 ML IV ONE ×5 (09:35→12:50)
[2018-06-04] MEDS: PROPOFOL(*)1000 MG/100 ML VIAL 100 ML IV PRN ×3 (09:45→22:15)
[2018-06-04] MEDS ORDERED: CEFEPIME HCL 2 GM VIAL IVP ONE (10:00)
[2018-06-04 10:01] LABS: INR 1.08
[2018-06-04] MEDS ORDERED: fentaNYL CITR 100 MCG/2 ML AMP IVP ONE (10:02)
--- NOTE | 2018-06-04 10:05 | RADIOLOGY IMAGING REPORT ---
FACILITY: [facility] - [place] PATIENT NAME: Glen Jones : 1945 MR: [id number] V: [id number] EXAM DATE: ORDERING PHYSICIAN: TANNER RITCHIE TECHNOLOGIST: Location: [facility] Patient: Glen Jones : 1945 Visit/Account:[id number] Date of Sevice: 06/04/2018 Exam type: CHEST SINGLE AP History: ET tube placement, NG tube placement Comparison: 04/10/2018. Findings: ET tube is 6 cm above the sarah just below the clavicles. NG tube projects over the stomach. Stomach is filled with air. Both lungs are well-expanded. Bilateral interstitial and pulmonary vascular prominence is noted bilat erally slightly more prominent than prior examination. I cannot exclude pneumonia or mild failure. No pleural effusion or pneumothorax. Heart size is enlarged. The osseous structures junction a mild scoliosis. IMPRESSION: 1. ET tube is 6 cm above the sarah. NG tube overlies the stomach. Stomach is filled with air. 2. Prominent interstitial and pulmonary vascular markings are slightly more prominent than prior exam inations. I cannot exclude superimposed pneumonia or mild failure amongst a background of chronic int erstitial changes. Report Dictated By: Chivo Schwab MD at 06/04/2018 9:56 AM Report E-Signed By: Chivo Schwab MD at 06/04/2018 10:00 AM WSN:[id number]
[2018-06-04] MEDS ORDERED: NOREPINE BITAR* 4 MG/4 ML AMP 4 MG in D5W(*) 250 ML BAG 246 ML IV ONE (10:15)
[2018-06-04 10:23] LABS: PLATELET COUNT, AUTOMATED 273 K/uL (150-450)
--- NOTE | 2018-06-04 10:23 | RADIOLOGY IMAGING REPORT ---
FACILITY: [facility] - [place] PATIENT NAME: Glen Jones : 1945 MR: [id number] V: [id number] EXAM DATE: ORDERING PHYSICIAN: TANNER RITCHIE TECHNOLOGIST: Location: Patient: Glen Jones : 1945 Visit/Account:[id number] Date of Sevice: 06/04/2018 Exam: KUB SINGLE VIEW ABDOMEN Indication: INTUBATION, NG tube placement Comparison: None available Findings: Tip of the nasogastric tube terminates within the stomach. Recommend that the catheter be a dvanced another 3 to 5 cm. The stomach is distended. There is a nonobstructive bowel gas pattern. Moderate amount stool is noted within the transverse colon. IMPRESSION: 1. Nasogastric tube is within the stomach, recommend that it be advanced approximately 3 to 5 cm how ever. 2. Mild constipation Report Dictated By: Gabriele Hunt at 06/04/2018 10:14 AM Report E-Signed By: Gabriele Hunt at 06/04/2018 10:19 AM WSN:[id number]
--- NOTE | 2018-06-04 10:29 | EKG ---
FACILITY: [facility] - [place] PATIENT NAME: PAMELA JAMES : [id number] MR: [id number] V: [id number] EXAM DATE: ORDERING PHYSICIAN: TANNER RITCHIE TECHNOLOGIST: RAÚL Burton Reason : CODE BLUE Blood Pressure : / mmHG Vent. Rate : 099 BPM Atrial Rate : 099 BPM P-R Int : 172 ms QRS Dur : 086 ms QT Int : 370 ms P-R-T Axes : 075 063 070 degrees QTc Int : 474 ms Normal sinus rhythm Normal ECG When compared with ECG of 03.01.2018 No significant change was found Confirmed by Tae Galicia ([id number]) on 06/04/2018 1:58:08 PM Referred By: Confirmed By:Tae Harmon
[2018-06-04] MEDS ORDERED: KETAMINE HCL(*)500MG/5ML VIAL 500 MG in NS(*) 0.9% 500 ML BAG 495 ML IVPB ONE (11:00)
[2018-06-04] MEDS ORDERED: NS(*) 0.9% 1000 ML BAG 1,000 ML IV PRN (12:20)
[2018-06-04] MEDS ORDERED: PROPOFOL(*)1000 MG/100 ML VIAL 100 ML IV PRN (12:20)
[2018-06-04] MEDS ORDERED: ACETAMINOPHEN 325 MG TAB PO PRN (12:35)
[2018-06-04] MEDS ORDERED: FLUSH 10 ML SYR IVP PRN (12:35)
[2018-06-04] MEDS ORDERED: MORPHINE 4 MG/ML SDV IVP PRN (12:35)
[2018-06-04] MEDS: NS(*) 0.9% 1000 ML BAG 1,000 ML IV PRN ×3 (13:32→22:15)
[2018-06-04] MEDS ORDERED: VANCOMYCIN(*) 1 GM VIAL 1 GM, VANCOMYCIN (*) 0.5 GM VIAL 0.5 GM in NS(*) 0.9% 250 ML BA... IVPB ONE (14:00)
[2018-06-04] MEDS: LEVOFLOXACIN/D5W 750 MG/150 ML 150 ML IVPB SCH (16:09)
--- NOTE | 2018-06-04 16:56 | RADIOLOGY IMAGING REPORT ---
[place] [facility] [place] NAME: Glen Jones : 1945 MR: [id number] V: [id number] EXAM DATE: ORDERING PHYSICIAN: NETTIE VENEGAS TECHNOLOGIST: Location: [facility] - [place] Patient: Glen Jones : 1945 Visit/Account:[id number] Date of Sevice: 06/04/2018 CHEST SINGLE AP Indication: Central line placement.. Comparison: Exam done earlier in the day. Findings: A right central line has been placed however the tip crosses the vertebral bodies lying left of midli ne, cannot exclude placement within the aorta in the arterial system. Endotracheal tube remains in go od position. The NG tube remains with the tip in the stomach. There is diffuse increased interstitial opacities. No focal area of consolidation. No pneumothorax or pleural effusion. No nodule. Upper abdomen is unremarkable. No acute bony abnormality. IMPRESSION: 1. The right central line tip lies left of midline and cannot exclude arterial with the tip in the ao rta. This could be due to the mild rotation however a follow-up PA and lateral view can further evalu ate. 2. Mild increased interstitial opacities without consolidation. This could be chronic interstitial ch anges or mild edema. I called report to GOLDIE Valle at 06/04/2018 4:52 PM. Report Dictated By: Chivo Montague at 06/04/2018 4:45 PM Report E-Signed By: Chivo Montague at 06/04/2018 4:53 PM WSN:[id number]
[2018-06-04] MEDS: ACETAMINOPHEN(*)1000 MG/100 ML 100 ML IVPB PRN (18:00)
[2018-06-04] MEDS: NOREPINE BITAR* 4 MG/4 ML AMP 8 MG in D5W(*) 500 ML BAG 492 ML IV PRN (18:20)
--- NOTE | 2018-06-04 18:42 | RADIOLOGY IMAGING REPORT ---
[place] [facility] [place] Glen Jones : 1945 MR: [id number] V: [id number] EXAM DATE: ORDERING PHYSICIAN: NETTIE VENEGAS TECHNOLOGIST: Location: [facility] [place] Patient: Glen Jones : 1945 Visit/Account:[id number] Date of Sevice: 06/04/2018 INDICATION: central line placement. DATE: 06/04/2018 6:31 PM. TECHNIQUE: CHEST PA LAT COMPARISON: Radiographs June 04, 2018. FINDINGS: A right-sided central line appears unchanged in position crossing midline. The esophagogas tric tube tip is off the image edge. There are patchy multifocal opacities in the lungs. IMPRESSION: Right-sided central line is unchanged in position crossing midline. Correlate with blood gas measure ment. Report Dictated By: Brandon Montero MD at 06/04/2018 6:31 PM Report E-Signed By: Brandon Montero MD at 06/04/2018 6:37 PM WSN:[id number]
[2018-06-04] MEDS ORDERED: ASPIRIN 300 MG SUPP PR ONE (19:55)
--- NOTE | 2018-06-04 20:26 | History & Physical ---
History of Present Illness Chief Complaint respiratory failure History of Present Illness 73M admitted after found at [facility] minimally responsive and surrounded by vomit. PMHx significant for aspiration and PNA. [employer] reportedly checked on him and found him. EMS unable to adequately oxygenate and he was intubated in [facility] ER. CXR no infiltrate though there is increased vascular and interstitial markings. Hypotensive after IV fluid resuscitation, started on Levophed. Admitted to ICU for further management and evaluation. Remains anuric, troponin elevated, LA 7.7, on pressors after 4L volume resuscitation. Attempted central line but unable to verify placement, can not visualize in carotid artery, radiology can not confirm placement. ABG performed and compared to central line shows arterial blood. Can not use central line for infusions, OK to draw overnight. History Unable To Obtain Past Medical: Unable to Obtain/Update Home Meds Active Scripts Metformin Hcl (METFORMIN HCL) 500 Mg Tablet, 1000 MG PO BIDBS for 30 Days, Prov:RICHARD WHYTE MD 11/09/17 [Hypromellose 0.4% Lub 15ML Btl] 15 ML SOLN No Conflict Check, 0 ML OU PRN PRN for dryness for 30 Days, INSTILL 1 DROP Prov:GO KIRKLAND MD 06/05/17 Ezetimibe (ZETIA) 10 Mg Tablet, 10 MG PO QHS for 30 Days, Prov:GO KIRKLAND MD 06/05/17 Reported Medications Valproic Acid (VALPROIC ACID) 250 Mg Cap, 250 MG PO 3-4XD, CAP 03/01/18 Hydrocortisone (Hydrocortisone) 1 % Cream..g., PRN for ITCHING 10/01/17 Menthol (BIOFREEZE) 118 Ml Gel..ml., PRN for PAIN 10/01/17 Tamsulosin Hcl (TAMSULOSIN HCL) 0.4 Mg Cap.er.24h, 0.4 MG PO, CAP 10/01/17 Omeprazole (OMEPRAZOLE) 20 Mg Capsule.dr, 1 CAP PO QDAY, CAP 10/01/17 Losartan Potassium (LOSARTAN POTASSIUM) 100 Mg Tablet, 100 MG PO QDAY 10/01/17 Acetaminophen 500 Mg Tab (ACETAMINOPHEN EXTRA STRENGTH) 500 Mg Tablet, 500 MG PO Q4-6H PRN for PAIN, TAB 10/01/17 [equate body powder] No Conflict Check, 1 CARMELO TOP DAILY Sprinkle a light amount on clean, dry feet daily prior to putting on socks and shoes 05/12/17 [closys toothpaste] No Conflict Check, 1 CARMELO BID 05/12/17 Cetyl Alc/Stearyl Alc/Pg/Sls (CETAPHIL CREAM) 454 Gm Cream..g., 454 GM TP HS Apply to both feet before bed 05/12/17 Calcium Carbonate/Vitamin D3 (CALCIUM 600 + VIT D 200 TABLET) 1 Each Tablet, 1 EACH PO DAILY 05/12/17 Bacitracin/Polymyxin B Sulfate (BACITRACIN-POLYMYXIN EYE OINT) 3.5 Gm Oint...g., 3.5 GM OD PRN 05/12/17 Bupropion Hcl (BUPROPION XL) 150 Mg Tab.er.24h, 150 MG PO QDAY, #10 TAB 05/03/17 Magnesium Hydroxide (MILK OF MAGNESIA) 400 Mg/5 Ml Oral.susp, 30 ML PO QDAY, BOTTLE 06/02/16 Calcium Carbonate/Mag Hydrox (Antacid 1000-200 mg Tab Chew) 1 Each Tab.chew, 1000 MG PO PRN 05/26/15 Baclofen (BACLOFEN) 10 Mg Tablet, 10 MG PO PRN PRN for HICCUPS, #30 TAB every 6 hours as needed. Only 2 in 24 hours 05/02/15 Valproic Acid (VALPROIC ACID) 250 Mg Cap, 250 MG PO ACHS, CAP 01/28/14 Atenolol (ATENOLOL) 100 Mg Tablet, 1 TAB PO QDAY, TAB TAKE ONE TABLET BY MOUTH ONCE A DAY at 6PM 01/28/14 Multivitamin (ONE DAILY) 1 Each Tablet, 1 EACH PO DAILY 01/14/14 Allergies: Coded Allergies: Penicillins (Verified Allergy, Mild, 03/01/18) chlorpromazine (Verified Allergy, Mild, 03/01/18) Patient History: FH: cancer pt doesn't know. FH: diabetes mellitus pt doesn't know. FHx: heart disease pt doesn't know. Hx Smoking: No Smoking Status: Never Smoker Caffeine Intake: Soda Caffeine/Cups Per Day: RARELY Hx Alcohol Use: No Hx Substance Use Disorder: No Social Drug Use: Never Review of Systems Other unable to obtain 2/2 intubation Exam Vital Signs Vital Signs Date Time Temp Pulse Resp B/P (MAP) Pulse Ox O2 Delivery O2 Flow Rate FiO2 06/04/18 19:00 91 17 88/54 (65) 96 Mechanical Ventilator 45.0 06/04/18 18:00 101.4 General Appearance: Other (sedated, intubated) Cardiovascular: Normal Rhythm & Peripheral Pulses Respiratory: Other (intubated and sedated, course breath sounds) GI: Abd Soft and Non-Tender : Other (+ Villarreal, no urine output) Extremities: Soft and Non Tender, Warm, Pulses, Perfused; No Edema Integumentary: Skin Intact without Lesion / Mass Medical Decision Making Data Points Result Diagram: 06/04/18 1012 06/04/18 1832 EKG / Imaging Monitor Interpretation: Normal Sinus Rhythm Assessment and Plan Problems: (1) Septic shock Assessment & Plan: Secondary to suspected aspiration, lactic acid 7.7 on arrival. Post 4L NS bolus, continues to require Levophed. Poor prognosis. Will get CT abdomen when able. On empiric vancomycin, cefepime, levofloxacin. (2) NSTEMI (non-ST elevated myocardial infarction) Assessment & Plan: Troponin 0.6 on admission suspected due to demand ischemia, EKG showed no ST segment elevation. Troponin increased to 6.2 on recheck 6 hours later, EKG pending. Will begin ASA rectal and trend troponin. (3) Acute respiratory failure with hypoxia Assessment & Plan: Intubated and ventilated. Oxygenating well. Daily SBT and sedation vacation. (4) Aspiration into airway Status: Acute Assessment & Plan: Gastric contents suctioned from airway after intubation. Possible pneumonitis vs pneumonia. Empiric antibiotics for sepsis should cover. (5) Hematuria, gross Assessment & Plan: After traumatic catheterization in ER. Clotted off temp sensing Villarreal and had to replace with Coude. Venous Thromboembolism Antithrombotics Is Pt On Any Antithrombotics?: No (SCD only due to bleeding.) Exam Sepsis Risk: Severe Sepsis Risk NETTIE HELTON DO Jun 04, 2018 19:17
--- NOTE | 2018-06-04 20:41 | EKG ---
FACILITY: [facility] PATIENT NAME: PAMELA JAMES : [id number] MR: [id number] V: [id number] EXAM DATE: ORDERING PHYSICIAN: NETTIE HARMON TECHNOLOGIST: MARCUS Burton Reason : ELEVATED TROP Blood Pressure : / mmHG Vent. Rate : 094 BPM Atrial Rate : 094 BPM P-R Int : 172 ms QRS Dur : 082 ms QT Int : 348 ms P-R-T Axes : 078 030 089 degrees QTc Int : 435 ms Sinus rhythm with premature atrial complexes Low voltage QRS Borderline ECG When compared with ECG of 04-JUN-2018 10:22, premature atrial complexes are now present Nonspecific T wave abnormality now evident in Inferior leads Nonspecific T wave abnormality now evident in Lateral leads Confirmed by Nettie Galicia ([id number]) on 06/04/2018 9:06:06 PM Referred By: Confirmed By:Nettie Harmon
[2018-06-04] MEDS ORDERED: CEFEPIME HCL 2 GM VIAL IVP SCH (21:00)
--- NOTE | 2018-06-04 21:00 | Procedure Note ---
Central Line Procedure Note Indication for Central Line: IV antibiotics, pressors, multiple blood draws Consent Signed: No (verbal witnessed over phone by POA) Central Line Lumen: Triple Central Line Procedure: Chlorhexidine Prep, Sterile Drapes Applied Central Line Position: R Internal Jugular Anesthesia Used: 1% Lidocaine CC's of Anesthesia: 2 Complications: 15cc blood loss Central Line Post Position: Sutured, Confirmed Blood Return Comment US used to confirm location on R IJ, readily compressible, R carotid visualized deep and medial to IJ. Area prepped and draped in sterile fashion, 1% lidocaine used for anesthesia. US verified needle against vessel wall. Modified Cyntiha technique used to cannulate and exchange over wire with placement of catheter. Returned blood possibly arterial in appearance. CXR unable to confirm placement. US used to attempt verification of line placement. Unable to visualize the catheter, carotid artery visualized with no evidence of catheter in lumen, unable to visualize the vessel previously identified as IJ vein. ABG drawn and compared confirmed placement is arterial and not venous. OK to use line for blood draw overnight but no infusion. Will d/c in am when more assistance available. NETTEI HELTON DO Jun 04, 2018 21:00
[2018-06-04] MEDS: CEFEPIME HCL 2 GM VIAL 2 GM in NS(*) 0.9% 100 ML BAG 100 ML IVPB SCH (21:10)
[2018-06-04] MEDS: ORAL SUCTION/CHLORHX/SWAB KIT MT SCH (22:14)
[2018-06-05] VITALS (97 sets, daily range): BP systolic 80–135; BP diastolic 51–88
[2018-06-05] MEDS: VANCOMYCIN 1 GM ADDVIAL 1 GM in NS(*) 0.9% 250 ML ADDVAN BAG 250 ML IVPB SCH ×2 (01:45→13:41)
[2018-06-05] MEDS: PROPOFOL(*)1000 MG/100 ML VIAL 100 ML IV PRN ×3 (02:49→16:55)
[2018-06-05] MEDS: NOREPINE BITAR* 4 MG/4 ML AMP 8 MG in D5W(*) 500 ML BAG 492 ML IV PRN (04:09)
[2018-06-05 05:16] LABS: PLATELET COUNT, AUTOMATED 270 K/uL (150-450)
[2018-06-05] MEDS: PANTOPRAZOLE SOD 40 MG IV VIAL IVP SCH (08:35)
[2018-06-05] MEDS: ORAL SUCTION/CHLORHX/SWAB KIT MT SCH ×2 (08:37→21:30)
[2018-06-05] MEDS: CEFEPIME HCL 2 GM VIAL 2 GM in NS(*) 0.9% 100 ML BAG 100 ML IVPB SCH ×2 (08:39→21:20)
--- NOTE | 2018-06-05 09:12 | Procedure Note ---
Central Line Procedure Note Indication for Central Line: IV meds, IV fluids, Central venous monitoring Consent Signed: Yes Central Line Lumen: Triple Central Line Procedure: Chlorhexidine Prep, Sterile Drapes Applied, Sterile Dressing Applied Central Line Position: L Internal Jugular Anesthesia Used: 1% Lidocaine CC's of Anesthesia: 3 Complications: None Central Line Post Position: Sutured, Confirmed Blood Return, Position Confirmed w/CXR RICHARD WHYTE MD Jun 05, 2018 09:12
[2018-06-05] MEDS ORDERED: ASPIRIN 325 MG TAB FT ONE (09:45)
--- NOTE | 2018-06-05 09:49 | Hospitalist Progress Note ---
Subjective Progress Notes Subjective This patient was admitted for respiratory failure. He had no acute events overnight. Patient Complains of: Cardiovascular: No: Chest Pain Respiratory: No: Shortness of Breath Physical Exam Vital Signs Date Time Temp Pulse Resp B/P (MAP) Pulse Ox O2 Delivery O2 Flow Rate FiO2 06/05/18 08:00 88 06/05/18 07:19 20 06/05/18 07:17 30.0 06/05/18 07:05 97 Mechanical Ventilator 06/05/18 07:00 98.0 115/64 (81) Intake and Output 06/05/18 06:59 Intake Total 7300 ml Output Total 2310 ml Balance 4990 ml Intake Oral 0 ml IV Total 7300 ml Output Urine Total 1210 ml Gastric Drainage Total 1100 ml Neuro: Other (Sedated.) Cardiovascular: Regular Rate and Rhythm Respiratory: Clear to Auscultation Extremities: No Edema Integumentary: No Cyanosis Result Diagram: 06/05/18 0500 06/05/18 0500 Monitor Interpretation: Normal Sinus Rhythm Assessment and Plan Problems: (1) Septic shock Assessment & Plan: He did present with hypotension, an elevated lactate, and fever. His lactate has improved and he is now afebrile. He still requires vasopressor support with norepinephrine, but we have been able to wean the dose. (2) NSTEMI (non-ST elevated myocardial infarction) Assessment & Plan: His troponin did increase, but is now trending back down. His EKG is unchanged. He has received aspirin. (3) Acute respiratory failure with hypoxia Assessment & Plan: He was intubated on arrival to the emergency room. He remains on SIMV this morning. He is receiving propofol for sedation. We will try to wean to CPAP today. (4) Aspiration into airway Status: Acute Assessment & Plan: Gastric contents were suctioned from the airway after intubation. His chest x-ray shows interstitial changes. He is on empiric treatment with cefepime, levofloxacin, and vancomycin. (5) Hematuria, gross Assessment & Plan: He did have hematuria on initial catheter placement. A Coude catheter was eventually placed. He has not yet been started on Lovenox for this reason. Exam Sepsis Risk: No Definite Risk RICHARD HERNANDEZ DO Jun 05, 2018 09:49
--- NOTE | 2018-06-05 10:06 | RADIOLOGY IMAGING REPORT ---
[facility] PATIENT NAME: Glen Jones : 1945 MR: [id number] V: [id number] EXAM DATE: ORDERING PHYSICIAN: RICHARD WHYTE TECHNOLOGIST: Location: [facility] Patient: Glen Jones : 1945 Visit/Account:[id number] Date of Sevice: 06/05/2018 Exam type: CHEST SINGLE AP History: Central line placement Comparison: June 04, 2018 . Findings: The previously noted right-sided central line crosses the vertebral bodies projecting to the left of midline similar to the prior study. On cannot exclude arterial placement. There has been placement of a new left central line the distal tip projects over the expected location of superior vena cava. Endotracheal tube and NG tube appear unchanged. Diffuse increased interstitial opacities and peribr onchial thickening appears similar to the prior study. Cardiac silhouette is normal. IMPRESSION: 1. There is been interval placement of a left central line with the distal tip projects over the exp ected location of the superior vena cava Previously noted right central line does cross midline towards the left and arterial location cannot be excluded Interstitial prominence and peribronchial thickening throughout the lungs remains relatively unchange d when compared to the prior study Report Dictated By: Jasmina Hickman MD at 06/05/2018 9:40 AM Report E-Signed By: Jasmina Hickman MD at 06/05/2018 10:00 AM [id number]:[email or web address]
[2018-06-05] MEDS ORDERED: BUPR-147 PO (13:04)
[2018-06-05] MEDS ORDERED: METO25TA93 PO (13:11)
[2018-06-05] MEDS ORDERED: FLUT16SP19 NS ×2 (13:11)
[2018-06-05] MEDS ORDERED: LACT-214 PO (13:11)
[2018-06-05] MEDS ORDERED: TRIA15CR40 TP (13:11)
[2018-06-05] MEDS ORDERED: ALBU2.5V36 INH (13:11)
[2018-06-05] MEDS ORDERED: POLY17PO25 PO (13:11)
[2018-06-05] MEDS ORDERED: DOXY-181 PO (13:11)
[2018-06-05] MEDS ORDERED: TERA1CAP38 PO (13:11)
--- NOTE | 2018-06-05 13:51 | Pharmacy Note ---
Vancomycin Management Note Vanco Dosing Note Assessment & Plan: ERIKA is a 73 y.o. male who has been receiving Vancomycin for 2 days for the treatment of SEPSIS. The current dose is 1000 mg IV every 12 hours. CrCl is ~86ML/MIN. Calculated using Cockroft-Gault equation. Kidney function appears to be STABLE (Improving/declining/stable). Past Levels Vancomycin Random 12.95 mcg/ml on 06/05 before the 1400 dose The RANDOM level today of 12.95 mcg/mL is THERAPEUTIC (therapeutic/subtherapeutic/supratherapeutic) (goal 15-20 mcg/mL); the current dose will be CONTINUED {continued/increased/decreased}. Another level will be ordered for 06/06/18, 1 hour before the 1400 dose Additional Information Allergies: PENICILLINS, CHLORPROMAZINE Additional Antimicrobials: CEFEPIME 2G Q24H, Start Date 06/04 LEVOFLOXACIN 750MG Q24H, Start Date 06/04 Pertinent Lab Tests: WHITE BLOOD COUNT 10.3 NEUTROPHILS BLOOD UREA NITROGEN SCR 0.6 OSWALD COHEN Jun 05, 2018 13:51
--- NOTE | 2018-06-05 14:00 | Medical Nutrition Therapy ---
Nutrition Anthropometrics Height (Inches): 69.00 Height (Calculated Centimeters: 175.352779 Weight (Pounds): 122 Weight (Calculated Kilograms): 55.508 BMI: 18.1 Isaias Nutrition Score: Probably Inadequate Isaias Nutrition Risk Score: 11 Dietary Referral Nutrition Risk Factors: Diff. Swallowing, Special Diet Nutrition Risk Comment: Dysphagia diet, needs supervision at meals, 50oz fluid restriction at [facility] Physical Findings Physical Appearance: Underweight BMI<19 Skin Appearance Skin Appearance: Edema Edema Location Modifier: Edema Location: Type of Edema: Degree of Edema: Gastrointestinal Symptoms GI Symtoms: Tube Present: OG Bowel Sounds: Recent Bowel Pattern: Stool Characteristics: Nutritional Diagnosis Nutritional Risk Acuity 1: Pulm Fail Vent Nutritional Risk Acuity 2: Swallowing Problem Past Medical History: HTN, GERD, depression, hyperlipidemia, T2DM, aspiration pneumonia, and fragile X syndrome Nutritional Acuity: 1-High Nutrition Diagnosis: Swallowing Difficulties Nutrition Etiology: Physiological Causes Nutrition Problem/Etiology/Sym: AEB dx aspiration with hx aspiration pneumonia Energy Requirement: 2075 ([place] state x 1.2 AF X 1.2 SF) Protein Requirement: 72 (1.3gm/kg) Fluid Requirement: 1665 (30ml/kg) Diet Type: NPO (Nothing by Mouth) Nutrition Intervention: Incr diet as tolerated Nutrition Monitoring & Eval RD Patient Assessment Time: [address] Assessment Type: RD Assessment Patient Nutrition Acuity: 1-High Follow Up Date: Jun 08, 2018 Nutritional Comment: 06/05 Pt amitted for Respiratory failure with NSTEMI and septic shock. Pt on mech vent. Pt NPO but is recieving propofol at 5.1mls/hr provided 136 kcal/day. Recommend nutr support if pt NPO > 3 days. Pt has hx of aspiration pneumonia and follows dsyphagia 2 diet at home. BMI is in underwt range. Wt has been faily stable. Wt last admit in July 2017 was 126#. Current wt 122#. Low labs include: alb 2.1,Hgb 9.6, Hct 31.1. Wi;ll cont to monitor. RAQUEL MEJIA Jun 05, 2018 14:00
[2018-06-05] MEDS: LEVOFLOXACIN/D5W 750 MG/150 ML 150 ML IVPB SCH (16:01)
--- NOTE | 2018-06-05 21:21 | EKG ---
[place] [facility] [place]IENT NAME: PAMELA JAMES : [id number] MR: [id number] V: [id number] EXAM DATE: ORDERING PHYSICIAN: RICHARD HERNANDEZ TECHNOLOGIST: JUAN Test Reason : ST CHANGES Blood Pressure : / mmHG Vent. Rate : 139 BPM Atrial Rate : 138 BPM P-R Int : 000 ms QRS Dur : 078 ms QT Int : 342 ms P-R-T Axes : 000 053 251 degrees QTc Int : 520 ms Atrial fibrillation with rapid ventricular response Possible Anterior infarct , age undetermined Abnormal ECG When compared with ECG of 04-JUN-2018 20:15, Atrial fibrillation has replaced Sinus rhythm T wave inversion now evident in Anterior leads Confirmed by RICHARD HERNANDEZ ([id number]) on 06/06/2018 6:27:12 AM Referred By: Confirmed By:RICHARD HERNANDEZ
[2018-06-06] VITALS (98 sets, daily range): BP systolic 100–159; BP diastolic 52–115
[2018-06-06] MEDS: VANCOMYCIN 1 GM ADDVIAL 1 GM in NS(*) 0.9% 250 ML ADDVAN BAG 250 ML IVPB SCH ×2 (02:02→14:22)
[2018-06-06 04:56] LABS: PLATELET COUNT, AUTOMATED 254 K/uL (150-450)
[2018-06-06] MEDS: NS(*) 0.9% 1000 ML BAG 1,000 ML IV PRN ×2 (06:01→08:36)
--- NOTE | 2018-06-06 06:08 | RADIOLOGY IMAGING REPORT ---
FACILITY: [facility] [place] PATIENT NAME: Glen Jones : 1945 MR: [id number] V: [id number] EXAM DATE: ORDERING PHYSICIAN: RICHARD HERNANDEZ TECHNOLOGIST: Location: [facility] - [place] Patient: Glen Jones : 1945 Visit/Account:[id number] Date of Sevice: 06/06/2018 EXAMINATION: Portable AP Chest 06/06/2018 5:00 AM HISTORY: Intubation COMPARISON: 06/05/2018 FINDINGS: Cardiomediastinal contours: Stable endotracheal tube tip well above the sarah. Nasogastric tube exte nds below this film in the left upper quadrant. Right central line has been removed. Left central korin ous catheter tip is unchanged over the SVC. Heart size is stable. Lungs and pleura: Reticular prominence throughout the lungs persists. No substantial effusion. No pne umothorax. Bones/soft tissues: Normal Cardiac leads are present. IMPRESSION: Right central line has been removed. Otherwise essentially stable portable chest. Report Dictated By: Nikolay Cruz MD at 06/06/2018 6:00 AM Report E-Signed By: Nikolya Cruz MD at 06/06/2018 6:03 AM WSN:[id number]
[2018-06-06] MEDS: PROPOFOL(*)1000 MG/100 ML VIAL 100 ML IV PRN ×4 (06:23→21:53)
[2018-06-06] MEDS ORDERED: KCL (*) 20 MEQ/100 ML PREMIX 100 ML IV ONE ×2 (07:45→18:35)
--- NOTE | 2018-06-06 08:34 | Hospitalist Progress Note ---
Subjective Progress Notes Subjective Sedated on ventilator. No significant fever. Short-lived episode of rapid a-fib late yesterday. Physical Exam Vital Signs Date Time Temp Pulse Resp B/P (MAP) Pulse Ox O2 Delivery O2 Flow Rate FiO2 06/06/18 07:12 30.0 06/06/18 06:30 101 19 124/69 (87) 95 Mechanical Ventilator 06/06/18 06:00 99.6 Intake and Output 06/06/18 06:59 Intake Total 3284.3 ml Output Total 1875 ml Balance 1409.3 ml Intake Oral 0 ml IV Total 3284.3 ml Output Urine Total 1375 ml Gastric Drainage Total 500 ml # Voids 0 General Appearance: Other (sedated on ventilator) ENT: Other (ET/OG tubes in place) Cardiovascular: Regular Rate and Rhythm (slightly tachycardic no murmur noted) Respiratory: Other (few fine rales bilaterally/scattered rhonchi - coarse ventilated sounds) GI: Other (soft/few BS present) Extremities: Warm, Perfused, Edema (1+ both feet) Result Diagram: 06/06/1844806/06/18448 Item Value Date Time Albumin 1.9 g/dl L 06/06/18448 Total Protein 4.2 g/dl L 06/06/18448 Alkaline Phosphatase 48 U/L 06/06/18 0449 Alanine Aminotransferase (ALT/SGPT) 32 U/L 06/06/18 0449 Aspartate Amino Transf (AST/SGOT) 26 U/L 06/06/18 044 Total Bilirubin 0.3 mg/dl 06/06/18448 Calcium Level 7.9 mg/dl L 06/06/18 0449 Troponin I 3.990 ng/ml *H 06/05/18 1253 Troponin I 5.610 ng/ml *H 06/05/18 0500 Troponin I 7.690 ng/ml *H 06/05/18 0003 Troponin I 6.290 ng/ml *H 06/04/18 1832 Troponin I 0.662 ng/ml *H 06/04/18 0000 Vancomycin Level Trough 12.95 ug/ml 06/05/18 1253 Monitor Interpretation: Normal Sinus Rhythm Assessment and Plan Problems: (1) NSTEMI (non-ST elevated myocardial infarction) Status: Acute Assessment & Plan: His troponin did increase significantly. I would question if this was the etiology of his emesis/possible syncopal event/hypotension/possible pulmonary edema seen on CXR. The troponin is now trending back down. His EKG remained fairly well unchanged. He has received aspirin. Will place on Lovenox. Check echocardiogram. (2) Septic shock Assessment & Plan: He did present with hypotension, an elevated lactate. He initially had a fever. His lactate has improved and he is now afebrile. Cultures are negative. CXR is essentially negative - no infiltrate is seen, but he does have interstitial prominence. Question if this is pulmonary edema vs. infectious process. He did require vasopressor support with norepinephrine, but we have been able to wean him off. He has been on IV antibiotics, but question if infection is the underlying etiology. (3) Acute respiratory failure with hypoxia Assessment & Plan: He was intubated on arrival to the emergency room. He remains on ventilator (SIMV) this morning. He is receiving propofol for se dation. Start tube feedings for nutritional support. (4) Aspiration into airway Status: Acute Assessment & Plan: Gastric contents were suctioned from the airway after intubation. His chest x-ray shows interstitial changes. He is on empiric treatment with IV cefepime, levofloxacin, and vancomycin. (5) Hematuria, gross Assessment & Plan: He did have hematuria on initial catheter placement. A Coude catheter was eventually placed. Hematuria has resolved. He will now be started on Lovenox. (6) ANEMIA, UNSPECIFIED Assessment & Plan: Will check studies. Transfuse 2 units PRBC. Try to keep Hgb/Hct >10/30 as he has significant concomitant disease. Exam Sepsis Risk: No Definite Risk RAJAT JOHNSON MD Jun 06, 2018 08:34
[2018-06-06] MEDS: PANTOPRAZOLE SOD 40 MG IV VIAL IVP SCH (08:38)
[2018-06-06] MEDS: ENOXAPARIN 100 MG/ML SYR SC SCH ×2 (08:39→20:36)
[2018-06-06] MEDS: CEFEPIME HCL 2 GM VIAL 2 GM in NS(*) 0.9% 100 ML BAG 100 ML IVPB SCH ×2 (08:51→20:35)
[2018-06-06] MEDS: ORAL SUCTION/CHLORHX/SWAB KIT MT SCH ×2 (08:53→20:36)
--- NOTE | 2018-06-06 10:23 | Medical Nutrition Therapy ---
Nutrition Anthropometrics Height (Inches): 69.00 Height (Calculated Centimeters: 175.092067 Weight (Pounds): 122 Weight (Calculated Kilograms): 51.057 BMI: 18.1 Isaias Nutrition Score: Probably Inadequate Isaias Nutrition Risk Score: 11 Dietary Referral Nutrition Risk Factors: Diff. Swallowing, Special Diet Nutrition Risk Comment: Dysphagia diet, needs supervision at meals, 50oz fluid restriction at [facility] Physical Findings Physical Appearance: Underweight BMI<19 Skin Appearance Skin Appearance: Edema Edema Location Modifier: Right Edema Location: Hand Type of Edema: Degree of Edema: 1+ Gastrointestinal Symptoms GI Symtoms: Tube Present: OG Bowel Sounds: Recent Bowel Pattern: Stool Characteristics: Nutritional Diagnosis Nutritional Risk Acuity 1: Tube Feed Unstable, Malnutrition (per nutrition physical assessment), Pulm Fail Vent Nutritional Risk Acuity 2: Swallowing Problem Past Medical History: HTN, GERD, depression, hyperlipidemia, T2DM, aspiration pneumonia, and fragile X syndrome Nutritional Acuity: 1-High Nutrition Diagnosis: Swallowing Difficulties Nutrition Etiology: Physiological Causes Nutrition Problem/Etiology/Sym: AEB dx aspiration with hx aspiration pneumonia Energy Requirement: 2075 ([place] state x 1.2 AF X 1.2 SF) Protein Requirement: 72 (1.3gm/kg) Fluid Requirement: 1665 (30ml/kg) Diet Type: NPO (Nothing by Mouth) Nutrition Intervention: Incr diet as tolerated Nutritional Support Current Enteral / Parental: Tube Feeding Tube Feeding Formulas: Glucerna 1cal/ml-Diabetic Tube Feeding Supplement Streng: Full Feeding Route: FT Placed Oralgastric Rate: 75 ml/hr Current Duration: 24 Current Calories: 1800 (based on final rate 75ml/hr) Current Protein: 75 (based on final rate 75ml/hr) Free H2O bolus for hydration (: 30ml q6 hrs Recommended Enteral / Parental: Tube Feeding Tube Feeding Supplement Streng: Full Recommended Feeding Route: FT Placed Oralgastric Recommended Rate: 85ml/hr Recommended Duration: 24 Recommended Calories: 2040 Recommended Protein: 85 Nutrition Monitoring & Eval Nutritional Goals Comment: TF will meet nutr needs until oral intake can meet needs. RD Patient Assessment Time: [address] Assessment Type: RD Assessment Patient Nutrition Acuity: 1-High Follow Up Date: Jun 09, 2018 Nutritional Comment: 06/05 Pt amitted for Respiratory failure with NSTEMI and septic shock. Pt on mech vent. Pt NPO but is recieving propofol at 5.1mls/hr provided 136 kcal/day. Recommend nutr support if pt NPO > 3 days. Pt has hx of aspiration pneumonia and follows dsyphagia 2 diet at home. BMI is in underwt range. Wt has been faily stable. Wt last admit in July 2017 was 126#. Current wt 122#. Low labs include: alb 2.1,Hgb 9.6, Hct 31.1. Wi;ll cont to monitor. [place] 06/06: Pt started on enteral nutritionof Glucerna at 40ml/hr increasing to final rate of 75ml/hr plus 30ml H2O q 6 hrs. 75ml/hr will meet 87% est kcal needs and 100% est protein needs. Pt has BMI in underwt range. Physical nutritional assessment indicated malnutrtion with sunken orbital and muscle wasting to arms, clavical. Recommend increase TF to 85ml/hr to meet 98% of est kcal and 118% of est protein needs. Will cont to monitor. RAQUEL MEJIA Jun 06, 2018 10:23
--- NOTE | 2018-06-06 10:56 | Antimicrobial Stewardship ---
Antimicrobial Stewardship Empiricly appropriate: Yes (Broad Spectrum Coverage- Will de-escalate starting 06/07/18 ) Significant PMH: Yes (Aspiration PNA, Hypotension, elevated troponin) Support empiric regimen: Yes (Vancomycin, Cefepime, Levofloxacin) Approriate Cultures done: Yes (Blood Cx NGTD) Determine cumulative duration: Day 2 of therapy- plan to de-escalate starting tomorrow if no source id'd Determine standard duration: unknown at this time, source not identified Comment 73 yo M from [facility] who has a PMH of aspiration PNA, hypotension, DM2, HL who was found down at home covered in vomit. Upon arrival in the ED, O2 sats ~70%, and required intubation. Tmax 101.8 WBC wnl Scr 0.8-0.5 Lactate 7.7, 7.3, 2.1, 1 Troponins 0.662, 6.29, 7.69, 5.61, 3.99 ECG- no significant changes Blood Cx NGTD Chest Xray - no infiltrates Antibiotics: Vancomycin, Levofloxacin, Cefepime Pt with a history of aspiration pneumonia, empirically receiving treatment for aspiration pneumonia. WIll continue for now, plan to d/c broad spectrum antibiotics starting tomorrow. Continue to watch. Natalia Dougherty, PharmD, BCOP NATALIA DOUGHERTY Jun 06, 2018 10:56
[2018-06-06] MEDS ORDERED: ALTEPLASE RECOMB 2 MG VIAL IVP ONE (14:50)
[2018-06-06] MEDS: LEVOFLOXACIN/D5W 750 MG/150 ML 150 ML IVPB SCH (16:04)
[2018-06-06] MEDS: VALPROIC ACID 250 MG/5 ML FT SCH (17:55)
[2018-06-06] MEDS ORDERED: KCL/NS* 20 MEQ/1000 ML PREMIX 1,000 ML IV PRN (18:34)
[2018-06-07] VITALS (49 sets, daily range): BP systolic 125–170; BP diastolic 64–101
[2018-06-07] MEDS: VALPROIC ACID 250 MG/5 ML FT SCH ×3 (00:21→10:47)
[2018-06-07] MEDS: VANCOMYCIN 1 GM ADDVIAL 1 GM in NS(*) 0.9% 250 ML ADDVAN BAG 250 ML IVPB SCH (02:01)
[2018-06-07 05:15] LABS: PLATELET COUNT, AUTOMATED 233 K/uL (150-450)
--- NOTE | 2018-06-07 07:29 | RADIOLOGY IMAGING REPORT ---
FACILITY: [facility] PATIENT NAME: Glen Jones : 1945 MR: [id number] V: [id number] EXAM DATE: ORDERING PHYSICIAN: RAJAT JOHNSON TECHNOLOGIST: Location: [facility] Patient: Glen Jones : 1945 Visit/Account:[id number] Date of Sevice: 06/07/2018 EXAMINATION: Portable AP Chest 06/07/2018 6:00 AM HISTORY: intubated COMPARISON: 06/06/2018 FINDINGS: Cardiomediastinal contours: Stable heart size. Endotracheal tube tip is well above the sarah. Left c entral venous catheter tip is stable over the SVC. Nasogastric tube extends below this film in the le ft upper quadrant. Lungs and pleura: Increased parahilar reticular markings the lungs are similar to previous. No focal consolidation. Small effusion at least on the right. Bones/soft tissues: Normal Cardiac leads are present. IMPRESSION: 1. Stable positions of support lines and tubes. 2. Stable reticular prominence in the lungs may indicate edema. There is a very small right effusion. Report Dictated By: Nikolay Cruz MD at 06/07/2018 7:23 AM Report E-Signed By: Nikolay Cruz MD at 06/07/2018 7:26 AM WSN:[id number]
[2018-06-07] MEDS ORDERED: MAGNESIUM SUL* 2 GM/50 ML IVPB 50 ML IVPB ONE (07:55)
[2018-06-07] MEDS ORDERED: FUROSEMIDE 40 MG/4 ML VIAL IVP ONE (08:20)
--- NOTE | 2018-06-07 08:26 | RADIOLOGY IMAGING REPORT ---
FACILITY: [facility] - [place] PATIENT NAME: Glen Jones : 1945 MR: [id number] V: [id number] EXAM DATE: ORDERING PHYSICIAN: GO KIRKLAND TECHNOLOGIST: Location: [facility] - [place] Patient: Glen Jones : 1945 Visit/Account:[id number] Date of Sevice: 06/07/2018 Exam type: CHEST SINGLE AP History: repositioning of ETT Comparison: June 07, 2018 at 6:42 AM. Findings: And compared to the prior study performed earlier in the day there has been a repositioning of endotr acheal tube the distal tip projecting approximately 5.3 cm above the sarah. The left IJ catheter an d esophagogastric tube remain unchanged. There are reticular changes throughout the lungs are relati vely unchanged. The cardiac swelling is normal. There is a tiny right pleural effusion IMPRESSION: 1. Support lines and tubes as described Reticular changes throughout the lungs may indicate mild pulmonary edema. Conical correlation needed Tiny right pleural effusion Report Dictated By: Jasmina Hickman MD at 06/07/2018 8:20 AM Report E-Signed By: Jasmina Hickman MD at 06/07/2018 8:21 AM WSN:[email or web address]
[2018-06-07] MEDS ORDERED: KCL/NS* 20 MEQ/1000 ML PREMIX 1,000 ML IV PRN (08:30)
[2018-06-07] MEDS: ASPIRIN 325 MG TAB FT SCH (08:38)
[2018-06-07] MEDS: PANTOPRAZOLE SOD 40 MG IV VIAL IVP SCH (08:39)
[2018-06-07] MEDS: ORAL SUCTION/CHLORHX/SWAB KIT MT SCH (08:40)
[2018-06-07] MEDS: ENOXAPARIN 100 MG/ML SYR SC SCH ×2 (08:40→20:38)
--- NOTE | 2018-06-07 08:56 | Hospitalist Progress Note ---
Subjective Progress Notes Subjective He was having some air leakage and the ET tube appears to have moved 3cm out. Saturations are good and having low peak pressures. Physical Exam Vital Signs Date Time Temp Pulse Resp B/P (MAP) Pulse Ox O2 Delivery O2 Flow Rate FiO2 06/07/18 08:02 89 34 06/07/18 07:59 30.0 06/07/18 06:30 98.8 139/81 (100) 96 Mechanical Ventilator Intake and Output 06/07/18 06:59 Intake Total 4888 ml Output Total 1350 ml Balance 3538 ml Intake Oral 0 ml IV Total 2817 ml Tube Feeding 180 ml Blood Product 1000 ml Tube Irrigant 891 ml Output Urine Total 1350 ml # Voids 0 General Appearance: Other (Opens eyes spontaneously. Mildly tachypneic) Neuro: Other (Not following commands.) Eyes: PERRLA ENT: Moist Mucous Membranes Cardiovascular: Regular Rate and Rhythm Respiratory: Clear to Auscultation Extremities: Edema (Hands with 1+ pitting edema and trace edema in feet.) Result Diagram: 06/07/18 0503 06/07/18 0503 Monitor Interpretation: Normal Sinus Rhythm Assessment and Plan Problems: (1) NSTEMI (non-ST elevated myocardial infarction) Status: Acute Assessment & Plan: His troponin did increase significantly. I would question if this was the etiology of his emesis/possible syncopal event/hypotension/possible pulmonary edema seen on CXR. The troponin is now trending back down. His EKG remained fairly well unchanged. He has received aspirin and on Lovenox. Echo showed an EF of 50-55%, inferoseptal wall is hypokinetic and evidence of diastolic dysfunction. (2) Acute respiratory failure with hypoxia Assessment & Plan: He was intubated on arrival to the emergency room. He remains on ventilator (SIMV) this morning with an FiO2 of 30% and normal plateau pressures. He does breath over the vent. ABG wnl. Will stop his rate and wean down pressure support. Possibly can extubate. Will diurese to "dry lungs out". He is receiving propofol for sedation. On tube feedings for nutritional support. (3) Aspiration into airway Status: Acute Assessment & Plan: Gastric contents were suctioned from the airway after intubation. His chest x-ray shows interstitial changes. He was on empiric treatment with IV cefepime, levofloxacin, and vancomycin. Now afebrile. No infiltrate on CXR and WBC wnl. Will stop cefepime and vancomycin. (4) Septic shock Assessment & Plan: He did present with hypotension, an elevated lactate. He initially had a fever. His lactate has improved and he is now afebrile. Cultures are negative. CXR is essentially negative - no infiltrate is seen, but he does have interstitial prominence. Question if this is pulmonary edema vs. infectious process. He did require vasopressor support with norepinephrine, but we have been able to wean him off. He has been on IV antibiotics, see above. (5) Hematuria, gross Assessment & Plan: He did have hematuria on initial catheter placement. A Coude catheter was eventually placed. Hematuria has resolved. Now restarted on Lovenox with hematuria. (6) ANEMIA, UNSPECIFIED Assessment & Plan: Iron deficient. He was transfused 2 units PRBC on 06/06 (actually only got 1.5 units because of accidental spill). Try to keep Hgb/Hct >10/30 as he has significant concomitant disease. Will give a dose of IV iron and follow stool for occult blood. Now that he is on full dose Lovenox and ASA, he might have overt bleeding. Exam Sepsis Risk: No Definite Risk GO KIRKLAND MD Jun 07, 2018 08:56
[2018-06-07] MEDS: KCL (*) 20 MEQ/100 ML PREMIX 100 ML IV SCH ×2 (09:50→10:56)
--- NOTE | 2018-06-07 13:36 | NUR ---
Nurse spoke with pt Collin NORMANik [phone]. Rogelio does not want pt to be reintubated after he is extubated. [facility] booklet [facility] faxed to Rogelio per his request.
[2018-06-07] MEDS ORDERED: FERRIC CARBOXY 750 MG SDV 750 MG in NS(*) 0.9% 250 ML BAG 250 ML IVPB ONE (15:00)
[2018-06-07] MEDS: LEVOFLOXACIN/D5W 750 MG/150 ML 150 ML IVPB SCH (16:10)
--- NOTE | 2018-06-07 16:15 | NUR ---
Attempted to see pt for completion of bedside swallow assessment. Pt was extubated hours prior, discussed with RN and determined it would be appropriate to delay swallow assessment until following day (06/08). ST will cont to follow.
[2018-06-07] MEDS: NS 0.9% IVPB SCH ×2 (17:55→23:52)
[2018-06-07] MEDS: VALPROATE SOD IVPB SCH ×2 (17:55→23:52)
[2018-06-08] VITALS (23 sets, daily range): BP systolic 122–168; BP diastolic 65–118
[2018-06-08] MEDS: ACETAMINOPHEN(*)1000 MG/100 ML 100 ML IVPB PRN (01:04)
[2018-06-08 05:35] LABS: PLATELET COUNT, AUTOMATED 249 K/uL (150-450)
[2018-06-08] MEDS: NS 0.9% IVPB SCH (05:43)
[2018-06-08] MEDS: VALPROATE SOD IVPB SCH (05:43)
[2018-06-08] MEDS ORDERED: MAGNESIUM SUL* 2 GM/50 ML IVPB 50 ML IVPB ONE (07:50)
[2018-06-08] MEDS ORDERED: ALBUTEROL 2.5 MG/3 ML NEB NEB PRN (07:50)
[2018-06-08] MEDS: ENOXAPARIN 100 MG/ML SYR SC SCH ×2 (08:44→20:33)
[2018-06-08] MEDS: PANTOPRAZOLE SOD 40 MG IV VIAL IVP SCH (08:45)
[2018-06-08] MEDS ORDERED: ALTEPLASE RECOMB 2 MG VIAL IVP ONE (09:15)
--- NOTE | 2018-06-08 09:27 | Hospitalist Progress Note ---
Subjective Progress Notes Subjective This patient was admitted for respiratory failure. He was extubated yesterday. Patient Complains of: Cardiovascular: No: Chest Pain Respiratory: No: Shortness of Breath Physical Exam Vital Signs Date Time Temp Pulse Resp B/P (MAP) Pulse Ox O2 Delivery O2 Flow Rate FiO2 06/08/18 08:50 63 06/08/18 08:00 98.1 20 126/76 (93) 95 Nasal Cannula 3.0 06/07/18 11:00 30.0 Intake and Output 06/08/18 07:00 Intake Total 2408.1 ml Output Total 4280 ml Balance -1871.9 ml IV Total 2048.1 ml Tube Feeding 270 ml Tube Irrigant 90 ml Output Urine Total 4280 ml Cardiovascular: Regular Rate and Rhythm Respiratory: Clear to Auscultation Result Diagram: 06/08/18 0507 06/08/18 0507 Item Value Date Time Blood Culture - Preliminary Resulted 06/04/18 1027 Blood Peripheral Draw NO GROWTH AFTER 3 DAYS, REINCUBATED Blood Culture - Preliminary Resulted 06/04/18 1021 Blood Peripheral Draw NO GROWTH AFTER 3 DAYS, REINCUBATED Urine Culture - Preliminary Resulted 06/06/18 0000 Villarreal Catheter Urine NO GROWTH AFTER 1 DAY, REINCUBATED Monitor Interpretation: Normal Sinus Rhythm Assessment and Plan Problems: (1) NSTEMI (non-ST elevated myocardial infarction) Status: Acute Assessment & Plan: His troponin did increase significantly. The troponin is now trending back down. His EKG remained unchanged. He is on aspirin and on Lovenox. Echo showed an EF of 50-55%, with inferoseptal wall hypokinesis and evidence of diastolic dysfunction. (2) Acute respiratory failure with hypoxia Assessment & Plan: He was intubated on arrival to the emergency room. He was extubated on 06/07. (3) Aspiration into airway Status: Acute Assessment & Plan: Gastric contents were suctioned from the airway after intubation. His chest x-ray shows interstitial changes. He was on empiric treatment with IV cefepime, levofloxacin, and vancomycin. He is now on monotherapy with levofloxacin. (4) Septic shock Assessment & Plan: He did present with hypotension, an elevated lactate. He initially had a fever. His lactate has improved and he is now afebrile. Vasopre ssors have also been discontinued. (5) Hematuria, gross Assessment & Plan: He did have hematuria on initial catheter placement. A Coude catheter was eventually placed. The hematuria has now resolved. (6) ANEMIA, UNSPECIFIED Assessment & Plan: Iron deficient. He was transfused 2 units PRBC on 06/06 (actually only got 1.5 units because of accidental spill). He also received a dose of IV iron yesterday. (7) Atrial fibrillation with RVR Assessment & Plan: He did have atrial fibrillation with a rapid response while on vasopressors. It has resolved after weaning from that medication. Exam Sepsis Risk: No Definite Risk RICHARD HERNANDEZ DO Jun 08, 2018 09:27
[2018-06-08] MEDS: KCL (*) 20 MEQ/100 ML PREMIX 100 ML IV SCH ×2 (10:03→11:11)
[2018-06-08] MEDS: ASPIRIN 325 MG TAB FT SCH (10:57)
[2018-06-08] MEDS: ALBUTEROL 2.5 MG/3 ML NEB NEB SCH ×3 (12:00→23:13)
--- NOTE | 2018-06-08 12:05 | SWALLOW EVALUATION ---
Speech Language Pathology Modified Barium Swallow Evaluation Report Date of Evaluation: 06-08-18 Patient Name: Glen Jones Patient : 1945, 73 years Physician: GISSELLE Camarena Clinician: Chana Harry M.S., CCC-PLAY THERAPIST BACKGROUND The patient was admitted to [facility] on recommendation from ER. He is a 73-year-old male from [facility] who was found to be in respiratory failure after being found minimally responsive covered in vomitus. He likely aspirated vomit. L-lung is He was intubated in the on 06-04-18 and was extubated 06-07-18 at approximately 11am. He is now on ICU and has been NPO pending dysphagia assessment. Oxygen Supplementation: 3LPM via NC. Level of Consciousness: non-altered Cognition: severe impairments, pmhx of Fragile X syndrome Language: expressive and receptive impairments Speech: dysarthric, imprecise consonant production, very low intelligibility Voice: wnl Non-verbal Oral Structure and Function: impaired; decreased labial seal, low tone, poor lingual coordination Pain with Swallow: denies Liquid / Food Trials Thin Liquids -ice: no s/s of dysphagia -5ml water from spoon: oral seal inconsistent with occasional spillage -cup rim: poor intake control, poor lips seal, large bolus, rapid intake, anterior spillage -straw sip: poor intake control, large bolus, rapid intake. Coughing with suspected aspiration. Weak cough Food -puree: no s/s of dysphagia Pill -1 medium size pill (aspirin nursing present) delivered on tsp with approximately .5 tsp puree (applesauce) : no s/s dysphagia SUMMARY Mild/moderate oral stage dysphagia with poor intake and bolus control increases risk of pharyngeal dysphagia including laryngeal aspiration/penetration. Suspected aspiration with water when delivered via straw. Water with controlled bolus size of approximately tsp delivered from spoon demonstrated no s/s of dysphagia and decreases risk. Puree (approx.. tsp) demonstrates no dysphagia. Pill presented on spoon with puree demonstrated no dysphagia. PLOF is dysphagia 2 with thin liquids with controlled bolus size (spoon or Provale cup) and self feeding with min assist. RECOMMENDATIONS 1. Diet: dysphagia I, thin liquids via volume controlled sips from spoon (.5 to [address] will follow pt to recommend return to prior diet (dysphagia 2, thin liquids w/ self feed) when appropriate. 2. Consider Provale cup to restrict bolus size during liquid intake and to minimize burden of care. 3. Pills administered with puree. Deliver one at a time. Follow with additional bite of puree to clear. 4. Consistent caregiver supervision/assistance w/ PO intake to ensure safe, appropriate delivery of small bite/sip sizes at a decreased rate of intake. POC STG Diet will advance to dysphagia 2 and thin liquids with assist for portion/intake control as per plof. LTG Return to PLOF with diet/feeding. Thank you for this referral. Please dial [phone] to contact the PLAY THERAPIST Chana Harry M.S., [facility]-PLAY THERAPIST MTDD
--- NOTE | 2018-06-08 12:06 | NUR ---
Physical Therapy Impression PT/OT co-eval and treatment for pt safety. Pt tolerated sitting at EOB x 15 minutes with gradual improvement in sitting balance ability. Pt does require 2 person Max/Total assist for supine to/from sit and sit to/from stand for bedding change. Pt is fairly non-participatory, but does not exhibit any discomfort with attempt at weight bearing during sit to stand transfer. Physical Therapy Goals 1. Pt to be one person assist for supine to/from sit and bed mobility 2. ARK to indicate proper equipment for pt to be transferred safely with 1-2 person bed to/from W/C or for toileting as needed. 3. Pt to require only CGA/Min assist for sitting EOB x 20 minutes with improved trunk support. Patient's Goals
[2018-06-08] MEDS: VALPROIC ACID 250 MG CAP PO SCH ×3 (12:07→20:32)
--- NOTE | 2018-06-08 13:26 | NUR ---
Occupational Therapy Impression Co-treat with PT. Pt. would benefit from OT services 5x/ week to increase independence in ADL and transfers. Occupational Therapy Goals 1. Pt. to perform dressing activities with Max A. 2. Pt. to perform toileting activities with Max A. 3. Pt. to perform showering activities with Max A. 4. Pt. to perform grooming activities with Mod A. Patient's Goal
--- NOTE | 2018-06-08 13:58 | Medical Nutrition Therapy ---
Nutrition Anthropometrics Height (Inches): 69.00 Height (Calculated Centimeters: [phone] Weight (Pounds): 121 Weight (Calculated Kilograms): 54.998 BMI: 18.1 Isaias Nutrition Score: Very Poor Isaias Nutrition Risk Score: 14 Dietary Referral Nutrition Risk Factors: Diff. Swallowing, Special Diet Nutrition Risk Comment: Dysphagia diet, needs supervision at meals, 50oz fluid restriction at ARK Physical Findings Physical Appearance: Underweight BMI<19 Skin Appearance Skin Appearance: Edema Edema Location Modifier: Both Edema Location: Hand Type of Edema: Degree of Edema: 1+ Gastrointestinal Symptoms GI Symtoms: Tube Present: OG Bowel Sounds: Recent Bowel Pattern: Stool Characteristics: Nutritional Diagnosis Nutritional Risk Acuity 2: Swallowing Problem Past Medical History: HTN, GERD, depression, hyperlipidemia, T2DM, aspiration pneumonia, and fragile X syndrome Nutritional Acuity: 2-Moderate Nutrition Diagnosis: Swallowing Difficulties Nutrition Etiology: Physiological Causes Nutrition Problem/Etiology/Sym: AEB dx aspiration with hx aspiration pneumonia Energy Requirement: 2075 (Dickson state x 1.2 AF X 1.2 SF) Protein Requirement: 72 (1.3gm/kg) Fluid Requirement: 1665 (30ml/kg) Diet Type: Dysphagia Stage 1 Nutrition Intervention: Cont diet as ordered, Encourage intake, Between meal supplement Additional Diet Restrictions: PROVIDE NUTR SUPPLMENT WITH EACH MEAL Nutrition Monitoring & Eval Nutrition Goals: Eat 75-100% Meal RD Patient Assessment Time: [address] Assessment Type: RD Re-Assessment Patient Nutrition Acuity: 2-Moderate Follow Up Date: Jun 12, 2018 Nutritional Comment: 06/05 Pt amitted for Respiratory failure with NSTEMI and septic shock. Pt on mech vent. Pt NPO but is recieving propofol at 5.1mls/hr provided 136 kcal/day. Recommend nutr support if pt NPO > 3 days. Pt has hx of aspiration pneumonia and follows dsyphagia 2 diet at home. BMI is in underwt range. Wt has been faily stable. Wt last admit in July 2017 was 126#. Current wt 122#. Low labs include: alb 2.1,Hgb 9.6, Hct 31.1. Will cont to monitor. BK 06/08 Diet advanced to Dysphagia 1 with thin liquids following SPL eval. Alb 2. Wt cont in underwt range. Will provide nutr supplment with each meal to increase kcal and protein intake. Will cont to monitor. BK 06/06: Pt started on enteral nutritionof Glucerna at 40ml/hr increasing to final rate of 75ml/hr plus 30ml H2O q 6 hrs. 75ml/hr will meet 87% est kcal needs and 100% est protein needs. Pt has BMI in underwt range. Physical nutritional assessment indicated malnutrtion with sunken orbital and muscle wasting to arms, clavical. Recommend increase TF to 85ml/hr to meet 98% of est kcal and 118% of est protein needs. Will cont to monitor. RAQUEL MEJIA Jun 08, 2018 13:58
[2018-06-08] MEDS: LEVOFLOXACIN/D5W 750 MG/150 ML 150 ML IVPB SCH (17:11)
[2018-06-08] MEDS: KCL/NS* 20 MEQ/1000 ML PREMIX 1,000 ML IV PRN (20:33)
[2018-06-09] VITALS (9 sets, daily range): BP systolic 125–160; BP diastolic 73–99
[2018-06-09] MEDS: ALBUTEROL 2.5 MG/3 ML NEB NEB SCH ×4 (05:27→23:43)
[2018-06-09 06:23] LABS: PLATELET COUNT, AUTOMATED 294 K/uL (150-450)
[2018-06-09] MEDS ORDERED: GUAI177L6 PO (08:10)
[2018-06-09] MEDS ORDERED: METO-253 PO (08:10)
[2018-06-09] MEDS ORDERED: CALC1TAB32 PO (08:10)
[2018-06-09] MEDS ORDERED: EZET10TA41 PO (08:10)
[2018-06-09] MEDS ORDERED: OXYGENHOME INH (08:10)
[2018-06-09] MEDS ORDERED: HYPR15DR22 OU (08:10)
[2018-06-09] MEDS ORDERED: [UNRECOGNIZED DRUG - CODE] PO (08:10)
[2018-06-09] MEDS ORDERED: LOPE-147 PO (08:10)
[2018-06-09] MEDS ORDERED: ALBU2.5V36 INH (08:10)
[2018-06-09] MEDS ORDERED: MAGNESIUM SUL* 2 GM/50 ML IVPB 50 ML IVPB ONE (08:15)
[2018-06-09] MEDS ORDERED: MAGNESIUM HYDROXIDE* 30ML UDCP PO PRN (08:20)
[2018-06-09] MEDS ORDERED: BISACODYL 10 MG SUPP PR PRN (08:20)
[2018-06-09] MEDS ORDERED: POLYETHYLENE GLYCOL 17 GM PKT PO PRN (08:20)
[2018-06-09] MEDS: ASPIRIN 325 MG TAB PO SCH (09:11)
[2018-06-09] MEDS: METOPROLOL TART 50 MG TAB PO SCH ×2 (09:11→20:36)
[2018-06-09] MEDS: POTASSIUM CHL 10 MEQ TABCR PO SCH ×2 (09:11→16:21)
[2018-06-09] MEDS: EZETIMIBE 10 MG TAB PO SCH (09:11)
[2018-06-09] MEDS: ENOXAPARIN 100 MG/ML SYR SC SCH ×2 (09:12→20:36)
[2018-06-09] MEDS: DOCUSATE SODIUM 100 MG CAP PO SCH ×2 (09:12→20:36)
[2018-06-09] MEDS: PANTOPRAZOLE SOD 40 MG TABEC PO SCH (09:12)
[2018-06-09] MEDS: VALPROIC ACID 250 MG CAP PO SCH ×4 (09:13→20:37)
--- NOTE | 2018-06-09 09:42 | RADIOLOGY IMAGING REPORT ---
FACILITY: [facility] PATIENT NAME: Glen Jones : 1945 MR: [id number] V: [id number] EXAM DATE: ORDERING PHYSICIAN: SOLANGE JOHNSON TECHNOLOGIST: [facility] Patient: Glen Jones : 1945 Visit/Account:[id number] Date of Sevice: 06/09/2018 Exam type: CHEST SINGLE AP History: coarse lung sounds to left - recent hx aspiration Comparison: June 07, 2018. Findings: When compared to the prior study the endotracheal tube is no longer seen. The left IJ catheter remai ns unchanged. The esophagogastric tube is no longer seen. There appears to be interval increase in interstitial markings throughout the lungs. No evidence of pleural effusion or cardiomegaly. IMPRESSION: 1. The endotracheal tube and esophagogastric tube are no longer seen There appears to been interval increase in the interstitial markings throughout the lungs. This may represent mild interstitial pulmonary edema or worsening interstitial infiltrates. Report Dictated By: Jasmina Hickman MD at 06/09/2018 9:29 AM Report E-Signed By: Jasmina Hickman MD at 06/09/2018 9:38 AM WSN:[id number]
--- NOTE | 2018-06-09 13:00 | NUR ---
Transferred to room 2273 via bed. Report given to Meño.
--- NOTE | 2018-06-09 13:54 | Hospitalist Progress Note ---
Subjective Progress Notes Subjective No new concerns per nursing staff. Patient is doing well. Physical Exam Vital Signs Date Time Temp Pulse Resp B/P (MAP) Pulse Ox O2 Delivery O2 Flow Rate FiO2 06/09/18 12:09 58 06/09/18 12:00 21 134/73 (93) 95 Nasal Cannula 3.0 06/09/18 10:00 98.6 06/07/18 11:00 30.0 Intake and Output 06/09/18 07:00 Intake Total 1708 ml Output Total 2570 ml Balance -862 ml Intake Oral 130 ml IV Total 1578 ml Output Urine Total 2570 ml General Appearance: Alert, Awake, No Acute Distress Eyes: PERRLA Neck: Other (R neck with bruising and small scab over previous site of IJ attempt. No redness, swelling or drainage. ) Cardiovascular: Regular Rate and Rhythm Respiratory: Other (Decreased BS L lowest part of lung field with few basilar crackles. R lung clear. ) GI: Soft and Non-Tender (BS+.) Extremities: Warm, Perfused, Other (No edema.) Psych: Appropriate Mood & Affect (Stable for the patient.) Result Diagram: 06/09/1852406/09/18524 Monitor Interpretation: Normal Sinus Rhythm Assessment and Plan Problems: (1) NSTEMI (non-ST elevated myocardial infarction) Status: Acute Assessment & Plan: His troponin did increase significantly. The troponin is now trending back down. His EKG remained unchanged. He is on aspirin and on Lovenox. His metoprolol 50mg bid will be restarted today. Will hold his usual losartan that he takes for HTN for now. Echo showed an EF of 50-55%, with inferoseptal wall hypokinesis and evidence of diastolic dysfunction. He has had no arrhythmias while on telemetry in ICU. Will DC telemetry and move to the medical floor today. (2) Acute respiratory failure with hypoxia Assessment & Plan: He was intubated on arrival to the emergency room. He was extubated on 06/07. CXR has continually shown increased interstitial markings. He has no cardiomegaly or pleural effusion. Clinically he does not appear to be in failure. (3) Aspiration into airway Status: Acute Assessment & Plan: Gastric contents were suctioned from the airway after intubation. His chest x-ray shows interstitial changes. He was on empiric treatment with IV cefepime, levofloxacin, and vancomycin. He is now on monotherapy with levofloxacin. (4) Septic shock Assessment & Plan: He did present with hypotension, an elevated lactate. He initially had a fever. His lactate has improved and he is now afebrile. Vasopressors have also been discontinued. BP today is in the 150s systolic. (5) Hematuria, gross Assessment & Plan: He did have hematuria on initial catheter placement. A Coude catheter was eventually placed. The hematuria has now resolved. (6) ANEMIA, UNSPECIFIED Assessment & Plan: Iron deficient. He was transfused 2 units PRBC on 06/06 (actually only got 1.5 units because of accidental spill). He also received a dose of IV iron 06/07/18. (7) Atrial fibrillation with RVR Assessment & Plan: He did have atrial fibrillation with a rapid response while on vasopressors. It has resolved after weaning from that medication. Time Spent on Plan of Care: < 30 min Exam Sepsis Risk: No Definite Risk SOLANGE JOHNSON MD Jun 09, 2018 13:54
--- NOTE | 2018-06-09 14:09 | NUR ---
Physical Therapy Impression PT/OT co-treat for pt safety, and time split for billing purposes. Pt alert and verbal upon arrival; pt states "bathroom" and thus Bedside commode was set up to attempt a pivot transfer. CG at [facility] indicates that he typically uses grab bars to assist with standing and to pivot to/from his transport chair, but is no longer ambulatory. Pt did initiate some movement to sit at edge of bed but required Mod assist of 2 to complete the transfer, followed by Min assist of one to maintain sitting balance at edge of bed. For transfer to bedside commode, pt did attempt to assist, but did not bear weight through LE's and was pivoted to [facility] with Max assist by PT. Physical Therapy Goals 1. Pt to be one person assist for supine to/from sit and bed mobility 2. ARK to indicate proper equipment for pt to be transferred safely with 1-2 person bed to/from W/C or for toileting as needed. 3. Pt to require only CGA/Min assist for sitting EOB x 20 minutes with improved trunk support. Patient's Goals
--- NOTE | 2018-06-09 14:49 | NUR ---
Occupational Therapy Impression Pt alert and agreeable to PT/OT tx. Increased communication and initiation for mobility this date. Mod Ax1-2 supine to sit. Max-Total Ax1 stand pivot to BSC. Max Ax2 sit to supine. Recommend return to prior living environment with continued staff assist of 1-2 for transfers. Occupational Therapy Goals 1. Pt. to perform dressing activities with Max A. 2. Pt. to perform toileting activities with Max A. 3. Pt. to perform showering activities with Max A. 4. Pt. to perform grooming activities with Mod A. Patient's Goal
[2018-06-09] MEDS: LEVOFLOXACIN/D5W 750 MG/150 ML 150 ML IVPB SCH (16:21)
[2018-06-09] MEDS: KCL/NS* 20 MEQ/1000 ML PREMIX 1,000 ML IV PRN (16:21)
[2018-06-09] MEDS: ACETAMINOPHEN 500 MG TAB PO PRN (20:36)
[2018-06-10 02:44] VITALS: BP 133/71
--- NOTE | 2018-06-10 05:28 | NUR ---
no finger stick necessary; chemistry with morning labs. random blood glucose of 88mg/dL. no coverage needed. Addendum: 06/10/18 at 1710 by QUENTIN CORTEZ RN Amended: Links added.
[2018-06-10] MEDS: ALBUTEROL 2.5 MG/3 ML NEB NEB SCH ×4 (05:32→23:39)
[2018-06-10 06:07] LABS: PLATELET COUNT, AUTOMATED 322 K/uL (150-450)
[2018-06-10 07:46] VITALS: BP 117/63
[2018-06-10] MEDS: ENOXAPARIN 100 MG/ML SYR SC SCH ×2 (08:18→20:30)
[2018-06-10] MEDS: VALPROIC ACID 250 MG CAP PO SCH ×4 (08:19→20:26)
[2018-06-10] MEDS: ASPIRIN 325 MG TAB PO SCH (08:19)
[2018-06-10] MEDS: PANTOPRAZOLE SOD 40 MG TABEC PO SCH (08:19)
[2018-06-10] MEDS: EZETIMIBE 10 MG TAB PO SCH (08:19)
[2018-06-10] MEDS: POTASSIUM CHL 10 MEQ TABCR PO SCH ×2 (08:19→16:15)
[2018-06-10] MEDS: DOCUSATE SODIUM 100 MG CAP PO SCH ×2 (08:19→20:26)
[2018-06-10] MEDS: METOPROLOL TART 50 MG TAB PO SCH ×2 (08:20→20:26)
[2018-06-10] MEDS ORDERED: MAGNESIUM SUL* 2 GM/50 ML IVPB 50 ML IVPB ONE (09:30)
--- NOTE | 2018-06-10 09:39 | Hospitalist Progress Note ---
Subjective Progress Notes Subjective Awake and alert. No fever. Maintaining O2 sats on 2-3L oxygen. Eating and drinking well. Physical Exam Vital Signs Date Time Temp Pulse Resp B/P (MAP) Pulse Ox O2 Delivery O2 Flow Rate FiO2 06/10/18 07:46 97.4 70 22 117/63 (81) 87 Nasal Cannula 3.0 06/07/18 11:00 30.0 Intake and Output 06/10/18 07:00 Intake Total 1271.4 ml Output Total 1095 ml Balance 176.4 ml Intake Oral 780 ml IV Total 491.4 ml Output Urine Total 1095 ml # Bowel Movements 1 General Appearance: Alert, Awake Cardiovascular: Regular Rate and Rhythm Respiratory: Other (few fine raes bilaterally/scattered rhonchi) Chest: No Tenderness GI: Soft and Non-Tender Musculoskeletal: Other (some contractures/increased tone in all four extremities) Extremities: Warm, Perfused, Edema (trace-1+ pedal edema) Result Diagram: 06/10/1852706/10/18527 Monitor Interpretation: Normal Sinus Rhythm Assessment and Plan Problems: (1) NSTEMI (non-ST elevated myocardial infarction) Status: Acute Assessment & Plan: His troponin did increase significantly. The troponin has trended back down. His EKG remained unchanged. He is on aspirin, Lovenox, metoprolol. Will hold his usual losartan that he takes for HTN for now. Echo showed an EF of 50-55% with inferoseptal wall hypokinesis and evidence of diastolic dysfunction. He has had no arrhythmias while on telemetry. Will start to mobilize. It sounds like his usual level of activity is mainly transfers to chair/wheelchair. His POA did not wish to have him transferred to cardiology/other facility for further evaluation/treatment. (2) Acute respiratory failure with hypoxia Assessment & Plan: He was intubated on arrival to the emergency room. He was extubated on 06/07. CXR has continually shown increased interstitial markings. He has no cardiomegaly or pleural effusion. Clinically he does not appear to be in failure. Suspect he may have some mild interstitial lung disease. (3) Aspiration into airway Status: Acute Assessment & Plan: Gastric contents were suctioned from the airway after intubation. His chest x-ray shows interstitial changes. He was on empiric treatment with IV cefepime, levofloxacin, and vancomycin. He is now on monotherapy with levofloxacin. (4) Hematuria, gross Assessment & Plan: He did have hematuria on initial catheter placement. A Coude catheter was eventually placed. The hematuria has now resolved. Will remove cath today. (5) ANEMIA, UNSPECIFIED Assessment & Plan: Iron deficient. He was transfused 2 units PRBC on 06/06 (actually only got 1.5 units because of accidental spill). He also received a dose of IV iron 06/07/18. May need to consider GI workup after acute problems have resolved. (6) Atrial fibrillation with RVR Assessment & Plan: He did have atrial fibrillation with a rapid response while on vasopressors. It has resolved after weaning off the Levophed. Exam Sepsis Risk: No Definite Risk RAJAT JOHNSON MD Jun 10, 2018 09:39
[2018-06-10] MEDS: KCL/NS* 20 MEQ/1000 ML PREMIX 1,000 ML IV PRN (10:06)
[2018-06-10 12:45] VITALS: BP 120/98
--- NOTE | 2018-06-10 14:03 | NUR ---
Physical Therapy Impression Treatment completed with nursing staff in room for dressing change on buttocks wound. Pt. required maxA x2 for bed mobility and maxA x2 for sit<>stand with use of standing frame. Pt. demonstrates list to R side while in standing, with manual cuing he is able to correct somewhat. Physical Therapy Goals 1. Pt to be one person assist for supine to/from sit and bed mobility 2. ARK to indicate proper equipment for pt to be transferred safely with 1-2 person bed to/from W/C or for toileting as needed. 3. Pt to require only CGA/Min assist for sitting EOB x 20 minutes with improved trunk support. Patient's Goals
[2018-06-10 16:13] VITALS: BP 124/86
[2018-06-10] MEDS: LEVOFLOXACIN/D5W 750 MG/150 ML 150 ML IVPB SCH (16:15)
[2018-06-10 18:42] VITALS: BP 131/61
[2018-06-10 20:22] VITALS: BP 132/74
[2018-06-10] MEDS: ACETAMINOPHEN 500 MG TAB PO PRN (20:26)
[2018-06-11 02:11] VITALS: BP 136/82
[2018-06-11] MEDS: KCL/NS* 20 MEQ/1000 ML PREMIX 1,000 ML IV PRN (05:20)
[2018-06-11] MEDS: ALBUTEROL 2.5 MG/3 ML NEB NEB SCH ×3 (05:32→18:11)
[2018-06-11 05:58] LABS: PLATELET COUNT, AUTOMATED 384 K/uL (150-450)
[2018-06-11 07:11] VITALS: BP 149/81
[2018-06-11] MEDS: POTASSIUM CHL 10 MEQ TABCR PO SCH ×2 (08:13→17:16)
[2018-06-11] MEDS: VALPROIC ACID 250 MG CAP PO SCH ×4 (08:14→20:17)
[2018-06-11] MEDS: DOCUSATE SODIUM 100 MG CAP PO SCH ×2 (08:15→20:16)
[2018-06-11] MEDS: PANTOPRAZOLE SOD 40 MG TABEC PO SCH (08:15)
[2018-06-11] MEDS: EZETIMIBE 10 MG TAB PO SCH (08:15)
[2018-06-11] MEDS: ASPIRIN 325 MG TAB PO SCH (08:15)
[2018-06-11] MEDS: METOPROLOL TART 50 MG TAB PO SCH ×2 (08:15→20:16)
[2018-06-11] MEDS: ENOXAPARIN 100 MG/ML SYR SC SCH ×2 (08:16→20:17)
[2018-06-11] MEDS ORDERED: MAGNESIUM SUL* 2 GM/50 ML IVPB 50 ML IVPB ONE (09:00)
[2018-06-11 12:14] VITALS: BP 112/58
[2018-06-11 15:08] VITALS: BP 126/68
[2018-06-11] MEDS: ACETAMINOPHEN 500 MG TAB PO PRN (15:48)
--- NOTE | 2018-06-11 16:15 | Hospitalist Progress Note ---
Subjective Progress Notes Subjective 73M admitted with respiratory failure. ENZO overnight, appears to be approaching baseline. Physical Exam Vital Signs Date Time Temp Pulse Resp B/P (MAP) Pulse Ox O2 Delivery O2 Flow Rate FiO2 06/11/18 15:08 98.1 67 24 126/68 (87) 94 Nasal Cannula 3.0 06/07/18 11:00 30.0 Intake and Output 06/11/18 07:00 Intake Total 2200 ml Output Total 600 ml Balance 1600 ml Intake Oral 0 ml IV Total 2200 ml Output Urine Total 600 ml # Voids 9 # Bowel Movements 2 General Appearance: Awake, No Acute Distress, Afebrile Neuro: No Gross deficits Cardiovascular: Normal Rhythm & Peripheral Pulses Respiratory: No Respiratory Distress Extremities: Soft and Non Tender, Warm, Pulses, Perfused Integumentary: Other (pressure wound to sacrum.) Result Diagram: 06/11/1852406/11/18524 Monitor Interpretation: Normal Sinus Rhythm Assessment and Plan Problems: (1) NSTEMI (non-ST elevated myocardial infarction) Status: Acute Assessment & Plan: His troponin did increase significantly. The troponin has trended back down. His EKG remained unchanged. He is on aspirin, Lovenox, metoprolol. Will hold his usual losartan that he takes for HTN for now. Echo showed an EF of 50-55% with inferoseptal wall hypokinesis and evidence of diastolic dysfunction. He has had no arrhythmias while on telemetry. Will start to mobilize. It sounds like his usual level of activity is mainly transfers to chair/wheelchair. His POA did not wish to have him transferred to cardiology/other facility for further evaluation/treatment. (2) Acute respiratory failure with hypoxia Assessment & Plan: He was intubated on arrival to the emergency room. He was extubated on 06/07. CXR has continually shown increased interstitial markings. He has no cardiomegaly or pleural effusion. Clinically he does not appear to be in heart failure. Suspect he may have some mild interstitial lung disease. (3) Aspiration into airway Status: Acute Assessment & Plan: Gastric contents were suctioned from the airway after intubation. His chest x-ray shows interstitial changes. He was on empiric treatment with IV cefepime, levofloxacin, and vancomycin. He is now on monotherapy with levofloxacin. (4) Hematuria, gross Assessment & Plan: He did have hematuria on initial catheter placement. A Coude catheter was eventually placed. The hematuria has now resolved. [facility]. (5) ANEMIA, UNSPECIFIED Assessment & Plan: Iron deficient. He was transfused 2 units PRBC on 06/06 (actually only got 1.5 units because of accidental spill). He also received a dose of IV iron 06/07/18. May need to consider GI workup after acute problems have resolved. (6) Atrial fibrillation with RVR Assessment & Plan: He did have atrial fibrillation with a rapid response while on vasopressors. It has resolved after weaning off the Levophed. Exam Sepsis Risk: No Definite Risk BUSTAMANTE NETTIE VENEGAS DO Jun 11, 2018 16:15
[2018-06-11 18:35] VITALS: BP 142/75
[2018-06-11 22:57] VITALS: BP 152/72
[2018-06-12] MEDS: ALBUTEROL 2.5 MG/3 ML NEB NEB SCH ×5 (05:18→18:33)
[2018-06-12 07:39] VITALS: BP 135/85
[2018-06-12] MEDS: VALPROIC ACID 250 MG CAP PO SCH ×4 (07:59→21:29)
[2018-06-12] MEDS: POTASSIUM CHL 10 MEQ TABCR PO SCH ×2 (07:59→17:11)
[2018-06-12] MEDS ORDERED: LEVOFLOXACIN 750 MG TAB PO SCH (09:00)
[2018-06-12] MEDS: ASPIRIN 325 MG TAB PO SCH (09:38)
[2018-06-12] MEDS: PANTOPRAZOLE SOD 40 MG TABEC PO SCH (09:38)
[2018-06-12] MEDS: METOPROLOL TART 50 MG TAB PO SCH ×2 (09:38→21:28)
[2018-06-12] MEDS: EZETIMIBE 10 MG TAB PO SCH (09:38)
[2018-06-12] MEDS: DOCUSATE SODIUM 100 MG CAP PO SCH ×2 (09:39→21:29)
[2018-06-12] MEDS: ENOXAPARIN 100 MG/ML SYR SC SCH ×2 (09:39→21:30)
--- NOTE | 2018-06-12 11:49 | NUR ---
Physical Therapy Impression Viewed sacral/coccygeal laceration which appears as a skin tear associated with moisture. This wound does not require PT care for debridement. Recommend barrier cream and cover for protection. Noted small 0.2cmx0.2cm area of yellow slough over L greater trochanter likely due to pressure as Pt seems to prefer laying on L side. This area would benefit from dressing for enzymatic debridement, however, not appropriate to initiate new treatment without this PT being able to follow-up as Pt is planning to discharge home today. Recommend wound care in home environment as well as agressive off-loading of this area. Physical Therapy Goals 1. Pt to be one person assist for supine to/from sit and bed mobility 2. [facility] to indicate proper equipment for pt to be transferred safely with 1-2 person bed to/from W/C or for toileting as needed. 3. Pt to require only CGA/Min assist for sitting EOB x 20 minutes with improved trunk support. Patient's Goals
--- NOTE | 2018-06-12 11:49 | NUR ---
PHYSICAL THERAPY INFORMATION TRANSFER SHEET: WOUND CARE Viewed sacral/coccygeal laceration which appears as a skin tear associated with moisture. This wound does not require PT care for debridement. Recommend barrier cream and cover for protection. Noted small 0.2cmx0.2cm area of yellow slough over L greater trochanter likely due to pressure as Pt seems to prefer laying on L side. This area would benefit from dressing for enzymatic debridement, however, not appropriate to initiate new treatment without this PT being able to follow-up as Pt is planning to discharge home today. Recommend wound care in home environment as well as aggressive off-loading of this area.
[2018-06-12 11:50] VITALS: BP 122/60
--- NOTE | 2018-06-12 12:00 | Hospitalist Progress Note ---
Subjective Progress Notes Subjective He was admitted with respiratory failure. He has no complaints this morning. He would like to go home. Patient Complains of: Cardiovascular: No: Chest Pain Respiratory: No: Shortness of Breath Physical Exam Vital Signs Date Time Temp Pulse Resp B/P (MAP) Pulse Ox O2 Delivery O2 Flow Rate FiO2 06/12/18 11:50 98.4 21 122/60 (80) 90 Nasal Cannula 2.0 06/12/18 11:22 72 Intake and Output0 06/12/18 07:00 Intake Total 495.3 ml Balance 495.3 ml Intake Oral 237 ml IV Total 258.3 ml # Voids 8 General Appearance: Alert, Awake, No Acute Distress, Afebrile Neuro: No Gross deficits Cardiovascular: Regular Rate and Rhythm Respiratory: No Respiratory Distress, Clear to Auscultation GI: Soft and Non-Tender Psych: Appropriate Mood & Affect Result Diagram: 06/11/18 0525 06/12/18 05 Monitor Interpretation: Normal Sinus Rhythm Assessment and Plan Problems: (1) NSTEMI (non-ST elevated myocardial infarction) Status: Acute Assessment & Plan: His troponin did increase significantly. The troponin has trended back down. His EKG remained unchanged. He is on aspirin, Lovenox, metoprolol. Will hold his usual losartan that he takes for HTN for now. Echo showed an EF of 50-55% with inferoseptal wall hypokinesis and evidence of diastolic dysfunction. He has had no arrhythmias while on telemetry. Will start to mobilize. It sounds like his usual level of activity is mainly transfers to chair/wheelchair. His POA did not wish to have him transferred to cardiology/other facility for further evaluation/treatment. We will arrange with social work, transfer back to [facility]. (2) Acute respiratory failure with hypoxia Assessment & Plan: He was intubated on arrival to the emergency room. He was extubated on 06/07. CXR has continually shown increased interstitial markings. He has no cardiomegaly or pleural effusion. Clinically he does not appear to be in heart failure. Suspect he may have some mild interstitial lung disease. (3) Aspiration into airway Status: Acute Assessment & Plan: Gastric contents were suctioned from the airway after intubation. His chest x-ray shows interstitial changes. He was on empiric matthew tment with IV cefepime, levofloxacin, and vancomycin. He was on monotherapy with levofloxacin (treatment completed). (4) Hematuria, gross Assessment & Plan: He did have hematuria on initial catheter placement. A Coude catheter was eventually placed. The hematuria has now resolved. Will remove cath 06/11. (5) ANEMIA, UNSPECIFIED Assessment & Plan: Iron deficient. He was transfused 2 units PRBC on 06/06 (actually only got 1.5 units because of accidental spill). He also received a dose of IV iron 06/07/18. May need to consider GI workup after acute problems have resolved. (6) Atrial fibrillation with RVR Assessment & Plan: He did have atrial fibrillation with a rapid response while on vasopressors. It has resolved after weaning off the Levophed. Exam Sepsis Risk: No Definite Risk IONA HORTON Jun 12, 2018 12:00
--- NOTE | 2018-06-12 12:03 | Medical Nutrition Therapy ---
Nutrition Anthropometrics Height (Inches): 69.00 Height (Calculated Centimeters: 175.472198 Weight (Pounds): 124 Weight (Calculated Kilograms): 56.245 BMI: 18.1 Isaias Nutrition Score: Probably Inadequate Isaias Nutrition Risk Score: 11 Dietary Referral Nutrition Risk Factors: Diff. Swallowing, Special Diet Nutrition Risk Comment: Dysphagia diet, needs supervision at meals, 50oz fluid restriction at [facility] Physical Findings Physical Appearance: Underweight BMI<19 Skin Appearance Skin Appearance: Edema Edema Location Modifier: Both Edema Location: Foot Type of Edema: Degree of Edema: 1+ Gastrointestinal Symptoms GI Symtoms: Change in Bowel Pattern Tube Present: OG Bowel Sounds: Recent Bowel Pattern: Stool Characteristics: Nutritional Diagnosis Nutritional Risk Acuity 2: St III or IV Press Ulcer (unstaged open wound), Swallowing Problem Past Medical History: HTN, GERD, depression, hyperlipidemia, T2DM, aspiration pneumonia, and fragile X syndrome Nutritional Acuity: 2-Moderate Nutrition Diagnosis: Swallowing Difficulties Nutrition Etiology: Physiological Causes Nutrition Problem/Etiology/Sym: AEB dx aspiration with hx aspiration pneumonia Energy Requirement: 2075 (Dickson state x 1.2 AF X 1.2 SF) Protein Requirement: 84 (1.5gm/kg) Fluid Requirement: 1665 (30ml/kg) Diet Type: Dysphagia Stage 1 Nutrition Intervention: Cont diet as ordered, Encourage intake, Between meal supplement Additional Diet Restrictions: PROVIDE NUTR SUPPLMENT WITH EACH MEAL, PUT PRO POWDER IN APPROPRIATE FOODS Diet Comment To [facility]: OFFER MAGIC CUP Nutrition Monitoring & Eval Nutrition Goals: Eat 75-100% Meal Nutrition Follow-Up: Fair Intake RD Patient Assessment Time: [address] Assessment Type: RD Re-Assessment Patient Nutrition Acuity: 2-Moderate Follow Up Date: Jun 16, 2018 Nutritional Comment: 06/05 Pt amitted for Respiratory failure with NSTEMI and septic shock. Pt on mech vent. Pt NPO but is recieving propofol at 5.1mls/hr provided 136 kcal/day. Recommend nutr support if pt NPO > 3 days. Pt has hx of aspiration pneumonia and follows dsyphagia 2 diet at home. BMI is in underwt range. Wt has been faily stable. Wt last admit in July 2017 was 126#. Current wt 122#. Low labs include: alb 2.1,Hgb 9.6, Hct 31.1. Will cont to monitor. BK 06/08 Diet advanced to Dysphagia 1 with thin liquids following SPL eval. Alb 2. Wt cont in underwt range. Will provide nutr supplment with each meal to increase kcal and protein intake. Will cont to monitor. BK 06/06: Pt started on enteral nutritionof Glucerna at 40ml/hr increasing to final rate of 75ml/hr plus 30ml H2O q 6 hrs. 75ml/hr will meet 87% est kcal needs and 100% est protein needs. Pt has BMI in underwt range. Physical nutritional assessment indicated malnutrtion with sunken orbital and muscle wasting to arms, clavical. Recommend increase TF to 85ml/hr to meet 98% of est kcal and 118% of est protein needs. Will cont to monitor. BK 06/12 diet changed to dyspagia 1 with thin liquids by spoons. Intake average 75% of small to regular portions with occasional nutr supplement. Pt has increased nutr needs r/t unstaged open pressure area and underwt. Alb cont low but has improved to 2.3. Will cont to monitor and encourage intake. RAQUEL MEJIA Jun 12, 2018 12:03
--- NOTE | 2018-06-12 12:15 | NUR ---
Physical Therapy Impression When pt turned to full R) sidelying for pericare, it was noted that area at sacrum did have some slough present that would benefit from debridement, most likely related to sheering when pt tries to reposition himself. Non-excisional debridement completed with the use of scissors and tweezers to a depth of subcutaneous tissue in order to fully remove adhered non-viable tissue. 100% healthy granulation tissue noted following removal of this tissue. Silver calcium alginate applied to assist with hemostasis and to ensure adequate absorption, followed by 4x4 bordered silicone dressing to secure. [facility] care providers present to observe debridement and dressing application. Recommend follow up with Home healthcare services to ensure optimal wound healing. Physical Therapy Goals 1. Pt to be one person assist for supine to/from sit and bed mobility 2. [facility] to indicate proper equipment for pt to be transferred safely with 1-2 person bed to/from W/C or for toileting as needed. 3. Pt to require only CGA/Min assist for sitting EOB x 20 minutes with improved trunk support. Patient's Goals
--- NOTE | 2018-06-12 12:55 | NUR ---
Physical Therapy Impression Caregivers from [facility] present to observe level of assist required for transfers. Pt's own transport chair with cushion available for transfer. Pt had received meal tray prior to PT's arrival and student was feeding pt. while sitting up in bed. Pt began to cough and was fairly fatigued then for treatment session. Staff indicates that pt transfers out of bed to his R) side and thus this was simulated here. Pt does initiate movement towards edge of bed, but leans aggressively to the R) making it difficult to complete transfer. Pt also seems to indicate that R) shoulder is somewhat painful. Staff encouraged to attempt transferring pt out of bed towards his left side, which might make home transfers a little easier and protect the R) shoulder possibly. Pt's personal staff member completed the transfer with gait belt from bed to transfer chair, to determine how similar pt is to his base line. CG notes that he was a Max assist, but 2 staff members will typically be present during the day and can help together for this skill. Of greater concern is pt's need for Min assist to maintain sitting balance while at edge of bed. [facility] staff notes that they do have a lap and chest seat belt for travel and that pt typically only remains in the transport chair during meals for improved posture and while traveling out in the community or transferring to other locations in home. Pt is noted to typically sit in a power lift/recliner at home when resting. Pt is likely at a level of care that can be met and gradually improve within his own home environment. Due to increased fatigue noted from this visit associated possibly with a coughing exacerbation, plan will be for discharge with CG's tomorrow if medically appropriate. When pt turned to full R) sidelying for pericare, it was noted that area at sacrum did have some slough present that would benefit from debridement, most likely related to sheering when pt tries to reposition himself. Non-excisional debridement completed with the use of scissors and tweezers to a depth of subcutaneous tissue in order to fully remove adhered non-viable tissue. 100% healthy granulation tissue noted following removal of this tissue. Silver calcium alginate applied to assist with hemostasis and to ensure adequate absorption, followed by 4x4 bordered silicone dressing to secure. [facility] care providers present to observe debridement and dressing application. Recommend follow up with Home healthcare services to ensure optimal wound healing. Physical Therapy Goals 1. Pt to be one person assist for supine to/from sit and bed mobility 2. [facility] to indicate proper equipment for pt to be transferred safely with 1-2 person bed to/from W/C or for toileting as needed. 3. Pt to require only CGA/Min assist for sitting EOB x 20 minutes with improved trunk support. Patient's Goals
[2018-06-12 15:08] VITALS: BP 120/70
[2018-06-12 22:53] VITALS: BP 152/64
[2018-06-13] MEDS: ALBUTEROL 2.5 MG/3 ML NEB NEB SCH ×2 (05:36→11:09)
[2018-06-13 07:18] VITALS: BP 130/76
[2018-06-13] MEDS: DOCUSATE SODIUM 100 MG CAP PO SCH (08:30)
[2018-06-13] MEDS: EZETIMIBE 10 MG TAB PO SCH (08:30)
[2018-06-13] MEDS: POTASSIUM CHL 10 MEQ TABCR PO SCH (08:30)
[2018-06-13] MEDS: METOPROLOL TART 50 MG TAB PO SCH (08:31)
[2018-06-13] MEDS: ENOXAPARIN 100 MG/ML SYR SC SCH (08:31)
[2018-06-13] MEDS: PANTOPRAZOLE SOD 40 MG TABEC PO SCH (08:31)
[2018-06-13] MEDS: ASPIRIN 325 MG TAB PO SCH (08:31)
[2018-06-13] MEDS: VALPROIC ACID 250 MG CAP PO SCH ×2 (08:34→12:21)
--- NOTE | 2018-06-13 10:38 | NUR ---
Physical Therapy Impression Pt's staff members are aware from previous visit that pt is currently requiring a 2 person assist, as pt does need Min assist to maintain sitting balance without back support and is a Max assist for stand-pivot transfers. [facility] staff indicated during yesterday's visit that this would be acceptable as they do have 2 staff members present during the day. Pt demos improved trunk strength and less fatigue with today's visit, as compared to yesterday. menu planner anticipate's pt's discharge today at 1pm when staff members from [facility] are available. For sacral site: No debridement indicated as no slough was present. Re-eval of dressing effectiveness. Wound cleansed with sterile saline and fresh piece of silver calcium alginate applied for absorption, and secured with silicone bordered gauze dressing. For L) greater trochanter: Dressing remains intact for padding. No drainage noted and pt encouraged to stay off L) side, but generally rotates to that side immediately. Physical Therapy Goals 1. Pt to be one person assist for supine to/from sit and bed mobility 2. [facility] to indicate proper equipment for pt to be transferred safely with 1-2 person bed to/from W/C or for toileting as needed. 3. Pt to require only CGA/Min assist for sitting EOB x 20 minutes with improved trunk support. Patient's Goals
[2018-06-13] MEDS ORDERED: ASPI81TA94 PO (10:50)
--- NOTE | 2018-06-13 11:00 | Hospitalist Depart ---
Discharge Summary Reason for Hosp/Final Diag: (1) NSTEMI (non-ST elevated myocardial infarction) Status: Acute Hospital Course & Plan: His troponin did increase significantly. The troponin has trended back down. His EKG remained unchanged. He was on aspirin, Lovenox, metoprolol during admission. His usual losartan that he takes for HTN will be resumed. Echo showed an EF of 50-55% with inferoseptal wall hypokinesis and evidence of diastolic dysfunction. He has had no arrhythmias while on telemetry. He worked with PT/OT. It sounds like his usual level of activity is mainly transfers to chair/wheelchair. His POA did not wish to have him transferred to cardiology/other facility for further evaluation/treatment. We will arrange with social work, transfer back to [facility]. He will be continue aspirin 81mg daily for a ntiplatelet therapy. I will defer possible Plavix therapy to his PCP if needed. However, given his functional status, at this time, I will continue just Aspirin. (2) Acute respiratory failure with hypoxia Hospital Course & Plan: He was intubated on arrival to the emergency room. He was extubated on 06/07. CXR has continually shown increased interstitial markings. He has no cardiomegaly or pleural effusion. Clinically he does not appear to be in heart failure. Suspect he may have some mild interstitial lung disease. (3) Aspiration into airway Status: Acute Hospital Course & Plan: Gastric contents were suctioned from the airway after intubation. His chest x-ray shows interstitial changes. He was on empiric treatment with IV cefepime, levofloxacin, and vancomycin. He was on monotherapy with levofloxacin (treatment completed). (4) Hematuria, gross Hospital Course & Plan: He did have hematuria on initial catheter placement. A Coude catheter was eventually placed. The hematuria has now resolved. Catheter was removed 06/11. (5) ANEMIA, UNSPECIFIED Hospital Course & Plan: Iron deficient. He was transfused 2 units PRBC on 06/06 (actually only got 1.5 units because of accidental spill). He also received a dose of IV iron 06/07/18. May need to consider GI workup after acute problems have resolved. (6) Atrial fibrillation with RVR Hospital Course & Plan: He did have atrial fibrillation with a rapid response while on vasopressors. It has resolved after weaning off the Levophed. Departure Latest Vital Signs Vital Signs 06/07/18 06/13/18 06/13/18 11:00 07:18 08:30 Temp 97.3 Pulse 70 Resp 18 B/P (MAP) 130/76 (94) Pulse Ox 92 O2 Delivery Nasal Cannula O2 Flow Rate 3.0 FiO2 30.0 Weight (Pounds): 123 Weight (Ounces): 5.0 Result Diagram: 06/11/1852406/12/18520 Condition: Improved Discharge: Home, Self Care Discharge Instructions Home Meds Active Scripts Aspirin (ASPIRIN) 81 Mg Tab.chew, 81 MG PO QDAY, #30 TAB.CHEW Prov:IONA HORTON BED AND BREAKFAST INNKEEPER 06/13/18 Metformin Hcl (METFORMIN HCL) 500 Mg Tablet, 1000 MG PO BIDBS for 30 Days, Prov:RICHARD WHYTE MD 11/09/17 Reported Medications Oxygen (OXYGEN) Inha, 3 L INH DAILY PRN for hypoxia, L 06/09/18 Guaifenesin/Dextromethorphan (SILTUSSIN DM COUGH SYRUP) 118 Ml Syrup, 20 ML PO Q4H PRN for CONGESTION 06/09/18 Guaifenesin/Dextromethorphan (Mucinex Fast-Max Dm Max Liquid) 100 Mg-5 Mg/5 Ml Liquid, 10 ML PO Q4H PRN for cough 06/09/18 Hypromellose (ISOPTO TEARS) 15 Ml Drops, 1 GTT OU PRN PRN for dryness 06/09/18 Loperamide Hcl (ANTI-DIARRHEA) 2 Mg Tablet, 4 MG PO PRN PRN for DIARRHEA 06/09/18 Albuterol Sulfate 0.083% (ALBUTEROL SULFATE 0.083%) 2.5 Mg/3 Ml Vial.neb, 2.5 MG INH TID PRN for cough, INH 06/09/18 Metoprolol Tartrate (METOPROLOL TARTRATE) 50 Mg Tab, 1 TAB PO BID, TAB 06/09/18 Ezetimibe (ZETIA) 10 Mg Tablet, 10 MG PO QDAY, TAB 06/09/18 Calcium Carb & Cit/Vitamin D3 (CALCIUM + D3 ER TABLET) 1 Each Tablet.er, 2 EACH PO DAILY 06/09/18 Polyethylene Glycol 3350 (MIRALAX) 17 Gm Powd.pack, 17 GM PO PRN, PKT 06/05/18 Triamcinolone Acetonide 0.1% Cr 15 Gm Tube (TRIAMCINOLONE ACETONIDE 0.1% CREAM) 15 Gm Cream..g., 1 CARMELO TP BID, TUBE for 14 days. end on 06/14/2018 06/05/18 Terazosin Hcl (TERAZOSIN HCL) 1 Mg Capsule, 1 MG PO QHS, CAPSULE 06/05/18 Fluticasone Prop 50 Mcg Ns (FLONASE 50 MCG NS) 16 Gm Sayre.susp, 2 SPRAYS NS QDAY, BOT 06/05/18 Lactose-Free Food (ENSURE PLUS) 237 Ml Liquid, 237 ML PO QDAY 06/05/18 Albuterol Sulfate 0.083% (ALBUTEROL SULFATE 0.083%) 2.5 Mg/3 Ml Vial.neb, 2.5 MG INH TID, INH 0800/1200/2000 06/05/18 Bupropion Hcl (BUPROPION HCL) 75 Mg Tablet, 75 MG PO BID, #10 TAB 06/05/18 Valproic Acid (VALPROIC ACID) 250 Mg Cap, 250 MG PO QID@08,12,16,20, CAP 03/01/18 Hydrocortisone (Hydrocortisone) 1 % Cream..g., 1 CARMELO TP PRN PRN for ITCHING 10/01/17 Menthol (BIOFREEZE) 118 Ml Gel..ml., PRN for PAIN 10/01/17 Omeprazole (OMEPRAZOLE) 20 Mg Capsule.dr, 1 CAP PO QDAY, CAP 10/01/17 Losartan Potassium (LOSARTAN POTASSIUM) 100 Mg Tablet, 100 MG PO QDAY 10/01/17 Acetaminophen 500 Mg Tab (ACETAMINOPHEN EXTRA STRENGTH) 500 Mg Tablet, 1000 MG PO Q4-6H PRN for PAIN, TAB 10/01/17 [closys toothpaste] No Conflict Check, 1 CARMELO BID 05/12/17 Cetyl Alc/Stearyl Alc/Pg/Sls (CETAPHIL CREAM) 454 Gm Cream..g., 454 GM TP HS Apply to both feet before bed 05/12/17 Bacitracin/Polymyxin B Sulfate (BACITRACIN-POLYMYXIN EYE OINT) 3.5 Gm Oint...g., 3.5 GM OD PRN 05/12/17 Magnesium Hydroxide (MILK OF MAGNESIA) 400 Mg/5 Ml Oral.susp, 30 ML PO QHS, BOTTLE 06/02/16 Calcium Carbonate/Mag Hydrox (Antacid 1000-200 mg Tab Chew) 1 Each Tab.chew, 1000 MG PO PRN 05/26/15 Baclofen (BACLOFEN) 10 Mg Tablet, 10 MG PO PRN PRN for HICCUPS, #30 TAB every 6 hours as needed. Only 2 in 24 hours 05/02/15 Multivitamin (ONE DAILY) 1 Each Tablet, 1 EACH PO DAILY 01/14/14 Discontinued Reported Medications Metoprolol Tartrate (METOPROLOL TARTRATE) 25 Mg Tablet, 50 MG PO BID, TAB 06/05/18 Fluticasone Prop 50 Mcg Ns (FLONASE 50 MCG NS) 16 Gm Sayre.susp, 1 SPRAY NS QDAY, BOT 06/05/18 Doxycycline Hyclate (DOXYCYCLINE HYCLATE) 100 Mg Capsule, 100 MG PO BID, CAPSULE 06/05/18 Tamsulosin Hcl (TAMSULOSIN HCL) 0.4 Mg Cap.er.24h, 0.4 MG PO, CAP 10/01/17 [equate body powder] No Conflict Check, 1 CARMELO TOP DAILY Sprinkle a light amount on clean, dry feet daily prior to putting on socks and shoes 05/12/17 Calcium Carbonate/Vitamin D3 (CALCIUM 600 + VIT D 200 TABLET) 1 Each Tablet, 1 EACH PO DAILY 05/12/17 Valproic Acid (VALPROIC ACID) 250 Mg Cap, 250 MG PO ACHS, CAP 01/28/14 Atenolol (ATENOLOL) 100 Mg Tablet, 1 TAB PO QDAY, TAB TAKE ONE TABLET BY MOUTH ONCE A DAY at 6PM 01/28/14 Discontinued Scripts [Hypromellose 0.4% Lub 15ML Btl] 15 ML SOLN No Conflict Check, 0 ML OU PRN PRN for dryness for 30 Days, INSTILL 1 DROP Prov:GO KIRKLAND MD 06/05/17 Ezetimibe (ZETIA) 10 Mg Tablet, 10 MG PO QHS for 30 Days, Prov:GO KIRKLAND MD 06/05/17 Diet: Regular Special Instructions: Start taking Aspirin 81mg daily. Continue usual medication regimen. Follow up with Primary Care Provider in one week. Copies to: DEMETRIO GARCIA DO ; Venous Thromboembolism Antithrombotics Is Pt On Any Antithrombotics?: No (SCD only due to bleeding.) IONA HORTON BED AND BREAKFAST INNKEEPER Jun 13, 2018 11:00
--- NOTE | 2018-06-13 16:53 | NUR ---
RECEIVED A PHONE CALL FROM [facility] MANAGER CONCRETE, SUNIL, AT 1600 REGARDING TRANSFER CONCERNS FOR THE PATIENT. SHE STATED THAT ALEXEI WAS HAVING A DIFFICULT TIME TRANSFERRING SINCE RETURNING HOME AFTER BEING DISCHARGED TODAY AT 1300. I SPOKE WITH OSWALD, THE PHYSCIAL THERAPIST WHO WAS WORKING WITH THE PATIENT DURING HIS ADMISSION, AND DISCUSSED THESE NEW CONCERNS WITH HER. TRACE, PT, AND THE CAREGIVER OBSERVED OSWALD DURING THE THERAPY SESSION 06/12/18. THEY PERFORMED TRANSFERRING ALEXEI AT THIS TIME AND AGAIN TODAY WITH THE SUGGESTIONS AND DIRECTION OF THE PHYSICAL THERAPIST. TRACE AND THE CAREGIVER INFORMED [facility] RN AND PT THAT TWO CAREGIVERS WOULD BE PRESENT TO ASSIST ALEXEI WITH THE REQUIRED TWO PERSON ASSISTANCE THAT WAS SUGGESTED AND NEEDED FOR SAFE TRANSFERS AT HOME. I BEGAN BRAINSTORMING IDEAS WITH SUNIL AND OFFERING OPTIONS TO HELP WITH ALEXEI'S CARE. THESE INCLUDED PT, OT, HOME HEALTH, AND THE [facility]. SUNIL DID INFORM ME THAT THE PATIENT DID HAVE PHYSICAL THERAPY IN PLACE ALREADY. SUNIL TOLD ME THAT THE LAST TIME HE RETURNED HOME FROM BEING HOSPITALIZED AND REQUIRING FOLLOW UP CARE AT THE [facility], HE DID HAVE DIFFICULTY WITH RE-LEARNING HOW TO TRANSFER AT HOME AGAIN. I CALLED ALEXEI'S PCP DR. GARCIA AND TOLD THEM ABOUT THESE NEW TRANSFERRING CONCERNS SINCE RETURNING HOME THREE HOURS PRIOR. I MADE HIM AN APPOINTMENT FOR 11:10 06/14/18 IN HOPES THAT HE COULD SET A PLAN INTO PLACE FOR FURTHER CARE SUCH THE [facility] OR ACUTE CARE. I INFORMED SUNIL THAT I WOULD SPEAK WITH THE HOSPITALIST CABLE TOWER OPERATOR AND WE WOULD FIGURE OUT A PLAN TO HELP WITH TRANSFERS FOR ALEXEI AT HOME. DR. LESLEY OLIVARES COMPLETED A [id number] FORM FOR THE PATIENT TO HAVE HOME HEALTHCARE TO ASSIST THE [facility] CAREGIVERS WITH TRANSFERS. [facility] CONTACTED AND AGREED TO FOLLOW HIS CARE. I CALLED SUNIL BACK AND SPOKE WITH HER ABOUT THIS PLAN OF ACTION FOR ALEXEI. SHE WANTED ME TO SPEAK WITH HER MANAGER CONCRETE. AFTER VERY BRIEFLY SPEAKING WITH SUNIL'S MANGER, I WAS TOLD THAT I WAS NOT APPROACHING THE ISSUE WITH THE URGENCY IT REQUIRED AND THAT SHE WAS GOING TO CALL AN AMBULANCE FOR ALEXEI BECAUSE HE WAS HAVING DIFFICULTY BREATHING AND SHE WAS CONCERNED THAT HE WAS NOT GOING TO MAKE IT THROUGHOUT THE NIGHT. THIS WAS THE FIRST CONCERN MENTIONED ABOUT [facility] RESPIRATORY STATUS. JANY NOTIFIED.
[2018-06-13] MEDS ORDERED: ASPI-1471 PO (18:00)
== END 2018-06-13 13:10 | disposition home health service (06) | DRG 871 ==
LOC: ER 09:17 → ICU 10:41 → MED 06-09 13:00
PROVIDERS: ADMIT Internal Medicine; ATTEND Internal Medicine
PROC: 0BH17EZ Insertion of Endotracheal Airway into Trachea, Via Natural or Artificial Opening (ICD-10-PCS; principal; 2018-06-04)
PROC: 5A1945Z Respiratory Ventilation, 24-96 Consecutive Hours (ICD-10-PCS; 2018-06-04)
PROC: 05HM33Z Insertion of Infusion Device into Right Internal Jugular Vein, Percutaneous Approach (ICD-10-PCS; 2018-06-04)
PROC: 02HV33Z Insertion of Infusion Device into Superior Vena Cava, Percutaneous Approach (ICD-10-PCS; 2018-06-05)
PROC: 30243N1 Transfusion of Nonautologous Red Blood Cells into Central Vein, Percutaneous Approach (ICD-10-PCS; 2018-06-06)
DX: A41.9 Sepsis, unspecified organism (principal); I21.4 Non-ST elevation (NSTEMI) myocardial infarction; J96.01 Acute respiratory failure with hypoxia; R65.21 Severe sepsis with septic shock; J69.0 Pneumonitis due to inhalation of food and vomit; J84.9 Interstitial pulmonary disease, unspecified; S37.30XA Unspecified injury of urethra, initial encounter; N99.89 Other postprocedural complications and disorders of genitourinary system; R31.0 Gross hematuria; D50.9 Iron deficiency anemia, unspecified; T17.918A Gastric contents in respiratory tract, part unspecified causing other injury, initial encounter; I48.0 Paroxysmal atrial fibrillation; Z88.0 Allergy status to penicillin; Z88.8 Allergy status to other drugs, medicaments and biological substances
CPT/HCPCS: 36415; 36416; 36430; 36600; 71045; 71046; 74018; 80202; 81001; 82040; 82247; 82274; 82310; 82374; 82435; 82565; 82607; 82746; 82803; 82947; 82948; 83540; 83550; 83605; 83735; 84075; 84132; 84155; 84295; 84450; 84460; 84484; 84520; 85025; 85045; 85610; 85730; 86850; 86900; 86901; 86920; 87040; 87088; 93005; 93306; 94002; 94003; 94640; 94770; 97161; 97166; 99291; C1758; C9113; J0131; J0330; J0692; J1439; J1650; J1940; J1956; J2270; J2704; J2997; J3010; J3370; J3475; J3480; J3490; J7030; J7040; J7050; J7060; J7613; P9016

== ENCOUNTER → 2018-06-04 | Outpatient (CLI) | payer MEDICARE, MEDICAID ==
[2017-10-02 12:55] VITALS: BMI 21.0
[~2018-06-04] MED LIST changes: +ALBU2.5V36 INH; +ASPI-1471 PO; +ASPI81TA94 PO; +CALC1TAB32 PO; +DOXY-181 PO; +FLUT16SP19 NS; +GUAI177L6 PO; -HYDR28.425; +HYDR28.425 TP; +HYPR15DR22 OU; +LACT-214 PO; +LOPE-147 PO; +METO-253 PO; +METO25TA93 PO; +OXYGENHOME INH; +POLY17PO25 PO; +TERA1CAP38 PO; +TRIA15CR40 TP
== END ==
LOC: AMB 08:56
PROVIDERS: ATTEND Nurse Practitioner
DX: R06.82 Tachypnea, not elsewhere classified (principal); R41.82 Altered mental status, unspecified; R53.83 Other fatigue; R11.10 Vomiting, unspecified; R09.02 Hypoxemia; Q90.9 Down syndrome, unspecified
CPT/HCPCS: A0425; A0427

== ENCOUNTER 2018-06-13 17:35 | Inpatient (IN) | payer MEDICARE, MEDICAID ==
[2017-10-02 12:55] VITALS: Ht 175.3 cm; Wt 55.8 kg
[~2018-06-13] VITALS: Ht 175.3 cm; Wt 55.8 kg
[~2018-06-13 17:35] MED LIST changes: -ASPI-1471 PO
--- NOTE | 2018-06-13 17:51 | ER Report ---
History and Physical Time Seen By MD: 17:50 Hx. of Stated Complaint: pt acting abnormal per structural biologist. weak HPI/ROS CHIEF COMPLAINT: Weakness HISTORY OF PRESENT ILLNESS: 73-year-old male patient presents to the emergency room via EMS with complaints of weakness. Patient is a patient of the [facility], and was discharged from the hospital today. Patient was admitted on June 04 with respiratory failure. He was in the ICU for 4 days, has been 4 days on the floor before being discharged. Prior to being discharged they did do some evaluation make sure that he be able to be cared for, he was able to be helped by his staff with the assistance of physical therapy. They stated they felt comfortable. Upon discharge today they felt that he was unable to assist with standing up. They state that he was taking more than one person to help them. They did call up to the hospital and talked with the hospitalist as well as the nursing discharge him. They did make plans for home health to come help him tonight, as well as an appointment for his primary care provider for tomorrow. The caregivers felt that he was too weak to be at the [facility] and brought him back for reevaluation and placement for rehabilitation. The caregiver that is with him states that they did keep an eye on his oxygen saturation saturations and continued stay between 90 and 92%. REVIEW OF SYSTEMS: Respiratory: No cough, no dyspnea. Cardiovascular: No chest pain, no palpitations. Gastrointestinal: No vomiting, no abdominal pain. Musculoskeletal: No back pain. Allergies: Coded Allergies: Penicillins (Verified Allergy, Mild, 03/01/18) chlorpromazine (Verified Allergy, Mild, 03/01/18) Home Meds Active Scripts Aspirin (ASPIRIN) 81 Mg Tab.chew, 81 MG PO QDAY, #30 TAB.CHEW Prov:IONA HORTON 06/13/18 Metformin Hcl (METFORMIN HCL) 500 Mg Tablet, 1000 MG PO BIDBS for 30 Days, Prov:RICHARD WHYTE MD 11/09/17 Reported Medications Aspirin (ASPIR 81) 81 Mg Tablet.dr, 81 MG PO QDAY, TAB 06/13/18 Oxygen (OXYGEN) Inha, 3 L INH DAILY PRN for hypoxia, L 06/09/18 Guaifenesin/Dextromethorphan (SILTUSSIN DM COUGH SYRUP) 118 Ml Syrup, 20 ML PO Q4H PRN for CONGESTION 06/09/18 Guaifenesin/Dextromethorphan (Mucinex Fast-Max Dm Max Liquid) 100 Mg-5 Mg/5 Ml Liquid, 10 ML PO Q4H PRN for cough 06/09/18 Hypromellose (ISOPTO TEARS) 15 Ml Drops, 1 GTT OU PRN PRN for dryness 06/09/18 Loperamide Hcl (ANTI-DIARRHEA) 2 Mg Tablet, 4 MG PO PRN PRN for DIARRHEA 06/09/18 Albuterol Sulfate 0.083% (ALBUTEROL SULFATE 0.083%) 2.5 Mg/3 Ml Vial.neb, 2.5 MG INH TID PRN for cough, INH 06/09/18 Metoprolol Tartrate (METOPROLOL TARTRATE) 50 Mg Tab, 1 TAB PO BID, TAB 06/09/18 Ezetimibe (ZETIA) 10 Mg Tablet, 10 MG PO QDAY, TAB 06/09/18 Calcium Carb & Cit/Vitamin D3 (CALCIUM + D3 ER TABLET) 1 Each Tablet.er, 2 EACH PO DAILY 06/09/18 Polyethylene Glycol 3350 (MIRALAX) 17 Gm Powd.pack, 17 GM PO PRN, PKT 06/05/18 Triamcinolone Acetonide 0.1% Cr 15 Gm Tube (TRIAMCINOLONE ACETONIDE 0.1% CREAM) 15 Gm Cream..g., 1 CARMELO TP BID, TUBE for 14 days. end on 06/14/2018 06/05/18 Terazosin Hcl (TERAZOSIN HCL) 1 Mg Capsule, 1 MG PO QHS, CAPSULE 06/05/18 Fluticasone Prop 50 Mcg Ns (FLONASE 50 MCG NS) 16 Gm [place].susp, 2 SPRAYS NS QDAY, BOT 06/05/18 Lactose-Free Food (ENSURE PLUS) 237 Ml Liquid, 237 ML PO QDAY 06/05/18 Albuterol Sulfate 0.083% (ALBUTEROL SULFATE 0.083%) 2.5 Mg/3 Ml Vial.neb, 2.5 MG INH TID, INH 0800/1200/2000 06/05/18 Bupropion Hcl (BUPROPION HCL) 75 Mg Tablet, 75 MG PO BID, #10 TAB 06/05/18 Valproic Acid (VALPROIC ACID) 250 Mg Cap, 250 MG PO QID@08,12,16,20, CAP 03/01/18 Hydrocortisone (Hydrocortisone) 1 % Cream..g., 1 CARMELO TP PRN PRN for ITCHING 10/01/17 Menthol (BIOFREEZE) 118 Ml Gel..ml., PRN for PAIN 10/01/17 Omeprazole (OMEPRAZOLE) 20 Mg Capsule.dr, 1 CAP PO QDAY, CAP 10/01/17 Losartan Potassium (LOSARTAN POTASSIUM) 100 Mg Tablet, 100 MG PO QDAY 10/01/17 Acetaminophen 500 Mg Tab (ACETAMINOPHEN EXTRA STRENGTH) 500 Mg Tablet, 1000 MG PO Q4-6H PRN for PAIN, TAB 10/01/17 [closys toothpaste] No Conflict Check, 1 CARMELO BID 05/12/17 Cetyl Alc/Stearyl Alc/Pg/Sls (CETAPHIL CREAM) 454 Gm Cream..g., 454 GM TP HS Apply to both feet before bed 05/12/17 Bacitracin/Polymyxin B Sulfate (BACITRACIN-POLYMYXIN EYE OINT) 3.5 Gm Oint...g., 3.5 GM OD PRN 05/12/17 Magnesium Hydroxide (MILK OF MAGNESIA) 400 Mg/5 Ml Oral.susp, 30 ML PO QHS, BOTTLE 06/02/16 Baclofen (BACLOFEN) 10 Mg Tablet, 10 MG PO PRN PRN for HICCUPS, #30 TAB every 6 hours as needed. Only 2 in 24 hours 05/02/15 Multivitamin (ONE DAILY) 1 Each Tablet, 1 EACH PO DAILY 01/14/14 Discontinued Reported Medications Calcium Carbonate/Mag Hydrox (Antacid 1000-200 mg Tab Chew) 1 Each Tab.chew, 1000 MG PO PRN 05/26/15 Metoprolol Tartrate (METOPROLOL TARTRATE) 25 Mg Tablet, 50 MG PO BID, TAB 06/05/18 Fluticasone Prop 50 Mcg Ns (FLONASE 50 MCG NS) 16 Gm [place].susp, 1 SPRAY NS QDAY, BOT 06/05/18 Doxycycline Hyclate (DOXYCYCLINE HYCLATE) 100 Mg Capsule, 100 MG PO BID, CAPSULE 06/05/18 Tamsulosin Hcl (TAMSULOSIN HCL) 0.4 Mg Cap.er.24h, 0.4 MG PO, CAP 10/01/17 [equate body powder] No Conflict Check, 1 CARMELO TOP DAILY Sprinkle a light amount on clean, dry feet daily prior to putting on socks and shoes 05/12/17 Calcium Carbonate/Vitamin D3 (CALCIUM 600 + VIT D 200 TABLET) 1 Each Tablet, 1 EACH PO DAILY 05/12/17 Valproic Acid (VALPROIC ACID) 250 Mg Cap, 250 MG PO ACHS, CAP 01/28/14 Atenolol (ATENOLOL) 100 Mg Tablet, 1 TAB PO QDAY, TAB TAKE ONE TABLET BY MOUTH ONCE A DAY at 6PM 01/28/14 Discontinued Scripts [Hypromellose 0.4% Lub 15ML Btl] 15 ML SOLN No Conflict Check, 0 ML OU PRN PRN for dryness for 30 Days, INSTILL 1 DROP Prov:GO KIRKLAND MD 06/05/17 Ezetimibe (ZETIA) 10 Mg Tablet, 10 MG PO QHS for 30 Days, Prov:GO KIRKLAND MD 06/05/17 Past Medical/Surgical History Patient has a past medical history of fragile X, first-degree heart block, [place], hypertension, hyperlipidemia, pneumonia, reflux, urinary incontinence, BPH, arthritis, type 2 diabetes, depression. Patient has surgical history of dental surgery, TURP, urethral dilation, cystoscopy, colonoscopy, cholecystectomy, EGD. Patient has a family medical history of diabetes. Reviewed Nurses Notes: Yes Hx Smoking: No Smoking Status: Never Smoker Hx Substance Use Disorder: No Hx Alcohol Use: No Constitutional Vital Sign - Last 24 Hours 06/13/18 06/13/18 06/13/18 06/13/18 17:43 17:44 17:50 18:00 Temp 98.9 Pulse 79 81 Resp 18 16 B/P (MAP) 184/126 (145) 184/126 182/100 (127) Pulse Ox 92 92 O2 Delivery Nasal Cannula 06/13/18 06/13/18 06/13/18 06/13/18 18:05 18:20 18:30 18:50 Pulse 79 79 78 Resp 24 42 11 B/P (MAP) ???/??? (5265) Pulse Ox 92 92 94 06/13/18 06/13/18 06/13/18 06/13/18 19:00 19:05 19:19 19:20 Pulse 80 79 Resp 19 20 B/P (MAP) 187/106 (133) Pulse Ox 91 98 O2 Flow Rate 3.0 06/13/18 06/13/18 06/13/18 06/13/18 19:25 19:30 19:40 19:55 Pulse 76 75 74 Resp 10 0 0 B/P (MAP) 147/83 (104) Pulse Ox 97 97 98 06/13/18 06/13/18 20:00 20:10 Pulse 71 Resp 0 B/P (MAP) 137/81 (99) Pulse Ox 99 Physical Exam General Appearance: The patient is alert, has no immediate need for airway protection and no current signs of toxicity. Respiratory: Chest is non tender, lungs are clear to auscultation. Cardiac: regular rate and rhythm Gastrointestinal: Abdomen is soft and non tender, no masses, bowel sounds normal. Musculoskeletal: Neck: Neck is supple and non tender. Extremities have full range of motion and are non tender. Skin: No rashes or lesions. DIFFERENTIAL DIAGNOSIS: After history and physical exam differential diagnosis was considered for urinary tract infection, pneumonia, post ICU weakness. Medical Decision Making Data Points Result Diagram: 06/13/18181606/13/181816 Laboratory Hematology Test 06/13/18 00:00 06/13/18 18:17 Urine Color Yellow Urine Clarity Clear Urine pH 5.0 pH (4.8-9.5) Urine Specific [place] 1.019 Urine Protein Negative mg/dL (NEGATIVE) Urine Glucose (UA) Negative mg/dL (NEGATIVE) Urine Ketones Negative mg/dL (NEGATIVE) Urine Blood Small (NEGATIVE) Urine Nitrite Negative (NEGATIVE) Urine Bilirubin Negative (NEGATIVE) Urine Urobilinogen 2.0 mg/dL (0.2-1.9) Urine Leukocyte Esterase Negative (NEGATIVE) Urine RBC 9 /HPF (0-2/HPF) Urine WBC 2 /HPF (0-5/HPF) Urine Squamous Epithelial Cells Few /LPF (</=FEW) Urine Bacteria Negative /HPF (NONE-FEW) Urine Mucus Few /HPF (NONE-FEW) Red Blood Count 4.42 M/uL (4.00-5.60) Mean Corpuscular Volume 84.0 fL (80.0-96.0) Mean Corpuscular Hemoglobin 27.9 pg (26.0-33.0) Mean Corpuscular Hemoglobin Concent 33.2 g/dL (32.0-36.0) Red Cell Distribution Width 17.3 % (11.5-14.5) Mean Platelet Volume 7.8 fL (7.2-11.1) Neutrophils (%) (Auto) 69.0 % (39.4-72.5) Lymphocytes (%) (Auto) 18.9 % (17.6-49.6) Monocytes (%) (Auto) 6.2 % (4.1-12.4) Eosinophils (%) (Auto) 3.8 % (0.4-6.7) Basophils (%) (Auto) 2.1 % (0.3-1.4) Nucleated RBC Relative Count (auto) 0.1 /100WBC Neutrophils # (Auto) 6.6 K/uL (2.0-7.4) Lymphocytes # (Auto) 1.8 K/uL (1.3-3.6) Monocytes # (Auto) 0.6 K/uL (0.3-1.0) Eosinophils # (Auto) 0.4 K/uL (0.0-0.5) Basophils # (Auto) 0.2 K/uL (0.0-0.1) Nucleated RBC Absolute Count (auto) 0.01 K/uL Peripheral Blood Smear Yes Y/N Sodium Level 133 mmol/L (137-145) Potassium Level 4.5 mmol/L (3.5-5.0) Chloride Level 99 mmol/L (98-107) Carbon Dioxide Level 32 mmol/L (22-30) Blood Urea Nitrogen 16 mg/dl (9-21) Creatinine 0.40 mg/dl (0.66-1.25) Glomerular Filtration Rate Calc > 60.0 Random Glucose 127 mg/dl (75-110) Calcium Level 9.3 mg/dl (8.4-10.2) Total Bilirubin 0.4 mg/dl (0.2-1.3) Aspartate Amino Transf (AST/SGOT) 22 U/L (0-35) Alanine Aminotransferase (ALT/SGPT) 24 U/L (0-56) Alkaline Phosphatase 64 U/L (0-126) Total Protein 6.7 g/dl (6.3-8.2) Albumin 3.2 g/dl (3.5-5.0) Chemistry Test 06/13/18 00:00 06/13/18 18:17 Urine Color Yellow Urine Clarity Clear Urine pH 5.0 pH (4.8-9.5) Urine Specific [place] 1.019 Urine Protein Negative mg/dL (NEGATIVE) Urine Glucose (UA) Negative mg/dL (NEGATIVE) Urine Ketones Negative mg/dL (NEGATIVE) Urine Blood Small (NEGATIVE) Urine Nitrite Negative (NEGATIVE) Urine Bilirubin Negative (NEGATIVE) Urine Urobilinogen 2.0 mg/dL (0.2-1.9) Urine Leukocyte Esterase Negative (NEGATIVE) Urine RBC 9 /HPF (0-2/HPF) Urine WBC 2 /HPF (0-5/HPF) Urine Squamous Epithelial Cells Few /LPF (</=FEW) Urine Bacteria Negative /HPF (NONE-FEW) Urine Mucus Few /HPF (NONE-FEW) White Blood Count 9.5 k/uL (4.5-11.0) Red Blood Count 4.42 M/uL (4.00-5.60) Hemoglobin 12.3 g/dL (14.0-18.0) Hematocrit 37.1 % (42.0-52.0) Mean Corpuscular Volume 84.0 fL (80.0-96.0) Mean Corpuscular Hemoglobin 27.9 pg (26.0-33.0) Mean Corpuscular Hemoglobin Concent 33.2 g/dL (32.0-36.0) Red Cell Distribution Width 17.3 % (11.5-14.5) Platelet Count 600 K/uL (150-450) Mean Platelet Volume 7.8 fL (7.2-11.1) Neutrophils (%) (Auto) 69.0 % (39.4-72.5) Lymphocytes (%) (Auto) 18.9 % (17.6-49.6) Monocytes (%) (Auto) 6.2 % (4.1-12.4) Eosinophils (%) (Auto) 3.8 % (0.4-6.7) Basophils (%) (Auto) 2.1 % (0.3-1.4) Nucleated RBC Relative Count (auto) 0.1 /100WBC Neutrophils # (Auto) 6.6 K/uL (2.0-7.4) Lymphocytes # (Auto) 1.8 K/uL (1.3-3.6) Monocytes # (Auto) 0.6 K/uL (0.3-1.0) Eosinophils # (Auto) 0.4 K/uL (0.0-0.5) Basophils # (Auto) 0.2 K/uL (0.0-0.1) Nucleated RBC Absolute Count (auto) 0.01 K/uL Peripheral Blood Smear Yes Y/N Glomerular Filtration Rate Calc > 60.0 Calcium Level 9.3 mg/dl (8.4-10.2) Total Bilirubin 0.4 mg/dl (0.2-1.3) Aspartate Amino Transf (AST/SGOT) 22 U/L (0-35) Alanine Aminotransferase (ALT/SGPT) 24 U/L (0-56) Alkaline Phosphatase 64 U/L (0-126) Total Protein 6.7 g/dl (6.3-8.2) Albumin 3.2 g/dl (3.5-5.0) Urinalysis Test 06/13/18 00:00 Urine Color Yellow Urine Clarity Clear Urine pH 5.0 pH (4.8-9.5) Urine Specific [place] 1.019 Urine Protein Negative mg/dL (NEGATIVE) Urine Glucose (UA) Negative mg/dL (NEGATIVE) Urine Ketones Negative mg/dL (NEGATIVE) Urine Blood Small (NEGATIVE) Urine Nitrite Negative (NEGATIVE) Urine Bilirubin Negative (NEGATIVE) Urine Urobilinogen 2.0 mg/dL (0.2-1.9) Urine Leukocyte Esterase Negative (NEGATIVE) Urine RBC 9 /HPF (0-2/HPF) Urine WBC 2 /HPF (0-5/HPF) Urine Squamous Epithelial Cells Few /LPF (</=FEW) Urine Bacteria Negative /HPF (NONE-FEW) Urine Mucus Few /HPF (NONE-FEW) EKG/Imaging Imaging CHEST PA LAT HISTORY: Cough. COMPARISON: 06/09/2017. FINDINGS: Lines/tubes: None. Lungs/pleura: Stable interstitial opacities throughout both lungs. Heart: Negative. Mediastinum: Negative. Bony structures/body wall: Negative. IMPRESSION: Stable interstitial opacities throughout both lungs which may represent mild pulmonary edema, atypical infection, and/or chronic changes. Report Dictated By: Karlos Latif MD at 06/13/2018 8:25 PM Report E-Signed By: Karlos Latif MD at 06/13/2018 8:28 PM ED Course/Re-evaluation ED Course Patient was admitted to an exam room, history and physical were obtained. Differential diagnoses were considered. On examination lungs are clear, heart is regular, abdomen is soft and nontender. A CBC, CMP, urinalysis, chest x-ray were done. The lab results were unremarkable. At the time of this dictation there is artificial read on the chest x-ray. It did look improved from the chest x-ray from June 09. With the [facility] not feeling capable to take care of the patient I did discuss the case with Dr. Perry, hospitalist, who agreed to accept the patient for admission. I discussed this with the caregiver who verbalized understanding and agreement plan. Patient will be admitted for placement to retirement. Decision to Disposition Date: Jun 13, 2018 Decision to Disposition Time: 19:55 Depart Departure Latest Vital Signs Vital Signs Date Time Temp Pulse Resp B/P (MAP) Pulse Ox O2 Delivery O2 Flow Rate FiO2 06/13/18 20:10 71 0 99 06/13/18 20:00 137/81 (99) 06/13/18 19:19 3.0 06/13/18 17:44 98.9 Nasal Cannula Core Temperature (Celsius): 37.2 Impression: Primary Impression: Weakness Condition: Condition Unchanged Disposition: Admitted from ER Referrals: DEMETRIO GARCIA DO (PCP) VIVI BABB Jun 13, 2018 17:50
[2018-06-13] MEDS ORDERED: ASPI-1471 PO (18:00)
[2018-06-13] MEDS ORDERED: NS(*) 0.9% 500 ML BAG 500 ML IV ONE (18:00)
[2018-06-13 18:48] LABS: PLATELET COUNT, AUTOMATED 600 K/uL (150-450)
--- NOTE | 2018-06-13 20:35 | RADIOLOGY IMAGING REPORT ---
FACILITY: [facility] PATIENT NAME: Glen Jones : 1945 MR: [id number] V: [id number] EXAM DATE: ORDERING PHYSICIAN: VIVI BABB TECHNOLOGIST: Location: [facility] [place] Patient: Glen Joens : 1945 Visit/Account:[id number] Date of Sevice: 06/13/2018 CHEST PA LAT HISTORY: Cough. COMPARISON: 06/09/2017. FINDINGS: Lines/tubes: None. Lungs/pleura: Stable interstitial opacities throughout both lungs. Heart: Negative. Mediastinum: Negative. Bony structures/body wall: Negative. IMPRESSION: Stable interstitial opacities throughout both lungs which may represent mild pulmonary ed cesario, atypical infection, and/or chronic changes. Report Dictated By: Karlos Latif MD at 06/13/2018 8:25 PM Report E-Signed By: Karlos Latif MD at 06/13/2018 8:28 PM WSN:[email or web address]
[2018-06-13 21:06] VITALS: BP 166/80
[2018-06-13 21:09] VITALS: BP 166/80
[2018-06-13] MEDS ORDERED: BACITRACIN/POLYMY B OINT 3.5GM OD SCH (21:45)
[2018-06-13] MEDS ORDERED: ACETAMINOPHEN 500 MG TAB PO PRN (21:45)
[2018-06-13] MEDS ORDERED: GUAIFENESIN/DEXTROMETHORPHAN 5 ML PO PRN (21:45)
[2018-06-13] MEDS ORDERED: INFLUENZA VIRUS VAC 0.5ML SYR IM ONLY ONE (21:50)
[2018-06-13] MEDS ORDERED: ONDANSETRON 4 MG/2 ML VIAL IVP PRN (21:50)
--- NOTE | 2018-06-13 22:06 | History & Physical ---
History of Present Illness Chief Complaint Weakness History of Present Illness 73M presented after [facility] staff brought him to ER due to their inability to care for him. He was discharged today after [facility] reassured us that they could meet his needs but after getting him back they changed their minds and brought him to the ER. Admitted to find other placement who are capable of caring for him. History Problems: (1) Fragile X syndrome in male Status: Chronic (2) DMII (diabetes mellitus, type 2) Status: Chronic (3) Hypertension Status: Chronic (4) BPH (benign prostatic hyperplasia) Status: Chronic Home Meds Active Scripts Aspirin (ASPIRIN) 81 Mg Tab.chew, 81 MG PO QDAY, #30 TAB.CHEW Prov:IONA HORTON 06/13/18 Metformin Hcl (METFORMIN HCL) 500 Mg Tablet, 1000 MG PO BIDBS for 30 Days, Prov:RICHARD WHYTE MD 11/09/17 Reported Medications Aspirin (ASPIR 81) 81 Mg Tablet.dr, 81 MG PO QDAY, TAB 06/13/18 Oxygen (OXYGEN) Inha, 3 L INH DAILY PRN for hypoxia, L 06/09/18 Guaifenesin/Dextromethorphan (SILTUSSIN DM COUGH SYRUP) 118 Ml Syrup, 20 ML PO Q4H PRN for CONGESTION 06/09/18 Guaifenesin/Dextromethorphan (Mucinex Fast-Max Dm Max Liquid) 100 Mg-5 Mg/5 Ml Liquid, 10 ML PO Q4H PRN for cough 06/09/18 Hypromellose (ISOPTO TEARS) 15 Ml Drops, 1 GTT OU PRN PRN for dryness 06/09/18 Loperamide Hcl (ANTI-DIARRHEA) 2 Mg Tablet, 4 MG PO PRN PRN for DIARRHEA 06/09/18 Albuterol Sulfate 0.083% (ALBUTEROL SULFATE 0.083%) 2.5 Mg/3 Ml Vial.neb, 2.5 MG INH TID PRN for cough, INH 06/09/18 Metoprolol Tartrate (METOPROLOL TARTRATE) 50 Mg Tab, 1 TAB PO BID, TAB 06/09/18 Ezetimibe (ZETIA) 10 Mg Tablet, 10 MG PO QDAY, TAB 06/09/18 Calcium Carb & Cit/Vitamin D3 (CALCIUM + D3 ER TABLET) 1 Each Tablet.er, 2 EACH PO DAILY 1/25/19 Polyethylene Glycol 3350 (MIRALAX) 17 Gm Powd.pack, 17 GM PO PRN, PKT 06/05/18 Triamcinolone Acetonide 0.1% Cr 15 Gm Tube (TRIAMCINOLONE ACETONIDE 0.1% CREAM) 15 Gm Cream..g., 1 CARMELO TP BID, TUBE for 14 days. end on 06/14/2018 06/05/18 Terazosin Hcl (TERAZOSIN HCL) 1 Mg Capsule, 1 MG PO QHS, CAPSULE 06/05/18 Fluticasone Prop 50 Mcg Ns (FLONASE 50 MCG NS) 16 Gm [place].susp, 2 SPRAYS NS QDAY, BOT 06/05/18 Lactose-Free Food (ENSURE PLUS) 237 Ml Liquid, 237 ML PO QDAY 06/05/18 Albuterol Sulfate 0.083% (ALBUTEROL SULFATE 0.083%) 2.5 Mg/3 Ml Vial.neb, 2.5 MG INH TID, INH 0800/1200/2000 06/05/18 Bupropion Hcl (BUPROPION HCL) 75 Mg Tablet, 75 MG PO BID, #10 TAB 06/05/18 Valproic Acid (VALPROIC ACID) 250 Mg Cap, 250 MG PO QID@08,12,16,20, CAP 03/01/18 Hydrocortisone (Hydrocortisone) 1 % Cream..g., 1 CARMELO TP PRN PRN for ITCHING 10/01/17 Menthol (BIOFREEZE) 118 Ml Gel..ml., PRN for PAIN 10/01/17 Omeprazole (OMEPRAZOLE) 20 Mg Capsule.dr, 1 CAP PO QDAY, CAP 10/01/17 Losartan Potassium (LOSARTAN POTASSIUM) 100 Mg Tablet, 100 MG PO QDAY 10/01/17 Acetaminophen 500 Mg Tab (ACETAMINOPHEN EXTRA STRENGTH) 500 Mg Tablet, 1000 MG PO Q4-6H PRN for PAIN, TAB 10/01/17 [closys toothpaste] No Conflict Check, 1 CARMELO BID 05/12/17 Cetyl Alc/Stearyl Alc/Pg/Sls (CETAPHIL CREAM) 454 Gm Cream..g., 454 GM TP HS Apply to both feet before bed 05/12/17 Bacitracin/Polymyxin B Sulfate (BACITRACIN-POLYMYXIN EYE OINT) 3.5 Gm Oint...g., 3.5 GM OD PRN 05/12/17 Magnesium Hydroxide (MILK OF MAGNESIA) 400 Mg/5 Ml Oral.susp, 30 ML PO QHS, BOTTLE 06/02/16 Baclofen (BACLOFEN) 10 Mg Tablet, 10 MG PO PRN PRN for HICCUPS, #30 TAB every 6 hours as needed. Only 2 in 24 hours 05/02/15 Multivitamin (ONE DAILY) 1 Each Tablet, 1 EACH PO DAILY 01/14/14 Discontinued Reported Medications Calcium Carbonate/Mag Hydrox (Antacid 1000-200 mg Tab Chew) 1 Each Tab.chew, 1000 MG PO PRN 05/26/15 Metoprolol Tartrate (METOPROLOL TARTRATE) 25 Mg Tablet, 50 MG PO BID, TAB 06/05/18 Fluticasone Prop 50 Mcg Ns (FLONASE 50 MCG NS) 16 Gm [place].susp, 1 SPRAY NS QDAY, BOT 06/05/18 Doxycycline Hyclate (DOXYCYCLINE HYCLATE) 100 Mg Capsule, 100 MG PO BID, CAPSULE 06/05/18 Tamsulosin Hcl (TAMSULOSIN HCL) 0.4 Mg Cap.er.24h, 0.4 MG PO, CAP 10/01/17 [equate body powder] No Conflict Check, 1 CARMELO TOP DAILY Sprinkle a light amount on clean, dry feet daily prior to putting on socks and shoes 05/12/17 Calcium Carbonate/Vitamin D3 (CALCIUM 600 + VIT D 200 TABLET) 1 Each Tablet, 1 EACH PO DAILY 05/12/17 Valproic Acid (VALPROIC ACID) 250 Mg Cap, 250 MG PO ACHS, CAP 01/28/14 Atenolol (ATENOLOL) 100 Mg Tablet, 1 TAB PO QDAY, TAB TAKE ONE TABLET BY MOUTH ONCE A DAY at 6PM 01/28/14 Discontinued Scripts [Hypromellose 0.4% Lub 15ML Btl] 15 ML SOLN No Conflict Check, 0 ML OU PRN PRN for dryness for 30 Days, INSTILL 1 DROP Prov:GO KIRKLAND MD 06/05/17 Ezetimibe (ZETIA) 10 Mg Tablet, 10 MG PO QHS for 30 Days, Prov:GO KIRKLAND MD 06/05/17 Allergies: Coded Allergies: Penicillins (Verified Allergy, Mild, 03/01/18) chlorpromazine (Verified Allergy, Mild, 03/01/18) Patient History: FH: cancer pt doesn't know. FH: diabetes mellitus pt doesn't know. FHx: heart disease pt doesn't know. Hx Smoking: No Smoking Status: Never Smoker Caffeine Intake: Soda Caffeine/Cups Per Day: RARELY Hx Alcohol Use: No Hx Substance Use Disorder: No Social Drug Use: Never Review of Systems All Systems Reviewed/Normal: Yes, Except as Noted Constitutional: No Fever, No Chills Respiratory: No Shortness of Breath Gastrointestinal: No Nausea, No Vomiting Exam Vital Signs Vital Signs Date Time Temp Pulse Resp B/P (MAP) Pulse Ox O2 Delivery O2 Flow Rate FiO2 06/13/18 21:35 92 Nasal Cannula 3.0 06/13/18 21:06 76 20 166/80 (108) 06/13/18 17:44 98.9 General Appearance: Alert, Awake, No Acute Distress ENT: Normal Cardiovascular: Normal Rhythm & Peripheral Pulses Respiratory: No Respiratory Distress GI: Abd Soft and Non-Tender Extremities: Soft and Non Tender, Warm, Pulses, Perfused Medical Decision Making Data Points Result Diagram: 06/13/18181606/13/181816 Assessment and Plan Problems: (1) Demand ischemia Assessment & Plan: Troponin elevation during recent acute illness. Continue chronic ASA. (2) Aspiration into airway Status: Chronic Assessment & Plan: Several episodes of aspiration, will likely continue to be issue. Not currently acutely ill. (3) ANEMIA, UNSPECIFIED Assessment & Plan: Chronic. (4) BPH (benign prostatic hyperplasia) Status: Chronic Assessment & Plan: Continue terazosin (5) DMII (diabetes mellitus, type 2) Status: Chronic Assessment & Plan: Continue metformin Venous Thromboembolism Antithrombotics Is Pt On Any Antithrombotics?: Yes Exam Sepsis Risk: No Definite Risk BUSTAMANTE NETTIE VENEGAS DO Jun 13, 2018 22:06
[2018-06-14] MEDS: ALBUTEROL 2.5 MG/3 ML NEB NEB SCH ×3 (05:20→17:05)
[2018-06-14] MEDS: PANTOPRAZOLE SOD 40 MG TABEC PO SCH (06:30)
[2018-06-14] MEDS ORDERED: BACITRACIN/POLYMY B OINT 3.5GM OD PRN ×2 (07:25→07:45)
[2018-06-14] MEDS ORDERED: VALPROIC ACID 250 MG CAP PO SCH (08:00)
[2018-06-14 09:15] VITALS: BP 156/76
[2018-06-14] MEDS: metFORMIN HCL 500 MG TAB PO SCH ×2 (09:20→17:34)
[2018-06-14] MEDS: VALPROIC ACID 250 MG CAP PO SCH ×4 (09:20→22:32)
[2018-06-14] MEDS: LOSARTAN POTASSIUM 50 MG TAB PO SCH (09:20)
[2018-06-14] MEDS: TRIAMCINOLONE ACE 0.1% CR 15GM TP SCH ×2 (09:20→22:32)
[2018-06-14] MEDS: buPROPion IR 75 MG TAB PO SCH ×2 (09:20→21:00)
[2018-06-14] MEDS: ASPIRIN 81 MG ENTERIC COATED PO SCH (09:20)
[2018-06-14] MEDS: ENOXAPARIN 40 MG/0.4ML SYR SC SCH (09:20)
[2018-06-14] MEDS: METOPROLOL TART 50 MG TAB PO SCH ×2 (09:20→21:00)
--- NOTE | 2018-06-14 10:47 | Hospitalist Progress Note ---
Subjective Progress Notes Subjective He has no complaints this morning. He had no acute events overnight. Patient Complains of: Cardiovascular: No: Chest Pain Physical Exam Vital Signs Date Time Temp Pulse Resp B/P (MAP) Pulse Ox O2 Delivery O2 Flow Rate FiO2 06/14/18 09:43 91 06/14/18 09:15 98.0 68 20 156/76 (102) Nasal Cannula 2.5 Intake and Output 06/14/18 07:00 Intake Total 900 ml Balance 900 ml Intake Oral 400 ml IV Total 500 ml # Voids 3 # Bowel Movements 1 General Appearance: Alert, Awake, No Acute Distress, Afebrile Cardiovascular: Regular Rate and Rhythm Respiratory: No Respiratory Distress, Clear to Auscultation GI: Soft and Non-Tender Psych: Appropriate Mood & Affect Result Diagram: 06/13/18181606/13/181816 Assessment and Plan Problems: (1) Demand ischemia Assessment & Plan: Troponin elevation during recent acute illness. Continue chronic ASA. (2) Aspiration into airway Status: Chronic Assessment & Plan: Several episodes of aspiration, will likely continue to be issue. Not currently acutely ill. (3) ANEMIA, UNSPECIFIED Assessment & Plan: Chronic. (4) BPH (benign prostatic hyperplasia) Status: Chronic Assessment & Plan: Continue terazosin (5) DMII (diabetes mellitus, type 2) Status: Chronic Assessment & Plan: Continue metformin Exam Sepsis Risk: No Definite Risk IONA HORTON HUNTER TRAPPER Jun 14, 2018 10:47
[2018-06-14 14:21] VITALS: BP 152/70
--- NOTE | 2018-06-14 16:30 | Medical Nutrition Therapy ---
Nutrition Anthropometrics Height (Inches): 69.00 Height (Calculated Centimeters: 175.324224 Weight (Pounds): 123 Weight (Calculated Kilograms): 55.934 BMI: 18.2 Isaias Nutrition Score: Probably Inadequate Isaias Nutrition Risk Score: 11 Dietary Referral Nutrition Risk Factors: Diff. Swallowing, Special Diet Nutrition Risk Comment: Dysphagia diet, needs supervision at meals, 50oz fluid restriction at [facility] Physical Findings Physical Appearance: Underweight BMI<19 Skin Appearance Skin Appearance: Edema Edema Location Modifier: Edema Location: Type of Edema: Degree of Edema: Gastrointestinal Symptoms GI Symtoms: Tube Present: Bowel Sounds: Recent Bowel Pattern: Incontinent Stool Characteristics: Nutritional Diagnosis Nutritional Risk Acuity 2: Swallowing Problem (stage 2 per PT last admit) Nutritional Risk Acuity 3: ST I/II Pressure Ulcer (stage 2 per PT) Past Medical History: HTN, GERD, depression, hyperlipidemia, T2DM, aspiration pneumonia, and fragile X syndrome Nutritional Acuity: 2-Moderate Nutrition Diagnosis: Swallowing Difficulties Nutrition Etiology: Physiological Causes Nutrition Problem/Etiology/Sym: AEB hx of aspiration and dyspagia identify by SPL Energy Requirement: 2030 (M- St J X 1.2) Protein Requirement: 82 (1.5 gm/kg) Fluid Requirement: 1650 (30ml/kg) Diet Type: Diet as Tolerated JOZEF/REG, Dysphagia Stage 1 Nutrition Intervention: Cont diet as ordered, Encourage intake Additional Diet Restrictions: OFFER NUTR SUPPLMENTS AND PUT PROTEIN POWDER IN APPROPRIATE FOODS Nutrition Monitoring & Eval Nutrition Goals: Eat 75-100% Meal RD Patient Assessment Time: [address] Assessment Type: RD Assessment Patient Nutrition Acuity: 2-Moderate Follow Up Date: Jun 18, 2018 Nutritional Comment: 06/14 Pt on dysphagia 1 diet with thin liquies. Pt has increased nutritional needs r/t underwt and stage 2 pressure area. alb 3.2, BG 127. Pt is eating 25-75% meals. Will add nutr supplment and protein powder to increase kcal and protein intake. Will cont to monitor and encourage intake. RAQUEL MEJIA Jun 14, 2018 15:25
[2018-06-14] MEDS: TERAZOSIN HCL 1 MG CAP PO SCH (21:00)
[2018-06-14] MEDS: EZETIMIBE 10 MG TAB PO SCH (21:00)
[2018-06-14] MEDS: MAGNESIUM HYDROXIDE* 30ML UDCP PO SCH (21:00)
[2018-06-14 22:44] VITALS: BP 130/62
[2018-06-15] MEDS: ALBUTEROL 2.5 MG/3 ML NEB NEB SCH ×3 (05:36→18:14)
[2018-06-15] MEDS: PANTOPRAZOLE SOD 40 MG TABEC PO SCH (06:21)
[2018-06-15 07:32] VITALS: BP 134/70
[2018-06-15] MEDS: VALPROIC ACID 250 MG CAP PO SCH ×4 (08:00→22:51)
[2018-06-15 08:38] LABS: PLATELET COUNT, AUTOMATED 561 K/uL (150-450)
--- NOTE | 2018-06-15 08:46 | RADIOLOGY IMAGING REPORT ---
FACILITY: [facility] - [place] PATIENT NAME: Glen Jones : 1945 MR: [id number] V: [id number] EXAM DATE: ORDERING PHYSICIAN: IONA HOROTN TECHNOLOGIST: Location: [facility] - [place] Patient: Glen Jones : 1945 Visit/Account:[id number] Date of Sevice: 06/15/2018 Exam type: CHEST SINGLE AP History: increased oxygen use Comparison: June 13 2018. And February 06, 2018 Findings: Reticular nodular opacities throughout the right lung appears relatively unchanged. Coarse linear st randing in the medial left lower lobe has increased. There is no evidence of pleural effusions. The cardiac silhouette appears normal. IMPRESSION: 1. Reticular nodular opacities throughout the right lung appear relatively unchanged when compared t o the most recent chest however they appear increased when compared to an older chest from February 06, 2018 suggesting an acute infectious/inflammatory process Increasing linear stranding in the left lung base likely representing atelectasis Report Dictated By: Jasmina Hickman MD at 06/15/2018 8:39 AM Report E-Signed By: Jasmina Hickman MD at 06/15/2018 8:42 AM WSN:[id number]
[2018-06-15] MEDS: TRIAMCINOLONE ACE 0.1% CR 15GM TP SCH ×2 (09:00→22:49)
--- NOTE | 2018-06-15 11:33 | Hospitalist Progress Note ---
Subjective Progress Notes Subjective His oxygen levels have increased overnight to 7L. He has been coughing, has slightly increased WBC count this morning. Patient Complains of: Respiratory: Cough, Shortness of Breath Physical Exam Vital Signs Date Time Temp Pulse Resp B/P (MAP) Pulse Ox O2 Delivery O2 Flow Rate FiO2 06/15/18 07:32 98.6 87 16 134/70 (91) 94 Nasal Cannula 6.0 Intake and Output 06/15/18 00:00 Intake Total 940 ml Balance 940 ml Intake Oral 940 ml # Voids 6 # Bowel Movements 5 General Appearance: Alert, Awake, Afebrile Cardiovascular: Regular Rate and Rhythm Respiratory: Other (coughing thoughout exam, difficult to hear lung sounds over teeth grinding) Extremities: Warm, Perfused; No Edema Integumentary: Other (skin breakdown to sacral area) Result Diagram: 06/15/1883206/15/18832 Assessment and Plan Problems: (1) Aspiration pneumonia Status: Chronic Assessment & Plan: He has increased oxygen use, elevated WBC count, and cough. CXR suggests acute process. He will be treated with Primaxin. (2) Demand ischemia Assessment & Plan: Troponin elevation during recent acute illness. Continue chronic ASA. (3) Aspiration into airway Status: Chronic Assessment & Plan: Several episodes of aspiration, will likely continue to be issue. (4) ANEMIA, UNSPECIFIED Assessment & Plan: Chronic. (5) BPH (benign prostatic hyperplasia) Status: Chronic Assessment & Plan: Continue terazosin (6) DMII (diabetes mellitus, type 2) Status: Chronic Assessment & Plan: Continue metformin Exam Sepsis Risk: No Definite Risk IONA HORTON MANDREL CLEANER Jun 15, 2018 11:33
[2018-06-15 12:10] VITALS: BP 142/80
--- NOTE | 2018-06-15 12:14 | NUR ---
Physical Therapy Impression PT/OT co eval complete. Max-totalA x2 required for bed mobility, pt required modA-maxA for upright balance sitting at EOB, this improved slightly as session progressed.MaxA x2 for STS transfer with EZ lift, pt requiring hand over hand assistance for placement of hands on lift. Once up in lift, pt requires mod-maxA for upright stance d/t severe R) sided lean. Rec LT placement Physical Therapy Goals 1: Pt to complete bed mobility with maxA x2 2: Pt to complete stand pivot transfer with maxA x 1 Patient's Goals
[2018-06-15] MEDS: ENOXAPARIN 40 MG/0.4ML SYR SC SCH (12:36)
[2018-06-15] MEDS: METOPROLOL TART 50 MG TAB PO SCH ×2 (12:36→22:49)
[2018-06-15] MEDS: buPROPion IR 75 MG TAB PO SCH ×2 (12:37→21:00)
[2018-06-15] MEDS: ASPIRIN 81 MG ENTERIC COATED PO SCH ×2 (12:37→22:49)
[2018-06-15] MEDS: LOSARTAN POTASSIUM 50 MG TAB PO SCH (12:37)
[2018-06-15] MEDS: metFORMIN HCL 500 MG TAB PO SCH ×2 (12:38→17:27)
[2018-06-15] MEDS ORDERED: LEVOFLOXACIN/D5W 750 MG/150 ML 150 ML IVPB SCH (13:00)
--- NOTE | 2018-06-15 13:13 | EKG ---
FACILITY: [facility] PATIENT NAME: PAMELA JAMES : [id number] MR: [id number] V: [id number] EXAM DATE: ORDERING PHYSICIAN: IONA HORTON TECHNOLOGIST: SONU Test Reason : PROLONGED QT Blood Pressure : / mmHG Vent. Rate : 083 BPM Atrial Rate : 083 BPM P-R Int : 190 ms QRS Dur : 082 ms QT Int : 358 ms P-R-T Axes : 061 019 045 degrees QTc Int : 420 ms Normal sinus rhythm Septal infarct (cited on or before 05-JUN-2018) T wave abnormality, consider anterior ischemia Abnormal ECG When compared with ECG of 05-JUN-2018 21:10, Significant changes have occurred Confirmed by RICHARD HERNANDEZ ([id number]) on 06/15/2018 2:54:28 PM Referred By: SOL Confirmed By:RICHARD HERNANDEZ
[2018-06-15] MEDS ORDERED: NS(*) 0.9% 500 ML BAG 500 ML ONE (13:31)
--- NOTE | 2018-06-15 14:43 | NUR ---
Occupational Therapy Impression Initial OT/PT evaluation completed. Max-Total Ax2 bed mobility. Mod-Max A maintaining upright position seated EOB. Max Ax2 sit<>rn clinician EZ lift, Mod-Max A standing in EZ lift [id number] to maintain upright posture. Right lateral lean present throughout tx. VSS throughout. Rec long-term placement. Occupational Therapy Goals 1) Pt will be Max Ax1 UB/LB dressing. 2) Pt will be Max Ax1 toilet task. Patient's Goal
[2018-06-15 14:54] VITALS: BP 128/82
[2018-06-15] MEDS: MAGNESIUM HYDROXIDE* 30ML UDCP PO SCH (22:49)
[2018-06-15] MEDS: TERAZOSIN HCL 1 MG CAP PO SCH (22:49)
[2018-06-15] MEDS: EZETIMIBE 10 MG TAB PO SCH (22:50)
[2018-06-16] MEDS: ACETAMINOPHEN(*)1000 MG/100 ML 100 ML IVPB PRN ×2 (00:20→07:33)
[2018-06-16] MEDS: PANTOPRAZOLE SOD 40 MG TABEC PO SCH (06:00)
[2018-06-16] MEDS: ALBUTEROL 2.5 MG/3 ML NEB NEB SCH ×2 (06:01→12:30)
[2018-06-16 06:22] LABS: PLATELET COUNT, AUTOMATED 475 K/uL (150-450)
[2018-06-16] MEDS ORDERED: INSULIN HUM LISPRO 100 UN/ML 3 ML VIAL SUBQ PRN (08:10)
[2018-06-16 08:21] VITALS: BP 132/68
[2018-06-16] MEDS: LOSARTAN POTASSIUM 50 MG TAB PO SCH (09:39)
[2018-06-16] MEDS: METOPROLOL TART 50 MG TAB PO SCH ×2 (09:39→09:42)
[2018-06-16] MEDS: ENOXAPARIN 40 MG/0.4ML SYR SC SCH (09:39)
[2018-06-16] MEDS: TRIAMCINOLONE ACE 0.1% CR 15GM TP SCH (09:40)
[2018-06-16] MEDS: PANTOPRAZOLE SOD 40 MG IV VIAL IVP SCH (09:40)
[2018-06-16] MEDS: buPROPion IR 75 MG TAB PO SCH (09:40)
[2018-06-16] MEDS: NS 0.9% IVPB SCH ×3 (09:42→20:35)
[2018-06-16] MEDS: VALPROATE SOD IVPB SCH ×3 (09:42→20:35)
--- NOTE | 2018-06-16 10:43 | Hospitalist Progress Note ---
Subjective Progress Notes Subjective Patient appears lethargic, had another aspiration event last night. He is now requiring 15L non-rebreather maintaining 87% saturation. Patient Complains of: Respiratory: Cough Physical Exam Vital Signs Date Time Temp Pulse Resp B/P (MAP) Pulse Ox O2 Delivery O2 Flow Rate FiO2 06/16/18 08:21 98.1 72 28 132/68 (89) 90 Non-Rebreather 15.0 Intake and Output 06/16/18 07:00 Intake Total 480 ml Balance 480 ml Intake Oral 480 ml # Voids 5 General Appearance: Awake, Afebrile Cardiovascular: Regular Rate and Rhythm Respiratory: Other (minimal air movement noted bilaterally) GI: Soft and Non-Tender Extremities: Warm, Perfused; No Edema Psych: Other (awakens said hello, went back to sleep) Result Diagram: 06/16/1855006/16/18550 Assessment and Plan Problems: (1) Aspiration pneumonia Status: Chronic Assessment & Plan: He has increased oxygen use (15L non-rebreather), elevated WBC count, and cough. CXR suggests acute process. He will be treated with Levaquin. I did speak with family member Hugh regarding the multiple aspiration events and the poor progression he has made during admission. Family is considering comfort care, but at this time will continue to treat aspiration pneumonia. (2) Demand ischemia Assessment & Plan: Troponin elevation during recent acute illness. Continue chronic ASA. (3) Aspiration into airway Status: Chronic Assessment & Plan: Several episodes of aspiration, will likely continue to be issue. (4) ANEMIA, UNSPECIFIED Assessment & Plan: Chronic. (5) BPH (benign prostatic hyperplasia) Status: Chronic Assessment & Plan: He is on chronic treatment with terazosin. (6) DMII (diabetes mellitus, type 2) Status: Chronic Assessment & Plan: He is on chronic treatment with Metformin. Will stop secondary to acute infection and aspiration. He will be placed on SS insulin #2, and AC/HS sugars. Exam Sepsis Risk: Sepsis Risk IONA HORTON Jun 16, 2018 10:43
--- NOTE | 2018-06-16 13:01 | NUR ---
Physical Therapy Impression Please see Hospitalist Progress Note for details on change in medical condition. Pt is requiring 15L non-rebreather mask to maintain SO2 at 87%. Pt not appropriate for PT tx as this will likely cause further decrease in SO2. Will follow and treat when medically appropriate. Physical Therapy Goals 1: Pt to complete bed mobility with maxA x2 2: Pt to complete stand pivot transfer with maxA x 1 Patient's Goals
[2018-06-16] MEDS: MORPHINE 2 MG/ML SYR IVP PRN (15:03)
[2018-06-16] MEDS ORDERED: TERAZOSIN HCL 1 MG CAP PO SCH (21:00)
[2018-06-16 22:54] VITALS: BP 128/58
[2018-06-17] MEDS: MORPHINE 2 MG/ML SYR IVP PRN ×2 (01:55→10:47)
[2018-06-17] MEDS: NS 0.9% IVPB SCH ×2 (02:24→08:33)
[2018-06-17] MEDS: VALPROATE SOD IVPB SCH ×2 (02:24→08:33)
[2018-06-17] MEDS: LORazepam 2 MG/ML VIAL IVP PRN ×2 (02:24→11:06)
[2018-06-17] MEDS: PANTOPRAZOLE SOD 40 MG IV VIAL IVP SCH (08:33)
--- NOTE | 2018-06-17 08:44 | Hospitalist Depart ---
Discharge Summary Reason for Hosp/Final Diag: (1) Aspiration pneumonia Status: Chronic Hospital Course & Plan: He has increased oxygen use (15L non-rebreather), elevated WBC count, and cough. CXR suggests acute process. He will be treated with Levaquin. I did speak with family member Hugh regarding the multiple aspiration events and the poor progression he has made during admission. Family has decided to do comfort care only and withdraw meds. Arrangements have been made to transfer patient to hospice home for end of life/comfort care. (2) Demand ischemia Hospital Course & Plan: Troponin elevation during recent acute illness. No workup planned. (3) Aspiration into airway Status: Chronic Hospital Course & Plan: Several episodes of aspiration, will likely continue to be issue. (4) ANEMIA, UNSPECIFIED Hospital Course & Plan: Chronic. (5) BPH (benign prostatic hyperplasia) Status: Chronic Hospital Course & Plan: No further treatment planned. (6) DMII (diabetes mellitus, type 2) Status: Chronic Hospital Course & Plan: No further treatment planned. Departure Weight (Pounds): 123 Weight (Ounces): 5.0 Result Diagram: 06/16/1855006/16/18550 Condition: Critical Discharge: Hospice PT/OT Follow Up For: Other (Comfort care only.) Home Health RN Follow Up For: Other (Coimfort care only.) Discharge Code Status: DNR, DNI Discharge Instructions Home Meds Active Scripts Aspirin (ASPIRIN) 81 Mg Tab.chew, 81 MG PO QDAY, #30 TAB.CHEW Prov:IONA HORTON 06/13/18 Metformin Hcl (METFORMIN HCL) 500 Mg Tablet, 1000 MG PO BIDBS for 30 Days, Prov:RICHARD WHYTE MD 11/09/17 Reported Medications Aspirin (ASPIR 81) 81 Mg Tablet., 81 MG PO QDAY, TAB 06/13/18 Oxygen (OXYGEN) Inha, 3 L INH DAILY PRN for hypoxia, L 06/09/18 Guaifenesin/Dextromethorphan (SILTUSSIN DM COUGH SYRUP) 118 Ml Syrup, 20 ML PO Q4H PRN for CONGESTION 06/09/18 Guaifenesin/Dextromethorphan (Mucinex Fast-Max Dm Max Liquid) 100 Mg-5 Mg/5 Ml Liquid, 10 ML PO Q4H PRN for cough 06/09/18 Hypromellose (ISOPTO TEARS) 15 Ml Drops, 1 GTT OU PRN PRN for dryness 06/09/18 Loperamide Hcl (ANTI-DIARRHEA) 2 Mg Tablet, 4 MG PO PRN PRN for DIARRHEA 06/09/18 Albuterol Sulfate 0.083% (ALBUTEROL SULFATE 0.083%) 2.5 Mg/3 Ml Vial.neb, 2.5 MG INH TID PRN for cough, INH 06/09/18 Metoprolol Tartrate (METOPROLOL TARTRATE) 50 Mg Tab, 1 TAB PO BID, TAB 06/09/18 Ezetimibe (ZETIA) 10 Mg Tablet, 10 MG PO QDAY, TAB 06/09/18 Calcium Carb & Cit/Vitamin D3 (CALCIUM + D3 ER TABLET) 1 Each Tablet.er, 2 EACH PO DAILY 06/09/18 Polyethylene Glycol 3350 (MIRALAX) 17 Gm Powd.pack, 17 GM PO PRN, PKT 06/05/18 Triamcinolone Acetonide 0.1% Cr 15 Gm Tube (TRIAMCINOLONE ACETONIDE 0.1% CREAM) 15 Gm Cream..g., 1 CARMELO TP BID, TUBE for 14 days. end on 06/14/2018 06/05/18 Terazosin Hcl (TERAZOSIN HCL) 1 Mg Capsule, 1 MG PO QHS, CAPSULE 06/05/18 Fluticasone Prop 50 Mcg Ns (FLONASE 50 MCG NS) 16 Gm [place].susp, 2 SPRAYS NS QDAY, BOT 06/05/18 Lactose-Free Food (ENSURE PLUS) 237 Ml Liquid, 237 ML PO QDAY 06/05/18 Albuterol Sulfate 0.083% (ALBUTEROL SULFATE 0.083%) 2.5 Mg/3 Ml Vial.neb, 2.5 MG INH TID, INH 0800/1200/2000 06/05/18 Bupropion Hcl (BUPROPION HCL) 75 Mg Tablet, 75 MG PO BID, #10 TAB 06/05/18 Valproic Acid (VALPROIC ACID) 250 Mg Cap, 250 MG PO QID@08,12,16,20, CAP 03/01/18 Hydrocortisone (Hydrocortisone) 1 % Cream..g., 1 CARMLEO TP PRN PRN for ITCHING 10/01/17 Menthol (BIOFREEZE) 118 Ml Gel..ml., PRN for PAIN 10/01/17 Omeprazole (OMEPRAZOLE) 20 Mg Capsule.dr, 1 CAP PO QDAY, CAP 10/01/17 Losartan Potassium (LOSARTAN POTASSIUM) 100 Mg Tablet, 100 MG PO QDAY 10/01/17 Acetaminophen 500 Mg Tab (ACETAMINOPHEN EXTRA STRENGTH) 500 Mg Tablet, 1000 MG PO Q4-6H PRN for PAIN, TAB 10/01/17 [closys toothpaste] No Conflict Check, 1 CARMELO BID 05/12/17 Cetyl Alc/Stearyl Alc/Pg/Sls (CETAPHIL CREAM) 454 Gm Cream..g., 454 GM TP HS Apply to both feet before bed 05/12/17 Bacitracin/Polymyxin B Sulfate (BACITRACIN-POLYMYXIN EYE OINT) 3.5 Gm Oint...g., 3.5 GM OD PRN 05/12/17 Magnesium Hydroxide (MILK OF MAGNESIA) 400 Mg/5 Ml Oral.susp, 30 ML PO QHS, BOTTLE 06/02/16 Baclofen (BACLOFEN) 10 Mg Tablet, 10 MG PO PRN PRN for HICCUPS, #30 TAB every 6 hours as needed. Only 2 in 24 hours 05/02/15 Multivitamin (ONE DAILY) 1 Each Tablet, 1 EACH PO DAILY 01/14/14 Discontinued Reported Medications Calcium Carbonate/Mag Hydrox (Antacid 1000-200 mg Tab Chew) 1 Each Tab.chew, 1000 MG PO PRN 05/26/15 Special Instructions: May offer sips of liquids or soft foods. Bed rest. Comfort care only. Copies to: DEMETRIO GARCIA DO ; Venous Thromboembolism Antithrombotics Is Pt On Any Antithrombotics?: Yes SANDRINE OLEARY MD FACP Jun 17, 2018 08:44
[2018-06-17] MEDS ORDERED: LOSARTAN POTASSIUM 50 MG TAB PO SCH (09:00)
== END 2018-06-17 11:15 | disposition hospice, inpatient (51) | DRG 178 ==
LOC: ER 17:51 → MED 20:12
PROVIDERS: ADMIT Internal Medicine; ATTEND Internal Medicine
DX: J69.0 Pneumonitis due to inhalation of food and vomit (principal); I24.8 Other forms of acute ischemic heart disease; T17.918A Gastric contents in respiratory tract, part unspecified causing other injury, initial encounter; E11.9 Type 2 diabetes mellitus without complications; I10 Essential (primary) hypertension; E78.5 Hyperlipidemia, unspecified; K21.9 Gastro-esophageal reflux disease without esophagitis; D64.9 Anemia, unspecified; F32.9 Major depressive disorder, single episode, unspecified; I44.0 Atrioventricular block, first degree; N40.0 Benign prostatic hyperplasia without lower urinary tract symptoms; R53.1 Weakness; Z51.5 Encounter for palliative care; Q99.2 Fragile X chromosome; Z79.84 Long term (current) use of oral hypoglycemic drugs; Z88.0 Allergy status to penicillin; Z88.8 Allergy status to other drugs, medicaments and biological substances; I25.2 Old myocardial infarction; Z90.49 Acquired absence of other specified parts of digestive tract
CPT/HCPCS: 36415; 36416; 71045; 71046; 81001; 82040; 82247; 82310; 82374; 82435; 82565; 82947; 82948; 84075; 84132; 84155; 84295; 84450; 84460; 84520; 85025; 87088; 93005; 94640; 94667; 97161; 97166; 99284; C9113; J0131; J1650; J1956; J2060; J2270; J7040; J7050; J7613

== ENCOUNTER → 2018-06-13 | Outpatient (CLI) | payer MEDICARE, MEDICAID ==
[2017-10-02 12:55] VITALS: BMI 21.0
[~2018-06-13] MED LIST changes: +ALBU2.5V36 INH; +ASPI-1471 PO; +ASPI81TA94 PO; +CALC1TAB32 PO; +DOXY-181 PO; +FLUT16SP19 NS; +GUAI177L6 PO; +HYPR15DR22 OU; +LACT-214 PO; +LOPE-147 PO; +METO-253 PO; +METO25TA93 PO; +OXYGENHOME INH; +POLY17PO25 PO; +TERA1CAP38 PO; +TRIA15CR40 TP
== END ==
LOC: AMB 17:03
PROVIDERS: ATTEND Nurse Practitioner
DX: R09.02 Hypoxemia (principal); I10 Essential (primary) hypertension; R53.83 Other fatigue
CPT/HCPCS: A0425; A0427

== ENCOUNTER → 2018-06-17 | Outpatient (CLI) | payer MEDICARE, MEDICAID ==
[2017-10-02 12:55] VITALS: BMI 21.0
[~2018-06-17] MED LIST changes: +ASPI-1471 PO
== END ==
LOC: AMB 10:56
PROVIDERS: ATTEND Nurse Practitioner
DX: Z51.5 Encounter for palliative care (principal); J18.9 Pneumonia, unspecified organism; R41.82 Altered mental status, unspecified; R53.1 Weakness; R62.7 Adult failure to thrive
CPT/HCPCS: A0425; A0428